=== PATIENT | male | born 1945 | race Caucasian/White ===

== ENCOUNTER → 2016-07-03 | Outpatient (CLI) | payer OTHER ==
[~2016-07-03] MED LIST: ACET-1311 PO; ACET650T82 PO; ASCO500T3 PO; GABA-113 PO; GLUCTAB7 PO; IBUP-1277 PO; LEVO88TA22 PO; NIAC1TAB59 PO; OMEG1CAP81 PO
[2016-07-03 13:47] LABS: ESTIMATED AVERAGE GLUCOSE 126 mg/dl; HA1C FLAG Normal (Normal)
[2016-07-03 13:50] LABS: CHOLESTEROL/HDL RATIO 6.1; THYROID STIMULATING HORMONE 5.33 uIu/ml (0.300-4.500)
--- NOTE | 2016-07-08 08:46 | CODING QUERY MEDICAL NECESSITY ---
SUPPORTING DIAGNOSIS NEEDED López MOROCHO, A supporting diagnosis is required for the test/procedure performed on this patient in order for us to be reimbursed by the patient's insurance. Please provide a supporting diagnosis for the following test/procedure listed below next to the test name along with your signature. *If there is no additional diagnosis for this patient that would support the following test/procedure please document that below next to the test/procedure. Test(s)/Procedure(s) that require a supporting diagnosis: * ([id number]) VITAMIN D ASSAY DIAGNOSIS: DATE OF SERVICE: 07/03/16 Provider Signature: Date: Thank you Wagner Regalado [facility] Information Management Once completed, please kindly fax back to [phone] For questions please call [phone]
== END | disposition home or self-care (01) ==
LOC: C.LABPVFM 07:46
PROVIDERS: ATTEND Nurse Practitioner
DX: E03.9 Hypothyroidism, unspecified (principal); E78.5 Hyperlipidemia, unspecified; R73.01 Impaired fasting glucose; G62.9 Polyneuropathy, unspecified; E55.9 Vitamin D deficiency, unspecified

== ENCOUNTER → 2016-09-11 | Outpatient (CLI) | payer OTHER ==
[2016-09-11 18:18] LABS: PROSTATE SPECIFIC ANTIGEN 0.452 ng/ml (0.000-4.000); THYROID STIMULATING HORMONE 2.94 uIu/ml (0.300-4.500)
--- NOTE | 2016-09-15 14:18 | CODING QUERY MEDICAL NECESSITY ---
SUPPORTING DIAGNOSIS NEEDED López MOROCHO, A supporting diagnosis is required for the test/procedure performed on this patient in order for us to be reimbursed by the patient's insurance. Please provide a supporting diagnosis for the following test/procedure listed below next to the test name along with your signature. *If there is no additional diagnosis for this patient that would support the following test/procedure please document that below next to the test/procedure. Test(s)/Procedure(s) that require a supporting diagnosis: * [id number] PSA DIAGNOSIS: DATE OF SERVICE: 09/11/16 Provider Signature: Date: Thank you Wagner Regalado [facility] Information Management Once completed, please kindly fax back to [phone] For questions please call [phone]
== END | disposition home or self-care (01) ==
LOC: C.LABPVFM 13:12
PROVIDERS: ATTEND Nurse Practitioner
DX: Z00.00 Encounter for general adult medical examination without abnormal findings (principal); E03.9 Hypothyroidism, unspecified; E55.9 Vitamin D deficiency, unspecified; Z12.5 Encounter for screening for malignant neoplasm of prostate

== ENCOUNTER → 2016-12-31 | Outpatient (CLI) | payer OTHER ==
[2016-12-31 13:44] LABS: ESTIMATED AVERAGE GLUCOSE 123 mg/dl; HA1C FLAG Normal (Normal)
[2016-12-31 14:30] LABS: BLOOD UREA NITROGEN 15 mg/dl (7-18); BUN/CREATININE RATIO 13.9 (10-20); CALCIUM 9.4 mg/dl (8.5-10.1); CARBON DIOXIDE 26 mmol/L (21-32); CHLORIDE 104 mmol/L (98-107); CREATININE 1.09 mg/dl (0.60-1.40); GLUCOSE 104 mg/dl (70-99); POTASSIUM 5.1 mmol/L (3.5-5.1); SODIUM 137 mmol/L (136-145)
[2016-12-31 14:33] LABS: CHOLESTEROL 224 mg/dl (0-200); CHOLESTEROL/HDL RATIO 6.1; HDL CHOLESTEROL 37 mg/dl; LDL CHOLESTEROL CALCULATED 152 mg/dl; TRIGLYCERIDES 173 mg/dl (0-150); VERY LOW DENSITY LIPOPROT CALC 35 mg/dl
== END | disposition home or self-care (01) ==
LOC: C.LABPVFM 07:37
PROVIDERS: ATTEND Nurse Practitioner
DX: G62.9 Polyneuropathy, unspecified (principal); R73.01 Impaired fasting glucose; E78.5 Hyperlipidemia, unspecified

== ENCOUNTER → 2017-02-01 | Outpatient (CLI) | payer OTHER ==
--- NOTE | 2017-02-01 15:29 | DIAGNOSTIC IMAGING REPORT ---
L RIBS UNILATERAL WITH PA CHEST CLINICAL HISTORY: Left rib pain COMPARISON STUDY: Chest x-ray dated 05/04/2012 FINDINGS: The erect chest reveals evidence for underlying interstitial pulmonary opacities with a subpleural distribution. There is no pneumothorax. No left-sided rib fractures are visualized. IMPRESSION: 1. No evidence of pneumothorax 2. No rib fractures identified 3. Suspected underlying interstitial lung disease Electronically signed by: Burt Horn M.D. 02/01/2017 3:27 PM Dictated Date/Time: 02/01/2017 3:26 PM
== END | disposition home or self-care (01) ==
LOC: C.RADPV 14:50
PROVIDERS: ATTEND Family Medicine
DX: R07.81 Pleurodynia (principal)

== ENCOUNTER → 2017-07-02 | Outpatient (CLI) | payer OTHER ==
[2017-07-02 13:32] LABS: BLOOD UREA NITROGEN 16 mg/dl (7-18); CALCIUM 8.8 mg/dl (8.5-10.1); CARBON DIOXIDE 27 mmol/L (21-32); CHOLESTEROL 216 mg/dl (0-200); CREATININE 0.93 mg/dl (0.60-1.40); GLUCOSE 87 mg/dl (70-99); HEMOGLOBIN A1C 5.9 % (4.5-5.6); LDL CHOLESTEROL CALCULATED 147 mg/dl; POTASSIUM 4.2 mmol/L (3.5-5.1); SODIUM 138 mmol/L (136-145)
== END | disposition home or self-care (01) ==
LOC: C.LABPVFM 08:15
PROVIDERS: ATTEND Nurse Practitioner
DX: E78.5 Hyperlipidemia, unspecified (principal); R73.01 Impaired fasting glucose; G62.9 Polyneuropathy, unspecified; E55.9 Vitamin D deficiency, unspecified; E03.9 Hypothyroidism, unspecified

== ENCOUNTER 2024-02-19 12:06 | Observation (INO) ==
--- NOTE | 2024-02-19 12:43 | Emergency Department Note ---
Impression & Plan Abnormal ECG, Shortness of breath, Elevated troponin ED Provider Note NAME: QUETA NEAL AGE: 78 SEX: M : 1945 ARRIVES VIA: Walk-In INFORMANT: Patient ED PROVIDER(S): Ray Crews DO CHIEF COMPLAINT: Weakness HPI: Patient is an 78-year-old female who presents to the ER with a past medical history smoker, hypoxia, pulmonary fibrosis who presents ER for weakness. He notes that the weakness has been present for the past 1 to 2 days. He denies any headache or change in vision. He admits to shortness of breath has been getting worse. He is getting more short of breath with exertion. It has not changed in any way. No chest pain. No belly pain. No nausea, vomiting, or diarrhea. No dysuria, urgency, or frequency. No focal weakness in the arms or legs. No other exacerbating or remitting factors. ADDITIONAL HISTORY OBTAINED: Per HPI Chronic Medical/Social Conditions Affecting Care: Per HPI PAST MEDICAL HISTORY:See Below PAST SURGICAL HISTORY:See Below FAMILY HISTORY:See Below SOCIAL HISTORY:See Below HOME MEDICATIONS:See Below ALLERGIES:See Below VITALS:See Below PHYSICAL EXAMINATION: GENERAL: Sitting up in bed, alert, well appearing, well nourished, no distress, non-toxic EYE EXAM: normal conjunctiva. OROPHARYNX: no exudate, no erythema, lips, buccal mucosa, and tongue normal and mucous membranes are moist NECK: supple, no nuchal rigidity, no adenopathy, non-tender LUNGS: Clear to auscultation. Normal chest wall mechanics HEART: no murmurs, S1 normal and S2 normal ABDOMEN: abdomen soft, non-tender, normo-active bowel sounds, no masses, no rebound or guarding. UPPER EXTREMITIES: upper extremities are grossly normal. LOWER EXTREMITIES: No pitting edema. NEURO EXAM: Normal sensorium, cranial nerves II-XII grossly intact, normal speech, no gross weakness of arms, no gross weakness of legs. MEDICAL DECISION MAKING: Patient is an 78-year-old male who presents to the ER for weakness and worsening shortness of breath. IV was established and blood work was obtained. Labs show no significant leukocytosis or anemia. BMP with LFTs bilirubin is unremarkable. Troponin was elevated at 73. Viral panel was negative. EKG did show changes in comparison to the previous. At rest patient has no chest pain or shortness of breath. Patient was covered with Rocephin and azithromycin due to a chest x- ray suggesting a possible infiltrate. He was updated bedside. Discussed case with the hospitalist for further evaluation management treatment. Consults/Care Managements Discussions: Per [facility] Triage Nursing notes reviewed. Limited review of prior medical records performed Vital Signs: reviewed and remarkable for no significant abnormalities Differential diagnosis: Infection, dehydration, metabolic abnormality, hypo/hyperglycemia, electrolyte disturbance, anemia, hypoxia, cardiac sources, intracerebral event, toxicologic, neurologic, as well as other pathologies. ER treatment provided: See below Diagnostics interpreted by me include EKG and cardiac monitoring as listed below: -Cardiac Monitoring: An order was placed for continuous cardiac monitoring. The monitor shows a rate of 81 with sinus rhythm. -ECG: Sinus rhythm rate 80 Normal axis No PVCs Left bundle branch block Slight elevations in the inferior leads QTc 499 EKG #2 Sinus rhythm with a first-degree AV block rate of 64 Normal axis no wound T wave inversion in the high lateral leads with ST depressions QTc 484 -Laboratory studies:Interpreted by me as stated above in MDM and shown below. Imaging studies: Xrays: As interpreted by me: Portable AP upright 1 view of the chest shows diffuse interstitial thickening Chest x-ray per radiology shows a left lower lobe infiltrate CTs show: none Procedures:none Critical Care: None Past Med/Surg History Problem List (Updated 02/19/24 @ 17:41 by Ray Crews DO) Elevated troponin (Acute) Shortness of breath (Acute) Abnormal ECG (Acute) Exertional angina Pulmonary fibrosis Dyspnea Encounter for examination following treatment at hospital Shortness of breath Hypoxia Cigar smoker ILD (interstitial lung disease) Pulmonary nodule Restrictive lung disease IPF (idiopathic pulmonary fibrosis) Abnormal chest CT Abnormal CXR Dyspnea on exertion Weight loss Allergic rhinitis Pre-diabetes Elevated bilirubin Orthostasis LBBB (left bundle branch block) Nystagmus Elevated serum globulin level (Acute) Hypertension (Chronic) not currently on meds d/y orthostasis and syncopal episodes. See Dr Larkin OV 03/07 re: recommendations Chronic back pain (Chronic) GERD (gastroesophageal reflux disease) (Acute) Hyperlipidemia (Chronic) refuses statin Peripheral neuropathy (Chronic) Primary hypothyroidism (Chronic) Vitamin D deficiency (Chronic) Medical History Syncopal episodes Lesion of finger Actinic keratosis Smokeless tobacco use Spinal stenosis Osteoarthritis Surgical History History of cataract surgery History of tooth extraction History of cholecystectomy History of total hip arthroplasty History of colonoscopy Family History Mother Family history of diabetes mellitus Ovarian cancer Sister Family history of diabetes mellitus Breast cancer Denies family history of Prostate cancer Myocardial infarction Colorectal cancer Social History (Updated 12/16/23 @ 09:29 by Afua Ruiz LPN) Smoking Status: Former smoker Tobacco Type: Cigars Cigarettes Per Day: 1 cigar 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; Second Hand Exposure: Yes (PREVIOSU EXPOSURE WHEN WAS ALIVE); Do You Dip or Chew Tobacco: No; Hx Alcohol Use: No Hx Substance Use: No Preferred Language: Thai Communication Ability: Effective Visual Impairment: No Limitations Hearing Ability: Normal 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 Beliefs That Will Affect Care: None marital status: / Current Living Situation: Alone current occupational status: retired How many Children do You have: 1 Feels Safe at Home: Yes Childhood Exposure to Second-Hand Smoke: No Diet: regular caffeine: Yes Dental Care, Regularly: No Physical Activity Frequency: 5-6 Times per Week Seatbelt Use: always Sunscreen Use: No Assistive Devices: None Allergies Allergies Allergy/AdvReac Type Severity Reaction Status Date / Time No Known Allergies Allergy Verified 01/12/24 10:03 Home Meds Home Medications Medication Instructions Recorded Confirmed niacin 500 mg tablet 500 mg PO QPM 12/07/17 02/19/24 ascorbic acid (vitamin C) 500 mg 500 mg PO DAILY 09/13/23 02/19/24 tablet (Vitamin C) cholecalciferol (vitamin D3) 50 50 mcg PO DAILY 09/13/23 02/19/24 mcg (2,000 unit) tablet (Vitamin D3) fluticasone propionate 50 1 spray intranasal BID PRN 09/13/23 02/19/24 mcg/actuation nasal Congestion spray,suspension diphenhydramine 25 1 tab PO HS PRN pain/sleep 11/02/23 02/19/24 mg-acetaminophen 500 mg tablet (Tylenol PM Extra Strength) Previous Rx's Medication Instructions Recorded Incentive Spirometer #1 ea 08/09/23 levothyroxine 100 mcg capsule 100 mcg PO DAILY #90 caps 08/23/23 pirfenidone 267 mg capsule See Rx Instructions PO .COMPLEX 11/05/23 (Esbriet) #360 caps albuterol sulfate 90 mcg/actuation 1 inh inhalation QID PRN shortness 01/06/24 aerosol inhaler of breath or wheezing #8.5 grams Results & Data (ED) Vital Signs Vital Signs - 24 hr 02/19/24 12:12 02/19/24 13:28 02/19/24 16:50 Temperature 36.6 C Temperature Source Temporal Artery Scan Pulse Rate 76 64 Pulse Rate [Apical] 73 Pulse Rhythm [Apical] Regular Pulse Strength [Apical] Normal Respiratory Rate 18 26 H Respiratory Effort / Characteristics Non-Labored Respiratory Depth Normal Blood Pressure 129/77 Blood Pressure [Left Arm] 169/87 H Blood Pressure Mean 94 Blood Pressure Mean [Left Arm] 114 Blood Pressure Position Sitting Blood Pressure Position [Left Arm] Sitting Pulse Oximetry 95 98 Oxygen Delivery Method Room Air Room Air Sepsis Recent Fever Within 48 Hours No Sepsis New/Unexplained Change in Mental Status N/A Sepsis Action Taken by Nursing No Action Required Laboratory Data 02/19/24 12:30 02/19/24 12:30 Lab Results 02/19/24 02/19/24 Range/Units 12:30 12:35 WBC 7.61 (4.8-10.8) K/ul RBC 4.42 L (4.70-6.10) M/uL Hgb 14.5 (14.0-18.0) g/dl Hct 41.9 L (42.0-52.0) % MCV 94.8 (80.0-100.0) fL MCH 32.8 (25.0-34.0) pg MCHC 34.6 (32.0-36.0) g/dL RDW Std Deviation 45.0 (36.4-46.3) fL RDW Coeff of Christa 12.9 (11.5-14.5) % Plt Count 222 (130-400) K/uL MPV 9.9 (9.4-12.4) fL Immature Gran % (Auto) 0.3 % Neut % (Auto) 71.0 % Lymph % (Auto) 20.0 % [place] % (Auto) 6.4 % Eos % (Auto) 1.6 % Baso % (Auto) 0.7 % Neut # (Auto) 5.41 (1.40-6.50) K/uL Lymph # (Auto) 1.52 (1.20-3.40) K/uL [place] # (Auto) 0.49 (0.11-0.59) K/uL Eos # (Auto) 0.12 (0.00-0.50) K/uL Baso # (Auto) 0.05 (0.00-0.20) K/uL Immature Gran # (Auto) 0.02 (0.01-0.20) K/uL Sodium 137 (136-145) mmol/L Potassium 4.2 (3.5-5.1) mmol/L Chloride 103 (98-107) mmol/L Carbon Dioxide 28 (21-32) mmol/L Anion Gap 6 (3-11) BUN 12 (6-23) mg/dl Creatinine 0.84 (0.6-1.4) mg/dl Est Cr Clr Drug Dosing 68.7 ml/min eGFR 88.16 BUN/Creatinine Ratio 14.3 (10-20) Glucose 93 (70-99(Fasting)) mg/dl Calcium 9.4 (8.6-10.3) mg/dl Total Bilirubin 0.7 (0.2-1.0) mg/dl AST 24 (13-39) U/L ALT 13 (7-52) U/L Alkaline Phosphatase 66 (34-104) U/L Troponin I High Sens 73.7 H* (0-20) pg/ml Total Protein 7.9 (6.0-8.3) gm/dl Albumin 4.3 (3.4-5.0) gm/dl Globulin 3.6 (2.5-4.0) gm/dl Albumin/Globulin Ratio 1.2 (0.9-2) Adenovirus (PCR) Not Detected (NotDetected) B. pertussis DNA (PCR) Not Detected (NotDetected) B.parapertussis DNA PCR Not Detected (NotDetected) C. pneumoniae DNA (PCR) Not Detected (NotDetected) Coronavirus OC43 (PCR) Not Detected (NotDetected) Coronavirus HKU1 (PCR) Not Detected (NotDetected) Coronavirus 229E (PCR) Not Detected (NotDetected) SARS-CoV-2 (PCR) Not Detected (NotDetected) Coronavirus NL63 (PCR) Not Detected (NotDetected) Human Metapneumovir PCR Not Detected (NotDetected) Influenza Type A (PCR) Not Detected (NotDetected) Influenza Type B (PCR) Not Detected (NotDetected) M. pneumoniae (PCR) Not Detected (NotDetected) Parainfluenza 1 (PCR) Not Detected (NotDetected) Parainfluenza 2 (PCR) Not Detected (NotDetected) Parainfluenza 3 (PCR) Not Detected (NotDetected) Parainfluenza 4 (PCR) Not Detected (NotDetected) RSV (PCR) Not Detected (NotDetected) Entero/Rhino (PCR) Not Detected (NotDetected) Administered Medications Discontinued Medications Aspirin (Aspirin Chew 324 Mg) 324 mg PO NOW STA Stop: 02/19/24 16:23 Last Admin: 02/19/24 16:40 Dose: 324 mg Documented By: MAGNOLIA Azithromycin (Azithromycin 250 Mg Tab) 500 mg PO NOW ONE Stop: 02/19/24 15:29 Last Admin: 02/19/24 16:40 Dose: 500 mg Documented By: MAGNOLIA Sodium Chloride (Nss) 500 mls @ 999 mls/hr IV .Q31M ONE Stop: 02/19/24 13:03 Last Infusion: 02/19/24 13:32 Dose: Infused Documented By: Admin: 02/19/24 13:00 Dose: 999 mls/hr Documented By: Ceftriaxone Sodium (Rocephin) 2,000 mg in 50 mls @ 100 mls/hr IV NOW STA Stop: 02/19/24 15:35 Last Admin: 02/19/24 16:43 Dose: 100 mls/hr Documented By: [facility] Imaging Data Radiologist's Impression: Chest X-Ray 02/19/24 12:32 XR chest 1V not portable CLINICAL HISTORY: weakness COMPARISON STUDY: Chest radiograph and chest CT September 13, 2023. FINDINGS: There is no pneumothorax or pleural effusion. Diffuse interstitial thickening with lower lobe volume loss is unchanged. A 1.3 cm nodular left lower lung opacity is new since prior exam. Cardiomegaly is unchanged. Mediastinal contours are stable. IMPRESSION: 1. Interstitial thickening consistent with pulmonary fibrosis, similar to prior chest CT and chest radiograph. 2. New 1.3 cm nodular left lower lung opacity. This could represent a mild infectious process. Radiographic follow-up to ensure resolution and exclude a pulmonary nodule is recommended. ACT 112: Negative or not required by law. Electronically signed by: Baljeet Vazquez M.D. 02/19/2024 1:48 PM Discharge Plan Visit Data Chief Complaint: Illness Stated Complaint: FATIGUE, PULMINARY FIBROSIS, WEIGHT LOSS, POOR CIERA ED Provider: Ray Crews Discharge Problem: Abnormal ECG, Shortness of breath, Elevated troponin Forms Stand Alone Forms: My [facility] [employer] Prescriptions Prescriptions: No Action levothyroxine 100 mcg capsule 100 mcg PO DAILY Qty: 90 3RF Rx Instructions: last filled 02/11 pt aware dose change albuterol sulfate 90 mcg/actuation HFA aerosol inhaler 1 inh inhalation QID PRN (Reason: shortness of breath or wheezing) Qty: 8.5 1RF Rx Instructions: filled 02/09 (DME) Incentive Spirometer Misc See Rx Instructions .MEDSUPPLY Qty: 1 0RF Rx Instructions: As directed diphenhydramine-acetaminophen [Tylenol PM Extra Strength] 25-500 mg tablet 1 tab PO HS PRN (Reason: pain/sleep) Rx Instructions: 03/10/24:otc unable to verify pirfenidone [Esbriet] 267 mg capsule See Rx Instructions PO .COMPLEX Qty: 360 2RF Rx Instructions: 02/19/24: no fill history available take 1 capsule 3 times daily for 7 days; 2 capsules 3 times daily for 7 days, then 3 capsules 3 times daily. PO niacin 500 mg Tablet 500 mg PO QPM Rx Instructions: 03/10/24:otc unable to verify cholecalciferol (vitamin D3) [Vitamin D3] 50 mcg (2,000 unit) Tablet 50 mcg PO DAILY Rx Instructions: 03/10/24:otc unable to verify ascorbic acid (vitamin C) [Vitamin C] 500 mg Tablet 500 mg PO DAILY Rx Instructions: 03/10/24:otc unable to verify fluticasone propionate 50 mcg/actuation spray,suspension 1 spray intranasal BID PRN (Reason: Congestion) Rx Instructions: 02/19/24:no fill history/otc unable to verify 1 spray intranasally twice daily as needed; administer into each nostril Referrals Referrals: Nikki Dawn CRNP [Primary Care Provider] -
[2024-02-19] MEDS: SODIUM CHLORIDE 0.9% 500 ML IV ONE (13:00)
[2024-02-19 13:07] LABS: Basophils # (auto) 0.05 K/uL (0.00-0.20); Basophils % (auto) 0.7 %; Eosinophils # (auto) 0.12 K/uL (0.00-0.50); Eosinophils % (auto) 1.6 %; Hematocrit (blood only) 41.9 % (42.0-52.0); Hemoglobin 14.5 g/dl (14.0-18.0); Immature Granulocytes # (auto) 0.02 K/uL (0.01-0.20); Immature Granulocytes % (auto) 0.3 %; Lymphocytes # (auto) 1.52 K/uL (1.20-3.40); Mean Corpuscular Hemoglobin 32.8 pg (25.0-34.0); Mean Corpuscular Hgb Conc 34.6 g/dL (32.0-36.0); Mean Corpuscular Volume 94.8 fL (80.0-100.0); Mean Platelet Volume 9.9 fL (9.4-12.4); Monocytes # (auto) 0.49 K/uL (0.11-0.59); Monocytes % (auto) 6.4 %; Neutrophils # (auto) 5.41 K/uL (1.40-6.50); Platelet Count 222 K/uL (130-400); RDW Coefficient of Variation 12.9 % (11.5-14.5); Red Blood Count 4.42 M/uL (4.70-6.10); White Blood Count 7.61 K/ul (4.8-10.8)
[2024-02-19 13:25] LABS: Albumin Globulin Ratio 1.2 (0.9-2); Albumin Level 4.3 gm/dl (3.4-5.0); BUN Creatinine Ratio 14.3 (10-20); Bilirubin,Total 0.7 mg/dl (0.2-1.0); Calcium 9.4 mg/dl (8.6-10.3); Creatinine Clr Calc Pharmacy 68.7 ml/min; Globulin 3.6 gm/dl (2.5-4.0); Potassium 4.2 mmol/L (3.5-5.1); Total Protein 7.9 gm/dl (6.0-8.3)
[2024-02-19 13:51] LABS: Adenovirus PCR Not Detected (NotDetected); Bordetella parapertussis PCR Not Detected (NotDetected); Bordetella pertussis PCR Not Detected (NotDetected); Chlamydia pneumoniae PCR Not Detected (NotDetected); Coronavirus 229E PCR Not Detected (NotDetected); Coronavirus CoV-2 (COVID19)PCR Not Detected (NotDetected); Coronavirus HKU1 PCR Not Detected (NotDetected); Coronavirus NL63 PCR Not Detected (NotDetected); Coronavirus OC43PCR Not Detected (NotDetected); Human Metapneumovirus PCR Not Detected (NotDetected); Influenza A PCR Not Detected (NotDetected); Influenza B PCR Not Detected (NotDetected); Mycoplasma pneumoniae PCR Not Detected (NotDetected); Parainfluenza Virus 1 PCR Not Detected (NotDetected); Parainfluenza Virus 2 PCR Not Detected (NotDetected); Parainfluenza Virus 3 PCR Not Detected (NotDetected); Parainfluenza Virus 4 PCR Not Detected (NotDetected); Respiratory Syncytial VirusPCR Not Detected (NotDetected); Rhinovirus/Enterovirus PCR Not Detected (NotDetected)
--- NOTE | 2024-02-19 13:51 | XRay Report ---
XR chest 1V not portable CLINICAL HISTORY: weakness COMPARISON STUDY: Chest radiograph and chest CT September 13, 2023. FINDINGS: There is no pneumothorax or pleural effusion. Diffuse interstitial thickening with lower lo be volume loss is unchanged. A 1.3 cm nodular left lower lung opacity is new since prior exam. Cardio megaly is unchanged. Mediastinal contours are stable. IMPRESSION: 1. Interstitial thickening consistent with pulmonary fibrosis, similar to prior chest CT and chest ra diograph. 2. New 1.3 cm nodular left lower lung opacity. This could represent a mild infectious process. Radiog raphic follow-up to ensure resolution and exclude a pulmonary nodule is recommended. ACT 112: Negative or not required by law. Electronically signed by: Baljeet Vazquez M.D. 02/19/2024 1:48 PM
--- NOTE | 2024-02-19 15:40 | History & Physical Report ---
Date of Service February 19, 2024 Assessment & Plan (1) Exertional angina: Plan: patient with history of pulmonary fibrosis, longtime smoker external dyspnea and chest pain weakness x2 days EKG showing changes from previous, 1st degree av block, slurred upstroke of ST segments in anterior leads - trop elevated 73.7; ASA ordered, will trend trop overnight - obs telemetry overnight - echo ordered - cardiology consulted - possible stress test vs cath - EKG with chest pain prn (2) Dyspnea: Plan: non-hypoxic CXR showing pulmonary fibrosis along with new 1.3 cm nodule of left lower lobe that could be infectious Biofire negative ED gave Rocephin 2g x1 and azithromycin; defer further ABX use as biofire negative and infection low on differential (3) Pulmonary nodule: Plan: 1.3 cm nodule LLL seen on CXR Not seen on recent CT 09/13/23 will obtain a chest CT 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 He presents for weakness dyspnea and x 2 days. Admitting EKG showed similar changes including first degree A-V block ST slurred upstroke. He is being admitted for a cardiac workup, will obtain echo; consulting cardiology, may need stress test versus cath. Chronic stable diagnoses: HLD - continue Niaspan; has refused statins in past hypothyroidism - continue levothyroxine VTE ppx: SCDs; obs - can add chemical ppx if chcf stay Diet: heart healthy Dispo: med/tele - obs Admission and Anticipated Discharge Date Admission Date: 02/19/24 History of Present Illness Chief Complaint: weakness Primary Care Provider: BAILEE Neff Patient is an 78-year-old male with past medical history of pulmonary fibrosis, spinal stenosis, hypothyroidism, hyperlipidemia. He presents today due to weakness x 2 days CXR showed pulmonary fibrosis along with a new 1.3 cm nodule of the left lower lobe. He does have a history of syncopal episodes due to hypotension, he follow-up with cardiology and had a Holter monitor that showed LBBB. Patient stated that he has had weakness and dyspnea on exertion x 2 days. He also stated that he has chest pain on exertion after chronic dyspnea. He stated the chest pain "just is" when asked to describe the pain. Denies radiation of chest pain. He also has occasional diarrhea. He has had a decreased appetite for the past few days as well, has had a strong fluid intake. Patient denies fever, chills, rhinorrhea, sore throat, cough, sputum production, abdominal pain, nausea, vomiting. He stated he had 1 syncopal episode and had a workup with cardiology which did not really show much. He stated he occasionally gets dizzy when standing up too fast. He denies past history of diabetes or previous VTE. He does not use oxygen at baseline. He took his home medications this morning. He is due for his lunchtime dose pirefenidone, ordered on admission. He wishes to be DNR/DNI. Updated patients family at bedside. Allergies Allergy/AdvReac Type Severity Reaction Status Date / Time No Known Allergies Allergy Verified 01/12/24 10:03 Home Medications Medication Instructions Recorded Confirmed Type niacin 500 mg tablet 500 mg PO QPM 12/07/17 02/19/24 History Incentive Spirometer #1 ea 09/23/22 01/12/24 Rx levothyroxine 100 mcg capsule 100 mcg PO DAILY #90 caps 08/23/23 02/19/24 Rx ascorbic acid (vitamin C) 500 mg 500 mg PO DAILY 09/13/23 02/19/24 History tablet (Vitamin C) cholecalciferol (vitamin D3) 50 50 mcg PO DAILY 09/13/23 02/19/24 History mcg (2,000 unit) tablet (Vitamin D3) fluticasone propionate 50 1 spray intranasal BID PRN 09/13/23 02/19/24 History mcg/actuation nasal Congestion spray,suspension diphenhydramine 25 1 tab PO HS PRN pain/sleep 11/02/23 02/19/24 History mg-acetaminophen 500 mg tablet (Tylenol PM Extra Strength) pirfenidone 267 mg capsule See Rx Instructions PO .COMPLEX 11/05/23 02/19/24 Rx (Esbriet) #360 caps albuterol sulfate 90 mcg/actuation 1 inh inhalation QID PRN shortness 01/06/24 02/19/24 Rx aerosol inhaler of breath or wheezing #8.5 grams Past Med/Surg History Problem List (Updated 02/19/24 @ 16:33 by Lisbeth Lynch PA-C) Exertional angina Pulmonary fibrosis Dyspnea Encounter for examination following treatment at hospital Shortness of breath Hypoxia Cigar smoker ILD (interstitial lung disease) Pulmonary nodule Restrictive lung disease IPF (idiopathic pulmonary fibrosis) Abnormal chest CT Abnormal CXR Dyspnea on exertion Weight loss Allergic rhinitis Pre-diabetes Elevated bilirubin Orthostasis LBBB (left bundle branch block) Nystagmus Elevated serum globulin level (Acute) Hypertension (Chronic) not currently on meds d/y orthostasis and syncopal episodes. See Dr Larkin OV 03/07 re: recommendations Chronic back pain (Chronic) GERD (gastroesophageal reflux disease) (Acute) Hyperlipidemia (Chronic) refuses statin Peripheral neuropathy (Chronic) Primary hypothyroidism (Chronic) Vitamin D deficiency (Chronic) Medical History Syncopal episodes Lesion of finger Actinic keratosis Smokeless tobacco use Spinal stenosis Osteoarthritis Surgical History History of cataract surgery History of tooth extraction History of cholecystectomy History of total hip arthroplasty History of colonoscopy Family History Mother Family history of diabetes mellitus Ovarian cancer Sister Family history of diabetes mellitus Breast cancer Denies family history of Prostate cancer Myocardial infarction Colorectal cancer Social History (Updated 12/16/23 @ 09:29 by Afua Ruiz LPN) Smoking Status: Former smoker Tobacco Type: Cigars Cigarettes Per Day: 1 cigar 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; Second Hand Exposure: Yes (PREVIOSU EXPOSURE WHEN WAS ALIVE); Do You Dip or Chew Tobacco: No; Hx Alcohol Use: No Hx Substance Use: No Preferred Language: Sinhala Communication Ability: Effective Visual Impairment: No Limitations Hearing Ability: Normal Manager Land Required: No Beliefs That Will Affect Care: None marital status: / Current Living Situation: Alone current occupational status: retired How many Children do You have: 1 Feels Safe at Home: Yes Childhood Exposure to Second-Hand Smoke: No Diet: regular caffeine: Yes Dental Care, Regularly: No Physical Activity Frequency: 5-6 Times per Week Seatbelt Use: always Sunscreen Use: No Assistive Devices: None Review of Systems Review of Systems: see HPI Physical Exam Physical Exam: The patient is awake, alert and oriented 3, well developed and well nourished, normocephalic and atraumatic, in no acute distress. Non-toxic appearing. HEENT- EOMI, mucous membranes moist. Hearing grossly intact. Heart-normal S1 and S2. No murmurs, rubs or gallops. Lungs-crackles bilaterally, no respiratory distress, no accessory muscle use. Abdomen-normal bowel sounds and soft. No ascites noted. Non-tender. Extremities- no clubbing, cyanosis, or edema. Rheumatologic-normal range of motion. Psychiatric-normal affect. Results & Data Results & Data Vital Signs (Past 12 Hours) Vital Signs Temp Pulse Resp BP Pulse Ox O2 Del Method 02/19/24 13:28 64 02/19/24 12:12 36.6 C 76 18 129/77 95 Room Air Laboratory Results reviewed CBC, CMP, biofire, trop Diagnostic Findings reviewed CXR Medications Administered ED: 500 mL NSS, Rocephin ECG Additional Comments: 1st degree AV block Code Status & VTE Plan Code Status dnr/dni VTE Prophylaxis Plan VTE Prophylaxis will be ordered: Yes Supervising Physician Co-Signing Physician Notes I have personally seen, evaluated and examined the patient. I have also personally discussed the management of the patient with the resident physician/CIERA and I agree with the exam findings documented in the history and physical examination and the documented assessment and plan unless otherwise stated below. Brief Exam: In general very pleasant 78-year-old male. He does admit to some significant weight loss over the last year with his pulmonary fibrosis. He even gets winded with eating. But his shortness of breath and weakness of significantly increased here over the last 24 hours since the presentation today. He denies any wyatt chest pain or chest pressure. Patient reports he is retired from the [employer] over in [place] and served 2 years in [email or web address]. HEENT: Normocephalic atraumatic. Heart: Regular rate and rhythm I do not appreciate any wyatt murmur however auscultation is masked by his pulmonary fibrosis. Lungs: Bilateral pulmonary crackles consistent with advancing pulmonary fibrosis. Extremities: Intact no edema. Neurologically: Alert and oriented x 3 with no focal deficit. Assessment/plan: As discussed above. Serial troponins. Aspirin therapy. If repeat troponin is significantly higher entertain heparin drip. Cardiology cons ultation for ischemic workup stress test versus heart catheterization pending echo results and troponin results and clinical course. Please refer to orders for further planning. PG Care Time/CCT Total # of Minutes Spent Total Time Spent with Patient: Total time spent is greater than 50% in coordination of care (as documented) at patient's floor/unit and/or counseling patient: Coding Level of Care Code 42603 INT INP/OBS CARE 3/75MIN Diagnoses Exertional angina I20.89 Dyspnea R06.00 Pulmonary nodule R91.1 Pulmonary fibrosis J84.10
[2024-02-19 15:59] LABS: Troponin I High Sensitivity 73.7 pg/ml (0-20)
[2024-02-19] MEDS ORDERED: PIRFENIDONE 801 MG PO STA (16:16)
[2024-02-19] MEDS: ASPIRIN CHEW 324 MG PO STA (16:40)
[2024-02-19] MEDS: AZITHROMYCIN 250 MG TAB PO ONE (16:40)
[2024-02-19] MEDS: cefTRIAXone SODIUM 2,000 MG/50 ML BAG IV STA (16:43)
[2024-02-19] MEDS ORDERED: NON-FORMULARY MEDICATION (Diphenhydramine-Acetaminophen [Tylenol Pm Extra Strength] 25-500 PO PRN (18:23)
[2024-02-19] MEDS ORDERED: DOCUSATE SODIUM 100 MG CAP PO PRN (18:23)
[2024-02-19] MEDS ORDERED: FLUTICASONE PROPIONATE NA SPR 16 GM BTL PRN (18:23)
[2024-02-19] MEDS ORDERED: ALBUTEROL HFA 8 GM INHALER INH PRN (18:23)
[2024-02-19] MEDS ORDERED: ACETAMINOPHEN 500 MG TAB PO PRN (18:32)
[2024-02-19] MEDS ORDERED: diphenhydrAMINE Capsule 25 MG CAP PO PRN (18:33)
[2024-02-19] MEDS: NIACIN 500 MG TAB PO SCH (20:13)
[2024-02-20] MEDS: LEVOTHYROXINE SODIUM 100 MCG TABLET PO SCH (06:02)
[2024-02-20 06:20] LABS: Appearance Urine Clear (Clear); Bacteria Urine Automated None Seen (None Seen); Bilirubin Urine Negative (Negative); Blood Urine Negative (Negative); Cast Urine Automated 0-2 /lpf (0-2); Color Urine Yellow; Epithelial Cell Urine Auto 0-2 /hpf (0-2); Glucose Urine UA Negative (Negative); Ketones Urine 2+ (Negative); Leukocyte Esterase Urine Negative (Negative); Nitrite Urine Negative (Negative); Protein Urine Trace (Negative); RBC Urine Automated 0-2 /hpf (0-2); Specific Gravity Urine 1.023 (1.000-1.030); Urobilinogen Urine Negative (Negative); WBC Urine Automated 0-5 /hpf (0-5); pH Urine 5.5 (4.5-7.5)
[2024-02-20 06:44] LABS: Basophils # (auto) 0.07 K/uL (0.00-0.20); Eosinophils # (auto) 0.37 K/uL (0.00-0.50); Eosinophils % (auto) 5.2 %; Hematocrit (blood only) 37.3 % (42.0-52.0); Hemoglobin 12.9 g/dl (14.0-18.0); Immature Granulocytes # (auto) 0.02 K/uL (0.01-0.20); Immature Granulocytes % (auto) 0.3 %; Lymphocytes # (auto) 1.59 K/uL (1.20-3.40); Lymphocytes % (auto) 22.4 %; Mean Corpuscular Hemoglobin 32.6 pg (25.0-34.0); Mean Corpuscular Hgb Conc 34.6 g/dL (32.0-36.0); Mean Corpuscular Volume 94.2 fL (80.0-100.0); Mean Platelet Volume 9.7 fL (9.4-12.4); Monocytes # (auto) 0.62 K/uL (0.11-0.59); Monocytes % (auto) 8.7 %; Neutrophils # (auto) 4.43 K/uL (1.40-6.50); Neutrophils % (auto) 62.4 %; Platelet Count 200 K/uL (130-400); RDW Coefficient of Variation 12.9 % (11.5-14.5); RDW Standard Deviation 44.5 fL (36.4-46.3); Red Blood Count 3.96 M/uL (4.70-6.10)
[2024-02-20 07:02] LABS: BUN Creatinine Ratio 16.7 (10-20); Calcium 8.7 mg/dl (8.6-10.3); Creatinine Clr Calc Pharmacy 76.2 ml/min; Potassium 4.4 mmol/L (3.5-5.1)
[2024-02-20] MEDS: ASCORBIC ACID 500 MG TAB PO SCH (08:17)
[2024-02-20] MEDS: CHOLECALCIFEROL 25 MCG (1000 UNITS) TAB PO SCH (08:17)
--- NOTE | 2024-02-20 08:44 | CT Scan Report ---
CT OF THE CHEST WITHOUT IV CONTRAST CLINICAL HISTORY: Left lower lobe nodule. COMPARISON STUDY: Chest CT September 13, 2023. Chest radiograph performed earlier today. CT DOSE: 263.24 mGy.cm TECHNIQUE: Axial images of the chest were obtained without IV contrast. Images were reviewed in the axial, sagittal, and coronal planes. IV contrast was not administered for this examination. Automat ed exposure control was utilized for the study. A dose lowering technique was utilized adhering to t he principles of ALARA. FINDINGS: A small amount of pneumomediastinum is present. There is no pneumothorax or pleural effusi on. The heart is moderately enlarged. Dilatation of the central pulmonary arteries is again noted. Th e main pulmonary artery measures 3.5 cm in caliber. There is extensive coronary artery calcification. There is no pneumothorax or pleural effusion. Basilar and peripheral prominent honeycombing and subp leural nodular densities is similar to prior CT. No superimposed consolidation is identified to sugge st pneumonia. There are no suspicious pulmonary nodules. The nodular density on chest radiograph was likely due to a nipple shadow. Visualized portions of the upper abdomen demonstrate pneumobilia. The gallbladder is surgically absent. IMPRESSION: 1. Small amount of pneumomediastinum. No pneumothorax or pleural effusion. 2. UIP pattern of pulmonary fibrosis, similar to CT of September 13, 2023. No superimposed consolidation t o suggest pneumonia. 3. No suspicious pulmonary nodules. The nodular density on chest radiograph of February 19, 2024 was li pancho due to a nipple shadow. 4. Cardiomegaly. Extensive coronary artery calcification. Dilatation of the central pulmonary arterie s which raises the possibility of pulmonary arterial hypertension. ACT 112: Negative or not required by law. Electronically signed by: Baljeet Vazquez M.D. 02/20/2024 8:41 AM
--- NOTE | 2024-02-20 08:50 | Cardiology Consultation ---
Date of Consultation February 20, 2024 Assessment & Plan (1) Shortness of breath: (2) Exertional angina: (3) Elevated troponin: (4) LBBB (left bundle branch block): Plan 1. Shortness of breath: This is longstanding and has been attributed to pulmonary disease, that is almost certainly a major component but I cannot exclude an additional component of myocardial ischemia or injury. His dyspnea on exertion has progressed over the last month or so. An echocardiogram is pending. 2. Exertional angina: He describes exertional angina over the last month, this has been progressive but he has not had rest symptoms. He has not had this historically. I suspect this is due to coronary artery disease. 3. Elevated troponin: This troponin elevation is worrisome. This coupled with chest discomfort, coronary calcification indicative of coronary artery disease and electrocardiographic changes (although these cannot be specifically interpreted as ischemic but his QRS is wider than in the past) indicate a need for further coronary evaluation. I would favor catheterization rather than stress testing in the setting. I discussed this with him and he is agreeable. 4. IVCD: His electrocardiogram is worse now with a wider QRS than he has had in the past, this could be due to ischemia or progressive conduction system disease. It does make looking for ischemic changes very difficult and I do not think we can use his electrocardiogram for risk stratification for coronary artery disease. I will make arrangements for catheterization tomorrow. History of Present Illness Attending Physician: Saulo Villa MD History of Present Illness This is an 78-year-old gentleman with a history of spinal stenosis but no known cardiac history. He does have high blood pressure, he was started on lisinopril July 13, 2019 and he had been watching his salt intake. He had been having difficulty with lightheadedness with standing since spring 2019. He recalls having an episode then when he was working in the garden when he stood up and fell down although he does not think he was unconscious for very long and he was not injured. He had noticed several other episodes of lightheadedness with standing, mostly following addition of lisinopril. He also had an episode of syncope which was unrelated to position change. He was sitting on a barstool at an [employer] store on January 16, 2020, he was just sitting there talking to someone when all of a sudden he ended up on the floor having struck his head and he awoke with the ambulance present so he must have been out for some time. There is only time he has ever had this type of event. He was unaware of palpitations. So far this has not recurred. An electrocardiogram done on January 16, 2020 shows sinus rhythm with first- degree AV block (WA interval 280 ms) with a left bundle type IVCD and QRS duration 148 ms. Evaluation included a 3-week event monitor from January 27, 2020 through February 25, 2020, this showed sinus rhythm with first-degree AV block and his known IVCD but no high-grade AV block and no significant bradycardia other than sinus bradycardia at night. He did have orthostatic symptoms during the monitoring period, however he did not trigger the monitor as the symptoms were improved with discontinuation of lisinopril, which I did on January 25, 2020. I also liberalized his salt intake. An echocardiogram done February 02, 2020 shows normal left ventricular size and systolic function with mild concentric left ventricular hypertrophy. No regional wall motion abnormalities. A 24-hour Holter monitor was performed on December 04, 2020 and this showed sinus rhythm with first-degree AV block throughout with a heart rate ranged from 49 to 122 bpm and an average of 71, rare premature ventricular beats and rare premature atrial beats. There was no AV block, pauses or bradycardia. He had no symptoms. A 3-day Holter monitor was scheduled from December 17, 2021 through December 20, 2021. This showed a heart rate ranged from 43 to 116 bpm with an average of 62 bpm. There were no significant atrial arrhythmias, no significant pauses and no AV block. Very rare PVCs. No symptoms were reported. A 3-day Holter monitor was performed from December 07, 2022 through December 10, 2022. He was in sinus rhythm throughout with a heart rate ranging from 50 to 111 bpm with an average of 67. No AV block and no significant arrhythmia. An echocardiogram done October 15, 2022 shows normal biventricular systolic function with moderate left ventricular hypertrophy and mild left atrial dilatation. He has been having increased difficulty with orthostatic symptoms over the last year although he does not think they have changed recently. He has to be careful when he stands up quickly, sometimes if he stands up quickly from his easy chair he will fall back into it. He did have little bit of lightheadedness in August when he was at the [facility], he lost his balance and fell and had a vertebral fracture. That is healing but still limits his activity. He is on no medications to lower his blood pressure. He has had no lightheadedness, dizziness or loss of consciousness. He also has pulmonary fibrosis and he is very short of breath with exertion from that but he does not use continuous oxygen. I last saw him in the office January 12, 2024 and his symptoms were stable. He presented to the emergency room on February 19, 2024 with several days of weakness as well as exertional dyspnea and chest discomfort. He describes progressive shortness of breath over the last month or so, as well as progressive shortness of breath and chest discomfort with activity. He reports having substernal chest discomfort when walking, or he has to stop and rest for it to resolve. He has not had rest symptoms. He has longstanding electrocardiographic abnormalities with a left bundle type IVCD and historically a QRS duration of under 150 ms. On his presentation now his electrocardiogram is different, the QRS duration is significantly longer (186 ms on February 19, 2024 at 1234 and 194 ms 2 hours later). His high-sensitivity troponin is significantly elevated, in the past it has been normal but on presentation this time it was 74, peaking at 291 about 12 hours after presentation and dropping to 243 this morning. He does have extensive coronary artery calcification on his chest CT this admission. Allergies Allergy/AdvReac Type Severity Reaction Status Date / Time No Known Allergies Allergy Verified 01/12/24 10:03 Home Medications Medication Instructions Recorded Confirmed Type niacin 500 mg tablet 500 mg PO QPM 12/07/17 02/19/24 History Incentive Spirometer #1 ea 09/23/22 01/12/24 Rx levothyroxine 100 mcg capsule 100 mcg PO DAILY #90 caps 08/23/23 02/19/24 Rx ascorbic acid (vitamin C) 500 mg 500 mg PO DAILY 09/13/23 02/19/24 History tablet (Vitamin C) cholecalciferol (vitamin D3) 50 50 mcg PO DAILY 09/13/23 02/19/24 History mcg (2,000 unit) tablet (Vitamin D3) fluticasone propionate 50 1 spray intranasal BID PRN 09/13/23 02/19/24 History mcg/actuation nasal Congestion spray,suspension diphenhydramine 25 1 tab PO HS PRN pain/sleep 11/02/23 02/19/24 History mg-acetaminophen 500 mg tablet (Tylenol PM Extra Strength) pirfenidone 267 mg capsule See Rx Instructions PO .COMPLEX 11/05/23 02/19/24 Rx (Esbriet) #360 caps albuterol sulfate 90 mcg/actuation 1 inh inhalation QID PRN shortness 01/06/24 02/19/24 Rx aerosol inhaler of breath or wheezing #8.5 grams Patient History Medical History Syncopal episodes Lesion of finger Actinic keratosis Smokeless tobacco use Spinal stenosis Osteoarthritis Surgical History History of cataract surgery RIGHT History of tooth extraction History of cholecystectomy History of total hip arthroplasty left History of colonoscopy Family History Mother Family history of diabetes mellitus Ovarian cancer Sister Family history of diabetes mellitus Breast cancer Denies family history of Prostate cancer Myocardial infarction Colorectal cancer Social History Smoking Status: Light tobacco smoker Tobacco Type: Pipe and Cigars Cigarettes Per Day: 1 cigar 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; Second Hand Exposure: Yes; Do You Dip or Chew Tobacco: No; Hx Alcohol Use: No Hx Substance Use: No Preferred Language: Turkmen Communication Ability: Effective Visual Impairment: No Limitations Hearing Ability: Normal 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 He is resting in bed. HEENT: Unremarkable Neck: No jugular venous distention, carotid pulses are normal and equal bilaterally without bruits. Pulmonary: Clear to auscultation bilaterally. Cardiac: Regular rhythm with no murmur, gallop or rub. Abdomen: Soft, nontender with normal bowel sounds. Extremities: No edema. Neurologic: No focal findings. Skin: No rash, ecchymoses or petechiae. Results & Data Vital Signs (Past 12 Hours) Vital Signs Temp Pulse Pulse Pulse Resp BP Pulse Ox 02/20/24 08:42 02/20/24 07:30 36.4 C L 65 20 136/67 95 02/20/24 07:25 69 02/20/24 03:37 36.6 C 72 20 120/64 95 02/19/24 23:45 36.3 C L 61 18 138/79 95 02/19/24 22:26 02/19/24 21:45 61 O2 Del Method 02/20/24 08:42 Room Air 02/20/24 07:30 Room Air 02/20/24 07:25 02/20/24 03:37 Room Air 02/19/24 23:45 Room Air 02/19/24 22:26 Room Air 02/19/24 21:45 Laboratory Results Cardiac Enzymes 02/19/24 02/19/24 02/19/24 Range/Units 12:30 17:27 19:06 AST 24 (13-39) U/L Troponin I High Sens 73.7 H* 124.1 H* D 183.9 H* D (0-20) pg/ml 02/20/24 02/20/24 Range/Units 00:22 06:23 AST (13-39) U/L Troponin I High Sens 291.6 H* D 243.3 H* (0-20) pg/ml CBC 02/19/24 02/20/24 Range/Units 12:30 06:23 WBC 7.61 7.10 (4.8-10.8) K/ul RBC 4.42 L 3.96 L (4.70-6.10) M/uL Hgb 14.5 12.9 L (14.0-18.0) g/dl Hct 41.9 L 37.3 L (42.0-52.0) % Plt Count 222 200 (130-400) K/uL Neut # (Auto) 5.41 4.43 (1.40-6.50) K/uL Lymph # (Auto) 1.52 1.59 (1.20-3.40) K/uL Coffee # (Auto) 0.49 0.62 H (0.11-0.59) K/uL Eos # (Auto) 0.12 0.37 (0.00-0.50) K/uL Baso # (Auto) 0.05 0.07 (0.00-0.20) K/uL Comprehensive Metabolic Panel 02/19/24 02/20/24 Range/Units 12:30 06:23 Sodium 137 138 (136-145) mmol/L Potassium 4.2 4.4 (3.5-5.1) mmol/L Chloride 103 106 (98-107) mmol/L Carbon Dioxide 28 27 (21-32) mmol/L BUN 12 13 (6-23) mg/dl Creatinine 0.84 0.78 (0.6-1.4) mg/dl Glucose 93 84 (70-99(Fasting)) mg/dl Calcium 9.4 8.7 (8.6-10.3) mg/dl AST 24 (13-39) U/L ALT 13 (7-52) U/L Alkaline Phosphatase 66 (34-104) U/L Total Protein 7.9 (6.0-8.3) gm/dl Albumin 4.3 (3.4-5.0) gm/dl Intake and Output 02/19/24 02/20/24 02/20/24 22:59 06:59 14:59 Intake Total 170 / 720 50 / 720 Output Total 150 / 150 Balance 170 / 570 -100 / 570 Intake: IV 50 / 550 [id number] SODIUM 2,000 mg In 50 / 50 50 ml @ 100 mls/hr IV NOW STA Rx#:[id number] Oral 120 / 170 50 / 170 Output: Urine 150 / 150 Other: Weight 71.36 kg Weight Measurement Method Built in [facility] Diagnostic Findings Telemetry: Sinus rhythm with first-degree AV block, no significant arrhythmia PG Care Time/CCT Total # of Minutes Spent Total Time Spent with Patient: Total time spent is greater than 50% in coordination of care (as documented) at patient's floor/unit and/or counseling patient: Coding Level of Care Code 73585 INT INP/OBS CARE 3/75MIN Diagnoses Shortness of breath R06.02 Exertional angina I20.89 Elevated troponin R79.89 LBBB (left bundle branch block) I44.7
--- NOTE | 2024-02-20 14:14 | Hospitalist Progress Note ---
Date of Service February 20, 2024 Assessment & Plan (1) Exertional angina: Plan: possible with positive troponin (peak trop 291) heavily calcified coronaries on CT chest multiple CAD risk factors echo with preserved EF, normal LV wall motion appreciate cardiology consultation by Dr Roman today plan is for left heart cath tomorrow thus, NPO after MN for such continue aspirin in meantime (2) Dyspnea: Plan: suspect 2nd to pulmonary fibrosis could be from #1 as well no evidence of any superimposed infectious process [employer] resp panel negative CT chest w/o obvious pneumonia (3) Pulmonary nodule: Plan: 1.3 cm nodule LLL seen on CXR Not seen on chest CT fortunately (4) Pulmonary fibrosis: Plan: continue home inhalers and pirfenidone follows with Dr Ewing from [facility] [place] Pul (5) Pneumomediastinum: Plan: as seen on CT chest it is possible that this contributed to his chest symptoms at home prior to admission suspect that at one point he may have had barotrauma from coughing patient denies dysphagia, retching/vomiting, etc to suggest esophageal tear leading to pneumomediastinum I spoke with Dr Ewing - no Rx needed avoid prolonged, severe cough; order cough suppressants prn (6) Severe protein-calorie malnutrition: Plan: 10kg weight loss since May 2023 2nd to advanced pulmonary fibrosis?? Plan Hyperlipidemia - continue Niaspan; has refused statins in past hypothyroidism - continue levothyroxine; TSH this fall wnl left message for pt's son, Silvino[facility] and Anticipated Discharge Date Admission Date: February 19, 2024 Subjective patient reports the chest discomfort he had had at home is resolved it had been somewhat pleuritic (at times) he denies severe coughing spells, although most mornings he states he has cough with sputum upon awakening denies orthopnea denies PND denies dyspnea today he had had mild loss of appetite the last few days but it is improved today tele overnight wnl Review of Systems Review of Systems: gen - weight loss - 10kg, since May 2023 no fevers cv - see HPI; no edema pulm - some chronic sputum, no change; no wheezes GI - no abd pain or N/V Physical Exam Physical Exam: gen - thin appearing, NAD neck - no JVD mouth - MMM heart - RRR, s1 s2, no murmur lungs - b/l fine/dry rales bases, CTA apices, no wheeze abd - soft NT ND BS+ chest - no reproducible chest wall pain ext - no edema, pulses 2+ b/l psych - a/o x 3 Results & Data Results & Data Vital Signs (Past 12 Hours) Vital Signs Temp Pulse Pulse Pulse Resp BP Pulse Ox 02/20/24 11:56 36.5 C 73 16 119/68 96 02/20/24 08:42 02/20/24 07:30 36.4 C L 65 20 136/67 95 02/20/24 07:25 69 02/20/24 03:37 36.6 C 72 20 120/64 95 O2 Del Method 02/20/24 11:56 Room Air 02/20/24 08:42 Room Air 02/20/24 07:30 Room Air 02/20/24 07:25 02/20/24 03:37 Room Air Laboratory Results Laboratory Results - last 24 hr 02/20/24 02/20/24 05:55 06:23 WBC 7.10 RBC 3.96 L Hgb 12.9 L Hct 37.3 L MCV 94.2 MCH 32.6 MCHC 34.6 RDW Std Deviation 44.5 RDW Coeff of Christa 12.9 Plt Count 200 MPV 9.7 Immature Gran % (Auto) 0.3 Neut % (Auto) 62.4 Lymph % (Auto) 22.4 [place] % (Auto) 8.7 Eos % (Auto) 5.2 Baso % (Auto) 1.0 Neut # (Auto) 4.43 Lymph # (Auto) 1.59 [place] # (Auto) 0.62 H Eos # (Auto) 0.37 Baso # (Auto) 0.07 Immature Gran # (Auto) 0.02 Sodium 138 Potassium 4.4 Chloride 106 Carbon Dioxide 27 Anion Gap 5 BUN 13 Creatinine 0.78 Est Cr Clr Drug Dosing 76.2 eGFR 90.15 BUN/Creatinine Ratio 16.7 Glucose 84 Calcium 8.7 Magnesium 2.0 Troponin I High Sens 243.3 H* Urine Color Yellow Urine Appearance Clear Urine pH 5.5 Ur Specific [place] 1.023 Urine Protein Trace H Urine Glucose (UA) Negative Urine Ketones 2+ H Urine Blood Negative Urine Nitrite Negative Urine Bilirubin Negative Urine Urobilinogen Negative Ur Leukocyte Esterase Negative Urine WBC (Auto) 0-5 Urine RBC (Auto) 0-2 U Hyaline Cast (Auto) 0-2 U Epithel Cells (Auto) 0-2 Urine Bacteria (Auto) None Seen PG Care Time/CCT Total # of Minutes Spent Total Time Spent with Patient: Total time spent is greater than 50% in coordination of care (as documented) at patient's floor/unit and/or counseling patient: Coding Level of Care Code 69671 SUB INP/OBS CARE 2/35MIN Diagnoses Exertional angina I20.89 Dyspnea R06.00 Pulmonary nodule R91.1 Pulmonary fibrosis J84.10 Pneumomediastinum J98.2 Severe protein-calorie malnutrition E43
--- NOTE | 2024-02-20 15:20 | XCELERA ---
[id number] [id number]
[2024-02-21] MEDS: ASPIRIN 81 MG ECTAB PO SCH (09:07)
[2024-02-21] MEDS: HEPARIN (PORCINE) 1000 UNIT/ML 10 ML (CATH LAB USE ONLY) ONE (10:40)
[2024-02-21] MEDS: niCARdipine 2,000 MCG/20 ML SYR ONE (10:41)
[2024-02-21] MEDS: fentaNYL citrate PF 100 MCG/2 ML VIAL ONE (10:41)
[2024-02-21] MEDS: MIDAZOLAM HCL 1 MG/ML 2ML VIAL ONE (10:41)
[2024-02-21] MEDS: NITROGLYCERIN/D5W 100MCG/ML 20ML SYR ONE (10:41)
[2024-02-21] MEDS: OPTIRAY 350 ONE (10:43)
--- NOTE | 2024-02-21 10:50 | Pre Anesthesia Assessment ---
Date of Service February 21, 2024 Pre Sedation Assessment Vital Signs Temp Pulse Pulse Pulse Resp BP BP 02/21/24 09:46 36.3 C L 83 18 134/77 02/21/24 07:35 02/21/24 07:22 36.5 C 76 18 139/66 02/21/24 04:23 36.5 C 74 16 128/70 02/20/24 23:30 36.6 C 69 16 135/66 02/20/24 21:55 63 02/20/24 19:30 36.4 C L 70 20 136/72 02/20/24 16:12 37.1 C 69 16 145/70 H 02/20/24 15:52 83 02/20/24 11:56 36.5 C 73 16 119/68 Pulse Ox O2 Del Method 02/21/24 09:46 98 Room Air 02/21/24 07:35 Room Air 02/21/24 07:22 96 Room Air 02/21/24 04:23 96 Room Air 02/20/24 23:30 96 Room Air 02/20/24 21:55 02/20/24 19:30 95 Room Air 02/20/24 16:12 95 Room Air 02/20/24 15:52 02/20/24 11:56 96 Room Air Cardiovascular RRR, no murmur, no edema Respiratory normal respiratory effort, lungs clear to auscultation Pre-Sedation Airway Assessment Smoking Status: Light tobacco smoker Hx Sleep Apnea: No Short, Thick Neck: No Thyromental Distance: > or= 3.5 Finger Breadths Oral Cavity: + WNL Mallampati Class: III ASA: ASA3 NPO Status Date of Last Intake of Fluids: 02/21/24 Time of Last Intake of Fluids: 05:00 Date of Last Intake of Solid Food: 02/20/24 Time of Last Intake of Solid Foods: 23:00 Notes The planned sedation has been discussed with the patient. Informed Consent was obtained. I have identified the patient, determined the appropriateness of sedation and have assessed the patient immediately prior to the procedure. All medicine(s) and interventions are by my order. [facility] [place] Procedure Codes (Charges) Indication for Procedure Indication for procedure: NSTEMI
--- NOTE | 2024-02-21 10:54 | Post Anesthesia Assessment ---
Date of Service February 21, 2024 Post Sedation Assessment Vital Signs Temp Pulse Pulse Pulse Resp BP BP 02/21/24 09:46 36.3 C L 83 18 134/77 02/21/24 07:35 02/21/24 07:22 36.5 C 76 18 139/66 02/21/24 04:23 36.5 C 74 16 128/70 02/20/24 23:30 36.6 C 69 16 135/66 02/20/24 21:55 63 02/20/24 19:30 36.4 C L 70 20 136/72 02/20/24 16:12 37.1 C 69 16 145/70 H 02/20/24 15:52 83 02/20/24 11:56 36.5 C 73 16 119/68 Pulse Ox O2 Del Method 02/21/24 09:46 98 Room Air 02/21/24 07:35 Room Air 02/21/24 07:22 96 Room Air 02/21/24 04:23 96 Room Air 02/20/24 23:30 96 Room Air 02/20/24 21:55 02/20/24 19:30 95 Room Air 02/20/24 16:12 95 Room Air 02/20/24 15:52 02/20/24 11:56 96 Room Air Recovery Score Activity: Moves 4 extremities Respiration: Deep Breath/Cough Circulation: +/-20% PreAnes Value Consciousness: Fully Awake Oxygen Saturation: > 92% On Room Air Discharge Sedation Level of Care: Fast Track Phase II Post Sedation Plan On clinical assessment, the patient appears to have tolerated the sedation without complications. Patient is recovering as anticipated. Patient will continue to be monitored by nursing and may be discharged when sedation discharge criteria are met per below protocol. Upon Completions of procedure up to 15 minutes continue every 5 minute vital signs and the P.A.R. score; then discharge to a Phase I or Fast Track to Phase II per the following guidelines: * Discharge Patient to appropriate Phase II area if PAR is 8 or greater or return to pre- procedure baseline. The post - procedure orders will be as directed. * If PAR score is less than 8 or not return to pre-procedure baseline then patient will follow Phase I monitoring till PAR is reached for Phase II. The Phase I may be done in procedure room or may call to secure a Phase I area. * If naloxone or flumazenil are used for reversal, hold in Phase I for continued monitoring from when last reversal dose was given for a minimum of 60 minutes or longer pending the nurse and/or physician discretion of patient condition before discharge to Phase II. Please call the Sedation Physician to re-evaluate and complete post-note for discharge to Phase II area. Do NOT discharge from procedure sedation or Phase 1 until post- sedation evaluation note is complete by procedure /sedation MD Sedation Discharge Instructions to be given to the patient at discharge to home. [facility] [place] Codes (Charges) Indication for Procedure Indication for procedure: NSTEMI Sedation/Anesthesia Procedure 1: Sedation/Anesthesia: 39928 Mod Sedation by the same physician;Init15 Min Child Age 5 & Up (Initial 15 minutes, start time 1029) Total Sedation Time (minutes): 17 Procedure 2: Sedation/Anesthesia: 16319 Mod Sedation by the same physician; Ea [id number] Minutes (Additional 2 minutes, end time 1046) Total Sedation Time (minutes): 17
--- NOTE | 2024-02-21 13:42 | Cardiac Catheterization ---
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 Cardiac Status Clinical evaluation leading to the procedure CAD Presenation: Non STEMI Coronary Anatomy Dominant: Left Left Main (% Stenosis): Distal (40%) LAD (% Stenosis): Ostial (70 to 80%), Mid (40%) and Distal (Focal 70%) D1 (% Stenosis): Normal D2 (% Stenosis): Normal D3 (% Stenosis): Normal Circumflex (% Stenosis): Ostial (99% calcified) and Mid (90%) OM1 (% Stenosis): Proximal (50%) L PL1 (% Stenosis): Proximal (50 to 70%) L PDA (% Stenosis): Normal RCA (% Stenosis): Ostial (80%) Diagnostic Physicians Name: Óscar Roque MD, PhD Closure Device Percutaneous Entry Location: Radial Closure Device: Radial Band Recommendations: Medical Therapy and/or Counseling and CABG Cardiac Cath Procedure Full Procedure Date February 21, 2024 Pre-Procedure Diagnosis Pre-Procedure Diagnosis: Non STEMI AUC Score AUC Score: 07 Post-Procedure Diagnosis Post-Procedure Diagnosis: Severe CAD Procedure(s) Performed Procedure(s) Performed: Coronary Angiography Correctional Counselor Óscar Roque MD, PhD Estimated Blood Loss Estimated Blood Loss: Less than 5 cc Medication(s) Medication(s): Fentanyl, Heparin, Lidocaine 1%, Nicardipine, Nitroglycerin and Versed Summary of Findings Brief description: Patient was brought to the cardiac catheterization suite where he was shaved and prepped in a sterile fashion. Sedated using IV Versed and fentanyl. Soft tissues of the right wrist were anesthetized using 2 mL of 1% Xylocaine. The right radial artery was accessed with a modified Seldinger technique and a 6 Martiniquais radial artery glide sheath was placed. Patient was provided anticoagulation with IV heparin and antispasmodics including nicardipine and nitroglycerin. All catheters were advanced and exchanged over a 0.035 J-tip wire. Left coronary angiography in orthogonal views with a 5 Martiniqu[place] 4 diagnostic catheter. Right coronary angiography in orthogonal views with a 5 Martiniquais JR4 diagnostic catheter. All catheters were removed. Radial artery sheath was removed. Hemostasis was obtained using the TR band. Patient remained hemodynamically stable and asymptomatic. He was returned to the recovery area in stable condition. This ended the case. Coronary angiography findings: PFC-capls-wuhozvf vessel bifurcating into LAD and circumflex. Moderate calcification with mid to distal stenosis of up to 40%. JPL-wimqx-[id number] and transapical. Heavily calcified vessel. There is ostial to proximal 70 to 80% stenosis. The mid vessel has significant calcification and diffuse disease no more than 40% narrowing. The early distal vessel has up to 70% stenosis in the remainder of the LAD has mild scattered plaques. There is a small caliber D1, D2, and third diagonal. LCx-this is large caliber and appears dominant. Ostially 99% stenosis with heavy calcification through the proximal and mid segment. The OM1 is large and has proximal 50% stenosis. The mid AV groove circumflex has up to 90% stenosis just after the ostium of the OM1. There is a large branching posterolateral which has proximal 50 to 70% stenosis. The distal circumflex then terminates into a medium/large branching PDA which has luminal irregularities. RCA-this medium to large caliber and appears nondominant. There is an ostial 80% stenosis with pressure dampening on engagement. Proximal RCA has moderate calcification whereas the mid and distal vessel becomes smaller and have no disease. Several RV marginal branches arise from the RCA. Summary: 1. Severe multivessel coronary artery disease. Left main equivalent with ostial circumflex and proximal LAD stenosis. There are also additional severe blockages as described. No acute appearing thrombotic lesions. Therefore, most likely non-ST elevation MO was secondary to demand ischemia rather than ACS. 2. Recommend patient be evaluated at a tertiary center regarding surgical revascularization versus complex/high risk multivessel PCI. 3. Guideline directed medical therapy for secondary prevention of coronary disease. Patient should be on low-dose aspirin, high intensity statin therapy, SREE inhibitor or angiotensin receptor malik. Beta-malik is also recommended however with his underlying lung disease this may or may not be tolerated. He is to undergo pulmonary function testing on and if there is no reactive component to his lung disease then a beta-malik can be initiated. Hemodynamics Rest Ao:: 86/60 mmHg Final Ao: 88/61 mmHg LV: Not performed Recommendations Recommendations: Medical Therapy and/or Counseling and CABG Radiation Exposure (mGy) 444 mGy, fluoroscopy time 2.3 minutes Contrast (mls) 105 cc Anesthesia 2 mg Versed, 50 mcg fentanyl IV. Start time 1029, end time 1046 Procedural Complication(s) None Disposition Stamping Die Maker Holding/Recovery I attest to the content of the Intraoperative Record and any orders documented therein. Any exceptions are noted below. [facility] Card Cath Procedure Codes Cardiac Catheterization Procedure 1: Cardiovascular Cath Procedures: 68976 Coronaries Moderate Sedation Procedure 1: Sedation/Anesthesia: 96348 Mod Sedation by the same physician;Init15 Min Child Age 5 & Up (Initial 15 minutes, start time 1029) Procedure 2: Sedation/Anesthesia: 68107 Mod Sedation by the same physician; Ea [id number] Minutes (Additional 2 minutes, end time 1046) PG Care Time/CCT Total # of Minutes Spent Total Time Spent with Patient: Total time spent is greater than 50% in coordination of care (as documented) at patient's floor/unit and/or counseling patient:
--- NOTE | 2024-02-21 14:19 | XRay Report ---
XR chest 1V portable CLINICAL HISTORY: pneumomediastinum, interval change COMPARISON STUDY: Chest radiograph and chest CT February 19, 2024. FINDINGS: There is no pneumothorax or pleural effusion. The pneumomediastinum on chest CT of February 19, 2024 is not evident on this exam. This may be radiographically occult. Cardiomegaly is unchanged. Underlying pulmonary fibrosis is again noted. There is no superimposed consolidation. IMPRESSION: 1. No pneumomediastinum identified. Pneumomediastinum identified on chest CT is not evident by radiog [email or web address]. 2. No pneumothorax. 3. Pulmonary fibrosis. No superimposed pneumonia. ACT 112: Negative or not required by law. Electronically signed by: Baljeet Vazquez M.D. 02/21/2024 2:17 PM
--- NOTE | 2024-02-21 15:32 | Discharge Summary ---
Discharge Summary Date of Service date of admission - February 19, 2024 date of discharge - February 21, 2024 Principal Dx & Hospital Course #1 = Principal Diagnosis (1) Exertional angina: patient presented with chest pain, dyspnea, weakness, and lack of appetite for 1-2 days prior to presentation initial troponin check was elevated at 73 and ultimately peaked at [address] chest on 02/19/24 this showed a small amount of pneumomediastinum (see discussion below) as well as heavily calcified coronaries his pulmonary fibrosis was also seen but no discrete pneumonia process was present echocardiogram showed preserved EF (55-60%), normal LV wall motion, LVH, and septal motion c/w conduction abnormality he was seen in consult by Dr Min Roman, [facility] Cardiology he advised left heart catheterization this was performed on 02/21/[address] Óscar Roque, also of [facility] Cardiology Coronary angiography findings: OHK-gqkbr-jvyswob vessel bifurcating into LAD and circumflex. Moderate calcification with mid to distal stenosis of up to 40%. MAQ-lsree-lsifxuv and transapical. Heavily calcified vessel. There is ostial to proximal 70 to 80% stenosis. The mid vessel has significant calcification and diffuse disease no more than 40% narrowing. The early distal vessel has up to 70% stenosis in the remainder of the LAD has mild scattered plaques. There is a small caliber D1, D2, and third diagonal. LCx-this is large caliber and appears dominant. Ostially 99% stenosis with heavy calcification through the proximal and mid segment. The OM1 is large and has proximal 50% stenosis. The mid AV groove circumflex has up to 90% stenosis just after the ostium of the OM1. There is a large branching posterolateral which has proximal 50 to 70% stenosis. The distal circumflex then terminates into a medium/large branching PDA which has luminal irregularities. RCA-this medium to large caliber and appears nondominant. There is an ostial 80% stenosis with pressure dampening on engagement. Proximal RCA has moderate calcification whereas the mid and distal vessel becomes smaller and have no disease. Several RV marginal branches arise from the RCA. Summary: 1. Severe multivessel coronary artery disease. Left main equivalent with ostial circumflex and proximal LAD stenosis. There are also additional severe blockages as described. No acute appearing thrombotic lesions. Therefore, most likely non-ST elevation HI was secondary to demand ischemia rather than ACS. 2. Recommend patient be evaluated at a tertiary center regarding surgical revascularization versus complex/high risk multivessel PCI. Recommendations at discharge - * aspirin 81mg daily * lipitor 40mg daily * stop niacin * nitro SL prn * referral to tertiary care center to discuss options for his severe CAD * patient will have a f/u visit with Dr Roque on 02/28/24; referral to tertiary care ([facility], [facility], etc) can be made at that time post-cath instructions were given at discharge of note - both his primary motor checker, Dr Min Roman, as well as Dr Óscar Roque felt that Mr Leon could be safely discharged home as there was no evidence of ACS on his heart catheterization and he would have very close follow-up shortly after discharge with [facility] Cardiology due to previous history of recurrent syncope and known orthostatic hypotension (severe) it was decided to HOLD OFF on initiating beta malik or SREE/ARB therapy as benefits may have been outweighed by risks (2) Dyspnea: suspect 2nd to pulmonary fibrosis could be from #1 as well no evidence of any superimposed infectious process [employer] resp panel negative CT chest w/o obvious pneumonia (3) CAD (coronary artery disease): see above discussion (4) Pneumomediastinum: as seen on CT chest it is possible that this contributed to his chest symptoms at home prior to admission suspect that at one point he may have had barotrauma from coughing as he reported a daily morning cough for quite some time patient denied dysphagia, retching/vomiting, etc to suggest esophageal tear leading to pneumomediastinum I spoke with on-call pulmonology, Dr Geovanna Ewing, who follows Mr Leon in pulmonology clinic - no Rx needed for the pneumomediastinum avoid prolonged, severe cough; cough suppressants prn chest x-ray on 02/21/24 did not show a pneumothorax and the previously seen pneumomediastinum was not visible on this chest film o2 sats were normal the entire stay (5) Pulmonary nodule: ?? 1.3 cm nodule LLL seen on admission CXR Not seen on chest CT fortunately (6) Pulmonary fibrosis: continue home inhalers and pirfenidone follows with Dr Geovanna Ewing from [facility] Pulmonology he has f/u with Dr Ewing in the week after discharge (7) Severe protein-calorie malnutrition: 10kg weight loss since May 2023 2nd to advanced pulmonary fibrosis?? Plan Hyperlipidemia - stop Niaspan; start lipitor 40mg daily in light of severe CAD found on heart catheterization * LDL was 138 in November 2023 hypothyroidism - continue levothyroxine; TSH this fall 2023 wnl pt's son, Silvino, was extensively updated at bedside on day of discharge Notes For Next Care Provider needs trev referral to tertiary care center to discuss options for his severe CAD (CABG vs high-risk PCI vs other) f/u as scheduled with Dr Geovanna Ewing - [facility] Pulmonary Medication Changes From Visit added aspirin 81mg daily added lipitor 40mg daily stop niacin SL nitro prn chest pain Admission HPI Per Admitting Provider Patient is an 78-year-old male with past medical history of pulmonary fibrosis, spinal stenosis, hypothyroidism, hyperlipidemia. He presents today due to weakness x 2 days CXR showed pulmonary fibrosis along with a new 1.3 cm nodule of the left lower lobe. He does have a history of syncopal episodes due to hypotension, he follow-up with cardiology and had a Holter monitor that showed LBBB. Patient stated that he has had weakness and dyspnea on exertion x 2 days. He also stated that he has chest pain on exertion after chronic dyspnea. He stated the chest pain "just is" when asked to describe the pain. Denies radiation of chest pain. He also has occasional diarrhea. He has had a decreased appetite for the past few days as well, has had a strong fluid intake. Patient denies fever, chills, rhinorrhea, sore throat, cough, sputum production, abdominal pain, nausea, vomiting. He stated he had 1 syncopal episode and had a workup with cardiology which did not really show much. He stated he occasionally gets dizzy when standing up too fast. He denies past history of diabetes or previous VTE. He does not use oxygen at baseline. He took his home medications this morning. He is due for his lunchtime dose pirefenidone, ordered on admission. He wishes to be DNR/DNI. Updated patients family at bedside. Discharge Exam gen - thin appearing, NAD neck - no JVD mouth - MMM heart - RRR, s1 s2, no murmur lungs - b/l fine/dry rales bases, CTA apices, no wheeze abd - soft NT ND BS+ ext - no edema, pulses 2+ b/l psych - a/o x 3 vascular - right wrist (right radial artery) - no hematoma; no aneurysm Discharge Plan Discharge Items Patient Disposition: Home - Self-Care Reason For Visit: Shortness of breath, chest discomfort Discharge Diagnosis: 1. shortness of breath / chest discomfort - likely from coronary artery disease +/- pneumomediastinum; symptoms resolved 2. severe coronary artery disease 3. pulmonary fibrosis 4. pneumomediastinum - small - no treatment needed Activity: As commented below Activity Comment: light activities only; nothing strenuous at ANY TIME Lifting Comment: see post-heart catheterization instructions below Exercise/Sports: Wait until after follow-up appointment Driving/Machine Use: Resume 3 days after discharge Non-emergency contact: Primary Care Provider Call non-emergency contact if: you have any medication questions, your symptoms worsen, your pain is not controlled, your pain is worsening and your pain is unusual for you Follow-up/Referrals: Nikki Dawn CRNP [Primary Care Provider] - 02/29/24 10:30 am (1-2 weeks) Óscar Roque MD, PhD [Physician] - 02/28/24 9:00 am Geovanna Ewing MD, [facility] [Physician] - 02/24/24 (keep previously scheduled appointment with Dr Ewing) Diet: Heart Healthy Addtl Attending Provider Instructions: Mr Leon, Tyrell were hospitalized due to shortness of breath and chest discomfort. We found 2 likely causes of your symptoms - * pneumomediastinum (see handout) * coronary artery disease The pneumomediastinum does NOT require any treatment. I suspect that when you had a coughing spell (you have them when you wake up in the morning) that this was the cause of your pneumomediastinum. To prevent a recurrent pneumomediastinum please take a cough suppressant if you have a bad cough. You can take benzonatate 100mg every 8 hours as needed for cough (prescription sent in to your pharmacy). The coronary artery disease seen on heart catheterization is severe. See handout on coronary disease. The plaque build-up in the coronary arteries builds up over a lifetime. When the coronary arteries are severely narrowed/diseased this can lead to chest pain, difficulty breathing, episodes of nausea/vomiting, jaw pain, arm pain (usually on the left), extreme fatigue/weakness, etc. Dr Roque who did your heart catheterization and Dr Roman will be referring you to [facility] to determine if you are a candidate for surgery to fix the blockages OR to have stents place in the blocked arteries. Due to the coronary disease please do the following - * take baby aspirin (purchase zssi-vxh-bsdxfep) 81mg daily * take atorvastatin 40mg once daily at bedtime for cholesterol * stop your niacin for now * if you ever have chest discomfort/chest pain or pain associated with shortness of breath immediately sit down or lay down; then, you can take a nitroglycerin tablet under the tongue (see handout) to try & relieve the pain; again be certain to sit or lay down * if you ever have to take nitroglycerin tablets please seek medical attention right away Follow-up - see separate section Return to [facility] if - * you have to take nitroglycerin tablets under the tongue * you have chest pains that were similar to what you had the other day * you have worsening shortness of breath * you have fever over 100 degrees * you have any concerns about your catheterization site over the right wrist * any other concerns It was our pleasure to care for you! -Dr Allen Martineztl Leadership Intern Provider Instructions: ACTIVITY RECOMMENDATIONS following your heart catheterization: It is common to feel weak and fatigue for a few days. * Do not drive or operate any motorized equipment for the next 3 days. * Limit stair usage (2 or 3 trips a day only) for the next three days. * Do not lift anything heavier than 10 pounds for the next three days. * Do not engage in vigorous exercise or any sports. * You may shower the day after your procedure, but do not immerse the right wrist for three days. Cleanse the site gently with soap and water. SPECIAL CARE INSTRUCTIONS: * You may replace the pressure dressing or band-aid the morning after the procedure. * After your procedure, it is normal to have a small bruise or small lump at the site. Examine your site daily for any change in the bruise or lump, redness, swelling, drainage or numbness. Notify your doctor if any change. BLEEDING: * If there is a small amount of bleeding at the site, lie down and apply firm pressure with a clean cloth for ten minutes. When the bleeding stops, lie quietly keeping the procedure limb straight for six hours. Notify your doctor as soon as possible. * If the bleeding does not stop after ten minutes or if there is a large amount of bleeding or spurting, call 911 immediately. Continue to lie down and hold firm pressure until help arrives. SKIN IRRITATION: * You may experience some redness and/or swelling in the area where radiation was administered. If any skin irritation occurs, please contact your family physician. Pending Studies at Discharge: No Stand-Alone Forms: Anesthesia/Sedation, Adult, My [facility], Smoking Cessation Medications and DC Order Prescriptions: New aspirin 81 mg Tablet,Delayed Release (Dr/Ec) 81 mg PO QAM Qty: 90 3RF Rx Instructions: purchase [id number] atorvastatin [Lipitor] 40 mg tablet 40 mg PO HS Qty: 30 5RF Rx Instructions: for high cholesterol & coronary artery disease benzonatate 100 mg capsule 100 mg PO TID PRN (Reason: cough) Qty: 30 0RF nitroglycerin 0.4 mg tablet, sublingual 0.4 mg sublingual Q5M PRN (Reason: chest pain) Qty: 1 0RF Rx Instructions: max 3 doses in 15 minutes; be sure you are sitting or laying down if you have to take this medicine. Continued levothyroxine 100 mcg capsule 100 mcg PO DAILY Qty: 90 3RF Rx Instructions: last filled 02/11 pt aware dose change diphenhydramine-acetaminophen [Tylenol PM Extra Strength] 25-500 mg tablet 1 tab PO HS PRN (Reason: pain/sleep) Rx Instructions: 03/10/24:otc unable to verify pirfenidone [Esbriet] 267 mg capsule See Rx Instructions PO .COMPLEX Qty: 360 2RF Rx Instructions: 02/19/24: no fill history available take 1 capsule 3 times daily for 7 days; 2 capsules 3 times daily for 7 days, then 3 capsules 3 times daily. PO cholecalciferol (vitamin D3) [Vitamin D3] 50 mcg (2,000 unit) Tablet 50 mcg PO DAILY Rx Instructions: 03/10/24:otc unable to verify ascorbic acid (vitamin C) [Vitamin C] 500 mg Tablet 500 mg PO DAILY Rx Instructions: 03/10/24:otc unable to verify fluticasone propionate 50 mcg/actuation spray,suspension 1 spray intranasal BID PRN (Reason: Congestion) Rx Instructions: 02/19/24:no fill history/otc unable to verify 1 spray intranasally twice daily as needed; administer into each nostril Changed albuterol sulfate 90 mcg/actuation HFA aerosol inhaler 2 inh inhalation QID PRN (Reason: shortness of breath or wheezing) Qty: 8.5 1RF Rx Instructions: filled 02/09 Held (DME) Incentive Spirometer Misc See Rx Instructions .MEDSUPPLY Qty: 1 0RF Hold Instructions: do not use at this time Rx Instructions: As directed Discontinued niacin 500 mg Tablet 500 mg PO QPM Rx Instructions: 03/10/24:otc unable to verify Discharge Orders: Discharge Order (Routine); Ordered 02/21/24 Ordered By: Saulo Brown/Other Patient Handouts: Fast-Acting Nitroglycerin, CAD Admission Data Admit Date/Time: 02/19/24 16:27 Attending Provider: Saulo Villa Admit Provider: Jamie Ontiveros Primary Care Provider: Nikki Dawn Other Providers: Min Roman Other Interventions: Discharge Summary Assessment (RN) Last Done: 02/21/24 15:34 Hospital Stay Data Consultations [facility] Procedures Performed Operation Date: 02/21/24 09:30 Actual Procedures p Cineradiography w/Routine Exam - Óscar Roque MD, PhD p Cath, Coronaries ONLY (no LV) - Óscar Roque MD, PhD Coronary Anatomy Dominant: Left Left Main (% Stenosis): Distal (40%) LAD (% Stenosis): Ostial (70 to 80%), Mid (40%) and Distal (Focal 70%) D1 (% Stenosis): Normal D2 (% Stenosis): Normal D3 (% Stenosis): Normal Circumflex (% Stenosis): Ostial (99% calcified) and Mid (90%) OM1 (% Stenosis): Proximal (50%) L PL1 (% Stenosis): Proximal (50 to 70%) L PDA (% Stenosis): Normal RCA (% Stenosis): Ostial (80%) Coronary angiography findings: KSK-aynyn-onnlamm vessel bifurcating into LAD and circumflex. Moderate calcification with mid to distal stenosis of up to 40%. CAM-xxkvf-gpwsnvl and transapical. Heavily calcified vessel. There is ostial to proximal 70 to 80% stenosis. The mid vessel has significant calcification and diffuse disease no more than 40% narrowing. The early distal vessel has up to 70% stenosis in the remainder of the LAD has mild scattered plaques. There is a small caliber D1, D2, and third diagonal. LCx-this is large caliber and appears dominant. Ostially 99% stenosis with heavy calcification through the proximal and mid segment. The OM1 is large and has proximal 50% stenosis. The mid AV groove circumflex has up to 90% stenosis just after the ostium of the OM1. There is a large branching posterolateral which has proximal 50 to 70% stenosis. The distal circumflex then terminates into a medium/large branching PDA which has luminal irregularities. RCA-this medium to large caliber and appears nondominant. There is an ostial 80% stenosis with pressure dampening on engagement. Proximal RCA has moderate calcification whereas the mid and distal vessel becomes smaller and have no disease. Several RV marginal branches arise from the RCA. Summary: 1. Severe multivessel coronary artery disease. Left main equivalent with ostial circumflex and proximal LAD stenosis. There are also additional severe blockages as described. No acute appearing thrombotic lesions. Therefore, most likely non-ST elevation HI was secondary to demand ischemia rather than ACS. 2. Recommend patient be evaluated at a tertiary center regarding surgical revascularization versus complex/high risk multivessel PCI. 3. Guideline directed medical therapy for secondary prevention of coronary disease. Patient should be on low-dose aspirin, high intensity statin therapy, SREE inhibitor or angiotensin receptor malik. Beta-malik is also recommended however with his underlying lung disease this may or may not be tolerated. He is to undergo pulmonary function testing on and if there is no reactive component to his lung disease then a beta-malik can be initiated. Echocardiogram - Diagnostic Imagining Performed Chest X-Ray 02/19/24 12:32 XR chest 1V not portable CLINICAL HISTORY: weakness COMPARISON STUDY: Chest radiograph and chest CT September 13, 2023. FINDINGS: There is no pneumothorax or pleural effusion. Diffuse interstitial thickening with lower lobe volume loss is unchanged. A 1.3 cm nodular left lower lung opacity is new since prior exam. Cardiomegaly is unchanged. Mediastinal contours are stable. IMPRESSION: 1. Interstitial thickening consistent with pulmonary fibrosis, similar to prior chest CT and chest radiograph. 2. New 1.3 cm nodular left lower lung opacity. This could represent a mild infectious process. Radiographic follow-up to ensure resolution and exclude a pulmonary nodule is recommended. ACT 112: Negative or not required by law. Electronically signed by: Baljeet Vazquez M.D. 02/19/2024 1:[address] 02/19/24 15:52 CT OF THE CHEST WITHOUT IV CONTRAST CLINICAL HISTORY: Left lower lobe nodule. COMPARISON STUDY: Chest CT September 13, 2023. Chest radiograph performed earlier today. CT DOSE: 263.24 mGy.cm TECHNIQUE: Axial images of the chest were obtained without IV contrast. Images were reviewed in the axial, sagittal, and coronal planes. IV contrast was not administered for this examination. Automated exposure control was utilized for the study. A dose lowering technique was utilized adhering to the principles of ALARA. FINDINGS: A small amount of pneumomediastinum is present. There is no pneumothorax or pleural effusion. The heart is moderately enlarged. Dilatation of the central pulmonary arteries is again noted. The main pulmonary artery measures 3.5 cm in caliber. There is extensive coronary artery calcification. There is no pneumothorax or pleural effusion. Basilar and peripheral prominent honeycombing and subpleural nodular densities is similar to prior CT. No superimposed consolidation is identified to suggest pneumonia. There are no suspicious pulmonary nodules. The nodular density on chest radiograph was likely due to a nipple shadow. Visualized portions of the upper abdomen demonstrate pneumobilia. The gallbladder is surgically absent. IMPRESSION: 1. Small amount of pneumomediastinum. No pneumothorax or pleural effusion. 2. UIP pattern of pulmonary fibrosis, similar to CT of September 13, 2023. No superimposed consolidation to suggest pneumonia. 3. No suspicious pulmonary nodules. The nodular density on chest radiograph of February 19, 2024 was likely due to a nipple shadow. 4. Cardiomegaly. Extensive coronary artery calcification. Dilatation of the central pulmonary arteries which raises the possibility of pulmonary arterial hypertension. ACT 112: Negative or not required by law. Electronically signed by: Baljeet Vazquez M.D. 02/20/2024 8:41 AM Chest X-Ray 02/21/24 13:02 XR chest 1V portable CLINICAL HISTORY: pneumomediastinum, interval change COMPARISON STUDY: Chest radiograph and chest CT February 19, 2024. FINDINGS: There is no pneumothorax or pleural effusion. The pneumomediastinum on chest CT of February 19, 2024 is not evident on this exam. This may be radiographically occult. Cardiomegaly is unchanged. Underlying pulmonary fibrosis is again noted. There is no superimposed consolidation. IMPRESSION: 1. No pneumomediastinum identified. Pneumomediastinum identified on chest CT is not evident by radiography. 2. No pneumothorax. 3. Pulmonary fibrosis. No superimposed pneumonia. ACT 112: Negative or not required by law. Electronically signed by: Baljeet Vazquez M.D. 02/21/2024 2:17 PM Pending Results Patient Have Any Pending Studies at Discharge: No Discharge Instructions Given to Patient (Per Discharging Provider) Mr Leon, Tyrell were hospitalized due to shortness of breath and chest discomfort. We found 2 likely causes of your symptoms - * pneumomediastinum (see handout) * coronary artery disease The pneumomediastinum does NOT require any treatment. I suspect that when you had a coughing spell (you have them when you wake up in the morning) that this was the cause of your pneumomediastinum. To prevent a recurrent pneumomediastinum please take a cough suppressant if you have a bad cough. You can take benzonatate 100mg every 8 hours as needed for cough (prescription sent in to your pharmacy). The coronary artery disease seen on heart catheterization is severe. See handout on coronary disease. The plaque build-up in the coronary arteries builds up over a lifetime. When the coronary arteries are severely narrowed/diseased this can lead to chest pain, difficulty breathing, episodes of nausea/vomiting, jaw pain, arm pain (usually on the left), extreme fatigue/weakness, etc. Dr Roque who did your heart catheterization and Dr Roman will be referring you to [facility] to determine if you are a candidate for surgery to fix the blockages OR to have stents place in the blocked arteries. Due to the coronary disease please do the following - * take baby aspirin (purchase ykzi-rtw-[id number]) 81mg daily * take atorvastatin 40mg once daily at bedtime for cholesterol * stop your niacin for now * if you ever have chest discomfort/chest pain or pain associated with shortness of breath immediately sit down or lay down; then, you can take a nitroglycerin tablet under the tongue (see handout) to try & relieve the pain; again be certain to sit or lay down * if you ever have to take nitroglycerin tablets please seek medical attention right away Follow-up - see separate section Return to [facility] if - * you have to take nitroglycerin tablets under the tongue * you have chest pains that were similar to what you had the other day * you have worsening shortness of breath * you have fever over 100 degrees * you have any concerns about your catheterization site over the right wrist * any other concerns It was our pleasure to care for you! -Dr Villa Total Time Total Time Spent Total Time Spent (In Minutes): 50 Coding Level of Care Code 77550 INP/OBS DISCH >30 MIN Diagnoses Exertional angina I20.89 Dyspnea R06.00 CAD (coronary artery disease) I25.10 Pneumomediastinum J98.2 Pulmonary nodule R91.1 Pulmonary fibrosis J84.10 Severe protein-calorie malnutrition E43
--- NOTE | 2024-02-21 15:42 | Electrocardiogram Report ---
Test Reason : Blood Pressure : */* mmHG Vent. Rate : 71 BPM Atrial Rate : 71 BPM P-R Int : 288 ms QRS Dur : 186 ms QT Int : 460 ms P-R-T Axes : 15 21 -26 degrees QTcB Int : 499 ms Sinus rhythm with 1st degree A-V block Left bundle branch block Abnormal ECG When compared with ECG of 12-Jan-2024 09:56, QRS duration has increased Confirmed by Min Roman ([id number]) on 02/21/2024 3:41:48 PM Referred By: Confirmed By: Min Roman
--- NOTE | 2024-02-21 16:11 | Electrocardiogram Report ---
Test Reason : Blood Pressure : */* mmHG Vent. Rate : 64 BPM Atrial Rate : 64 BPM P-R Int : 294 ms QRS Dur : 194 ms QT Int : 470 ms P-R-T Axes : 34 18 148 degrees QTcB Int : 484 ms Sinus rhythm with 1st degree A-V block Non-specific intra-ventricular conduction block with variable and possibly rate related QRS widening Abnormal ECG When compared with ECG of 19-Feb-2024 12:34, (unconfirmed) T wave inversion less evident in Inferior leads T wave inversion more evident in Lateral leads QRS narrowing present at the end of the tracing Confirmed by Min Roman ([id number]) on 02/21/2024 4:11:04 PM Referred By: REFERRED SELF Confirmed By: Min Roman
== END 2024-02-21 16:00 | disposition home or self-care (01) ==
LOC: ED 12:06 → 2N 12:06 → SUATTDRO 16:27 → 2N 18:30
PROC: CLB.CCO (2024-02-21 09:30)

== ENCOUNTER 2024-05-12 19:03 | Inpatient (IN) ==
[2024-05-12] MEDS: MoRPHine SULFATE 4 MG/ML 1 ML CARP\\VIAL IV STA ×3 (19:48→23:25)
[2024-05-12] MEDS: ONDANSETRON INJ 2 MG/ML 2 ML VIAL IV STA (19:48)
[2024-05-12 19:52] LABS: iSTAT Creatinine 0.7 mg/dl (0.6-1.3); iSTAT Hemoglobin 14.3 g/dl (14.0-18.0); iSTAT Ionized Calcium 1.07 mmol/l (1.12-1.32); iSTAT Potassium 4.2 mmol/L (3.3-5.0)
[2024-05-12 19:58] LABS: Basophils # (auto) 0.08 K/uL (0.00-0.20); Basophils % (auto) 0.7 %; Eosinophils # (auto) 0.29 K/uL (0.00-0.50); Eosinophils % (auto) 2.4 %; Hematocrit (blood only) 39.9 % (42.0-52.0); Hemoglobin 13.3 g/dl (14.0-18.0); Immature Granulocytes # (auto) 0.04 K/uL (0.01-0.20); Immature Granulocytes % (auto) 0.3 %; Lymphocytes # (auto) 1.31 K/uL (1.20-3.40); Mean Corpuscular Hgb Conc 33.3 g/dL (32.0-36.0); Monocytes # (auto) 0.97 K/uL (0.11-0.59); Monocytes % (auto) 8.2 %; Neutrophils # (auto) 9.21 K/uL (1.40-6.50); Neutrophils % (auto) 77.4 %; Platelet Count 295 K/uL (130-400); RDW Coefficient of Variation 13.3 % (11.5-14.5); RDW Standard Deviation 49.1 fL (36.4-46.3); Red Blood Count 4.03 M/uL (4.70-6.10)
[2024-05-12] MEDS: ACETAMINOPHEN 1,000 MG/100 ML VIAL IV STA (20:01)
[2024-05-12] MEDS: SODIUM CHLORIDE 0.9% 500 ML IV ONE (20:02)
[2024-05-12 20:09] LABS: Albumin Level 3.9 gm/dl (3.4-5.0); Bilirubin,Total 0.7 mg/dl (0.2-1.0); Calcium 9.4 mg/dl (8.6-10.3); Potassium 4.3 mmol/L (3.5-5.1)
[2024-05-12 20:15] LABS: BUN Creatinine Ratio 23.2 (10-20); Creatinine Clr Calc Pharmacy 81.2 ml/min; Globulin 4.1 gm/dl (2.5-4.0)
[2024-05-12 20:21] LABS: INR 1.1 (0.9-1.1); Partial Thromboplastin Time 27 Seconds (21-31); Prothrombin Time 11.6 Seconds (9.0-12.0)
--- NOTE | 2024-05-12 20:22 | Emergency Department Note ---
Impression & Plan Closed dislocation of left hip, Pulmonary fibrosis, History of total left hip arthroplasty, Pneumothorax on left ED Provider Note NAME: QUETA NEAL AGE: 79 SEX: M : 1945 ARRIVES VIA: Ambulance INFORMANT: Patient ED PROVIDER(S): Matthew Hill MD CHIEF COMPLAINT: Left hip pain fall PLAN: Disposition: Admit MEDICAL DECISION MAKING: The patient is a pleasant 79-year-old gentleman with past medical history of CAD on daily aspirin, pulmonary fibrosis/interstitial lung disease, severe protein calorie malnutrition who presents to the emergency department via EMS for evaluation of left hip pain and deformity which occurred in the setting of having a fall when he was making dinner this evening and lost his balance. Patient has any head strike or loss of consciousness. Denies any neck or back pain. He denies any chest pain, shortness of breath or abdominal pain. Patient denies any recent illness. Patient did develop nausea and vomiting after being moved from the EMS stretcher secondary to pain. On evaluation the patient is uncomfortable no acute distress, afebrile with stable vital signs. He appears clinically dry. He has deformity of the left hip with distal PMS intact. No midline CTL spine tenderness palpation or step- offs. No chest wall tenderness. No abdominal tenderness. Plain film demonstrates laterally displaced left PRUDENCE. No evidence of pelvic or periprosthetic fracture. Chest x-ray demonstrates left apical pneumothorax without mediastinal shift. No overt rib fractures are identified. WBC 11.9 K with neutrophilia but no left shift, nonspecific. H/H similar to prior. Platelets within normal limits. Chemistry without metabolic acidosis. Electrolytes unremarkable. LFTs mildly elevated with AST and ALT 64 and 56, respectively and alk phos 243. Lipase within normal limits. CT of the head negative for acute abnormalities. CT of the cervical spine negative for acute cervical abnormalities though apical pneumothorax is visualized. Findings were reviewed with the patient and son at the bedside. We did discuss his pneumothorax and how this will complicate management of his hip dislocation given that this adds additional risk for sedation for reduction. The patient did consent to proceed with trial of hip reduction without sedation with pretreatment with morphine for analgesia. Attempted reduction was unsuccessful unfortunately though the patient did tolerate the attempt relatively well. CT imaging was performed due to unclear chronicity of the patient's pneumothorax given the patient has no chest pain or exam findings to suggest that this is traumatic with certainty as the patient was noted to have spontaneous pneumomediastinum when he was admitted to this facility in February related to his pulmonary fibrosis. CT of the chest was subsequently performed and further characterizes mild left- sided pneumothorax which appears stable. There are no left-sided rib fractures identified. Old healed right-sided ninth and 10th rib fractures are described. Diffuse interlobular and intralobular septal thickening with multiple subpleural areas of honeycombing are seen suggestive of patient's known pulmonary fibrosis. Given no associated rib fractures or evidence of pulmonary contusion, suspect PTX likely more related to patient's pulmonary fibrosis. Case was discussed with [facility] pulmonology. Given the patient is stable from a respiratory standpoint and small size of the patient's pneumothorax, agrees no need for intervention at this time. Can proceed with 100% Oxygen. He will be available for inpatient team consultation. Case was discussed with Parveen Camp, orthopedic PAC with Dr. Chan. Agrees with admission to medical service at this time and they will assess the patient in the morning for closed reduction. Case was discussed with Dr. Kunz [facility] hospitalist, who will evaluate the patient for admission. Further management per admitting team. Triage Nursing notes reviewed and agree them. Prior/external medical records reviewed Vital Signs: reviewed Differential diagnosis: Fracture, dislocation, contusion, intra-abdominal, pneumothorax, intrathoracic, intracranial, neurologic, compartment syndrome, rhabdomyolysis, as well as other pathologies. ER treatment provided: See below. Diagnostics interpreted by me: ECG: Sinus rhythm with first-degree block, 83 bpm, no ectopy, left bundle branch block, no Sgarbossa criteria, QTc 472, QRS 158. Cardiac Monitoring: An order for continuous cardiac monitoring was placed and demonstrated Sinus rhythm with first-degree block, 83 bpm, no ectopy. Laboratory studies: See below Imaging studies: See below Consultation(s): [facility] pulmonology Parveen Camp orthopedic PAC with Dr. Dustin Kunz [facility] hospitalist. HPI: The patient is a pleasant 79-year-old gentleman with past medical history of CAD on daily aspirin, pulmonary fibrosis/interstitial lung disease, severe protein calorie malnutrition who presents to the emergency department via EMS for evaluation of left hip pain and deformity which occurred in the setting of having a fall when he was making dinner this evening and lost his balance. Patient has any head strike or loss of consciousness. Denies any neck or back pain. He denies any chest pain, shortness of breath or abdominal pain. Patient denies any recent illness. Patient did develop nausea and vomiting after being moved from the EMS stretcher secondary to pain. ROS: See above HPI for pertinent positives & negatives. A total of 10 systems reviewed and were otherwise negative. VITALS:See Below PHYSICAL EXAMINATION: GENERAL: Awake, alert, uncomfortable-appearing, in no distress HENT: Normocephalic, atraumatic. Oropharynx with dry mucous membranes and otherwise unremarkable. EYES: Normal conjunctiva. Sclera non-icteric.EOMI. No nystamgus. PEARRL. NECK: Supple. No nuchal rigidity. FROM. No JVD. No midline tenderness to palpation or step-offs. RESPIRATORY: Clear to auscultation. CARDIAC: Regular rate, normal rhythm. Extremities warm and well perfused. Pulses equal. ABDOMEN: Soft, non-distended. No tenderness to palpation. No rebound or guarding. No masses. MUSCULOSKELETAL: Chest examination reveals no tenderness. The back is symmetrical on inspection without obvious abnormality. No midline tenderness to palpation or step-offs. There is no CVA tenderness to palpation. LOWER EXTREMITIES: Calves are equal size bilaterally and non-tender. No edema. No discoloration. NEURO: Normal sensorium. No sensory or motor deficits noted. SKIN: No rash or jaundice noted. ED COURSE: Procedures: Left hip prosthesis dislocation reduction Indication: Left hip PRUDENCE dislocation. Verbal consent obtained. Risks and benefits were explained with the usual customary discussion. Neurovascular examination before the procedure revealed no deficits. Pretreatment administered with IV morphine. Reduction attempted with traction and countertraction with left lower extremity/hip in extension and then also in flexion with external rotation. Reduction nearly achieved several times but was unsuccessful. Patient did tolerate reduction attempt relatively well despite lack of sedation due to higher risk secondary to lung disease/pulmonary fibrosis complicated by apical pneumothorax. Matthew Hill MD Past Med/Surg History Problem List (Updated 05/13/24 @ 04:12 by Matthew Hill MD) Pneumothorax on left (Acute) History of total left hip arthroplasty (Acute) Pulmonary fibrosis (Acute) Closed dislocation of left hip (Acute) Black stools Depression Fall Rib pain on right side CAD (coronary artery disease) Severe protein-calorie malnutrition Pneumomediastinum Elevated troponin (Acute) Shortness of breath (Acute) Abnormal ECG (Acute) Exertional angina Pulmonary fibrosis Dyspnea Encounter for examination following treatment at hospital Shortness of breath Hypoxia Cigar smoker ILD (interstitial lung disease) Pulmonary nodule Restrictive lung disease IPF (idiopathic pulmonary fibrosis) Abnormal chest CT Abnormal CXR Dyspnea on exertion Weight loss Allergic rhinitis Pre-diabetes Elevated bilirubin Orthostasis Nystagmus Elevated serum globulin level (Acute) Hypertension (Chronic) not currently on meds d/y orthostasis and syncopal episodes. See Dr Larkin OV 03/07 re: recommendations Chronic back pain (Chronic) GERD (gastroesophageal reflux disease) (Acute) Hyperlipidemia (Chronic) refuses statin Peripheral neuropathy (Chronic) Primary hypothyroidism (Chronic) Vitamin D deficiency (Chronic) Medical History LBBB (left bundle branch block) Syncopal episodes Lesion of finger Actinic keratosis Smokeless tobacco use Spinal stenosis Osteoarthritis Surgical History History of cataract surgery RIGHT History of tooth extraction History of cholecystectomy History of total hip arthroplasty left History of colonoscopy Family History Mother Family history of diabetes mellitus Ovarian cancer Sister Family history of diabetes mellitus Breast cancer Denies family history of Prostate cancer Myocardial infarction Colorectal cancer Social History Smoking Status: Former smoker Tobacco Type: Pipe and Cigars Cigarettes Per Day: 1 cigar 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; Second Hand Exposure: Yes; Do You Dip or Chew Tobacco: No; Hx Alcohol Use: No Hx Substance Use: No Preferred Language: Kenyan Communication Ability: Effective Visual Impairment: No Limitations Hearing Ability: Normal Intermission Coordinator Required: No Beliefs That Will Affect Care: None marital status: / Current Living Situation: Alone current occupational status: retired How many Children do You have: 1 Feels Safe at Home: Yes Childhood Exposure to Second-Hand Smoke: No Diet: regular caffeine: Yes Dental Care, Regularly: No Physical Activity Frequency: 5-6 Times per Week Seatbelt Use: always Sunscreen Use: No Assistive Devices: None Allergies Allergies Allergy/AdvReac Type Severity Reaction Status Date / Time No Known Allergies Allergy Verified 04/11/24 13:03 Home Meds Home Medications Medication Instructions Recorded Confirmed ascorbic acid (vitamin C) 500 mg 500 mg PO DAILY 09/13/23 05/13/24 tablet (Vitamin C) cholecalciferol (vitamin D3) 50 50 mcg PO DAILY 09/13/23 05/13/24 mcg (2,000 unit) tablet (Vitamin D3) Previous Rx's Medication Instructions Recorded Incentive Spirometer #1 ea 09/23/22 levothyroxine 100 mcg capsule 100 mcg PO DAILY #90 caps 08/23/23 albuterol sulfate 90 mcg/actuation 2 inh inhalation QID PRN shortness 02/21/24 aerosol inhaler of breath or wheezing #8.5 grams aspirin 81 mg tablet,delayed 81 mg PO QAM #90 tabs 02/21/24 release atorvastatin 40 mg tablet (Lipitor) 40 mg PO HS #30 tabs 02/21/24 benzonatate 100 mg capsule 100 mg PO TID PRN cough #30 caps 02/21/24 nitroglycerin 0.4 mg sublingual 0.4 mg sublingual Q5M PRN chest 02/21/24 tablet pain #1 btl home oxygen with tubing and travel #1 ea 02/29/24 bottles pirfenidone 267 mg capsule 801 mg (3 x 267 mg) PO TID #360 03/10/24 (Esbriet) caps sertraline 50 mg tablet 50 mg PO DAILY #30 tabs 03/14/24 oxygen concentrator #1 ea 04/04/24 Results & Data (ED) Vital Signs Vital Signs - 24 hr 05/12/24 18:53 05/12/24 19:14 05/12/24 19:18 Temperature 36.3 C L Temperature Source Oral Pulse Rate 99 H 103 H Pulse Rate [Apical] Pulse Rhythm [Apical] Respiratory Rate 26 H Respiratory Effort / Characteristics Non-Labored Spontaneous Respiratory Depth Normal Respiratory Pattern Regular Blood Pressure 151/96 H Blood Pressure [Left Arm] Blood Pressure Mean 114 Blood Pressure Mean [Left Arm] Pulse Oximetry 95 95 Oxygen Delivery Method Room Air Room Air Oxygen Flow Rate Sepsis Recent Fever Within 48 Hours No Sepsis New/Unexplained Change in Mental Status No Sepsis Action Taken by Nursing No Action Required 05/12/24 20:00 05/12/24 23:10 05/13/24 03:02 Temperature Temperature Source Pulse Rate 78 74 Pulse Rate [Apical] 85 Pulse Rhythm [Apical] Regular Respiratory Rate 24 Respiratory Effort / Characteristics Non-Labored Spontaneous Respiratory Depth Normal Respiratory Pattern Regular Blood Pressure Blood Pressure [Left Arm] 137/77 Blood Pressure Mean Blood Pressure Mean [Left Arm] 97 Pulse Oximetry 93 Oxygen Delivery Method Room Air Oxygen Flow Rate Sepsis Recent Fever Within 48 Hours Sepsis New/Unexplained Change in Mental Status Sepsis Action Taken by Nursing 05/13/24 04:00 Temperature Temperature Source Pulse Rate Pulse Rate [Apical] 77 Pulse Rhythm [Apical] Respiratory Rate 22 Respiratory Effort / Characteristics Non-Labored Spontaneous Respiratory Depth Normal Respiratory Pattern Regular Blood Pressure Blood Pressure [Left Arm] 164/75 H Blood Pressure Mean Blood Pressure Mean [Left Arm] 104 Pulse Oximetry 100 Oxygen Delivery Method Oxymask Oxygen Flow Rate 15 Sepsis Recent Fever Within 48 Hours Sepsis New/Unexplained Change in Mental Status Sepsis Action Taken by Nursing Laboratory Data Attestation: I reviewed the patient's lab results. 05/12/24 19:25 05/12/24 19:25 Lab Results 05/12/24 05/12/24 Range/Units 19:25 19:39 WBC 11.90 H (4.8-10.8) K/ul RBC 4.03 L (4.70-6.10) M/uL Hgb 13.3 L (14.0-18.0) g/dl POC Hgb 14.3 (14.0-18.0) g/dl Hct 39.9 L (42.0-52.0) % POC Hct 42 (42-52) % MCV 99.0 (80.0-100.0) fL MCH 33.0 (25.0-34.0) pg MCHC 33.3 (32.0-36.0) g/dL RDW Std Deviation 49.1 H (36.4-46.3) fL RDW Coeff of Christa 13.3 (11.5-14.5) % Plt Count 295 (130-400) K/uL MPV 10.0 (9.4-12.4) fL Immature Gran % (Auto) 0.3 % Neut % (Auto) 77.4 % Lymph % (Auto) 11.0 % Milam % (Auto) 8.2 % Eos % (Auto) 2.4 % Baso % (Auto) 0.7 % Neut # (Auto) 9.21 H (1.40-6.50) K/uL Lymph # (Auto) 1.31 (1.20-3.40) K/uL Milam # (Auto) 0.97 H (0.11-0.59) K/uL Eos # (Auto) 0.29 (0.00-0.50) K/uL Baso # (Auto) 0.08 (0.00-0.20) K/uL Immature Gran # (Auto) 0.04 (0.01-0.20) K/uL PT 11.6 (9.0-12.0) Seconds INR 1.1 (0.9-1.1) APTT 27 (21-31) Seconds PTT Ratio 1.0 POC Sodium 137 (135-144) mmol/L Sodium 136 (136-145) mmol/L POC Potassium 4.2 (3.3-5.0) mmol/L Potassium 4.3 (3.5-5.1) mmol/L POC Chloride 101 (101-112) mmol/L Chloride 101 (98-107) mmol/L Carbon Dioxide 28 (21-32) mmol/L POC Total CO2 28 (24-31) mmol/L Anion Gap 7 (3-11) POC Anion Gap 13.0 L (16-25) mmol/L POC BUN 16 (7-18) mg/dl BUN 16 (6-23) mg/dl Creatinine 0.69 (0.6-1.4) mg/dl POC Creatinine 0.7 (0.6-1.3) mg/dl Est Cr Clr Drug Dosing 81.2 ml/min eGFR 92.97 BUN/Creatinine Ratio 23.2 H (10-20) Glucose 118 H (70-99(Fasting)) mg/dl POC Glucose (other) 117 H (70-99) mg/dl Calcium 9.4 (8.6-10.3) mg/dl POC Ioniz Calcium Jesusita 1.07 L (1.12-1.32) mmol/l Total Bilirubin 0.7 (0.2-1.0) mg/dl AST 64 H (13-39) U/L ALT 56 H (7-52) U/L Alkaline Phosphatase 243 H (34-104) U/L Total Protein 8.0 (6.0-8.3) gm/dl Albumin 3.9 (3.4-5.0) gm/dl Globulin 4.1 H (2.5-4.0) gm/dl Albumin/Globulin Ratio 1.0 (0.9-2) Lipase 44 (11-82) U/L Administered Medications Discontinued Medications Acetaminophen (Ofirmev) 1,000 mg in 100 mls @ 400 mls/hr IV NOW STA Stop: 05/12/24 19:33 Last Infusion: 05/12/24 20:20 Dose: Infused Documented By: Admin: 05/12/24 20:01 Dose: 400 mls/hr Documented By: DAE Sodium Chloride (Nss) 500 mls @ 500 mls/hr IV .Q1H ONE Stop: 05/12/24 20:20 Last Infusion: 05/12/24 21:30 Dose: Infused Documented By: Admin: 05/12/24 20:02 Dose: 500 mls/hr Documented By: DAE Ioversol (Optiray 320 100ml) 94 ml IV ONCE ONE Stop: 05/13/24 00:45 Last Admin: 05/13/24 00:45 Dose: 94 ml Documented By: EMANUEL Morphine Sulfate (Morphine Sulfate 4 Mg/Ml 1 Ml Carp\Vial) 4 mg IV NOW STA Stop: 05/12/24 19:20 Last Admin: 05/12/24 19:48 Dose: 4 mg Documented By: DAE Morphine Sulfate (Morphine Sulfate 4 Mg/Ml 1 Ml Carp\Vial) 4 mg IV NOW STA Stop: 05/12/24 23:01 Last Admin: 05/12/24 23:05 Dose: 4 mg Documented By: DAE Morphine Sulfate (Morphine Sulfate 4 Mg/Ml 1 Ml Carp\Vial) 4 mg IV NOW STA Stop: 05/13/24 00:47 Last Admin: 05/12/24 23:25 Dose: 4 mg Documented By: DAE Ondansetron HCl (Ondansetron Inj 2 Mg/Ml 2 Ml Vial) 4 mg IV NOW STA Stop: 05/12/24 19:21 Last Admin: 05/12/24 19:48 Dose: 4 mg Documented By: DAE Imaging Data Radiologist's Impression: Chest X-Ray 05/12/24 19:18 CR Exam(s): XR CXR 1 VIEW EXAM: XR Chest, 1 View CLINICAL HISTORY: Reason for exam: Trauma. TECHNIQUE: Frontal view of the chest. COMPARISON: 02/21/24 FINDINGS: Lungs: Right basilar discoid atelectasis. No consolidation. Pleural space: There is left apical pneumothorax measuring 2.3 cm in thickness. Heart: Unremarkable. No cardiomegaly. Mediastinum: Unremarkable. Normal mediastinal contour. Bones/joints: Unremarkable. No acute fracture. IMPRESSION: Left apical pneumothorax Communications: Call Doctor Pneumothorax Electronically signed by: Win Greene MD 05/12/24 21:42 PM Hip/Pelvis X-Ray 05/12/24 19:18 Exam(s): XR HIP + PELVIS, 1 view EXAM: XR Left Hip With Pelvis When Performed, 2 or 3 Views CLINICAL HISTORY: Reason for exam: pain, fall deformity. TECHNIQUE: Two or three views of the left hip with pelvis when performed. COMPARISON: No relevant prior studies available. FINDINGS: Bones/joints: There is a total left hip arthroplasty with lateral dislocation of the femoral head component, in relation to the left acetabular fossa. Mild to moderate osteoarthritic changes seen at the right hip joint. No acute fracture. Soft tissues: Unremarkable. IMPRESSION: Lateral dislocation at the left hip Electronically signed by: Win Greene MD 05/12/24 21:[address] 05/12/24 19:20 CR Exam(s): CT C SPINE EXAM: CT Cervical Spine Without Intravenous Contrast CLINICAL HISTORY: Reason for exam: pain fall. TECHNIQUE: Axial computed tomography images of the cervical spine without intravenous contrast. CTDI is 24.9 mGy and DLP is 507.55 mGy-cm. Automated exposure control was utilized for the study. A dose lowering technique was utilized adhering to the principles of ALARA. COMPARISON: No relevant prior studies available. FINDINGS: Vertebrae: Unremarkable. No acute fracture. Discs/spinal canal/neural foramina: No acute findings. No spinal canal stenosis. Soft tissues: There is a small left apical pneumothorax. IMPRESSION: No evidence of acute cervical spine pathology. Small left apical pneumothorax. Recommend CT scan chest to evaluate for rib fracture. Communications: Verify Receipt Electronically signed by: Maxine Perry MD 05/12/24 21:[address] 05/12/24 19:20 Exam(s): CT HEAD Without Contrast EXAM: CT Head Without Intravenous Contrast CLINICAL HISTORY: Reason for exam: pain fall. TECHNIQUE: Axial computed tomography images of the head/brain without intravenous contrast. CTDI is 61.99 mGy and DLP is 1098.96 mGy-cm. Automated exposure control was utilized for the study. A dose lowering technique was utilized adhering to the principles of ALARA. COMPARISON: Prior head CT from September 07, 2019. FINDINGS: Brain: Unremarkable. No hemorrhage. Moderate nonspecific white matter changes. No edema. Ventricles: Moderate ventriculomegaly. Bones/joints: Unremarkable. No acute fracture. Soft tissues: Unremarkable. Sinuses: Unremarkable as visualized. No acute sinusitis. Mastoid air cells: Unremarkable as visualized. No mastoid effusion. IMPRESSION: No evidence of acute intracranial pathology. Electronically signed by: Maxine Perry MD 05/12/24 21:49 PM Hip X-Ray 05/12/24 23:32 Exam(s): XR LEFT HIP EXAM: XR Left Hip With Pelvis When Performed, 2 or 3 Views CLINICAL HISTORY: Reason for exam: dislocation. TECHNIQUE: Two or three views of the left hip with pelvis when performed. COMPARISON: 05/12/24 at 1946 hrs. FINDINGS/IMPRESSION: Left total hip arthroplasty with persistent superolateral dislocation of the femoral component from the acetabular cup. Electronically signed by: Kendy Vance M.D. 05/13/24 01:00 AM Abdomen/Pelvis CT 05/12/24 23:33 EXAM: CT abd pelvis IV con only CLINICAL HISTORY: fall, left PRUDENCE dislocation;br ;br TECHNIQUE: Contiguous axial images were obtained from the level of the diaphragm to the pubic symphysis with intravenous contrast. Coronal and sagittal reconstructions were likewise performed and indicated to increase the sensitivity for detecting clinically relevant pathology. If IV contrast material had not been administered, the likelihood of detecting abnormalities relevant to the patient's condition would have been substantially decreased. CT scan was performed according to ALARA (as low as reasonable achievable). COMPARISON: None. FINDINGS: The visualized lung bases shows multiple interlobular and intralobular septal thickening ; redominantly peripheral aspect and multiple area of honeycombing on right lower lobe - suggestive of interstitial lung disease. Mild left sided pneumothorax. The liver is normal in size and attenuation. No focal liver lesions are seen. There is no intra or extrahepatic biliary ductal dilatation. Hepatic vasculature is patent. The gallbladder is removed. The spleen, pancreas, and adrenal glands are unremarkable. The kidneys are normal in size and attenuation. There is no hydronephrosis or perinephric fat stranding. No renal calculi or renal masses are identified. The ureters are normal in caliber and no ureteral calculi are seen. The bladder is normal in contour. Pelvic viscera are unremarkable. No focal or diffuse bowel wall thickening or evidence of bowel obstruction is identified. The appendix is visualized in the right lower quadrant and appears within normal limits. Abdominal and pelvic vasculature is patent. No adenopathy or fluid collections are seen. No aggressive appearing osseous lesions are identified. Multiple small uncomplicated colonic diverticulosis Left sided total hip replacement with postero-superior dislocation of left hip joint is seen. Linear mildly displaced fracture is noted involving proximal metadiaphysis of left femur adjacent to the prosthesis. Diffuse atherosclerotic calcification is noted involving aorta iliac arteries. IMPRESSION: 1. Left sided total hip replacement with postero-superior dislocation of left hip joint is seen. 2. Linear mildly displaced fracture is noted involving proximal metadiaphysis of left femur adjacent to the prosthesis. 3. Status post-cholecystectomy. 4. Multiple small, uncomplicated colonic diverticulosis. 5. Diffuse atherosclerotic calcification is noted involving aorta iliac arteries. 6. The visualized lung bases shows multiple interlobular and intralobular septal thickening; redominantly peripheral aspect and multiple area of honeycombing on right lower lobe - suggestive of interstitial lung disease. 7. Mild left sided pneumothorax. Electronically signed by Devan Singleton 05-13-2024 01:[address] 05/12/24 23:33 EXAM: CT chest diagnostic w con CLINICAL HISTORY: ptx, fall TECHNIQUE: Contiguous axial images were obtained from the neck base through the upper abdomen following intravenous administration of contrast material. If IV contrast material had not been administered, the likelihood of detecting abnormalities relevant to the patient's condition would have been substantially decreased. In addition, sagittal and coronal reconstructions were performed. CT scan was performed according to ALARA (as low as reasonable achievable). COMPARISON: may 12/2025 23:31:54 [employer]. FINDINGS: Diffuse interlobular and intralobular septal thickening with multiple subpleural area of honeycombing are noted involving both lungs; predominantly both lower lobes - suggestive of interstitial lung disease. Mild left sided pneumothorax seen. Old healed fracture of right 9th rib. The central airways are patent. There are no pleural effusions. No axillary, hilar, or mediastinal adenopathy is identified. The visualized thyroid is unremarkable. The heart, aorta, and pulmonary arteries are of normal size and configuration. No pericardial effusion is identified. No aggressive appearing osseous lesions are identified. IMPRESSION: 1. Diffuse interlobular and intralobular septal thickening with multiple subpleural area of honeycombing are noted involving both lungs; predominantly both lower lobes - suggestive of interstitial lung disease.-stable. 2. Mild left sided pneumothorax seen.-new finding. 3. Old healed fracture of right 9th/10th rib (near costovertebral joint).-new finding. Electronically signed by Devan Singleton 05-13-2024 01:26 AM Discharge Plan Visit Data Chief Complaint: Fall Stated Complaint: FALL, HIP DEFORMITY, ON BLOOD THINNERS ED Provider: Matthew Hill Discharge Problem: Closed dislocation of left hip, Pulmonary fibrosis, History of total left hip arthroplasty, Pneumothorax on left Forms Stand Alone Forms: [facility] Prescriptions Prescriptions: No Action levothyroxine 100 mcg capsule 100 mcg PO DAILY Qty: 90 3RF Rx Instructions: last filled 02/11 pt aware dose change pirfenidone [Esbriet] 267 mg capsule 801 mg PO TID Qty: 360 2RF (DME) Incentive Spirometer Misc See Rx Instructions .MEDSUPPLY Qty: 1 0RF Hold Instructions: do not use at this time Rx Instructions: As directed (DME) home oxygen with tubing and travel bottles See Rx Instructions .Route .MEDSUPPLY Qty: 1 0RF Rx Instructions: use 2 L per nasal cannula with exertion. (DME) oxygen concentrator See Rx Instructions .Route .MEDSUPPLY Qty: 1 0RF Rx Instructions: use 2 L per NC 07/09 sertraline 50 mg tablet 50 mg PO DAILY Qty: 30 5RF aspirin 81 mg Tablet,Delayed Release (Dr/Ec) 81 mg PO QAM Qty: 90 3RF Rx Instructions: purchase [id number] atorvastatin [Lipitor] 40 mg tablet 40 mg PO HS Qty: 30 5RF Rx Instructions: for high cholesterol & coronary artery disease benzonatate 100 mg capsule 100 mg PO TID PRN (Reason: cough) Qty: 30 0RF nitroglycerin 0.4 mg tablet, sublingual 0.4 mg sublingual Q5M PRN (Reason: chest pain) Qty: 1 0RF Rx Instructions: max 3 doses in 15 minutes; be sure you are sitting or laying down if you have to take this medicine. albuterol sulfate 90 mcg/actuation HFA aerosol inhaler 2 inh inhalation QID PRN (Reason: shortness of breath or wheezing) Qty: 8.5 1RF Rx Instructions: filled 02/09 cholecalciferol (vitamin D3) [Vitamin D3] 50 mcg (2,000 unit) Tablet 50 mcg PO DAILY Rx Instructions: 03/10/24:otc unable to verify ascorbic acid (vitamin C) [Vitamin C] 500 mg Tablet 500 mg PO DAILY Rx Instructions: 03/10/24:otc unable to verify Referrals Referrals: Nikki Dawn CRNP [Primary Care Provider] - Discharge Problem: Closed dislocation of left hip Qualifiers: Encounter type: initial encounter Qualified Code(s): S73.005A - Unspecified dislocation of left hip, initial encounter
--- NOTE | 2024-05-12 21:39 | XRay Report ---
Exam(s): XR HIP + PELVIS, 1 view EXAM: XR Left Hip With Pelvis When Performed, 2 or 3 Views CLINICAL HISTORY: Reason for exam: pain, fall deformity. TECHNIQUE: Two or three views of the left hip with pelvis when performed. COMPARISON: No relevant prior studies available. FINDINGS: Bones/joints: There is a total left hip arthroplasty with lateral dislocation of the femoral head component, in relation to the left acetabular fossa. Mild to moderate osteoarthritic changes seen at the right hip joint. No acute fracture. Soft tissues: Unremarkable. IMPRESSION: Lateral dislocation at the left hip Electronically signed by: Win Greene MD 05/12/24 21:38 PM
--- NOTE | 2024-05-12 21:42 | XRay Report ---
Exam(s): XR CXR 1 VIEW EXAM: XR Chest, 1 View CLINICAL HISTORY: Reason for exam: Trauma. TECHNIQUE: Frontal view of the chest. COMPARISON: 02/21/24 FINDINGS: Lungs: Right basilar discoid atelectasis. No consolidation. Pleural space: There is left apical pneumothorax measuring 2.3 cm in thickness. Heart: Unremarkable. No cardiomegaly. Mediastinum: Unremarkable. Normal mediastinal contour. Bones/joints: Unremarkable. No acute fracture. IMPRESSION: Left apical pneumothorax Communications: Call Doctor Pneumothorax Electronically signed by: Win Greene MD 05/12/24 21:42 PM
--- NOTE | 2024-05-12 21:50 | CT Scan Report ---
Exam(s): CT HEAD Without Contrast EXAM: CT Head Without Intravenous Contrast CLINICAL HISTORY: Reason for exam: pain fall. TECHNIQUE: Axial computed tomography images of the head/brain without intravenous contrast. CTDI is 61.99 mGy and DLP is 1098.96 mGy-cm. Automated exposure control was utilized for the study. A dose lowering technique was utilized adhering to the principles of ALARA. COMPARISON: Prior head CT from September 07, 2019. FINDINGS: Brain: Unremarkable. No hemorrhage. Moderate nonspecific white matter changes. No edema. Ventricles: Moderate ventriculomegaly. Bones/joints: Unremarkable. No acute fracture. Soft tissues: Unremarkable. Sinuses: Unremarkable as visualized. No acute sinusitis. Mastoid air cells: Unremarkable as visualized. No mastoid effusion. IMPRESSION: No evidence of acute intracranial pathology. Electronically signed by: Maxine Perry MD 05/12/24 21:49 PM
--- NOTE | 2024-05-12 21:53 | CT Scan Report ---
Exam(s): CT C SPINE EXAM: CT Cervical Spine Without Intravenous Contrast CLINICAL HISTORY: Reason for exam: pain fall. TECHNIQUE: Axial computed tomography images of the cervical spine without intravenous contrast. CTDI is 24.9 mGy and DLP is 507.55 mGy-cm. Automated exposure control was utilized for the study. A dose lowering technique was utilized adhering to the principles of ALARA. COMPARISON: No relevant prior studies available. FINDINGS: Vertebrae: Unremarkable. No acute fracture. Discs/spinal canal/neural foramina: No acute findings. No spinal canal stenosis. Soft tissues: There is a small left apical pneumothorax. IMPRESSION: No evidence of acute cervical spine pathology. Small left apical pneumothorax. Recommend CT scan chest to evaluate for rib fracture. Communications: Verify Receipt Electronically signed by: Maxine Perry MD 05/12/24 21:52 PM
[2024-05-13] MEDS: OPTIRAY 320 100ml IV ONE (00:45)
--- NOTE | 2024-05-13 01:00 | XRay Report ---
Exam(s): XR LEFT HIP EXAM: XR Left Hip With Pelvis When Performed, 2 or 3 Views CLINICAL HISTORY: Reason for exam: dislocation. TECHNIQUE: Two or three views of the left hip with pelvis when performed. COMPARISON: 05/12/24 at 1946 hrs. FINDINGS/IMPRESSION: Left total hip arthroplasty with persistent superolateral dislocation of the femoral component from the acetabular cup. Electronically signed by: Kendy Vance M.D. 05/13/24 01:00 AM
--- NOTE | 2024-05-13 01:27 | CT Scan Report ---
EXAM: CT chest diagnostic w con CLINICAL HISTORY: ptx, fall TECHNIQUE: Contiguous axial images were obtained from the neck base through the upper abdomen following intravenous administration of contrast material. If IV contrast material had not been administered, the likelihood of detecting abnormalities relevant to the patient's condition would have been substantially decreased. In addition, sagittal and coronal reconstructions were performed. CT scan was performed according to ALARA (as low as reasonable achievable). 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 FINDINGS: Diffuse interlobular and intralobular septal thickening with multiple subpleural area of honeycombing are noted involving both lungs; predominantly both lower lobes - suggestive of interstitial lung disease. Mild left sided pneumothorax seen. Old healed fracture of right 9th rib. The central airways are patent. There are no pleural effusions. No axillary, hilar, or mediastinal adenopathy is identified. The visualized thyroid is unremarkable. The heart, aorta, and pulmonary arteries are of normal size and configuration. No pericardial effusion is identified. No aggressive appearing osseous lesions are identified. IMPRESSION: 1. Diffuse interlobular and intralobular septal thickening with multiple subpleural area of honeycombing are noted involving both lungs; predominantly both lower lobes - suggestive of interstitial lung disease.-stable. 2. Mild left sided pneumothorax seen.-new finding. 3. Old healed fracture of right 9th/10th rib (near costovertebral joint).-new finding. Electronically signed by Devan Singleton 05-13-2024 01:26 AM
--- NOTE | 2024-05-13 01:46 | CT Scan Report ---
EXAM: CT abd pelvis IV con only CLINICAL HISTORY: fall, left PRUDENCE dislocation;br ;br TECHNIQUE: Contiguous axial images were obtained from the level of the diaphragm to the pubic symphysis with intravenous contrast. Coronal and sagittal reconstructions were likewise performed and indicated to increase the sensitivity for detecting clinically relevant pathology. If IV contrast material had not been administered, the likelihood of detecting abnormalities relevant to the patient's condition would have been substantially decreased. CT scan was performed according to ALARA (as low as reasonable achievable). COMPARISON: None. FINDINGS: The visualized lung bases shows multiple interlobular and intralobular septal thickening ; redominantly peripheral aspect and multiple area of honeycombing on right lower lobe - suggestive of interstitial lung disease. Mild left sided pneumothorax. The liver is normal in size and attenuation. No focal liver lesions are seen. There is no intra or extrahepatic biliary ductal dilatation. Hepatic vasculature is patent. The gallbladder is removed. The spleen, pancreas, and adrenal glands are unremarkable. The kidneys are normal in size and attenuation. There is no hydronephrosis or perinephric fat stranding. No renal calculi or renal masses are identified. The ureters are normal in caliber and no ureteral calculi are seen. The bladder is normal in contour. Pelvic viscera are unremarkable. No focal or diffuse bowel wall thickening or evidence of bowel obstruction is identified. The appendix is visualized in the right lower quadrant and appears within normal limits. Abdominal and pelvic vasculature is patent. No adenopathy or fluid collections are seen. No aggressive appearing osseous lesions are identified. Multiple small uncomplicated colonic diverticulosis Left sided total hip replacement with postero-superior dislocation of left hip joint is seen. Linear mildly displaced fracture is noted involving proximal metadiaphysis of left femur adjacent to the prosthesis. Diffuse atherosclerotic calcification is noted involving aorta iliac arteries. IMPRESSION: 1. Left sided total hip replacement with postero-superior dislocation of left hip joint is seen. 2. Linear mildly displaced fracture is noted involving proximal metadiaphysis of left femur adjacent to the prosthesis. 3. Status post-cholecystectomy. 4. Multiple small, uncomplicated colonic diverticulosis. 5. Diffuse atherosclerotic calcification is noted involving aorta iliac arteries. 6. The visualized lung bases shows multiple interlobular and intralobular septal thickening; redominantly peripheral aspect and multiple area of honeycombing on right lower lobe - suggestive of interstitial lung disease. 7. Mild left sided pneumothorax. Electronically signed by Devan Singleton 05-13-2024 01:45 AM
[2024-05-13] MEDS ORDERED: MoRPHine SULFATE 4 MG/ML 1 ML CARP\\VIAL IV PRN ×2 (02:03→06:27)
[2024-05-13] MEDS ORDERED: ONDANSETRON INJ 2 MG/ML 2 ML VIAL IV PRN ×3 (02:03→08:59)
--- NOTE | 2024-05-13 05:00 | History & Physical Report ---
Date of Service May 13, 2024 Assessment & Plan (1) Pneumothorax on left: (2) History of total left hip arthroplasty: (3) Closed dislocation of left hip: (4) Pulmonary fibrosis: (5) Severe protein-calorie malnutrition: Plan The patient is an 79-year-old male with a past medical history including chronic interstitial lung disease, pulmonary fibrosis, coronary artery disease, severe protein calorie malnutrition, pneumomediastinum, restrictive lung disease, IPF, hypertension, GERD, peripheral neuropathy, primary hypothyroidism and vitamin D deficiency.The patient presents to the emergency department via EMS, after a fall that occurred while he was making dinner this evening, and developed severe left hip pain. Evaluation in the emergency department included CT scan of chest which showed interstitial lung disease, and a mild left apical pneumothorax, along with old right ninth and 10th rib fractures. CT scan abdomen pelvis showed a left total hip arthroplasty with posterior-superior dislocation, and a left femur fracture. #Left pneumothorax/pulmonary fibrosis/interstitial lung disease- Continue usual inhalers Has followed with Dr. Ewing in the outpatient setting, and will be consulted this admission CT scan head without contrast negative for acute findings CT scan cervical spine negative for acute findings cervical spine but does show apical pneumothorax CT chest shows mild left-sided pneumothorax which appears stable. There are no new left-sided rib fractures. There are old healed right sided ninth and 10th rib fractures. Diffuse interlobular and intralobular septal thickening with multiple subpleural areas of honeycombing suggestive of the patient's known pulmonary fibrosis Left total hip arthroplasty posterior-superior dislocation- N.p.o. after midnight Morphine sulfate 2 mg IV every 3 hours needed from moderate pain Morphine sulfate 4 mg IV every 3 hours as needed for severe pain Narcan IV per protocol Consult orthopedic surgery Dr. Chan Chronic medical conditions: Hypothyroidism-temporarily holding levothyroxine Vitamin D deficiency-temporarily holding supplementation Hyperlipidemia- Temporarily hold atorvastatin and aspirin History of Present Illness Chief Complaint: The patient presents to the emergency department via EMS, after a fall that occurred while he was making dinner this evening, and developed severe left hip pain. Evaluation in the emergency department included CT scan of chest which showed interstitial lung disease, and a mild left apical pneumothorax, along with old right ninth and 10th rib fractures. CT scan abdomen pelvis showed a left total hip arthroplasty with posterior-superior dislocation, and a left femur fracture. Primary Care Provider: BAILEE Neff The patient is an 79-year-old male with a past medical history including chronic interstitial lung disease, pulmonary fibrosis, coronary artery disease, severe protein calorie malnutrition, pneumomediastinum, restrictive lung disease, IPF, hypertension, GERD, peripheral neuropathy, primary hypothyroidism and vitamin D deficiency.The patient presents to the emergency department via EMS, after a fall that occurred while he was making dinner this evening, and developed severe left hip pain. Evaluation in the emergency department included CT scan of chest which showed interstitial lung disease, and a mild left apical pneumothorax, along with old right ninth and 10th rib fractures. CT scan abdomen pelvis showed a left total hip arthroplasty with posterior-superior dislocation, and a left femur fracture. Allergies Allergy/AdvReac Type Severity Reaction Status Date / Time No Known Allergies Allergy Verified 04/11/24 13:03 Home Medications Medication Instructions Recorded Confirmed Type Incentive Spirometer #1 ea 09/23/22 04/11/24 Rx levothyroxine 100 mcg capsule 100 mcg PO DAILY #90 caps 08/23/23 05/13/24 Rx ascorbic acid (vitamin C) 500 mg 500 mg PO DAILY 09/13/23 05/13/24 History tablet (Vitamin C) cholecalciferol (vitamin D3) 50 50 mcg PO DAILY 09/13/23 05/13/24 History mcg (2,000 unit) tablet (Vitamin D3) albuterol sulfate 90 mcg/actuation 2 inh inhalation QID PRN shortness 02/21/24 05/13/24 Rx aerosol inhaler of breath or wheezing #8.5 grams aspirin 81 mg tablet,delayed 81 mg PO QAM #90 tabs 02/21/24 05/13/24 Rx release atorvastatin 40 mg tablet (Lipitor) 40 mg PO HS #30 tabs 02/21/24 05/13/24 Rx benzonatate 100 mg capsule 100 mg PO TID PRN cough #30 caps 02/21/24 05/13/24 Rx nitroglycerin 0.4 mg sublingual 0.4 mg sublingual Q5M PRN chest 02/21/24 05/13/24 Rx tablet pain #1 btl home oxygen with tubing and travel #1 ea 02/29/24 04/11/24 Rx bottles pirfenidone 267 mg capsule 801 mg (3 x 267 mg) PO TID #360 03/10/24 04/11/24 Rx (Esbriet) caps sertraline 50 mg tablet 50 mg PO DAILY #30 tabs 03/14/24 05/13/24 Rx oxygen concentrator #1 ea 04/04/24 04/11/24 Rx Past Med/Surg History Problem List (Updated 05/13/24 @ 04:12 by Matthew Hill MD) Pneumothorax on left (Acute) History of total left hip arthroplasty (Acute) Pulmonary fibrosis (Acute) Closed dislocation of left hip (Acute) Black stools Depression Fall Rib pain on right side CAD (coronary artery disease) Severe protein-calorie malnutrition Pneumomediastinum Elevated troponin (Acute) Shortness of breath (Acute) Abnormal ECG (Acute) Exertional angina Pulmonary fibrosis Dyspnea Encounter for examination following treatment at hospital Shortness of breath Hypoxia Cigar smoker ILD (interstitial lung disease) Pulmonary nodule Restrictive lung disease IPF (idiopathic pulmonary fibrosis) Abnormal chest CT Abnormal CXR Dyspnea on exertion Weight loss Allergic rhinitis Pre-diabetes Elevated bilirubin Orthostasis Nystagmus Elevated serum globulin level (Acute) Hypertension (Chronic) not currently on meds d/y orthostasis and syncopal episodes. See Dr Larkin OV 03/07 re: recommendations Chronic back pain (Chronic) GERD (gastroesophageal reflux disease) (Acute) Hyperlipidemia (Chronic) refuses statin Peripheral neuropathy (Chronic) Primary hypothyroidism (Chronic) Vitamin D deficiency (Chronic) Medical History LBBB (left bundle branch block) Syncopal episodes Lesion of finger Actinic keratosis Smokeless tobacco use Spinal stenosis Osteoarthritis Surgical History History of cataract surgery RIGHT History of tooth extraction History of cholecystectomy History of total hip arthroplasty left History of colonoscopy Family History Mother Family history of diabetes mellitus Ovarian cancer Sister Family history of diabetes mellitus Breast cancer Denies family history of Prostate cancer Myocardial infarction Colorectal cancer Social History Smoking Status: Former smoker Tobacco Type: Pipe and Cigars Cigarettes Per Day: 1 cigar 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; Second Hand Exposure: Yes; Do You Dip or Chew Tobacco: No; Hx Alcohol Use: No Hx Substance Use: No Preferred Language: Haitian Communication Ability: Effective Visual Impairment: No Limitations Hearing Ability: Normal Joiner Required: No Beliefs That Will Affect Care: None marital status: / Current Living Situation: Alone current occupational status: retired How many Children do You have: 1 Feels Safe at Home: Yes Childhood Exposure to Second-Hand Smoke: No Diet: regular caffeine: Yes Dental Care, Regularly: No Physical Activity Frequency: 5-6 Times per Week Seatbelt Use: always Sunscreen Use: No Assistive Devices: None Review of Systems Review of Systems: The patient denies chest pain, palpitations, cough, lower extremity swelling, sore throat, fevers, chills, sweats, weight change, fatigue, nausea, vomiting, diarrhea , constipation, abdominal pain, pelvic pain, blood in urine or stool, dysuria, urinary frequency or urgency, lightheadedness, dizziness, headache, memory loss, loss of consciousness, rash, abnormal bruising or bleeding, imbalance, focal weakness, numbness or tingling in arms, generalized arthralgias or myalgias, back or neck pain, or night sweats. The review of systems is otherwise negative other than for that already noted above, and at least 10 systems have been reviewed. Physical Exam Physical Exam: The patient is awake, alert and oriented 3, well developed and well nourished, normocephalic and atraumatic, lying in bed and in no acute distress. HEENT--PERRL, EOMI, mucous membranes and oropharynx mildly dry. Neck--supple. No JVD. No bruits. Thyroid normal, trachea midline, no adenopathy. Heart--normal S1 and S2. No murmurs, rubs or gallops. Lungs--decreased breath sounds throughout., no respiratory distress, no accessory muscle use. Abdomen--normal bowel sounds and soft. Nontender. Nondistended, no hernias or masses, no organomegaly. Extremities--no cyanosis or clubbing. No edema. There are good distal pulses b/l. Dermatologic--normal skin turgor, normal color, no abnormal lymph nodes, no rash. Neurologic--cranial nerves II through XII grossly intact. Rheumatologic--decreased range of motion due to pain over left hip Psychiatric--normal affect. Results & Data Results & Data Vital Signs (Past 12 Hours) Vital Signs Temp Pulse Pulse Resp BP BP Pulse Ox 05/13/24 04:00 77 22 164/75 H 100 05/13/24 03:02 74 05/12/24 23:10 78 05/12/24 20:00 85 24 137/77 93 05/12/24 19:18 95 05/12/24 19:14 103 H 05/12/24 18:53 36.3 C L 99 H 26 H 151/96 H 95 O2 Del Method O2 Flow Rate 05/13/24 04:00 Oxymask 15 05/13/24 03:02 05/12/24 23:10 05/12/24 20:00 Room Air 05/12/24 19:18 Room Air 05/12/24 19:14 05/12/24 18:53 Room Air Laboratory Results Laboratory Results WBC 11.90 K/ul (4.8-10.8) H 05/12/24 19:25 RBC 4.03 M/uL (4.70-6.10) L 05/12/24 19:25 Hgb 13.3 g/dl (14.0-18.0) L 05/12/24 19:25 POC Hgb 14.3 g/dl (14.0-18.0) 05/12/24 19:39 Hct 39.9 % (42.0-52.0) L 05/12/24 19:25 POC Hct 42 % (42-52) 05/12/24 19:39 MCV 99.0 fL (80.0-100.0) 05/12/24 19: MCH 33.0 pg (25.0-34.0) 05/12/24 19: MCHC 33.3 g/dL (32.0-36.0) 05/12/24 19:25 RDW Std Deviation 49.1 fL (36.4-46.3) H 05/12/24: RDW Coeff of Christa 13.3 % (11.5-14.5) 05/12/24 19: Plt Count 295 K/uL (130-400) 05/12/24 19:25 MPV 10.0 fL (9.4-12.4) 05/12/24 19: Immature Gran % (Auto) 0.3 % 05/12/24 19:25 Neut % (Auto) 77.4 % 05/12/24 19:25 Lymph % (Auto) 11.0 % 05/12/24 19:25 [place] % (Auto) 8.2 % 05/12/24 19:25 Eos % (Auto) 2.4 % 05/12/24 19:25 Baso % (Auto) 0.7 % 05/12/24 19:25 Neut # (Auto) 9.21 K/uL (1.40-6.50) H 05/12/24 19:25 Lymph # (Auto) 1.31 K/uL (1.20-3.40) 05/12/24 19:25 [place] # (Auto) 0.97 K/uL (0.11-0.59) H 05/12/24 19:25 Eos # (Auto) 0.29 K/uL (0.00-0.50) 05/12/24 19:25 Baso # (Auto) 0.08 K/uL (0.00-0.20) 05/12/24 19:25 Immature Gran # (Auto) 0.04 K/uL (0.01-0.20) 05/12/24 19:25 PT 11.6 Seconds (9.0-12.0) 05/12/24 19:25 INR 1.1 (0.9-1.1) 05/12/24 19:25 APTT 27 Seconds (21-31) 05/12/24 19:25 PTT Ratio 1.0 05/12/24 19:25 POC Sodium 137 mmol/L (135-144) 05/12/24 19:39 Sodium 136 mmol/L (136-145) 05/12/24 19:25 POC Potassium 4.2 mmol/L (3.3-5.0) 05/12/24 19:39 Potassium 4.3 mmol/L (3.5-5.1) 05/12/24 19:25 POC Chloride 101 mmol/L (101-112) 05/12/24 19:39 Chloride 101 mmol/L (98-107) 05/12/24 19:25 Carbon Dioxide 28 mmol/L (21-32) 05/12/24 19:25 POC Total CO2 28 mmol/L (24-31) 05/12/24 19:39 Anion Gap 7 (3-11) 05/12/24 19:25 POC Anion Gap 13.0 mmol/L (16-25) L 05/12/24 19:39 POC BUN 16 mg/dl (7-18) 05/12/24 19:39 BUN 16 mg/dl (6-23) 05/12/24 19:25 Creatinine 0.69 mg/dl (0.6-1.4) 05/12/24 19:25 POC Creatinine 0.7 mg/dl (0.6-1.3) 05/12/24 19:39 Est Cr Clr Drug Dosing 81.2 ml/min 05/12/24 19:25 eGFR 92.97 05/12/24 19:25 BUN/Creatinine Ratio 23.2 (10-20) H 05/12/24 19:25 Glucose 118 mg/dl (70-99(Fasting)) H 05/12/24 19:25 POC Glucose (other) 117 mg/dl (70-99) H 05/12/24 19:39 Calcium 9.4 mg/dl (8.6-10.3) 05/12/24 19:25 POC Ioniz Calcium Jesusita 1.07 mmol/l (1.12-1.32) L 05/12/24 19:39 Total Bilirubin 0.7 mg/dl (0.2-1.0) 05/12/24 19:25 AST 64 U/L (13-39) H 05/12/24 19:25 ALT 56 U/L (7-52) H 05/12/24 19:25 Alkaline Phosphatase 243 U/L (34-104) H 05/12/24 19:25 Total Protein 8.0 gm/dl (6.0-8.3) 05/12/24 19:25 Albumin 3.9 gm/dl (3.4-5.0) 05/12/24 19:25 Globulin 4.1 gm/dl (2.5-4.0) H 05/12/24 19:25 Albumin/Globulin Ratio 1.0 (0.9-2) 05/12/24 19:25 Lipase 44 U/L (11-82) 05/12/24 19:25 Impressions Chest X-Ray 05/12/24 19:18 CR Exam(s): XR CXR 1 VIEW EXAM: XR Chest, 1 View CLINICAL HISTORY: Reason for exam: Trauma. TECHNIQUE: Frontal view of the chest. COMPARISON: 02/21/24 FINDINGS: Lungs: Right basilar discoid atelectasis. No consolidation. Pleural space: There is left apical pneumothorax measuring 2.3 cm in thickness. Heart: Unremarkable. No cardiomegaly. Mediastinum: Unremarkable. Normal mediastinal contour. Bones/joints: Unremarkable. No acute fracture. IMPRESSION: Left apical pneumothorax Communications: Call Doctor Pneumothorax Electronically signed by: Win Greene MD 05/12/24 21:42 PM Hip/Pelvis X-Ray 05/12/24 19:18 Exam(s): XR HIP + PELVIS, 1 view EXAM: XR Left Hip With Pelvis When Performed, 2 or 3 Views CLINICAL HISTORY: Reason for exam: pain, fall deformity. TECHNIQUE: Two or three views of the left hip with pelvis when performed. COMPARISON: No relevant prior studies available. FINDINGS: Bones/joints: There is a total left hip arthroplasty with lateral dislocation of the femoral head component, in relation to the left acetabular fossa. Mild to moderate osteoarthritic changes seen at the right hip joint. No acute fracture. Soft tissues: Unremarkable. IMPRESSION: Lateral dislocation at the left hip Electronically signed by: Win Greene MD 05/12/24 21:[address] 05/12/24 19:20 CR Exam(s): CT C SPINE EXAM: CT Cervical Spine Without Intravenous Contrast CLINICAL HISTORY: Reason for exam: pain fall. TECHNIQUE: Axial computed tomography images of the cervical spine without intravenous contrast. CTDI is 24.9 mGy and DLP is 507.55 mGy-cm. Automated exposure control was utilized for the study. A dose lowering technique was utilized adhering to the principles of ALARA. COMPARISON: No relevant prior studies available. FINDINGS: Vertebrae: Unremarkable. No acute fracture. Discs/spinal canal/neural foramina: No acute findings. No spinal canal stenosis. Soft tissues: There is a small left apical pneumothorax. IMPRESSION: No evidence of acute cervical spine pathology. Small left apical pneumothorax. Recommend CT scan chest to evaluate for rib fracture. Communications: Verify Receipt Electronically signed by: Maxine Perry MD 05/12/24 21:[address] 05/12/24 19:20 Exam(s): CT HEAD Without Contrast EXAM: CT Head Without Intravenous Contrast CLINICAL HISTORY: Reason for exam: pain fall. TECHNIQUE: Axial computed tomography images of the head/brain without intravenous contrast. CTDI is 61.99 mGy and DLP is 1098.96 mGy-cm. Automated exposure control was utilized for the study. A dose lowering technique was utilized adhering to the principles of ALARA. COMPARISON: Prior head CT from September 07, 2019. FINDINGS: Brain: Unremarkable. No hemorrhage. Moderate nonspecific white matter changes. No edema. Ventricles: Moderate ventriculomegaly. Bones/joints: Unremarkable. No acute fracture. Soft tissues: Unremarkable. Sinuses: Unremarkable as visualized. No acute sinusitis. Mastoid air cells: Unremarkable as visualized. No mastoid effusion. IMPRESSION: No evidence of acute intracranial pathology. Electronically signed by: Maxine Perry MD 05/12/24 21:49 PM Hip X-Ray 05/12/24 23:32 Exam(s): XR LEFT HIP EXAM: XR Left Hip With Pelvis When Performed, 2 or 3 Views CLINICAL HISTORY: Reason for exam: dislocation. TECHNIQUE: Two or three views of the left hip with pelvis when performed. COMPARISON: 05/12/24 at 1946 hrs. FINDINGS/IMPRESSION: Left total hip arthroplasty with persistent superolateral dislocation of the femoral component from the acetabular cup. Electronically signed by: Kendy Vance M.D. 05/13/24 01:00 AM Abdomen/Pelvis CT 05/12/24 23:33 EXAM: CT abd pelvis IV con only CLINICAL HISTORY: fall, left PRUDENCE dislocation;br ;br TECHNIQUE: Contiguous axial images were obtained from the level of the diaphragm to the pubic symphysis with intravenous contrast. Coronal and sagittal reconstructions were likewise performed and indicated to increase the sensitivity for detecting clinically relevant pathology. If IV contrast material had not been administered, the likelihood of detecting abnormalities relevant to the patient's condition would have been substantially decreased. CT scan was performed according to ALARA (as low as reasonable achievable). COMPARISON: None. FINDINGS: The visualized lung bases shows multiple interlobular and intralobular septal thickening ; redominantly peripheral aspect and multiple area of honeycombing on right lower lobe - suggestive of interstitial lung disease. Mild left sided pneumothorax. The liver is normal in size and attenuation. No focal liver lesions are seen. There is no intra or extrahepatic biliary ductal dilatation. Hepatic vasculature is patent. The gallbladder is removed. The spleen, pancreas, and adrenal glands are unremarkable. The kidneys are normal in size and attenuation. There is no hydronephrosis or perinephric fat stranding. No renal calculi or renal masses are identified. The ureters are normal in caliber and no ureteral calculi are seen. The bladder is normal in contour. Pelvic viscera are unremarkable. No focal or diffuse bowel wall thickening or evidence of bowel obstruction is identified. The appendix is visualized in the right lower quadrant and appears within normal limits. Abdominal and pelvic vasculature is patent. No adenopathy or fluid collections are seen. No aggressive appearing osseous lesions are identified. Multiple small uncomplicated colonic diverticulosis Left sided total hip replacement with postero-superior dislocation of left hip joint is seen. Linear mildly displaced fracture is noted involving proximal metadiaphysis of left femur adjacent to the prosthesis. Diffuse atherosclerotic calcification is noted involving aorta iliac arteries. IMPRESSION: 1. Left sided total hip replacement with postero-superior dislocation of left hip joint is seen. 2. Linear mildly displaced fracture is noted involving proximal metadiaphysis of left femur adjacent to the prosthesis. 3. Status post-cholecystectomy. 4. Multiple small, uncomplicated colonic diverticulosis. 5. Diffuse atherosclerotic calcification is noted involving aorta iliac arteries. 6. The visualized lung bases shows multiple interlobular and intralobular septal thickening; redominantly peripheral aspect and multiple area of honeycombing on right lower lobe - suggestive of interstitial lung disease. 7. Mild left sided pneumothorax. Electronically signed by Devan Singleton 05-13-2024 01:[address] 05/12/24 23:33 EXAM: CT chest diagnostic w con CLINICAL HISTORY: ptx, fall TECHNIQUE: Contiguous axial images were obtained from the neck base through the upper abdomen following intravenous administration of contrast material. If IV contrast material had not been administered, the likelihood of detecting abnormalities relevant to the patient's condition would have been substantially decreased. In addition, sagittal and coronal reconstructions were performed. CT scan was performed according to ALARA (as low as reasonable achievable). COMPARISON: may 12/2025 23:31:54 RN [facility]. FINDINGS: Diffuse interlobular and intralobular septal thickening with multiple subpleural area of honeycombing are noted involving both lungs; predominantly both lower lobes - suggestive of interstitial lung disease. Mild left sided pneumothorax seen. Old healed fracture of right 9th rib. The central airways are patent. There are no pleural effusions. No axillary, hilar, or mediastinal adenopathy is identified. The visualized thyroid is unremarkable. The heart, aorta, and pulmonary arteries are of normal size and configuration. No pericardial effusion is identified. No aggressive appearing osseous lesions are identified. IMPRESSION: 1. Diffuse interlobular and intralobular septal thickening with multiple subpleural area of honeycombing are noted involving both lungs; predominantly both lower lobes - suggestive of interstitial lung disease.-stable. 2. Mild left sided pneumothorax seen.-new finding. 3. Old healed fracture of right 9th/10th rib (near costovertebral joint).-new finding. Electronically signed by Devan Singleton 05-13-2024 01:26 AM Code Status & VTE Plan Code Status DNR/DNI VTE Prophylaxis Plan VTE Prophylaxis will be ordered: Yes PG Care Time/CCT Total # of Minutes Spent Total Time Spent with Patient: Total time spent is greater than 50% in coordination of care (as documented) at patient's floor/unit and/or counseling patient: Coding Level of Care Code 95786 INT INP/OBS CARE 3/75MIN Diagnoses Pneumothorax on left J93.9 History of total left hip arthroplasty Z96.642 Closed dislocation of left hip S73.005A Encounter type: initial encounter Pulmonary fibrosis J84.10 Severe protein-calorie malnutrition E43 (3) Closed dislocation of left hip Encounter type: initial encounter Qualified Code(s): S73.005A - Unspecified dislocation of left hip, initial encounter
[2024-05-13] MEDS: MoRPHine SULFATE 2 MG/ML CARP IV PRN (05:04)
[2024-05-13] MEDS ORDERED: MoRPHine SULFATE 2 MG/ML CARP IV PRN (06:27)
[2024-05-13] MEDS ORDERED: NALOXONE HCL 0.4 MG/1 ML VIAL/CARP IV PRN (06:27)
[2024-05-13] MEDS ORDERED: ALBUT/IPRATROP 3MG/0.5MG NEB 3 ML VIAL NEB PRN (06:27)
[2024-05-13] MEDS: LACTATED RINGER'S 1,000 ML IV SCH (07:18)
--- NOTE | 2024-05-13 08:27 | Orthopedic Consultation ---
Date of Service May 13, 2024 Assessment & Plan (1) Closed dislocation of left hip: (2) History of total left hip arthroplasty: Plan Assessment: Dislocation of left total hip prosthesis. Plan: At this point in time, he was cleared to proceed with closed reduction of his left total hip prosthesis. The risk, benefits, alternatives to this was discussed and entirely with the patient with ample amount of time for patient ask any question or stated concerns. All question concerns were answered with patient satisfaction he wishes to proceed with close reduction under conscious sedation. Will proceed to the operating room later this morning to proceed with closed reduction. Postop expectations were discussed with the patient. History of Present Illness Reason for Consultation: . Left hip dislocation Requesting Physician: . Attending Physician: Jenny oBateng MD . Patient is an 79-year-old gentleman who presented yesterday evening for left hip pain. He does have a total hip arthroplasty to the left side. He presented to the emergency department after a fall. He had immediate onset of left hip pain and was unable to move the left lower extremity. He arrived at [facility] where x-ray imaging confirmed a left hip dislocation. They did complete a CT scan of the left hip which did see a proximal fracture adjacent to the prosthesis. No visible loosening seen on CT. Due to his multiple comorbidities, they did not feel comfortable with conscious sedation in the emergency department. He was admitted to the hospital service for evaluation by the hospitalist service as well as pulmonology. We are asked to be consulted today for conscious sedation for left hip reduction. No other issues today. Allergies Allergy/AdvReac Type Severity Reaction Status Date / Time No Known Allergies Allergy Verified 04/11/24 13:03 Home Medications Medication Instructions Recorded Confirmed Type Incentive Spirometer #1 ea 09/23/22 04/11/24 Rx levothyroxine 100 mcg capsule 100 mcg PO DAILY #90 caps 08/23/23 05/13/24 Rx ascorbic acid (vitamin C) 500 mg 500 mg PO DAILY 09/13/23 05/13/24 History tablet (Vitamin C) cholecalciferol (vitamin D3) 50 50 mcg PO DAILY 09/13/23 05/13/24 History mcg (2,000 unit) tablet (Vitamin D3) albuterol sulfate 90 mcg/actuation 2 inh inhalation QID PRN shortness 02/21/24 05/13/24 Rx aerosol inhaler of breath or wheezing #8.5 grams aspirin 81 mg tablet,delayed 81 mg PO QAM #90 tabs 02/21/24 05/13/24 Rx release atorvastatin 40 mg tablet (Lipitor) 40 mg PO HS #30 tabs 02/21/24 05/13/24 Rx benzonatate 100 mg capsule 100 mg PO TID PRN cough #30 caps 02/21/24 05/13/24 Rx nitroglycerin 0.4 mg sublingual 0.4 mg sublingual Q5M PRN chest 02/21/24 0 05/13/24 Rx tablet pain #1 btl home oxygen with tubing and travel #1 ea 02/29/24 04/11/24 Rx bottles pirfenidone 267 mg capsule 801 mg (3 x 267 mg) PO TID #360 03/10/24 04/11/24 Rx (Esbriet) caps sertraline 50 mg tablet 50 mg PO DAILY #30 tabs 03/14/24 05/13/24 Rx oxygen concentrator #1 ea 04/04/24 04/11/24 Rx Past Med/Surg History Problem List (Updated 05/13/24 @ 04:12 by Matthew Hill MD) Pneumothorax on left (Acute) History of total left hip arthroplasty (Acute) Pulmonary fibrosis (Acute) Closed dislocation of left hip (Acute) Black stools Depression Fall Rib pain on right side CAD (coronary artery disease) Severe protein-calorie malnutrition Pneumomediastinum Elevated troponin (Acute) Shortness of breath (Acute) Abnormal ECG (Acute) Exertional angina Pulmonary fibrosis Dyspnea Encounter for examination following treatment at hospital Shortness of breath Hypoxia Cigar smoker ILD (interstitial lung disease) Pulmonary nodule Restrictive lung disease IPF (idiopathic pulmonary fibrosis) Abnormal chest CT Abnormal CXR Dyspnea on exertion Weight loss Allergic rhinitis Pre-diabetes Elevated bilirubin Orthostasis Nystagmus Elevated serum globulin level (Acute) Hypertension (Chronic) not currently on meds d/y orthostasis and syncopal episodes. See Dr Larkin OV 03/07 re: recommendations Chronic back pain (Chronic) GERD (gastroesophageal reflux disease) (Acute) Hyperlipidemia (Chronic) refuses statin Peripheral neuropathy (Chronic) Primary hypothyroidism (Chronic) Vitamin D deficiency (Chronic) Medical History LBBB (left bundle branch block) Syncopal episodes Lesion of finger Actinic keratosis Smokeless tobacco use Spinal stenosis Osteoarthritis Surgical History History of cataract surgery RIGHT History of tooth extraction History of cholecystectomy History of total hip arthroplasty left History of colonoscopy Family History Mother Family history of diabetes mellitus Ovarian cancer Sister Family history of diabetes mellitus Breast cancer Denies family history of Prostate cancer Myocardial infarction Colorectal cancer Social History Smoking Status: Former smoker Tobacco Type: Pipe and Cigars Cigarettes Per Day: 1 cigar 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; Second Hand Exposure: Yes; Do You Dip or Chew Tobacco: No; Hx Alcohol Use: No Hx Substance Use: No Preferred Language: Luxembourgish Communication Ability: Effective Visual Impairment: No Limitations Hearing Ability: Normal Clinical Nursing Professor Required: No Beliefs That Will Affect Care: None marital status: / Current Living Situation: Alone current occupational status: retired How many Children do You have: 1 Feels Safe at Home: Yes Childhood Exposure to Second-Hand Smoke: No Diet: regular caffeine: Yes Dental Care, Regularly: No Physical Activity Frequency: 5-6 Times per Week Seatbelt Use: always Sunscreen Use: No Assistive Devices: None Review of Systems All systems reviewed & are unremarkable except as noted in HPI & below. Physical Exam . Constitutional: WD/WN, vitals as above no acute distress Musculoskeletal: Shortened and internally rotated left lower extremity with no erythema, ecchymosis, edema, or other obvious deformities. Tenderness to palpation diffusely throughout the left hip. Normal range of motion at the knee, ankle, and all 5 toes. Intact plantarflexion dorsiflexion of left ankle. +2 DP and PT pulse. Less than 2-second capillary refill. Normal sensation. Neurovascular intact. Results & Data Results & Data Laboratory Results . Diagnostic Findings . Chest X-Ray 05/12/24 19:18 CR Exam(s): XR CXR 1 VIEW EXAM: XR Chest, 1 View CLINICAL HISTORY: Reason for exam: Trauma. TECHNIQUE: Frontal view of the chest. COMPARISON: 02/21/24 FINDINGS: Lungs: Right basilar discoid atelectasis. No consolidation. Pleural space: There is left apical pneumothorax measuring 2.3 cm in thickness. Heart: Unremarkable. No cardiomegaly. Mediastinum: Unremarkable. Normal mediastinal contour. Bones/joints: Unremarkable. No acute fracture. IMPRESSION: Left apical pneumothorax Communications: Call Doctor Pneumothorax Electronically signed by: Win Greene MD 05/12/24 21:42 PM Hip/Pelvis X-Ray 05/12/24 19:18 Exam(s): XR HIP + PELVIS, 1 view EXAM: XR Left Hip With Pelvis When Performed, 2 or 3 Views CLINICAL HISTORY: Reason for exam: pain, fall deformity. TECHNIQUE: Two or three views of the left hip with pelvis when performed. COMPARISON: No relevant prior studies available. FINDINGS: Bones/joints: There is a total left hip arthroplasty with lateral dislocation of the femoral head component, in relation to the left acetabular fossa. Mild to moderate osteoarthritic changes seen at the right hip joint. No acute fracture. Soft tissues: Unremarkable. IMPRESSION: Lateral dislocation at the left hip Electronically signed by: Win Greene MD 05/12/24 21:[address] 05/12/24 19:20 CR Exam(s): CT C SPINE EXAM: CT Cervical Spine Without Intravenous Contrast CLINICAL HISTORY: Reason for exam: pain fall. TECHNIQUE: Axial computed tomography images of the cervical spine without intravenous contrast. CTDI is 24.9 mGy and DLP is 507.55 mGy-cm. Automated exposure control was utilized for the study. A dose lowering technique was utilized adhering to the principles of ALARA. COMPARISON: No relevant prior studies available. FINDINGS: Vertebrae: Unremarkable. No acute fracture. Discs/spinal canal/neural foramina: No acute findings. No spinal canal stenosis. Soft tissues: There is a small left apical pneumothorax. IMPRESSION: No evidence of acute cervical spine pathology. Small left apical pneumothorax. Recommend CT scan chest to evaluate for rib fracture. Communications: Verify Receipt Electronically signed by: Maxine Perry MD 05/12/24 21:[address] 05/12/24 19:20 Exam(s): CT HEAD Without Contrast EXAM: CT Head Without Intravenous Contrast CLINICAL HISTORY: Reason for exam: pain fall. TECHNIQUE: Axial computed tomography images of the head/brain without intravenous contrast. CTDI is 61.99 mGy and DLP is 1098.96 mGy-cm. Automated exposure control was utilized for the study. A dose lowering technique was utilized adhering to the principles of ALARA. COMPARISON: Prior head CT from September 07, 2019. FINDINGS: Brain: Unremarkable. No hemorrhage. Moderate nonspecific white matter changes. No edema. Ventricles: Moderate ventriculomegaly. Bones/joints: Unremarkable. No acute fracture. Soft tissues: Unremarkable. Sinuses: Unremarkable as visualized. No acute sinusitis. Mastoid air cells: Unremarkable as visualized. No mastoid effusion. IMPRESSION: No evidence of acute intracranial pathology. Electronically signed by: Maxine Perry MD 05/12/24 21:49 PM Hip X-Ray 05/12/24 23:32 Exam(s): XR LEFT HIP EXAM: XR Left Hip With Pelvis When Performed, 2 or 3 Views CLINICAL HISTORY: Reason for exam: dislocation. TECHNIQUE: Two or three views of the left hip with pelvis when performed. COMPARISON: 05/12/24 at 1946 hrs. FINDINGS/IMPRESSION: Left total hip arthroplasty with persistent superolateral dislocation of the femoral component from the acetabular cup. Electronically signed by: Kendy Vance M.D. 05/13/24 01:00 AM Abdomen/Pelvis CT 05/12/24 23:33 EXAM: CT abd pelvis IV con only CLINICAL HISTORY: fall, left PRUDENCE dislocation;br ;br TECHNIQUE: Contiguous axial images were obtained from the level of the diaphragm to the pubic symphysis with intravenous contrast. Coronal and sagittal reconstructions were likewise performed and indicated to increase the sensitivity for detecting clinically relevant pathology. If IV contrast material had not been administered, the likelihood of detecting abnormalities relevant to the patient's condition would have been substantially decreased. CT scan was performed according to ALARA (as low as reasonable achievable). COMPARISON: None. FINDINGS: The visualized lung bases shows multiple interlobular and intralobular septal thickening ; redominantly peripheral aspect and multiple area of honeycombing on right lower lobe - suggestive of interstitial lung disease. Mild left sided pneumothorax. The liver is normal in size and attenuation. No focal liver lesions are seen. There is no intra or extrahepatic biliary ductal dilatation. Hepatic vasculature is patent. The gallbladder is removed. The spleen, pancreas, and adrenal glands are unremarkable. The kidneys are normal in size and attenuation. There is no hydronephrosis or perinephric fat stranding. No renal calculi or renal masses are identified. The ureters are normal in caliber and no ureteral calculi are seen. The bladder is normal in contour. Pelvic viscera are unremarkable. No focal or diffuse bowel wall thickening or evidence of bowel obstruction is identified. The appendix is visualized in the right lower quadrant and appears within normal limits. Abdominal and pelvic vasculature is patent. No adenopathy or fluid collections are seen. No aggressive appearing osseous lesions are identified. Multiple small uncomplicated colonic diverticulosis Left sided total hip replacement with postero-superior dislocation of left hip joint is seen. Linear mildly displaced fracture is noted involving proximal metadiaphysis of left femur adjacent to the prosthesis. Diffuse atherosclerotic calcification is noted involving aorta iliac arteries. IMPRESSION: 1. Left sided total hip replacement with postero-superior dislocation of left hip joint is seen. 2. Linear mildly displaced fracture is noted involving proximal metadiaphysis of left femur adjacent to the prosthesis. 3. Status post-cholecystectomy. 4. Multiple small, uncomplicated colonic diverticulosis. 5. Diffuse atherosclerotic calcification is noted involving aorta iliac arteries. 6. The visualized lung bases shows multiple interlobular and intralobular septal thickening; redominantly peripheral aspect and multiple area of honeycombing on right lower lobe - suggestive of interstitial lung disease. 7. Mild left sided pneumothorax. Electronically signed by Devan Singleton 05-13-2024 01:[address] 05/12/24 23:33 EXAM: CT chest diagnostic w con CLINICAL HISTORY: ptx, fall TECHNIQUE: Contiguous axial images were obtained from the neck base through the upper abdomen following intravenous administration of contrast material. If IV contrast material had not been administered, the likelihood of detecting abnormalities relevant to the patient's condition would have been substantially decreased. In addition, sagittal and coronal reconstructions were performed. CT scan was performed according to ALARA (as low as reasonable achievable). COMPARISON: may 12/2025 23:31:54 FILLER SPREADER. FINDINGS: Diffuse interlobular and intralobular septal thickening with multiple subpleural area of honeycombing are noted involving both lungs; predominantly both lower lobes - suggestive of interstitial lung disease. Mild left sided pneumothorax seen. Old healed fracture of right 9th rib. The central airways are patent. There are no pleural effusions. No axillary, hilar, or mediastinal adenopathy is identified. The visualized thyroid is unremarkable. The heart, aorta, and pulmonary arteries are of normal size and configuration. No pericardial effusion is identified. No aggressive appearing osseous lesions are identified. IMPRESSION: 1. Diffuse interlobular and intralobular septal thickening with multiple subpleural area of honeycombing are noted involving both lungs; predominantly both lower lobes - suggestive of interstitial lung disease.-stable. 2. Mild left sided pneumothorax seen.-new finding. 3. Old healed fracture of right 9th/10th rib (near costovertebral joint).-new finding. Electronically signed by Devan Singleton 05-13-2024 01:26 AM PG Care Time/CCT Total # of Minutes Spent Total Time Spent with Patient: Total time spent is greater than 50% in coordination of care (as documented) at patient's floor/unit and/or counseling patient: Supervising Physician Co-Signing Physician Notes The patient was independently seen and evaluated. X-rays were reviewed. I agree with the physician vet assistant's note in its entirety. We will perform a left prosthetic hip closed reduction under anesthesia. I did inform that there is suggestion of fracture lines around the femoral prosthesis. This to be better evaluated after reduction. We discussed the purpose of the procedure, risks and benefits. Patient and his son were agreeable to proceed. Informed consent was documented preop holding area. Coding Level of Care Code 07987 IN/OBS CONSULT LVL 3,45M Diagnoses Closed dislocation of left hip S73.005A Encounter type: initial encounter History of total left hip arthroplasty Z96.642 (1) Closed dislocation of left hip Encounter type: initial encounter Qualified Code(s): S73.005A - Unspecified dislocation of left hip, initial encounter
--- NOTE | 2024-05-13 08:56 | Anesthesiology Consultation ---
Date of Service May 13, 2024 Assessment & Plan (1) Encounter for pre-operative examination: Chart Review Chart Review: Acceptable Risk for Surgery (urgent procedure for dislocated hip) History Surgery Operation Date: 05/13/24 08:30 Proposed Procedures p Closed Reduction Extremity(Left) - Chuck Chan MD Height/Weight Height: 6 ft 1 in Weight: 68.4 kg Allergies Allergy/AdvReac Type Severity Reaction Status Date / Time No Known Allergies Allergy Verified 04/11/24 13:03 Medications Home Medications Medication Instructions Recorded Confirmed Last Taken Incentive Spirometer #1 ea 09/23/22 04/11/24 Unknown levothyroxine 100 mcg capsule 100 mcg PO DAILY #90 caps 08/23/23 05/13/24 09/13/23 ascorbic acid (vitamin C) 500 mg 500 mg PO DAILY 09/13/23 05/13/24 09/12/23 tablet (Vitamin C) cholecalciferol (vitamin D3) 50 50 mcg PO DAILY 09/13/23 05/13/24 09/12/23 mcg (2,000 unit) tablet (Vitamin D3) albuterol sulfate 90 mcg/actuation 2 inh inhalation QID PRN shortness 02/21/24 05/13/24 Unknown aerosol inhaler of breath or wheezing #8.5 grams aspirin 81 mg tablet,delayed 81 mg PO QAM #90 tabs 02/21/24 05/13/24 Unknown release atorvastatin 40 mg tablet (Lipitor) 40 mg PO HS #30 tabs 02/21/24 05/13/24 Unknown benzonatate 100 mg capsule 100 mg PO TID PRN cough #30 caps 02/21/24 05/13/24 Unknown nitroglycerin 0.4 mg sublingual 0.4 mg sublingual Q5M PRN chest 02/21/24 05/13/24 Unknown tablet pain #1 btl home oxygen with tubing and travel #1 ea 02/29/24 04/11/24 Unknown bottles pirfenidone 267 mg capsule 801 mg (3 x 267 mg) PO TID #360 03/10/24 04/11/24 Unknown (Esbriet) caps sertraline 50 mg tablet 50 mg PO DAILY #30 tabs 03/14/24 05/13/24 Unknown oxygen concentrator #1 ea 04/04/24 04/11/24 Unknown Active Medications Generic Name Dose Route Start Last Admin Trade Name Freq PRN Reason Stop Dose Admin Lactated Ringer's 1,000 mls @ 80 mls/hr 05/13/24 06:27 05/13/24 07:18 Lr IV 05/14/24 07:26 80 mls/hr .[id number] KAYLA Administration NPO Date Last Intake of Fluids: 05/12/24 Time Last Intake of Fluids: 16:00 Date Last Intake of Solids: 05/12/24 Time Last Intake of Solids: 13:30 Past Medical History Medical History LBBB (left bundle branch block) Syncopal episodes Lesion of finger Actinic keratosis Smokeless tobacco use Spinal stenosis Osteoarthritis Past Family History Family History Mother Family history of diabetes mellitus Ovarian cancer Sister Family history of diabetes mellitus Breast cancer Denies family history of Prostate cancer Myocardial infarction Colorectal cancer Past Surgical History Surgical History History of cataract surgery RIGHT History of tooth extraction History of cholecystectomy History of total hip arthroplasty left History of colonoscopy Social History Smoking Status: Former smoker tobacco type: cigars Smoking cigarettes per day: 1 cigar 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 Do You Dip or Chew Tobacco: No Hx Alcohol Use: No Hx Substance Use: No substance use type: does not use Physical Exam Vital Signs Last Vital Signs Temp 36.3 C L 05/12/24 18:53 Pulse 79 05/13/24 08:00 Resp 32 H 05/13/24 08:00 BP 147/79 H 05/13/24 08:00 Pulse Ox 100 05/13/24 08:00 O2 Del Method Oxymask 05/13/24 07:27 O2 Flow Rate 10 05/13/24 07:27 Testing Laboratory Results 05/12/24 19:25 05/12/24 19:25 PT 11.6 Seconds (9.0-12.0) 05/12/24 19: INR 1.1 (0.9-1.1) 05/12/24 19: APTT 27 Seconds (21-31) 05/12/24 19:25 Echocardiogram Date: 02/20/24 EF: 55-60% LV Function: normal Valvular Disease: + MR (mild) mild pulm htn Cardiac Catheterization Date: 02/21/24 severe multivessel disease - presently considering intervention risk with other coexisting disease
[2024-05-13] MEDS ORDERED: ATROPINE SULFATE 0.1 MG/ML 10ML SYR IV PRN (08:59)
[2024-05-13] MEDS ORDERED: KETOROLAC 30 MG/ML VIAL IV PRN (08:59)
[2024-05-13] MEDS ORDERED: KETAMINE HCL 10MG/ML SYR ONE (09:01)
[2024-05-13] MEDS ORDERED: LIDOCAINE 2% 2 ML VIAL/AMP(20MG/ML) INFIL ONE (09:01)
[2024-05-13] MEDS ORDERED: PROPOFOL IV EMULSION 10 MG/ML 20 ML VIAL IV ONE (09:01)
--- NOTE | 2024-05-13 09:20 | Operative Report ---
[facility] Post Operative Report Pre & Post Diagnosis Operation Date: 05/13/24 08:30 Pre-Op Diagnosis: Closed dislocation of left hip History of total left hip arthroplasty Post-Op Diagnosis: Closed dislocation of left hip History of total left hip arthroplasty Periprosthetic proximal femur fracture I identified the patient and participated in the time-out.: Yes Procedure Operation Date: 05/13/24 08:30 Actual Procedures p Left Hip Closed Reduction under sedation(Left) - Chuck Chan MD Surgeon Chuck Chan MD Ethnology Teacher Buzz Camp PA-C Estimated Blood Loss 0 Findings See Below Routine close reduction performed with PA stabilizing the pelvis. Post reduction fluoroscopy confirms peritrochanteric fracture involving the greater trochanter and extending to the medial cortex. No evidence of stem instability. Specimens None Anesthesia Type MAC Complications none Disposition Accompanied Patient To Recovery: No Disposition: Recovery Room Indications 79-year-old male had an incident where he tripped and fell at home while preparing dinner, resulting in an inability to weight-bear and ambulate. He was brought to the emergency room, where a prosthetic hip dislocation was diagnosed. Close reduction maneuvers under opioid pain management were performed in the ED. Full sedation was not performed because of his chronic lung disease. Orthopedics was consulted after failure of the reduction. He was evaluated by anesthesia for close reduction maneuvers in the operating room. We explained the risk, benefits and alternatives to a close reduction attempt with formal se dation. He and his son were agreeable to proceed. We did disclose the fracture, but recommended treatment with close reduction first before further evaluation. All parties were agreeable to proceed. Informed consent was documented and confirmed. Description of Procedure Surgical site was confirmed by the patient and marked by me. The patient was turned over to anesthesia. He was taken to the operating room and placed supine on the OR table under sedation. Surgical timeout was called by the circulating nurse, and verified all present. The bed was lowered, and the physician veterinarian assistant stabilized the pelvis. I pulled traction while in deep flexion and used an internal rotation moment to reduce the hip. There was a palpable reduction. Fluoroscopic views confirmed reduction and the presence of a minimally displaced peritrochanteric fracture. The stem was well-fixed distally. There is no evidence of compromise of the femoral prosthesis. Leg lengths were equalized. Palpable distal pulses. Physician veterinarian assistant attestation: Parveen Camp, PA-C was present for the duration of the case. Skilled assistance was essential to patient positioning and stabilizing the pelvis while assisting the closed reduction maneuver I attest to the content of the Intraoperative Record and any orders documented therein. Any exceptions are noted below.
--- NOTE | 2024-05-13 09:50 | Anesthesiology Progress Note ---
Date of Service May 13, 2024 Anesthesia Post Procedure Vital Signs Vital Signs: Temp Pulse Pulse Resp BP BP BP 05/13/24 09:40 68 16 138/72 05/13/24 09:30 71 16 144/68 H 05/13/24 09:20 36.0 C L 70 24 131/75 05/13/24 08:00 79 32 H 05/13/24 08:00 147/79 H 05/13/24 08:00 147/79 H 05/13/24 08:00 147/79 H 05/13/24 08:00 147/79 H 05/13/24 08:00 147/79 H 05/13/24 08:00 147/79 H 05/13/24 07:30 166/75 H 05/13/24 07:30 166/75 H 05/13/24 07:30 166/75 H 05/13/24 07:30 166/75 H 05/13/24 07:30 166/75 H 05/13/24 07:30 166/75 H 05/13/24 07:30 166/75 H 05/13/24 07:30 166/75 H 05/13/24 07:30 166/75 H 05/13/24 07:30 166/75 H 05/13/24 07:30 80 28 H 05/13/24 07:27 05/13/24 07:24 81 28 H 05/13/24 07:23 05/13/24 07:17 79 18 139/63 05/13/24 07:00 139/63 05/13/24 07:00 79 05/13/24 06:13 76 05/13/24 05:00 136/68 05/13/24 05:00 79 19 05/13/24 05:00 136/68 05/13/24 05:00 136/68 05/13/24 05:00 136/68 05/13/24 05:00 136/68 05/13/24 05:00 136/68 05/13/24 05:00 136/68 05/13/24 05:00 136/68 05/13/24 05:00 136/68 05/13/24 05:00 79 26 H 136/68 05/13/24 04:32 112/58 L 05/13/24 04:32 112/58 L 05/13/24 04:32 112/58 L 05/13/24 04:32 112/58 L 05/13/24 04:32 112/58 L 05/13/24 04:32 112/58 L 05/13/24 04:32 112/58 L 05/13/24 04:32 112/58 L 05/13/24 04:32 112/58 L 05/13/24 04:32 112/58 L 05/13/24 04:32 112/58 L 05/13/24 04:30 74 36 H 05/13/24 04:06 74 22 05/13/24 04:04 164/75 H 05/13/24 04:04 164/75 H 05/13/24 04:04 164/75 H 05/13/24 04:04 164/75 H 05/13/24 04:04 164/75 H 05/13/24 04:04 164/75 H 05/13/24 04:04 164/75 H 05/13/24 04:00 164/75 H 05/13/24 04:00 77 22 164/75 H 05/13/24 03:45 74 31 H 05/13/24 03:30 150/81 H 05/13/24 03:30 150/81 H 05/13/24 03:30 150/81 H 05/13/24 03:30 150/81 H 05/13/24 03:30 150/81 H 05/13/24 03:30 150/81 H 05/13/24 03:30 150/81 H 05/13/24 03:30 150/81 H 05/13/24 03:30 150/81 H 05/13/24 03:30 150/81 H 05/13/24 03:30 150/81 H 05/13/24 03:27 70 31 H 05/13/24 03:03 77 21 05/13/24 03:02 74 05/13/24 03:00 137/67 05/13/24 03:00 137/67 05/13/24 03:00 137/67 05/13/24 02:30 73 24 133/76 05/13/24 02:00 73 25 H 150/74 H 05/13/24 00:00 78 26 H 121/63 05/12/24 23:10 78 05/12/24 22:00 78 23 114/64 05/12/24 20:00 85 24 137/77 05/12/24 19:18 05/12/24 19:14 103 H 05/12/24 18:53 36.3 C L 99 H 26 H 151/96 H Pulse Ox Pulse Ox O2 Del Method O2 Del Method O2 Flow Rate O2 Flow Rate 05/13/24 09:40 100 Oxymask 10 05/13/24 09:30 100 Oxymask 10 05/13/24 09:20 99 Oxymask 10 05/13/24 08:00 100 05/13/24 08:00 05/13/24 08:00 05/13/24 08:00 05/13/24 08:00 05/13/24 08:00 05/13/24 08:00 05/13/24 07:30 05/13/24 07:30 05/13/24 07:30 05/13/24 07:30 05/13/24 07:30 05/13/24 07:30 05/13/24 07:30 05/13/24 07:30 05/13/24 07:30 05/13/24 07:30 05/13/24 07:30 100 05/13/24 07:27 100 Oxymask 10 05/13/24 07:24 99 05/13/24 07:23 Oxymask 10 05/13/24 07:17 100 Oxymask 10 05/13/24 07:00 05/13/24 07:00 05/13/24 06:13 05/13/24 05:00 05/13/24 05:00 100 05/13/24 05:00 05/13/24 05:00 05/13/24 05:00 05/13/24 05:00 05/13/24 05:00 05/13/24 05:00 05/13/24 05:00 05/13/24 05:00 05/13/24 05:00 100 Oxymask 10 05/13/24 04:32 05/13/24 04:32 05/13/24 04:32 05/13/24 04:32 05/13/24 04:32 05/13/24 04:32 05/13/24 04:32 05/13/24 04:32 05/13/24 04:32 05/13/24 04:32 05/13/24 04:32 05/13/24 04:30 100 05/13/24 04:06 100 05/13/24 04:04 05/13/24 04:04 05/13/24 04:04 05/13/24 04:04 05/13/24 04:04 05/13/24 04:04 05/13/24 04:04 05/13/24 04:00 05/13/24 04:00 100 Oxymask 15 05/13/24 03:45 100 05/13/24 03:30 05/13/24 03:30 05/13/24 03:30 05/13/24 03:30 05/13/24 03:30 05/13/24 03:30 05/13/24 03:30 05/13/24 03:30 05/13/24 03:30 05/13/24 03:30 05/13/24 03:30 05/13/24 03:27 99 05/13/24 03:03 100 05/13/24 03:02 05/13/24 03:00 05/13/24 03:00 05/13/24 03:00 05/13/24 02:30 97 Nasal Cannula 05/13/24 02:00 97 Nasal Cannula 2 05/13/24 00:00 96 Room Air 05/12/24 23:10 05/12/24 22:00 99 Room Air 05/12/24 20:00 93 Room Air 05/12/24 19:18 95 Room Air 05/12/24 19:14 05/12/24 18:53 95 Room Air Pain Intensity Left Hip: Pain Intensity: 3 Transfer of Care Handoff Completed per policy Notes Mental Status: alert / awake / arousable Patient Amnestic to Procedure: Yes Nausea / Vomiting: adequately controlled Pain: adequately controlled Airway Patency, RR, SpO2: stable & adequate BP & HR: stable & adequate Hydration State: stable & adequate Anesthetic Complications: no major complications apparent
--- OUTSIDE RECORDS SUMMARY | 2024-05-13 10:23 | External Medical Summary | Continuity of Care Document ---
Author Name Unknown Organization [facility] Address [address] [place] [id number] Care Team Providers Care Tip Inserter Name Role Phone Nikki Dawn Primary Care Physician [phone] Encounter [facility] [id number] Date(s): 05/09/24 - 05/09/[address] [id number] [phone] Encounter Diagnosis Exertional dyspnea(Discharge Diagnosis) - 05/09/24 CAD in habematolel artery(Discharge Diagnosis) - 05/09/24 Dyslipidemia(Discharge Diagnosis) - 05/09/24 IPF (idiopathic pulmonary fibrosis)(Discharge Diagnosis) - 05/09/24 Other forms of dyspnea(Final) - Atherosclerotic heart disease of habematolel coronary artery without angina pectoris (Final) - Idiopathic pulmonary fibrosis(Final) - Hyperlipidemia, unspecified(Final) - Discharge Disposition: Home or Self Care Attending Physician: MD Woods Chad J Referring Physician: AMI Henry Kip M Encounter Type: Outpatient Hospital Allergies, Adverse Reactions, Alerts No Known Allergies Assessment and Plan Extracted from: Title:Clinical Document Author:MD Woods Chad J Date:05/09/24 INTERVENTIONAL CARDIOLOGY OU TPATIENT NOTE Name: HERRERA LEON Patient Number: [id number] : 1945 Primary Care Physician: BAILEE Dawn Candace Date of Service: 05/09/[address] Jude Lopez had the opportunity to care for Herrera Leon at the [facility] for his history of multivessel coronary artery disease and consideration of percutaneous coronary intervention. As you well know he carries a history of IPF, ongoing weight loss, and dyslipidemia. In February 2024 patient presented to [facility] with chest pain and subsequently found to have an elevated serum troponin. On February 21, 2024 patient underwent an invasive coronary angiogram. I had the opportunity to review the images. The distal left main had intermediate to severe stenosis that was calcified with mildly tortuous takeoff of the circumflex that was severely diseased (90%) and heavily calcified in addition to heavily calcified ostial LAD disease. There is a severe ostial RCA stenosis as well. He was placed on aspirin 81 mg and a statin which he tolerated. Had issues tolerating a beta-malik due to hypotension. He has been following locally and is referred for coronary angiography. While in the hospital patient had a transthoracic echocardiogram notable for an ejection fraction of 55 to 60%, grade 1 diastolic dysfunction, and mild mitral and tricuspid regurgitation. Currently patient denies any chest pain symptoms he is still experiences exertional dyspnea which he believes is related to his IPF. He ambulate about 30 feet to the bathroom. He also reports significant ongoing weight loss. Review of Systems: The patient denied chest pain, orthopnea, paroxsymal nocturnal dyspnea, and syncope. A full 14 point review of systems is otherwise unremarkable. Social History: The patient is a history of smoking cigar while doing yard work. Family History: The patient's mother had diabetes and ovarian cancer. Sister diabetes and breast cancer. No known history of coronary artery disease. Current Home Meds: (Last Updated 03/22 11:07) amoxicillin (amoxicillin 500 mg oral capsule) 2,000 mg PO As indicated ascorbic acid (Vitamin C) 1 tab PO Daily cholecalciferol (Vitamin D3 2000 intl units oral tablet) 2,000 Int_Unit PO Daily ibuprofen levothyroxine (levothyroxine 88 mcg (0.088 mg) oral capsule) 88 mcg PO Daily magnesium sulfate/potass Cl/sodium sulf (Sutab oral tablet) Follow instructions from endoscopy center.Medicare Sutab CouponBIN: [id number]: CNGroup: [id number] ID: [id number] niacin (Niaspan ER 500 mg oral tablet, extended release) 500 mg PO Daily unknown medication medication to stop growth in lung Allergies and Sensitivities: NKA Past Medical History: Problems: Active Problems (12) Arthritis Hip pain, bilateral Hyperlipidemia Hypothyroidism Low back pain radiating to left leg Lumbar spinal stenosis Neurogenic claudication Osteoarthritis of left hip Peripheral neuropathy S/P total hip arthroplasty Spinal stenosis Tobacco user OBJECTIVE Vitals: Pulse 96 bpm blood pressure 125/71 mmHg weight 65 kg Physical Exam GENERAL: patient is awake, alert, conversant, and quite pleasant. HEENT: moist mucous membranes, normocephalic, extraocular movements intact. VESSELS: Difficult to palpate pedal pulses, 2+ radial pulses, normal jugular venous pressure. LUNGS: Diminished breath sounds on inspiration with dry crackles coarse expiratory breath sounds. HEART: S1-S2 3 out of 6 systolic ejection murmur at the apex, rub ,or gallop. EXTREMITIES: warm and well perfused, no lower extremity edema. SKIN: warm, dry, and intact. PSYCHIATRIC: normal mood and affect. NEUROLOGIC: no gross focal neurologic deficit. ASSESSMENT and PLAN: I had the pleasure of evaluating Herrera Leon for his history of multivessel coronary artery disease and consideration of percutaneous coronary intervention. I had a long discussion with the patient and his son today. We discussed that his left main, circumflex, and LAD bifurcation disease was technically feasible but quite high in risk. It would require atherectomy of all 3 vessels and bifurcation stenting. We discussed potential risks including vessel perforation, cardiac tamponade, dysrhythmia, heart failure, renal failure, and . We also discussed the potential need for percutaneous left ventricular assist device placement. However my biggest concern today is not the extent of his disease or risk of intervention but rather his overall health. He is quite frail appearing and has unintentionally lost 57 pounds over the past several months. He has a known history of IPF and states it has been quite sometime since he has seen pulmonary. He is scheduled to see them within the next few weeks. He is uncertain of his prognosis regarding his IPF. The patient is currently having no chest pain but is having exertional dyspnea after ambulating more than 30 feet. It is hard for me to tell if his dyspnea is related to his IPF as I have no records of his testing or prognosis. I discussed with him he may go to a high risk intervention and still be left with the same degree of dyspnea. Also if his prognosis is poor overall it may be futile to bring him in for PCI. The patient and his son agree with that. They plan on getting a better idea of his prognosis when they meet with their barber tool sharpener in May. I was hoping to request records from the barber tool sharpener office but the patient did not remember the barber tool sharpener's name. I provided him with my card and he will reach out to me after getting a better idea of his prognosis and will work to reach out and get his pulmonary records as well. If his prognosis is good overall then it may make sense to bring him in for intervention and if his prognosis is poor I would recommend medical therapy. Thank you for allowing me to participate in the patient's care. Please reach out with any concerns or questions. Hany Woods MD, MS, FAC, [facility] [employer] Comp[employer]ors[employer] delivery director Interventional Cardiology [facility] Office: [phone] The preceding letter/attestation was dictated using voice recognition software. While I make every attempt to review and correct errors, some may persist. I apologize in advanced for this, and if they generate any confusion, please feel free to contact me personally. Medications albuterol CFC free 90 mcg/inh MDI Start: 05/09/24 2:34:00 PM EDT, 2 inh, inhaled, qid, PRN: as needed for wheezing Start Date: 05/09/24 Status: Ordered Repeat number: 1 amoxicillin 500 mg oral capsule Start: 12/06/23 7:40:00 AM EDT, 4 cap, PO, As indicated, Disp# 12 cap, Refills: 3, one hour before dental and other procedures as directed, Pharmacy: [id number] Start Date: 12/06/23 Status: Ordered Quantity: 12.0 Unit: cap Repeat number: 4 Indication: Presence of left artificial hip joint aspirin 81 mg oral delayed release tablet Start: 05/09/24 2:38:00 PM EDT, 1 tab, PO, Daily Start Date: 05/09/24 Status: Ordered Repeat number: 1 atorvastatin 40 mg oral tablet Start: 05/09/24 2:34:00 PM EDT, 1 tab, PO, Daily Start Date: 05/09/24 Status: Ordered Repeat number: 1 ibuprofen Start: 02/23/17 3:08:00 PM EST Start Date: 02/23/17 Status: Ordered Repeat number: 1 nitroglycerin 0.4 mg sublingual tablet Start: 05/09/24 2:34:00 PM EDT, 1 tab, SL, q5min, Disp# 25 tab, PRN: as needed for chest pain Start Date: 05/09/24 Status: Ordered Quantity: 25.0 Unit: tab Repeat number: 1 pirfenidone 267 mg oral capsule Start: 05/09/24 2:38:00 PM EDT, 1 cap, PO, tid Start Date: 05/09/24 Status: Ordered Repeat number: 1 sertraline 50 mg oral tablet Start: 05/09/24 2:34:00 PM EDT, 1 tab, PO, Daily Start Date: 05/09/24 Status: Ordered Repeat number: 1 Vitamin C Start: 05/03/12 9:06:00 AM EDT, 1 tab, PO, Daily Start Date: 05/03/12 Status: Ordered Repeat number: 1 Vitamin D3 2000 intl units oral tablet Start: 10/26/16 7:49:00 AM EDT, 1 tab, PO, Daily Start Date: 10/26/16 Status: Ordered Repeat number: 1 Problem List Condition Confirmation Course Effective Dates Status H ealth Status Informant Arthritis Confirmed Active S/P total hip arthroplasty Confirmed Active Hip pain, bilateral Confirmed Active Hyperlipidemia Confirmed Active Hypothyroidism Confirmed Active Low back pain radiating to left leg Confirmed 11/29/08 Active Neurogenic claudication Confirmed Active Osteoarthritis of left hip Confirmed Active Peripheral neuropathy Confirmed Active Lumbar spinal stenosis Confirmed Active Spinal stenosis Confirmed Active Tobacco user Confirmed Active Diagnosis Diagnosis Type Effective Dates Health Status Clinical Service Informant Dyslipidemia Discharge Diagnosis 05/09/24 Non-Specified IPF (idiopathic pulmonary fibrosis) Discharge Diagnosis 05/09/24 Non-Specified CAD in habematolel artery Discharge Diagnosis 05/09/24 Non-Specified Exertional dyspnea Discharge Diagnosis 05/09/24 Non-Specified Procedures Procedure Date Related Diagnosis Body Site Status Colonoscopy 1, 2 06/11/22 Complete d Injection 3 11/2008 Completed total hip replacement Com pleted 1COLO to cecum, diverticulosis, sigmoid polyp 3 mm CF, rectal polyp 3 mm CF, 2Pathology: Sigmoid colon polyp, polypectomy, Rectal polyp, polypectomy: Hyperplastic polyp 3Epidural Vital Signs Most recent to oldest [Reference Range]: 1 Patient Weight 65.0 kg (05/09/24 2:34 PM) Heart Rate 96 bpm (05/09/24 2:34 PM) Blood Pressure 125/71mmHg (05/09/24 2:34 PM) BP Location # 1 Right Arm (05/09/24 2:34 PM) Social History Social History Type Response Smoking Status Never smoked cigaret sujit Sex Male Sex Representation Male (finding) Cardiology Outpatient Note * MD Chuck, Hany Knox: PERFORM, MODIFY, MODIFY Event Display: Cardiology Outpt Note Authored Date: [id number] INTERVENTIONAL CARDIOLOGY OUTPATIENT NOTE Name: HERRERA LEON Patient Number: [id number] : 1945 Primary Care Physician: BAILEE Dawn Candace Date of Service: 05/09/[address] Roque I had the opportunity to care for Herrera Leon at the [facility] for his history of multivessel coronary artery disease and consideration of percutaneous coronary intervention. As you well know he carries a history of IPF, ongoing weight loss, and dyslipidemia. In February 2024 patient presented to [facility] with chest pain and subsequently found to have an elevated serum troponin. On February 21, 2024 patient underwent an invasive coronary angiogram. I had the opportunity to review the images. The distal left main had intermediate to severe stenosis that was calcified with mildly tortuous takeoff of the circumflex that was severely diseased (90%) and heavily calcified in addition to heavily calcified ostial LAD disease. There is a severe ostial RCA stenosis as well. He was placed on aspirin 81 mg and a statin which he tolerated. Hadissues tolerating a beta-malik due to hypotension. He has been following locally and is referred for coronary angiography. While in the hospital patient had a transthoracic echocardiogram notable for an ejection fraction of 55 to 60%, grade 1 diastolic dysfunction, and mild mitral and tricuspid regurgitation. Currently patient denies any chest pain symptoms he is still experiences exertional dyspnea which he believes is related to his IPF. He ambulate about 30 feet to the bathroom. He also reports significant ongoing weight loss. Review of Systems: The patient denied chest pain, orthopnea, paroxsymal nocturnal dyspnea, and syncope. A full 14 point review of systems is otherwise unremarkable. Social History: The patient is a history of smoking cigar while doing yard work. Family History: The patient's mother had diabetes and ovarian cancer. Sister diabetes and breast cancer. No known history of coronary artery disease. Current Home Meds: (Last Updated 03/22 11:07) amoxicillin (amoxicillin 500 mg oral capsule) 2,000 mg PO As indicated ascorbic acid (Vitamin C) 1 tab PO Daily cholecalciferol (Vitamin D3 2000 intl units oral tablet) 2,000 Int_Unit PO Daily ibuprofen levothyroxine (levothyroxine 88 mcg (0.088 mg) oral capsule) 88 mcg PO Daily magnesium sulfate/potass Cl/sodium sulf (Sutab oral tablet) Follow instructions from endoscopy center.Medicare Sutab CouponBIN: [id number]: CNGroup: [id number] ID: [id number] niacin (Niaspan ER 500 mg oral tablet, extended release) 500 mg PO Daily unknown medication medication to stop growth in lung Allergies and Sensitivities: NKA Past Medical History: Problems: Active Problems (12) Arthritis Hip pain, bilateral Hyperlipidemia Hypothyroidism Low back pain radiating to left leg Lumbar spinal stenosis Neurogenic claudication Osteoarthritis of left hip Peripheral neuropathy S/P total hip arthroplasty Spinal stenosis Tobacco user OBJECTIVE Vitals: Pulse 96 bpm blood pressure 125/71 mmHg weight 65 kg Physical Exam GENERAL: patient is awake, alert, conversant, and quite pleasant. HEENT: moist mucous membranes, normocephalic, extraocular movements intact. VESSELS: Difficult to palpate pedal pulses, 2+ radial pulses, normal jugular venous pressure. LUNGS: Diminished breath sounds on inspiration with dry crackles coarse expiratory breath sounds. HEART: S1-S2 3 out of 6 systolic ejection murmur at the apex, rub,or gallop. EXTREMITIES: warm and well perfused, no lower extremity edema. SKIN: warm, dry, and intact. PSYCHIATRIC: normal mood and affect. NEUROLOGIC: no gross focal neurologic deficit. ASSESSMENT and PLAN: I had the pleasure of evaluating Herrera Leon for his history of multivessel coronary artery disease and consideration of percutaneous coronary intervention. I had a long discussion with the patient and his son today. We discussed that his left main, circumflex, and LAD bifurcation disease was technically feasible but quite high in risk. It would require atherectomy of all 3 vessels and bifurcation stenting. We discussed potential risks including vesselperforation, cardiac tamponade, dysrhythmia, heart failure, renal failure, and . We also discussed the potential need for percutaneous left ventricular assist device placement. However my biggest concern today is not the extent of his disease or risk of intervention but rather his overall health. He is quite frail appearing and has unintentionally lost 57 pounds over the past several months.He has a known history of IPF and states it has been quite sometime since he has seen pulmonary. Heis scheduled to see them within the next few weeks. He is uncertain of his prognosis regarding his IPF. The patient is currently having no chest pain but is having exertional dyspnea after ambulating more than 30 feet. It is hard for me to tell if his dyspnea is related to his IPF as I have no records of his testing or prognosis. I discussed with him he may go to a high risk intervention and still beleft with the same degree of dyspnea. Also if his prognosis is poor overall it may be futile to bring him in for PCI. The patient and his son agree with that. They plan on getting a better idea of his prognosis when they meet with their barber tool sharpener in May. I was hoping to request records from the barber tool sharpener office but the patient did not remember the barber tool sharpener's name. I provided him with my card and he will reach out to me after getting a better idea of his prognosis and will work to reach out and get his pulmonary records as well. If his prognosis is good overall then it may make sense to bring him in for intervention and if his prognosisis poor I would recommend medical therapy. Thank you for allowing me to participate in the patient's care. Please reach out with any concerns or questions. Hany Woods MD, MS, [facility], [facility] Gas [employer]orsservice delivery director Interventional Cardiology [facility] Office: [phone] The preceding letter/attestation was dictated using voice recognition software. While I make every attempt to review and correct errors, some may persist. I apologize in advanced for this, and if they generate any confusion, please feel free to contact me personally. Electronic Signature on File CC: BAILEE Martínez [id number] [facility] [id number] * CC: Óscar Roque MD [facility] [id number] [facility] [id number] * Electronically Reviewed/Signed by: Hany Woods MD Author Signature Dt/Tm:05/09/2024 04:46 PM [facility] Patient Care team information Care Team Personnel Name: BAILEE Dawn Candace Position: Referring Member Role: Primary Care Provider Address: [address] [place] [address] Telecom: [phone] Care Team Related Persons Name: JUAN LEON Insurance Providers Guarantor name: HERRERA Santiago [facility] [employer] Plan Information #: 1 Payer: [employer] Member Number: [id number] Policy Number: NA Group Number: [id number] Health Plan Information #: 2 Payer: [employer] Member Number: [id number] Policy Number: NA Group Number: [id number]
--- NOTE | 2024-05-13 10:35 | Pulmonary Consultation ---
Date of Consultation May 13, 2024 Assessment & Plan (1) Pneumothorax on left: (2) Pulmonary fibrosis: (3) ILD (interstitial lung disease): (4) Restrictive lung disease: (5) IPF (idiopathic pulmonary fibrosis): (6) Abnormal chest CT: Plan CT chest 05/12/2024 personally reviewed: Small to moderate left-sided pneumothorax Increased reticular marking appreciated bilaterally with traction bronchiectasis and honeycombing No significant mediastinal lymphadenopathy --Secondary pneumothorax Patient has underlying history of significant ILD secondary to IPF Does have history of multiple falls in the recent past and subacute fractures on the right -- IPF No personal or family history of autoimmune diseases like lupus, sarcoid, Sjogren's, rheumatoid No known history of IPF in the family 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 I will also start the patient on pantoprazole to be used on a daily basis I did explain to the patient that unfortunately the disease in the lung that he has is not reversible. The main goal for it right now is to prevent the worsening. Oxygen qualification test 11/05/2023: Lowest saturation was 89% on room air -- Restrictive lung disease Secondary to underlying fibrosis Continue with incentive spirometer PFT 11/05/2023 personally reviewed: Suboptimal test, severe restrictive lung dysfunction, air trapping, no obstruction, insignificant bronchodilator response, severe decrease in DLCO (Decrease in FVC by 140 mL, decrease in FEV1 by 210 mL, decrease in TLC 56--> 47%, decrease in DLCO 41--> 31%, decrease in weight by 12 pounds compared to 04/10) FVC 2.30 L 49%, FEV1 1.92 L 57%, FEV1/FVC 84%, RV 72%, TLC 47%, RV/TLC 143, DLCO 31%, DLCO/VA 70% 2D echo 10/15/2022: Moderate concentric LVH, EF 60-65%, grade 1 diastolic dysfunction, RV normal in size and function -- Cigar smoker Smokes 1 to 2 cigars on a weekly basis as his early 20s -- History of silicosis and father Plan: Chest x-ray from today does not show any significant change in size when it comes to pneumothorax compared to yesterday Would recommend to continue with antitussive medications [id number] Avoid positive pressure ventilation and an IV. Avoid flutter valve Repeat chest x-ray in the morning Discussed with RN at bedside Please note the above document was generated using voice recognition software. It may contain grammatical, syntax or spelling errors.Any formal questions or concerns about the content, text or information contained within the body of this dictation should be directly addressed to the provider for clarification. History of Present Illness Attending Physician: Jenny Boateng MD History of Present Illness 78-year-old who was admitted to the hospital status post fall Past medical history: Hypothyroidism Patient was seen last in the clinic by me on 11/05/2023 Patient was found to have apical pneumothorax, pulmonary consulted for the same At the time of examination patient was resting comfortably on the bed He had his hip reduced in the OR earlier today. He says that he does not recall how he fell He has been having multiple falls recently. He has been taking his Esbriet 3 pills 3 times a day. Denied any nausea vomiting or diarrhea Denies any trauma to the chest, no fits of coughing. He does have cough on and off. No fever or chills No night sweats, has been losing weight since September of 2022 which is before he was started on Esbriet, relates to decrease in appetite. No headache, no blurry vision No personal or family history of autoimmune diseases like lupus, sarcoid, Sjogren's, rheumatoid No dry eyes, no dry mouth, no Raynaud's No known history of IPF in the family Social history: Smokes 1-2 cigars on a weekly basis since his early 20s, no alcohol, denies any illicit drug use. 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 Patient's father did have silicosis Allergies Allergy/AdvReac Type Severity Reaction Status Date / Time No Known Allergies Allergy Verified 04/11/24 13:03 Home Medications Medication Instructions Recorded Confirmed Type Incentive Spirometer #1 ea 09/23/22 04/11/24 Rx levothyroxine 100 mcg capsule 100 mcg PO DAILY #90 caps 08/23/23 05/13/24 Rx ascorbic acid (vitamin C) 500 mg 500 mg PO DAILY 09/13/23 05/13/24 History tablet (Vitamin C) cholecalciferol (vitamin D3) 50 50 mcg PO DAILY 09/13/23 05/13/24 History mcg (2,000 unit) tablet (Vitamin D3) albuterol sulfate 90 mcg/actuation 2 inh inhalation QID PRN shortness 02/21/24 05/13/24 Rx aerosol inhaler of breath or wheezing #8.5 grams aspirin 81 mg tablet,delayed 81 mg PO QAM #90 tabs 02/21/24 05/13/24 Rx release atorvastatin 40 mg tablet (Lipitor) 40 mg PO HS #30 tabs 02/21/24 05/13/24 Rx benzonatate 100 mg capsule 100 mg PO TID PRN cough #30 caps 02/21/24 05/13/24 Rx nitroglycerin 0.4 mg sublingual 0.4 mg sublingual Q5M PRN chest 02/21/24 05/13/24 Rx tablet pain #1 btl home oxygen with tubing and travel #1 ea 02/29/24 04/11/24 Rx bottles pirfenidone 267 mg capsule 801 mg (3 x 267 mg) PO TID #360 03/10/24 04/11/24 Rx (Esbriet) caps sertraline 50 mg tablet 50 mg PO DAILY #30 tabs 03/14/24 05/13/24 Rx oxygen concentrator #1 ea 04/04/24 04/11/24 Rx Patient History Medical History LBBB (left bundle branch block) Syncopal episodes Lesion of finger Actinic keratosis Smokeless tobacco use Spinal stenosis Osteoarthritis Surgical History History of cataract surgery RIGHT History of tooth extraction History of cholecystectomy History of total hip arthroplasty left History of colonoscopy Family History Mother Family history of diabetes mellitus Ovarian cancer Sister Family history of diabetes mellitus Breast cancer Denies family history of Prostate cancer Myocardial infarction Colorectal cancer Social History Smoking Status: Former smoker Tobacco Type: Pipe and Cigars Cigarettes Per Day: 1 cigar 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; Second Hand Exposure: Yes; Do You Dip or Chew Tobacco: No; Hx Alcohol Use: No Hx Substance Use: No Preferred Language: Wallisian Communication Ability: Effective Visual Impairment: No Limitations Hearing Ability: Normal 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 Beliefs That Will Affect Care: None marital status: / Current Living Situation: Alone current occupational status: retired How many Children do You have: 1 Feels Safe at Home: Yes Childhood Exposure to Second-Hand Smoke: No Diet: regular caffeine: Yes Dental Care, Regularly: No Physical Activity Frequency: 5-6 Times per Week Seatbelt Use: always Sunscreen Use: No Assistive Devices: Walker Review of Systems 2 Review of Systems: All systems reviewed & are unremarkable except as noted in HPI & below Physical Exam 2 Physical Exam: Constitutional: No acute distress, frail-appearing HEENT: EOMI, PERRLA Respiratory system: Decreased air entry bilaterally, no wheeze, rhonchi, positive Velcro-like crackles appreciated bilaterally CVS: S1-S2 positive, no murmurs or gallops Abdomen: Soft, nontender, nondistended, positive bowel sounds x4 Extremities: +2 pulses bilaterally radialis/ dorsalis pedis, no cyanosis, no edema Neuro: Awake alert oriented x3 Psych: Normal mood and affect G/U: No Cool Skin: no rashes, warm and dry Lymphatic: no cervical or axillary lymphadenopathy Results & Data Results & Data Vital Signs (Past 12 Hours) Vital Signs Temp Pulse Pulse Resp BP BP BP 05/13/24 10:18 36.8 C 76 20 157/76 H 05/13/24 09:50 36.5 C 71 28 H 136/68 05/13/24 09:40 68 24 138/72 05/13/24 09:30 71 26 H 144/68 H 05/13/24 09:20 36.0 C L 70 24 131/75 05/13/24 08:00 79 32 H 05/13/24 08:00 147/79 H 05/13/24 08:00 147/79 H 05/13/24 08:00 147/79 H 05/13/24 08:00 147/79 H 05/13/24 08:00 147/79 H 05/13/24 08:00 147/79 H 05/13/24 07:30 166/75 H 05/13/24 07:30 166/75 H 05/13/24 07:30 166/75 H 05/13/24 07:30 166/75 H 05/13/24 07:30 166/75 H 05/13/24 07:30 166/75 H 05/13/24 07:30 166/75 H 05/13/24 07:30 166/75 H 05/13/24 07:30 166/75 H 05/13/24 07:30 166/75 H 05/13/24 07:30 80 28 H 05/13/24 07:27 05/13/24 07:24 81 28 H 05/13/24 07:23 05/13/24 07:17 79 18 139/63 05/13/24 07:00 139/63 05/13/24 07:00 79 05/13/24 06:13 76 05/13/24 05:00 136/68 05/13/24 05:00 79 19 05/13/24 05:00 136/68 05/13/24 05:00 136/68 05/13/24 05:00 136/68 05/13/24 05:00 136/68 05/13/24 05:00 136/68 05/13/24 05:00 136/68 05/13/24 05:00 136/68 05/13/24 05:00 136/68 05/13/24 05:00 79 26 H 136/68 05/13/24 04:32 112/58 L 05/13/24 04:32 112/58 L 05/13/24 04:32 112/58 L 05/13/24 04:32 112/58 L 05/13/24 04:32 112/58 L 05/13/24 04:32 112/58 L 05/13/24 04:32 112/58 L 05/13/24 04:32 112/58 L 05/13/24 04:32 112/58 L 05/13/24 04:32 112/58 L 05/13/24 04:32 112/58 L 05/13/24 04:30 74 36 H 05/13/24 04:06 74 22 05/13/24 04:04 164/75 H 05/13/24 04:04 164/75 H 05/13/24 04:04 164/75 H 05/13/24 04:04 164/75 H 05/13/24 04:04 164/75 H 05/13/24 04:04 164/75 H 05/13/24 04:04 164/75 H 05/13/24 04:00 164/75 H 05/13/24 04:00 77 22 164/75 H 05/13/24 03:45 74 31 H 05/13/24 03:30 150/81 H 05/13/24 03:30 150/81 H 05/13/24 03:30 150/81 H 05/13/24 03:30 150/81 H 05/13/24 03:30 150/81 H 05/13/24 03:30 150/81 H 05/13/24 03:30 150/81 H 05/13/24 03:30 150/81 H 05/13/24 03:30 150/81 H 05/13/24 03:30 150/81 H 05/13/24 03:30 150/81 H 05/13/24 03:27 70 31 H 05/13/24 03:03 77 21 05/13/24 03:02 74 05/13/24 03:00 137/67 05/13/24 03:00 137/67 05/13/24 03:00 137/67 05/13/24 02:30 73 24 133/76 05/13/24 02:00 73 25 H 150/74 H 05/13/24 00:00 78 26 H 121/63 05/12/24 23:10 78 Pulse Ox Pulse Ox O2 Del Method O2 Del Method O2 Flow Rate O2 Flow Rate 05/13/24 10:18 100 Oxymask 10 05/13/24 09:50 100 Oxymask 10 05/13/24 09:40 100 Oxymask 10 05/13/24 09:30 100 Oxymask 10 05/13/24 09:20 99 Oxymask 10 05/13/24 08:00 100 05/13/24 08:00 05/13/24 08:00 05/13/24 08:00 05/13/24 08:00 05/13/24 08:00 05/13/24 08:00 05/13/24 07:30 05/13/24 07:30 05/13/24 07:30 05/13/24 07:30 05/13/24 07:30 05/13/24 07:30 05/13/24 07:30 05/13/24 07:30 05/13/24 07:30 05/13/24 07:30 05/13/24 07:30 100 05/13/24 07:27 100 Oxymask 10 05/13/24 07:24 99 05/13/24 07:23 Oxymask 10 05/13/24 07:17 100 Oxymask 10 05/13/24 07:00 05/13/24 07:00 05/13/24 06:13 05/13/24 05:00 05/13/24 05:00 100 05/13/24 05:00 05/13/24 05:00 05/13/24 05:00 05/13/24 05:00 05/13/24 05:00 05/13/24 05:00 05/13/24 05:00 05/13/24 05:00 05/13/24 05:00 100 Oxymask 10 05/13/24 04:32 05/13/24 04:32 05/13/24 04:32 05/13/24 04:32 05/13/24 04:32 05/13/24 04:32 05/13/24 04:32 05/13/24 04:32 05/13/24 04:32 05/13/24 04:32 05/13/24 04:32 05/13/24 04:30 100 05/13/24 04:06 100 05/13/24 04:04 05/13/24 04:04 05/13/24 04:04 05/13/24 04:04 05/13/24 04:04 05/13/24 04:04 05/13/24 04:04 05/13/24 04:00 05/13/24 04:00 100 Oxymask 15 05/13/24 03:45 100 05/13/24 03:30 05/13/24 03:30 05/13/24 03:30 05/13/24 03:30 05/13/24 03:30 05/13/24 03:30 05/13/24 03:30 05/13/24 03:30 05/13/24 03:30 05/13/24 03:30 05/13/24 03:30 05/13/24 03:27 99 05/13/24 03:03 100 05/13/24 03:02 05/13/24 03:00 05/13/24 03:00 05/13/24 03:00 05/13/24 02:30 97 Nasal Cannula 05/13/24 02:00 97 Nasal Cannula 2 05/13/24 00:00 96 Room Air 05/12/24 23:10 Laboratory Results 05/12/24 19:25 05/12/24 19:25 PG Care Time/CCT Total # of Minutes Spent Total Time Spent with Patient: Total time spent is greater than 50% in coordination of care (as documented) at patient's floor/unit and/or counseling patient: Coding Level of Care Code 01972 INT INP/OBS CARE 3/75MIN Diagnoses Pneumothorax on left J93.9 Pulmonary fibrosis J84.10 ILD (interstitial lung disease) J84.9 Restrictive lung disease J98.4 IPF (idiopathic pulmonary fibrosis) J84.[address] R93.89
--- NOTE | 2024-05-13 11:40 | XRay Report ---
HISTORY: Postoperative evaluation of the left hip. TECHNIQUE: Left hip, 3 views. COMPARISON: Pelvic and left hip radiographs dated 12/06/2023. FINDINGS: Appropriately aligned left hip arthroplasty. Acute mildly displaced intertrochanteric periprosthetic fracture of the left proximal femur. The included pelvis appears intact. IMPRESSION: * Acute mildly displaced intertrochanteric periprosthetic fracture of the left proximal femur. Electronically signed by Daniel Garg 05-13-2024 11:40 AM
--- NOTE | 2024-05-13 11:42 | XRay Report ---
HISTORY: Shortness of breath. TECHNIQUE: Portable AP radiograph of the chest. COMPARISON: Chest CT dated 05/13/2024. FINDINGS: Small left apical pneumothorax. Pulmonary fibrosis involving both lungs. No other focal consolidation. No significant effusion. Mild cardiomegaly. Left-sided aortic arch. Midline trachea. Degenerative changes of the shoulders and spine. Included upper abdomen is unremarkable. IMPRESSION: 1. Small left apical pneumothorax is similar to the recent CT from earlier in the same day. 2. Moderate pulmonary fibrosis. 3. Mild cardiomegaly. Electronically signed by Daniel Garg 05-13-2024 11:42 AM
--- NOTE | 2024-05-13 12:26 | Electrocardiogram Report ---
Test Reason : Blood Pressure : */* mmHG Vent. Rate : 83 BPM Atrial Rate : 83 BPM P-R Int : 288 ms QRS Dur : 158 ms QT Int : 402 ms P-R-T Axes : 57 53 70 degrees QTcB Int : 472 ms Sinus rhythm with 1st degree A-V block Left bundle branch block Abnormal ECG When compared with ECG of 19-Feb-2024 14:52, QRS duration has decreased T wave inversion no longer evident in Lateral leads Concordant Inferior T waves no longer present Inferior ST depression now noted Confirmed by Vi Marley (Lillie) on 05/13/2024 12:26:06 PM Referred By: REFERRED SELF Confirmed By: Vi Marley
[2024-05-13] MEDS ORDERED: ACETAMINOPHEN 500 MG TAB PO PRN (15:11)
--- NOTE | 2024-05-13 15:18 | Orthopedic Consultation ---
Date of Consultation May 13, 2024 Orthopedic Consult Patient seen this afternoon. He is resting comfortably in bed. He notes he had a pretty rough night earlier this morning to have his hip reduced and feels somewhat better. His medical history is quite complex including chronic pulmonary disease fibrosis and a chronic pneumothorax in the left. He was in his usual state of health when he slipped and turned and fell injuring his left hip. He had a hip replacement on the left side for over 25 years with no issues. He had a posterior superior dislocation with a peritrochanteric fracture. It was closed reduced by Dr. Chan today. Postop x-rays look like he has a concentric reduction with a nondisplaced injury to his greater trochanter. The implants look stable. Exam today reveals intact femoral sciatic nerve. He has no pain with axial loading his pain with some rotation. There is no significant bleeding in the leg. Assessment status post closed reduction for traumatically induced total hip replacement and for 20+ years. At this point in time we will allow him to get out of bed starting tomorrow with some PT for guidance. Electrolyte looking a little more rest today before starting the movement. Just his pain medications to Tylenol 1000 mg p.o. every 8 hours as needed Celebrex 200 mg p.o. daily ulcer prevention with Protonix 40 mg p.o. twice daily and oxycodone 5 mg p.o. every 3 hours as needed. Will need manager social services/case management to get in place. He likely need rehab for some time based on his overall cachectic and weakened state. Appreciate Dr. Chan's help.
[2024-05-13] MEDS: BENZONATATE 100 MG CAPSULE PO SCH (15:30)
[2024-05-13] MEDS: oxyCODONE HCL IR 5 MG TAB (IMMEDIATE RELEASE) PO PRN (15:32)
[2024-05-13 17:31] LABS: Appearance Urine Clear (Clear); Bilirubin Urine Negative (Negative); Blood Urine Negative (Negative); Color Urine Dark Yellow; Epithelial Cell Urine Auto 0-2 /hpf (0-2); Glucose Urine UA Negative (Negative); Ketones Urine 2+ (Negative); Leukocyte Esterase Urine Negative (Negative); Nitrite Urine Negative (Negative); Protein Urine Trace (Negative); RBC Urine Automated 0-2 /hpf (0-2); Specific Gravity Urine > 1.045 (1.000-1.030); Urobilinogen Urine Negative (Negative); WBC Urine Automated 0-5 /hpf (0-5)
[2024-05-13 17:40] LABS: Calcium Oxalate Crystals Urine Present (None Prsent); Hyaline Casts Urine P /lpf (None Presnt)
[2024-05-13 17:41] LABS: Bacteria Urine Automated 1+ (None Seen)
[2024-05-13] MEDS ORDERED: ALBUTEROL HFA 8 GM INHALER INH PRN (20:21)
[2024-05-13] MEDS: PANTOprazole 40 MG TAB PO SCH (22:02)
[2024-05-14] MEDS: LEVOTHYROXINE SODIUM 100 MCG TABLET PO SCH (05:48)
[2024-05-14 07:22] LABS: Basophils # (auto) 0.03 K/uL (0.00-0.20); Basophils % (auto) 0.3 %; Eosinophils # (auto) 0.03 K/uL (0.00-0.50); Eosinophils % (auto) 0.3 %; Hematocrit (blood only) 35.1 % (42.0-52.0); Hemoglobin 11.8 g/dl (14.0-18.0); Immature Granulocytes # (auto) 0.05 K/uL (0.01-0.20); Immature Granulocytes % (auto) 0.5 %; Lymphocytes # (auto) 0.87 K/uL (1.20-3.40); Lymphocytes % (auto) 7.9 %; Mean Corpuscular Hemoglobin 33.4 pg (25.0-34.0); Mean Corpuscular Hgb Conc 33.6 g/dL (32.0-36.0); Mean Corpuscular Volume 99.4 fL (80.0-100.0); Mean Platelet Volume 10.3 fL (9.4-12.4); Monocytes # (auto) 0.85 K/uL (0.11-0.59); Monocytes % (auto) 7.8 %; Neutrophils # (auto) 9.13 K/uL (1.40-6.50); Neutrophils % (auto) 83.2 %; Platelet Count 280 K/uL (130-400); RDW Standard Deviation 47.4 fL (36.4-46.3); Red Blood Count 3.53 M/uL (4.70-6.10); White Blood Count 10.96 K/ul (4.8-10.8)
--- NOTE | 2024-05-14 07:29 | XRay Report ---
EXAM: XR chest 1V portable CLINICAL HISTORY: F/u TECHNIQUE: An X-ray image of the chest is obtained in AP projection. COMPARISON: 05/13/2024 CR. FINDINGS: Pulmonary Parenchyma: Unchanged, left small pneumothorax. Bilateral diffuse reticular and airspace opacities were noted. No evidence of pleural effusion or pleural thickening. Heart and Mediastinum: Heart size and shape are normal. No mediastinal widening or masses. No hilar or mediastinal lymphadenopathy. Bony Thorax: Bony thorax appears intact without fractures or deformities. Soft Tissues: Soft tissues overlying the chest wall are unremarkable. IMPRESSION: 1. Unchanged small left small pneumothorax. 2. Bilateral diffuse reticular and airspace opacities were noted. 3. No gross interval changed in comparison with 05/13/2024. Electronically signed by Valerio Cerna 05-14-2024 07:29 AM
--- NOTE | 2024-05-14 07:32 | Fluoroscopy Report ---
FL hip LT 1V CLINICAL HISTORY: LT HIP CLOSED REDUCTION IN OR COMPARISON STUDY: Left hip radiographs May 12, 2024. Fluoroscopy time: 8 seconds. Number of fluoroscopic images: 2. Ka,r: 8 seconds. FINDINGS: Fluoroscopy was provided during closed reduction of the left hip arthroplasty. Alignment is now anatomic. Femoral component is well-seated within the acetabular cup. Note is again made of an a cute appearing periprosthetic intertrochanteric fracture of the left femur which was shown on CT of M 2024. Incidental note is made of contrast within the bladder from that exam. IMPRESSION: 1. Fluoroscopy provided during closed reduction of the left hip arthroplasty. Anatomic alignment. 2. Redemonstration of a periprosthetic intertrochanteric fracture of the left femur, as shown on CT o f May 13, 2024. ACT 112: Negative or not required by law. Electronically signed by: Baljeet Vazquez M.D. 05/14/2024 7:30 AM
[2024-05-14 07:45] LABS: Albumin Globulin Ratio 1.1 (0.9-2); Albumin Level 3.5 gm/dl (3.4-5.0); Bilirubin,Total 1.1 mg/dl (0.2-1.0); Calcium 8.9 mg/dl (8.6-10.3); Creatinine Clr Calc Pharmacy 108.7 ml/min; Globulin 3.3 gm/dl (2.5-4.0); Magnesium 1.9 mg/dl (1.7-2.4); Potassium 4.3 mmol/L (3.5-5.1); Total Protein 6.8 gm/dl (6.0-8.3)
[2024-05-14] MEDS: CeleBREX 200 MG CAP PO SCH (07:49)
[2024-05-14] MEDS: CHOLECALCIFEROL 25 MCG (1000 UNITS) TAB PO SCH (07:49)
[2024-05-14 07:50] LABS: INR 1.1 (0.9-1.1); Partial Thromboplastin Ratio 1.3; Partial Thromboplastin Time 34 Seconds (21-31); Prothrombin Time 11.5 Seconds (9.0-12.0)
[2024-05-14] MEDS: SERTRALINE HCL 50 MG TABLET PO SCH (07:50)
--- NOTE | 2024-05-14 09:49 | Hospitalist Progress Note ---
Date of Service May 14, 2024 Assessment & Plan (1) Pneumothorax on left: (2) History of total left hip arthroplasty: (3) Closed dislocation of left hip: (4) Pulmonary fibrosis: (5) Severe protein-calorie malnutrition: Plan The patient is an 79-year-old male with a past medical history including chronic interstitial lung disease, pulmonary fibrosis, coronary artery disease, severe protein calorie malnutrition, pneumomediastinum, restrictive lung disease, IPF, hypertension, GERD, peripheral neuropathy, primary hypothyroidism and vitamin D deficiency.The patient presents to the emergency department via EMS, after a fall that occurred while he was making dinner this evening, and developed severe left hip pain. Evaluation in the emergency department included CT scan of chest which showed interstitial lung disease, and a mild left apical pneumothorax, along with old right ninth and 10th rib fractures. CT scan abdomen pelvis showed a left total hip arthroplasty with posterior-superior dislocation, and a left femur fracture. #Left pneumothorax CT chest shows mild left-sided pneumothorax which appears stable Follow up x ray this morning shos no change in the small pneumothoraax avoid incentive spirometry Left total hip arthroplasty posterior-superior dislocation- Dislocation of left total hip prosthesis. He is now day 1 s/p closed reduction of his left total hip prosthesis. Pain is under good control Morphine sulfate 2 mg IV every 3 hours needed from moderate pain Morphine sulfate 4 mg IV every 3 hours as needed for severe pain PT eval pending Pulmonary fibrosis/interstitial lung disease- Diffuse interlobular and intralobular septal thickening with multiple subpleural areas of honeycombing suggestive of the patient's known pulmonary fibrosis PFT shows a restrictive picture Followed by pulmonology, appreciate recs Has followed with Dr. Ewing in the outpatient setting, and will be consulted this admission Old Rib fractures CT scan head without contrast negative for acute findings CT scan cervical spine negative for acute findings cervical spine but does show apical pneumothorax There are no new left-sided rib fractures. There are old healed right sided ninth and 10th rib fractures. Chronic medical conditions: Hypothyroidism-temporarily holding levothyroxine Vitamin D deficiency-temporarily holding supplementation Hyperlipidemia- Temporarily hold atorvastatin and aspirin Code: DNR/DNI DVT prophylaxis aspirin SCDs Patient will probably benefit from rehab following hip reduction Admission and Anticipated Discharge Date Admission Date: May 13, 2024 Subjective Patient seen and examined today, no new complaints apart from mild hip pain, lying quietly in bed Review of Systems Review of Systems: All systems reviewed are negative, apart from the ones contained in the history. Physical Exam Physical Exam: The patient is awake, alert and oriented 3, Chronically ill looking HEENT--PERRL, EOMI, mucous membranes and oropharynx mildly dry Neck--supple. No JVD. No bruits. Thyroid normal, trachea midline, no adenopathy. Heart--normal S1 and S2. No murmurs, rubs or gallops. Lungs--Reduced lateral auscultation Abdomen--normal bowel sounds and soft. Extremities--no cyanosis or clubbing. No edema. Dermatologic--normal skin turgor, normal color, no abnormal lymph nodes, no rash. Neurologic--cranial nerves II through XII grossly intact. Rheumatologic--normal range of motion. Psychiatric--normal affect. Results & Data Results & Data Vital Signs (Past 12 Hours) Vital Signs Temp Pulse Resp BP BP Pulse Ox O2 Del Method 05/14/24 08:04 98.1 F 82 18 150/87 H 99 Room Air 05/14/24 07:21 Oxymask 05/14/24 07:00 05/14/24 02:30 97.9 F 73 18 121/60 91 Oxymask 05/13/24 21:46 Oxymask O2 Del Method O2 Flow Rate O2 Flow Rate 05/14/24 08:04 05/14/24 07:21 10 05/14/24 07:00 Oxymask 10 05/14/24 02:30 05/13/24 21:46 10 PG Care Time/CCT Total # of Minutes Spent Total Time Spent with Patient: Total time spent is greater than 50% in coordination of care (as documented) at patient's floor/unit and/or counseling patient: Coding Level of Care Code 52845 SUB INP/OBS CARE 2/35MIN Diagnoses Pneumothorax on left J93.9 History of total left hip arthroplasty Z96.642 Closed dislocation of left hip S73.005A Encounter type: initial encounter Pulmonary fibrosis J84.10 Severe protein-calorie malnutrition E43 Time Spent (min) 35 (3) Closed dislocation of left hip Encounter type: initial encounter Qualified Code(s): S73.005A - Unspecified dislocation of left hip, initial encounter
--- NOTE | 2024-05-14 10:44 | Orthopedic Progress Note ---
Date of Service May 14, 2024 Assessment & Plan Admission and Anticipated Discharge Date Admission Date: May 13, 2024 Orthopedic Progress Note Resting comfortably in bed. Does not have much of an appetite. He is quite cachectic. I emphasized the need for calories and his need to eat. He states he understands. Vital signs are stable he is afebrile. Neurovascular check femoral sciatic nerve is normal. He has no pain with axial loading of his leg through his foot and ankle. Assessment traumatic dislocation with periprosthetic proximal fracture stable hip located fracture stable at this point in time he can be partial weightbearing left lower extremity with knee immobilizer on to keep his leg straight. Avoid heavy abduction exercises based on the type of fracture pattern he has. Discontinue the A-frame pillow with the knee immobilizer on while he is in bed this allow him to be rolled [id number] easier and prevent pressure sores. Knee immobilizer ordered. Continue medical management per hospitalist. Disposition per hospitalist and case management based on medical comorbidities in addition to his relative immobilization, balance issues and weakness.
--- NOTE | 2024-05-14 10:49 | Orthopedic Progress Note ---
<Statement entered by Chuck Chan MD - 05/14/24 12:36> Agree with note. Remain available until transfer of care. Date of Service May 14, 2024 Assessment & Plan (1) History of total left hip arthroplasty: (2) Closed dislocation of left hip: Plan Assessment: Status post closed reduction of the left hip. Plan: Overall, he is doing well today with good pain control left hip. He has yet to work with physical therapy this morning. He does note that he may work with them later tonight depending on if he is feeling any better and if he can get some rest before then. At this point time, he may work with physical therapy but should remain nonweightbearing to the left lower extremity. He does have a known fracture that is mildly displaced around the prosthesis. The implant does not look loose in nature and may be able to treat this nonoperat ively. DVT prophylaxis and medical management per primary. Continue current pain analgesics regiment. [facility] orthopedics will sign off on this patient at this point and [facility] orthopedics will take over starting tomorrow morning. [facility] orthopedics is aware. Please reach out to [facility] orthopedics if any other questions are to arise. Subjective . Herrera was seen this morning resting comfortably no apparent distress. He notes his pain is well-controlled to his left hip today. He has yet to be out of bed this morning. He has held off on physical therapy this morning stating that he did not comfortably rest last night and did not feel comfortable proceeding with therapy this morning. He did note that they are going to try again later this evening. [facility] orthopedics did stop by yesterday evening to talk with him. They are comfortable with him proceeding with physical therapy. He denies any low back pain, distal extremity pain, numbness/ting, or paresthesias. He denies any other concerns today. Review of Systems All systems reviewed & are unremarkable except as noted in HPI & below. Physical Exam . Constitutional: no acute distress Musculoskeletal: On physical examination of left hip, there is no erythema, ecchymosis, edema, or other obvious deformities. Leg lengths are equal. Abduction pillow in place. Limited range of motion and strength secondary to weakness. Calf soft nontender palpation. Negative Homans' sign. Intact plantarflexion dorsiflexion of left ankle. +2 DP and PT pulse. Less than 2-second capillary refill. Normal sensation. Neurovascular intact. Results & Data Results & Data Laboratory Results . Diagnostic Findings Hip X-Ray 05/13/24 10:16 HISTORY: Postoperative evaluation of the left hip. TECHNIQUE: Left hip, 3 views. COMPARISON: Pelvic and left hip radiographs dated 12/06/2023. FINDINGS: Appropriately aligned left hip arthroplasty. Acute mildly displaced intertrochanteric periprosthetic fracture of the left proximal femur. The included pelvis appears intact. IMPRESSION: * Acute mildly displaced intertrochanteric periprosthetic fracture of the left proximal femur. PG Care Time/CCT Total # of Minutes Spent Total Time Spent with Patient: Total time spent is greater than 50% in coordination of care (as documented) at patient's floor/unit and/or counseling patient: Coding Level of Care Code 23319 Post Operative Follow-Up Diagnoses History of total left hip arthroplasty Z96.642 Closed dislocation of left hip S73.005A Encounter type: initial encounter (2) Closed dislocation of left hip Encounter type: initial encounter Qualified Code(s): S73.005A - Unspecified dislocation of left hip, initial encounter
[2024-05-14] MEDS ORDERED: [UNRECOGNIZED DRUG - OTHER] TOP SCH (11:00)
--- NOTE | 2024-05-14 11:58 | Pulmonology Progress Note ---
Date of Service May 14, 2024 Assessment & Plan (1) Pneumothorax on left: (2) Pulmonary fibrosis: (3) ILD (interstitial lung disease): (4) Restrictive lung disease: (5) IPF (idiopathic pulmonary fibrosis): (6) Abnormal chest CT: Plan CT chest 05/12/2024 personally reviewed: Small to moderate left-sided pneumothorax Increased reticular marking appreciated bilaterally with traction bronchiectasis and honeycombing No significant mediastinal lymphadenopathy --Secondary pneumothorax Patient has underlying history of significant ILD secondary to IPF Does have history of multiple falls in the recent past and subacute fractures on the right -- IPF No personal or family history of autoimmune diseases like lupus, sarcoid, Sjogren's, rheumatoid No known history of IPF in the family 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 I will also start the patient on pantoprazole to be used on a daily basis I did explain to the patient that unfortunately the disease in the lung that he has is not reversible. The main goal for it right now is to prevent the worsening. Oxygen qualification test 11/05/2023: Lowest saturation was 89% on room air -- Restrictive lung disease Secondary to underlying fibrosis Continue with incentive spirometer PFT 11/05/2023 personally reviewed: Suboptimal test, severe restrictive lung dysfunction, air trapping, no obstruction, insignificant bronchodilator response, severe decrease in DLCO (Decrease in FVC by 140 mL, decrease in FEV1 by 210 mL, decrease in TLC 56--> 47%, decrease in DLCO 41--> 31%, decrease in weight by 12 pounds compared to 04/10) FVC 2.30 L 49%, FEV1 1.92 L 57%, FEV1/FVC 84%, RV 72%, TLC 47%, RV/TLC 143, DLCO 31%, DLCO/VA 70% 2D echo 10/15/2022: Moderate concentric LVH, EF 60-65%, grade 1 diastolic dysfunction, RV normal in size and function -- Cigar smoker Smokes 1 to 2 cigars on a weekly basis as his early 20s -- History of silicosis and father Plan: Chest x-ray currently does not show any significant change in the size of the pneumothorax Small left apical pneumothorax persists Continue with antitussive medications [id number] Avoid positive pressure ventilation and an IV. Avoid flutter valve Repeat chest x-ray in the morning, if the repeat chest x-ray stable then no further x-ray of the chest needed Discussed with RN at bedside Please note the above document was generated using voice recognition software. It may contain grammatical, syntax or spelling errors.Any formal questions or concerns about the content, text or information contained within the body of this dictation should be directly addressed to the provider for clarification. Admission and Anticipated Discharge Date Admission Date: May 13, 2024 Subjective Patient seen and examined at bedside. No acute distress, notable symptoms overnight He was having his lunch at the time of examination Denies any chest pain No hip pain Fair appetite, no nausea or vomiting Shortness of breath is at his baseline Coughing is controlled with benzonatate Jose Juan Review of Systems 2 Review of Systems: All systems reviewed & are unremarkable except as noted in Subjective Physical Exam 2 Physical Exam: Constitutional: No acute distress, frail-appearing HEENT: EOMI, PERRLA Respiratory system: Decreased air entry bilaterally, no wheeze, no rhonchi, positive Velcro-like crackles appreciated bilaterally CVS: S1-S2 positive, no murmurs or gallops Abdomen: Soft, nontender, nondistended, positive bowel sounds x4 Extremities: +2 pulses bilaterally radialis/ dorsalis pedis, no cyanosis, no edema Neuro: Awake alert oriented x3 Psych: Normal mood and affect G/U: No Cool Skin: no rashes, warm and dry Lymphatic: no cervical or axillary lymphadenopathy Results & Data Results & Data Vital Signs (Past 12 Hours) Vital Signs Temp Pulse Resp BP BP Pulse Ox O2 Del Method 05/14/24 11:28 36.7 C 65 18 142/78 H 97 Oxymask 05/14/24 08:04 36.7 C 82 18 150/87 H 99 Room Air 05/14/24 07:21 Oxymask 05/14/24 07:00 05/14/24 02:30 36.6 C 73 18 121/60 91 Oxymask O2 Del Method O2 Flow Rate O2 Flow Rate 05/14/24 11:28 10 05/14/24 08:04 03/30/25 07:21 10 05/14/24 07:00 Oxymask 10 05/14/24 02:30 Laboratory Results 05/14/24 06:29 05/14/24 06:29 PG Care Time/CCT Total # of Minutes Spent Total Time Spent with Patient: Total time spent is greater than 50% in coordination of care (as documented) at patient's floor/unit and/or counseling patient: Coding Level of Care Code 89264 SUB INP/OBS CARE 2/35MIN Diagnoses Pneumothorax on left J93.9 Pulmonary fibrosis J84.10 ILD (interstitial lung disease) J84.9 Restrictive lung disease J98.4 IPF (idiopathic pulmonary fibrosis) J84.[address] R93.89
--- NOTE | 2024-05-15 07:49 | XRay Report ---
EXAM: XR chest 1V portable CLINICAL HISTORY: Follow-up ROUTINE CHEST XRAY. TECHNIQUE: An X-ray image of the chest is obtained in AP projection. COMPARISON: 05/14/2024. FINDINGS: Pulmonary Parenchyma: Bilateral diffuse reticulonodular opacities are noted. A small left apical pneumothorax is noted. No evidence of pleural effusion. Heart and Mediastinum: Heart size and shape are normal. No mediastinal widening or masses. No hilar or mediastinal lymphadenopathy. Bony Thorax: Bony thorax appears intact without fractures or deformities. Osteodegenrative changes. Soft Tissues: Soft tissues overlying the chest wall are unremarkable. IMPRESSION: 1. Bilateral diffuse widespread reticulonodular opacities suggesting interstitial lung pathology. 2. Small left apical pneumothorax (unchanged). 3. No interval changes. 4. Clinical correlation /follow-up is suggested. Electronically signed by Valerio Cerna 05-15-2024 07:48 AM
[2024-05-15 08:06] LABS: Basophils # (auto) 0.05 K/uL (0.00-0.20); Basophils % (auto) 0.5 %; Eosinophils # (auto) 0.28 K/uL (0.00-0.50); Hematocrit (blood only) 31.9 % (42.0-52.0); Hemoglobin 10.8 g/dl (14.0-18.0); Immature Granulocytes # (auto) 0.03 K/uL (0.01-0.20); Immature Granulocytes % (auto) 0.3 %; Lymphocytes # (auto) 1.12 K/uL (1.20-3.40); Lymphocytes % (auto) 12.2 %; Mean Corpuscular Hemoglobin 33.6 pg (25.0-34.0); Mean Corpuscular Hgb Conc 33.9 g/dL (32.0-36.0); Mean Corpuscular Volume 99.4 fL (80.0-100.0); Monocytes # (auto) 1.03 K/uL (0.11-0.59); Monocytes % (auto) 11.2 %; Neutrophils # (auto) 6.69 K/uL (1.40-6.50); Neutrophils % (auto) 72.8 %; Platelet Count 260 K/uL (130-400); RDW Coefficient of Variation 12.9 % (11.5-14.5); RDW Standard Deviation 47.3 fL (36.4-46.3); Red Blood Count 3.21 M/uL (4.70-6.10)
[2024-05-15 08:21] LABS: Albumin Globulin Ratio 0.9 (0.9-2); Albumin Level 3.1 gm/dl (3.4-5.0); BUN Creatinine Ratio 27.5 (10-20); Bilirubin,Total 0.9 mg/dl (0.2-1.0); Calcium 8.7 mg/dl (8.6-10.3); Creatinine Clr Calc Pharmacy 81.9 ml/min; Globulin 3.3 gm/dl (2.5-4.0); Magnesium 1.9 mg/dl (1.7-2.4); Potassium 4.5 mmol/L (3.5-5.1); Total Protein 6.4 gm/dl (6.0-8.3)
[2024-05-15 08:30] LABS: INR 1.1 (0.9-1.1); Partial Thromboplastin Ratio 1.3; Partial Thromboplastin Time 35 Seconds (21-31); Prothrombin Time 11.4 Seconds (9.0-12.0)
--- NOTE | 2024-05-15 09:14 | Orthopedic Progress Note ---
Date of Service May 15, 2024 Assessment & Plan (1) Closed dislocation of left hip: Plan: s/p closed reduction left total hip 05/[address] Chan, acute periprosthetic proximal femur fracture, 25 years s/p left total hip arthroplasty with Dr Fried Patient is overall doing well. Encouraged continue work with OT/PT. Can d/c abduction brace and use knee immobilizer. He is PWB for transfers and balance with the knee immobilizer in place, will need walker and assistance. Avoid heavy abduction exercises. Case management following for discharge needs to [facility]. Patient will follow up in our office in 2 weeks with repeat x rays. Continue care per primary team including pain control and dvt prophylaxis. Admission and Anticipated Discharge Date Admission Date: May 13, 2024 Subjective Pt seen and examined bedside. Reports that he is doing well this morning. He is not having any pain. He is eating breakfast. Denies any calf pain, n/t. He has been wearing his knee immobilizer. He says he has worked with PT and was sitting in the chair yesterday. No major questions or concerns today. Physical Exam Physical Exam: Knee immobilizer in place and fitting appropriately. Distal extremity with normal color and temperate. Sensation in tact distally to light touch. 1+ DP pulse is present. DF/PF in tact 5/5 strength. Calf and thigh soft and compressible. He is able to tolerate light gentle PROM of his hip in abduction, adduction, flexion. Results & Data Vital Signs (Past 12 Hours) Vital Signs Temp Pulse Resp BP BP Pulse Ox O2 Del Method 05/15/24 07:41 36.3 C L 69 19 126/72 100 Oxymask 05/15/24 07:28 Oxymask 05/15/24 07:00 05/15/24 03:38 36.4 C L 67 16 113/73 100 Oxymask 05/14/24 22:47 36.8 C 79 16 104/70 99 Oxymask O2 Del Method O2 Flow Rate O2 Flow Rate 05/15/24 07:41 10 05/15/24 07:28 10 05/15/24 07:00 Oxymask 10 05/15/24 03:38 10 05/14/24 22:47 10 (1) Closed dislocation of left hip Encounter type: initial encounter Qualified Code(s): S73.005A - Unspecified dislocation of left hip, initial encounter
--- NOTE | 2024-05-15 10:49 | Hospitalist Progress Note ---
Date of Service May 15, 2024 Assessment & Plan (1) Pneumothorax on left: (2) History of total left hip arthroplasty: (3) Closed dislocation of left hip: (4) Pulmonary fibrosis: (5) Severe protein-calorie malnutrition: Plan The patient is an 79-year-old male with a past medical history including chronic interstitial lung disease, pulmonary fibrosis, coronary artery disease, severe protein calorie malnutrition, pneumomediastinum, restrictive lung disease, IPF, hypertension, GERD, peripheral neuropathy, primary hypothyroidism and vitamin D deficiency.The patient presents to the emergency department via EMS, after a fall that occurred while he was making dinner this evening, and developed severe left hip pain. Evaluation in the emergency department included CT scan of chest which showed interstitial lung disease, and a mild left apical pneumothorax, along with old right ninth and 10th rib fractures. CT scan abdomen pelvis showed a left total hip arthroplasty with posterior-superior dislocation, and a left femur fracture. #Left pneumothorax CT chest shows mild left-sided pneumothorax which appears stable Follow up x ray this morning shos no change in the small pneumothoraax avoid BIPAP and CPAP Left total hip arthroplasty posterior-superior dislocation- Dislocation of left total hip prosthesis. He is now day 2 s/p closed reduction of his left total hip prosthesis. Pain is under good control Morphine sulfate 2 mg IV every 3 hours needed from moderate pain Morphine sulfate 4 mg IV every 3 hours as needed for severe pain Working with PT Pulmonary fibrosis/interstitial lung disease- Diffuse interlobular and intralobular septal thickening with multiple subpleural areas of honeycombing suggestive of the patient's known pulmonary fibrosis PFT shows a restrictive picture Followed by pulmonology, appreciate recs Has followed with Dr. Ewing in the outpatient setting, and will be consulted this admission Old Rib fractures CT scan head without contrast negative for acute findings CT scan cervical spine negative for acute findings cervical spine but does show apical pneumothorax There are no new left-sided rib fractures. There are old healed right sided ninth and 10th rib fractures. Chronic medical conditions: Hypothyroidism-temporarily holding levothyroxine Vitamin D deficiency-temporarily holding supplementation Hyperlipidemia- Temporarily hold atorvastatin and aspirin Code: DNR/DNI DVT prophylaxis aspirin SCDs Patient will benefit from rehab following hip reduction Admission and Anticipated Discharge Date Admission Date: May 13, 2024 Subjective patient seen and examined, no new complaints, participating in PT Review of Systems Review of Systems: All systems reviewed are negative, apart from the ones contained in the history. Physical Exam Physical Exam: The patient is awake, alert and oriented 3, Chronically ill looking HEENT--PERRL, EOMI, mucous membranes and oropharynx mildly dry Neck--supple. No JVD. No bruits. Thyroid normal, trachea midline, no adenopathy. Heart--normal S1 and S2. No murmurs, rubs or gallops. Lungs--Reduced lateral auscultation Abdomen--normal bowel sounds and soft. Extremities--no cyanosis or clubbing. No edema. Dermatologic--normal skin turgor, normal color, no abnormal lymph nodes, no rash. Neurologic--cranial nerves II through XII grossly intact. Rheumatologic--normal range of motion. Psychiatric--normal affect. Results & Data Results & Data Vital Signs (Past 12 Hours) Vital Signs Temp Pulse Pulse Resp BP BP Pulse Ox 05/15/24 10:25 65 05/15/24 07:41 97.3 F L 69 19 126/72 100 05/15/24 07:28 05/15/24 07:00 05/15/24 03:38 97.5 F L 67 16 113/73 100 O2 Del Method O2 Del Method O2 Flow Rate O2 Flow Rate 05/15/24 10:25 05/15/24 07:41 Oxymask 10 05/15/24 07:28 Oxymask 10 05/15/24 07:00 Oxymask 10 05/15/24 03:38 Oxymask 10 PG Care Time/CCT Total # of Minutes Spent Total Time Spent with Patient: Total time spent is greater than 50% in coordination of care (as documented) at patient's floor/unit and/or counseling patient: Coding Level of Care Code 54217 SUB INP/OBS CARE 2/35MIN Diagnoses Pneumothorax on left J93.9 History of total left hip arthroplasty Z96.642 Closed dislocation of left hip S73.005A Encounter type: initial encounter Pulmonary fibrosis J84.10 Severe protein-calorie malnutrition E43 Time Spent (min) 35 (3) Closed dislocation of left hip Encounter type: initial encounter Qualified Code(s): S73.005A - Unspecified dislocation of left hip, initial encounter
--- NOTE | 2024-05-15 13:30 | Pulmonology Progress Note ---
Date of Service May 15, 2024 Assessment & Plan (1) Pneumothorax on left: (2) Pulmonary fibrosis: (3) ILD (interstitial lung disease): (4) Restrictive lung disease: (5) IPF (idiopathic pulmonary fibrosis): (6) Abnormal chest CT: Plan CT chest 05/12/2024 personally reviewed: Small to moderate left-sided pneumothorax Increased reticular marking appreciated bilaterally with traction bronchiectasis and honeycombing No significant mediastinal lymphadenopathy --Secondary pneumothorax Patient has underlying history of significant ILD secondary to IPF Does have history of multiple falls in the recent past and subacute fractures on the right -- IPF No personal or family history of autoimmune diseases like lupus, sarcoid, Sjogren's, rheumatoid No known history of IPF in the family 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, 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, Pneumoconiosis is a possibility Labs 09/23/2022: Autoimmune workup negative for everything except for rheumatoid factor which was mildly positive at 25 Hypersensitive pneumonitis workup negative On Esbriet LFTs every 3 months after that Repeat PFT every 6 months Oxygen qualification test 11/05/2023: Lowest saturation was 89% on room air -- Restrictive lung disease Secondary to underlying fibrosis Continue with incentive spirometer PFT 11/05/2023 personally reviewed: Suboptimal test, severe restrictive lung dysfunction, air trapping, no obstruction, insignificant bronchodilator response, severe decrease in DLCO (Decrease in FVC by 140 mL, decrease in FEV1 by 210 mL, decrease in TLC 56--> 47%, decrease in DLCO 41--> 31%, decrease in weight by 12 pounds compared to 04/10) FVC 2.30 L 49%, FEV1 1.92 L 57%, FEV1/FVC 84%, RV 72%, TLC 47%, RV/TLC 143, DLCO 31%, DLCO/VA 70% 2D echo 10/15/2022: Moderate concentric LVH, EF 60-65%, grade 1 diastolic dysfunction, RV normal in size and function -- Cigar smoker Smokes 1 to 2 cigars on a weekly basis as his early 20s -- History of silicosis and father Plan: Chest x-ray this morning without any significant change in tiny left apical pneumothorax. 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 Avoid strenuous activity and activity that might increase thoracic pressures. Avoid changes in barometric pressure such as flying. Patient okay to be discharged from pulmonary perspective. Pulmonary sign off. Thank you for the consult. Admission and Anticipated Discharge Date Admission Date: May 13, 2024 Subjective Patient seen and examined. Doing well on room air. No complaints of chest pain or shortness of breath at rest. Review of Systems Review of Systems: All systems reviewed & are unremarkable except as noted in HPI & below Physical Exam Physical Exam: Constitutional: No acute distress, frail-appearing HEENT: EOMI, PERRLA Respiratory system: Decreased air entry bilaterally, no wheeze, no rhonchi, positive Velcro-like crackles appreciated bilaterally CVS: S1-S2 positive, no murmurs or gallops Abdomen: Soft, nontender, nondistended, positive bowel sounds x4 Extremities: +2 pulses bilaterally radialis/ dorsalis pedis, no cyanosis, no edema Neuro: Awake alert oriented x3 Psych: Normal mood and affect G/U: No Cool Skin: no rashes, warm and dry Lymphatic: no cervical or axillary lymphadenopathy Results & Data Results & Data Vital Signs (Past 12 Hours) Vital Signs Temp Pulse Pulse Resp BP BP Pulse Ox 05/15/24 11:44 36.5 C 66 18 114/69 93 05/15/24 10:25 65 05/15/24 07:41 36.3 C L 69 19 126/72 100 05/15/24 07:28 05/15/24 07:00 05/15/24 03:38 36.4 C L 67 16 113/73 100 O2 Del Method O2 Del Method O2 Flow Rate O2 Flow Rate 05/15/24 11:44 Room Air 05/15/24 10:25 05/15/24 07:41 Oxymask 10 05/15/24 07:28 Oxymask 10 05/15/24 07:00 Oxymask 10 05/15/24 03:38 Oxymask 10 PG Care Time/CCT Total # of Minutes Spent Total Time Spent with Patient: Total time spent is greater than 50% in coordination of care (as documented) at patient's floor/unit and/or counseling patient: Coding Level of Care Code 78981 SUB INP/OBS CARE 2/35MIN Diagnoses Pneumothorax on left J93.9 Pulmonary fibrosis J84.10 ILD (interstitial lung disease) J84.9 Restrictive lung disease J98.4 IPF (idiopathic pulmonary fibrosis) J84.[address] R93.89
[2024-05-16 06:39] LABS: Basophils # (auto) 0.06 K/uL (0.00-0.20); Basophils % (auto) 0.7 %; Eosinophils # (auto) 0.34 K/uL (0.00-0.50); Eosinophils % (auto) 4.1 %; Hematocrit (blood only) 32.6 % (42.0-52.0); Immature Granulocytes # (auto) 0.04 K/uL (0.01-0.20); Immature Granulocytes % (auto) 0.5 %; Lymphocytes # (auto) 1.08 K/uL (1.20-3.40); Lymphocytes % (auto) 13.1 %; Mean Corpuscular Hgb Conc 33.7 g/dL (32.0-36.0); Mean Corpuscular Volume 97.9 fL (80.0-100.0); Mean Platelet Volume 10.1 fL (9.4-12.4); Monocytes # (auto) 0.77 K/uL (0.11-0.59); Monocytes % (auto) 9.3 %; Neutrophils # (auto) 5.95 K/uL (1.40-6.50); Neutrophils % (auto) 72.3 %; Platelet Count 277 K/uL (130-400); RDW Coefficient of Variation 12.9 % (11.5-14.5); RDW Standard Deviation 45.9 fL (36.4-46.3); Red Blood Count 3.33 M/uL (4.70-6.10); White Blood Count 8.24 K/ul (4.8-10.8)
[2024-05-16 07:06] LABS: Partial Thromboplastin Ratio 1.3; Partial Thromboplastin Time 34 Seconds (21-31); Prothrombin Time 11.3 Seconds (9.0-12.0)
[2024-05-16 07:20] LABS: Albumin Globulin Ratio 0.9 (0.9-2); Albumin Level 3.2 gm/dl (3.4-5.0); BUN Creatinine Ratio 25.9 (10-20); Bilirubin,Total 0.9 mg/dl (0.2-1.0); Calcium 8.5 mg/dl (8.6-10.3); Creatinine Clr Calc Pharmacy 97.6 ml/min; Globulin 3.4 gm/dl (2.5-4.0); Magnesium 1.9 mg/dl (1.7-2.4); Potassium 4.1 mmol/L (3.5-5.1); Total Protein 6.6 gm/dl (6.0-8.3)
--- NOTE | 2024-05-16 11:12 | Orthopedic Progress Note ---
Date of Service May 16, 2024 Assessment & Plan (1) Closed dislocation of left hip: Plan: s/p closed reduction under sedation of left total hip 05/[address] Chan, acute periprosthetic proximal femur fracture, 25 years s/p left total hip arthroplasty with Dr rFied Patient is overall doing well and improving. Encouraged continue work with OT/PT. Can d/c abduction brace and use knee immobilizer. He is PWB for transfers and balance with the knee immobilizer in place, will need walker and assistance. Avoid heavy abduction exercises. Can take knee immobilizer off for bathing, skin checks and PT. Maintain posterior hip precautions. Gentle knee ROM okay as long as maintaining posterior hip precautions. Case management following for discharge needs to [facility]. Patient will follow up with Dr Fried in our office in 2 weeks with repeat x rays, this is scheduled and listed in his discharge. Continue care per primary team including pain control and DVT prophylaxis. Orthopedically stable for discharge pending rehab placement. Admission and Anticipated Discharge Date Admission Date: May 13, 2024 Subjective Pt reports that he is doing well and feels he is improving. He has no pain. PT just worked with him and said that he was able to transfer with walker and 1 assist. Physical Exam Physical Exam: Knee immobilizer in place and fitting appropriately. This was taken down to check his skin whcih is all in tact and no signs of skin breakdown or abrasions. Distal extremity with normal color and temperate. Sensation in tact distally to light touch. 1+ DP pulse is present. DF/PF in tact 5/5 strength. Calf and thigh soft and compressible. He is able to tolerate light gentle PROM of his hip in abduction, adduction to midline, flexion. Results & Data Vital Signs (Past 12 Hours) Vital Signs Temp Pulse Pulse Resp BP BP Pulse Ox 05/16/24 08:00 70 05/16/24 07:29 05/16/24 07:10 36.6 C 70 18 123/70 93 05/16/24 02:33 36.9 C 67 18 110/60 91 05/15/24 23:46 36.7 C 69 20 130/68 91 O2 Del Method 05/16/24 08:00 05/16/24 07:29 Room Air 05/16/24 07:10 Room Air 05/16/24 02:33 Room Air 05/15/24 23:46 Room Air (1) Closed dislocation of left hip Encounter type: initial encounter Qualified Code(s): S73.005A - Unspecified dislocation of left hip, initial encounter
--- NOTE | 2024-05-16 12:01 | Hospitalist Progress Note ---
Date of Service May 16, 2024 Assessment & Plan (1) Pneumothorax on left: (2) History of total left hip arthroplasty: (3) Closed dislocation of left hip: (4) Pulmonary fibrosis: (5) Severe protein-calorie malnutrition: Plan The patient is an 79-year-old male with a past medical history including chronic interstitial lung disease, pulmonary fibrosis, coronary artery disease, severe protein calorie malnutrition, pneumomediastinum, restrictive lung disease, IPF, hypertension, GERD, peripheral neuropathy, primary hypothyroidism and vitamin D deficiency.The patient presents to the emergency department via EMS, after a fall that occurred while he was making dinner this evening, and developed severe left hip pain. Evaluation in the emergency department included CT scan of chest which showed interstitial lung disease, and a mild left apical pneumothorax, along with old right ninth and 10th rib fractures. CT scan abdomen pelvis showed a left total hip arthroplasty with posterior-superior dislocation, and a left femur fracture. #Left pneumothorax CT chest shows mild left-sided pneumothorax which appears stable Follow up x ray this morning shos no change in the small pneumothoraax avoid BIPAP and CPAP Left total hip arthroplasty posterior-superior dislocation- Dislocation of left total hip prosthesis. He is now day 2 s/p closed reduction of his left total hip prosthesis. Pain is under good control Morphine sulfate 2 mg IV every 3 hours needed from moderate pain Morphine sulfate 4 mg IV every 3 hours as needed for severe pain Working with PT Pulmonary fibrosis/interstitial lung disease- Diffuse interlobular and intralobular septal thickening with multiple subpleural areas of honeycombing suggestive of the patient's known pulmonary fibrosis PFT shows a restrictive picture Followed by pulmonology, appreciate recs Has followed with Dr. Ewing in the outpatient setting, and will be consulted this admission Old Rib fractures CT scan head without contrast negative for acute findings CT scan cervical spine negative for acute findings cervical spine but does show apical pneumothorax There are no new left-sided rib fractures. There are old healed right sided ninth and 10th rib fractures. Chronic medical conditions: Hypothyroidism-temporarily holding levothyroxine Vitamin D deficiency-temporarily holding supplementation Hyperlipidemia- Temporarily hold atorvastatin and aspirin Patient appears very frail, consulted nutrition for dietary support case management is working on discharge [facility]hab [facility]. Patient also had no bowel movement added senna and MiraLAX tolerating diet very well per nursing staff Code: DNR/DNI DVT prophylaxis aspirin SCDs Patient will benefit from rehab following hip reduction Admission and Anticipated Discharge Date Admission Date: May 13, 2024 Subjective Pt reports that he is doing well and feels he is improving. He has no pain. PT just worked with him and said that he was able to transfer with walker and 1 assist. Review of Systems Review of Systems: Constitutional: No Weight Change, No Fever, No Chills, No Night Sweats, No Fatigue, No Malaise ENT/Mouth: No Hearing Changes, No Ear Pain, No Nasal Congestion, No Sinus Pain, No Hoarseness, No sore throat, No Rhinorrhea, No Swallowing Difficulty Eyes: No Eye Pain, No Swelling, No Redness, No Foreign Body, No Discharge, No Vision Changes Cardiovascular: No Chest Pain, No SOB, No PND, No Dyspnea on Exertion, No Orthopnea, No Claudication, No Edema, No Palpitations Respiratory: No Cough, No Sputum, No Wheezing, No Smoke Exposure, No Dyspnea Gastrointestinal: No Nausea, No Vomiting, No Diarrhea, No Constipation, No Pain, No Heartburn, No Anorexia, No Dysphagia, No Hematochezia, No Melena, No Flatulence, No Jaundice Genitourinary: No Dysmenorrhea, No DUB, No Dyspareunia, No Dysuria, No Urinary Frequency, No Hematuria, No Urinary Incontinence, No Urgency, No Flank Pain, No Urinary Flow Changes, No Hesitancy Musculoskeletal: No Arthralgias, No Myalgias, No Joint Swelling, No Joint Stiffness, No Back Pain, No Neck Pain, No Injury History Skin: No Skin Lesions, No Pruritis, No Hair Changes, No Breast/Skin Changes, No Nipple Discharge Neuro: No Weakness, No Numbness, No Paresthesias, No Loss of Consciousness, No Syncope, No Dizziness, No Headache, No Coordination Changes, No Recent Falls Psych: No Anxiety/Panic, No Depression, No Insomnia, No Personality Changes, No Delusions, No Rumination, No SI/HI/AH/VH, No Social Issues, No Memory Changes, No Violence/Abuse Hx., No Eating Concerns Heme/Lymph: No Bruising, No Bleeding, No Transfusions History, No Lymphadenopathy Endocrine: No Polyuria, No Polydipsia, No Temperature Intolerance Physical Exam Physical Exam: VITALS: Reviewed. WEIGHT/BMI reviewed. GEN: Frail , well-developed, NAD. PSYCH: Good Judgment. AOx3. Normal memory, mood, and affect. HEENT -Head: NC/AT; -Eyes: PERRL, EOMI. No discharge or redn ess; -Ears: External ears are normal. Normal TMs. -Nose: Normal nares. -Mouth and throat: MMM. Normal gums, muc valeria, palate,. Good dentition. NECK: Supple, with no masses. CV: RRR, no m/r/g. LUNGS: CTAB, no w/r/c. ABD: Soft, NT/ND, NBS, no masses or organomegaly. : N/A SKIN: Warm, well perfused. No skin rashes or abnormal lesions. MSK: No deformities, Normal gait. EXT: No clubbing, cyanosis, or edema. NEURO: Ambulating with no limitations. Normal muscle strength and tone. No focal deficits. Results & Data Results & Data Vital Signs (Past 12 Hours) Vital Signs Temp Pulse Pulse Resp BP BP Pulse Ox 05/16/24 08:00 70 05/16/24 07:29 05/16/24 07:10 36.6 C 70 18 123/70 93 05/16/24 02:33 36.9 C 67 18 110/60 91 O2 Del Method 05/16/24 08:00 05/16/24 07:29 Room Air 05/16/24 07:10 Room Air 05/16/24 02:33 Room Air Laboratory Results Chest X-Ray 05/12/24 19:18 CR Exam(s): XR CXR 1 VIEW EXAM: XR Chest, 1 View CLINICAL HISTORY: Reason for exam: Trauma. TECHNIQUE: Frontal view of the chest. COMPARISON: 02/21/24 FINDINGS: Lungs: Right basilar discoid atelectasis. No consolidation. Pleural space: There is left apical pneumothorax measuring 2.3 cm in thickness. Heart: Unremarkable. No cardiomegaly. Mediastinum: Unremarkable. Normal mediastinal contour. Bones/joints: Unremarkable. No acute fracture. IMPRESSION: Left apical pneumothorax Communications: Call Doctor Pneumothorax Electronically signed by: Win Greene MD 05/12/24 21:42 PM Hip/Pelvis X-Ray 05/12/24 19:18 Exam(s): XR HIP + PELVIS, 1 view EXAM: XR Left Hip With Pelvis When Performed, 2 or 3 Views CLINICAL HISTORY: Reason for exam: pain, fall deformity. TECHNIQUE: Two or three views of the left hip with pelvis when performed. COMPARISON: No relevant prior studies available. FINDINGS: Bones/joints: There is a total left hip arthroplasty with lateral dislocation of the femoral head component, in relation to the left acetabular fossa. Mild to moderate osteoarthritic changes seen at the right hip joint. No acute fracture. Soft tissues: Unremarkable. IMPRESSION: Lateral dislocation at the left hip Electronically signed by: Win Greene MD 05/12/24 21:[address] 05/12/24 19:20 CR Exam(s): CT C SPINE EXAM: CT Cervical Spine Without Intravenous Contrast CLINICAL HISTORY: Reason for exam: pain fall. TECHNIQUE: Axial computed tomography images of the cervical spine without intravenous contrast. CTDI is 24.9 mGy and DLP is 507.55 mGy-cm. Automated exposure control was utilized for the study. A dose lowering technique was utilized adhering to the principles of ALARA. COMPARISON: No relevant prior studies available. FINDINGS: Vertebrae: Unremarkable. No acute fracture. Discs/spinal canal/neural foramina: No acute findings. No spinal canal stenosis. Soft tissues: There is a small left apical pneumothorax. IMPRESSION: No evidence of acute cervical spine pathology. Small left apical pneumothorax. Recommend CT scan chest to evaluate for rib fracture. Communications: Verify Receipt Electronically signed by: Maxine Perry MD 05/12/24 21:[address] 05/12/24 19:20 Exam(s): CT HEAD Without Contrast EXAM: CT Head Without Intravenous Contrast CLINICAL HISTORY: Reason for exam: pain fall. TECHNIQUE: Axial computed tomography images of the head/brain without intravenous contrast. CTDI is 61.99 mGy and DLP is 1098.96 mGy-cm. Automated exposure control was utilized for the study. A dose lowering technique was utilized adhering to the principles of ALARA. COMPARISON: Prior head CT from September 07, 2019. FINDINGS: Brain: Unremarkable. No hemorrhage. Moderate nonspecific white matter changes. No edema. Ventricles: Moderate ventriculomegaly. Bones/joints: Unremarkable. No acute fracture. Soft tissues: Unremarkable. Sinuses: Unremarkable as visualized. No acute sinusitis. Mastoid air cells: Unremarkable as visualized. No mastoid effusion. IMPRESSION: No evidence of acute intracranial pathology. Electronically signed by: Maxine Perry MD 05/12/24 21:49 PM Hip X-Ray 05/12/24 23:32 Exam(s): XR LEFT HIP EXAM: XR Left Hip With Pelvis When Performed, 2 or 3 Views CLINICAL HISTORY: Reason for exam: dislocation. TECHNIQUE: Two or three views of the left hip with pelvis when performed. COMPARISON: 05/12/24 at 1946 hrs. FINDINGS/IMPRESSION: Left total hip arthroplasty with persistent superolateral dislocation of the femoral component from the acetabular cup. Electronically signed by: Kendy Vance M.D. 05/13/24 01:00 AM Abdomen/Pelvis CT 05/12/24 23:33 EXAM: CT abd pelvis IV con only CLINICAL HISTORY: fall, left PRUDENCE dislocation;br ;br TECHNIQUE: Contiguous axial images were obtained from the level of the diaphragm to the pubic symphysis with intravenous contrast. Coronal and sagittal reconstructions were likewise performed and indicated to increase the sensitivity for detecting clinically relevant pathology. If IV contrast material had not been administered, the likelihood of detecting abnormalities relevant to the patient's condition would have been substantially decreased. CT scan was performed according to ALARA (as low as reasonable achievable). COMPARISON: None. FINDINGS: The visualized lung bases shows multiple interlobular and intralobular septal thickening ; redominantly peripheral aspect and multiple area of honeycombing on right lower lobe - suggestive of interstitial lung disease. Mild left sided pneumothorax. The liver is normal in size and attenuation. No focal liver lesions are seen. There is no intra or extrahepatic biliary ductal dilatation. Hepatic vasculature is patent. The gallbladder is removed. The spleen, pancreas, and adrenal glands are unremarkable. The kidneys are normal in size and attenuation. There is no hydronephrosis or perinephric fat stranding. No renal calculi or renal masses are identified. The ureters are normal in caliber and no ureteral calculi are seen. The bladder is normal in contour. Pelvic viscera are unremarkable. No focal or diffuse bowel wall thickening or evidence of bowel obstruction is identified. The appendix is visualized in the right lower quadrant and appears within normal limits. Abdominal and pelvic vasculature is patent. No adenopathy or fluid collections are seen. No aggressive appearing osseous lesions are identified. Multiple small uncomplicated colonic diverticulosis Left sided total hip replacement with postero-superior dislocation of left hip joint is seen. Linear mildly displaced fracture is noted involving proximal metadiaphysis of left femur adjacent to the prosthesis. Diffuse atherosclerotic calcification is noted involving aorta iliac arteries. IMPRESSION: 1. Left sided total hip replacement with postero-superior dislocation of left hip joint is seen. 2. Linear mildly displaced fracture is noted involving proximal metadiaphysis of left femur adjacent to the prosthesis. 3. Status post-cholecystectomy. 4. Multiple small, uncomplicated colonic diverticulosis. 5. Diffuse atherosclerotic calcification is noted involving aorta iliac arteries. 6. The visualized lung bases shows multiple interlobular and intralobular septal thickening; redominantly peripheral aspect and multiple area of honeycombing on right lower lobe - suggestive of interstitial lung disease. 7. Mild left sided pneumothorax. Electronically signed by Devan Singleton 05-13-2024 01:[address] 05/12/24 23:33 EXAM: CT chest diagnostic w con CLINICAL HISTORY: ptx, fall TECHNIQUE: Contiguous axial images were obtained from the neck base through the upper abdomen following intravenous administration of contrast material. If IV contrast material had not been administered, the likelihood of detecting abnormalities relevant to the patient's condition would have been substantially decreased. In addition, sagittal and coronal reconstructions were performed. CT scan was performed according to ALARA (as low as reasonable achievable). COMPARISON: may 12/2025 23:31:54 SEQUINS SLINGER. FINDINGS: Diffuse interlobular and intralobular septal thickening with multiple subpleural area of honeycombing are noted involving both lungs; predominantly both lower lobes - suggestive of interstitial lung disease. Mild left sided pneumothorax seen. Old healed fracture of right 9th rib. The central airways are patent. There are no pleural effusions. No axillary, hilar, or mediastinal adenopathy is identified. The visualized thyroid is unremarkable. The heart, aorta, and pulmonary arteries are of normal size and configuration. No pericardial effusion is identified. No aggressive appearing osseous lesions are identified. IMPRESSION: 1. Diffuse interlobular and intralobular septal thickening with multiple subpleural area of honeycombing are noted involving both lungs; predominantly both lower lobes - suggestive of interstitial lung disease.-stable. 2. Mild left sided pneumothorax seen.-new finding. 3. Old healed fracture of right 9th/10th rib (near costovertebral joint).-new finding. Electronically signed by Devan Singleton 05-13-2024 01:26 AM Hip X-Ray 05/13/24 00:00 FL hip LT 1V CLINICAL HISTORY: LT HIP CLOSED REDUCTION IN OR COMPARISON STUDY: Left hip radiographs May 12, 2024. Fluoroscopy time: 8 seconds. Number of fluoroscopic images: 2. Ka,r: 8 seconds. FINDINGS: Fluoroscopy was provided during closed reduction of the left hip arthroplasty. Alignment is now anatomic. Femoral component is well-seated within the acetabular cup. Note is again made of an acute appearing periprosthetic intertrochanteric fracture of the left femur which was shown on CT of May 13, 2024. Incidental note is made of contrast within the bladder from that exam. IMPRESSION: 1. Fluoroscopy provided during closed reduction of the left hip arthroplasty. Anatomic alignment. 2. Redemonstration of a periprosthetic intertrochanteric fracture of the left femur, as shown on CT of May 13, 2024. ACT 112: Negative or not required by law. Electronically signed by: Baljeet Vazquez M.D. 05/14/2024 7:30 AM Hip X-Ray 05/13/24 10:16 HISTORY: Postoperative evaluation of the left hip. TECHNIQUE: Left hip, 3 views. COMPARISON: Pelvic and left hip radiographs dated 12/06/2023. FINDINGS: Appropriately aligned left hip arthroplasty. Acute mildly displaced intertrochanteric periprosthetic fracture of the left proximal femur. The included pelvis appears intact. IMPRESSION: * Acute mildly displaced intertrochanteric periprosthetic fracture of the left proximal femur. Electronically signed by Daniel Garg 05-13-2024 11:40 AM Chest X-Ray 05/13/24 10:34 HISTORY: Shortness of breath. TECHNIQUE: Portable AP radiograph of the chest. COMPARISON: Chest CT dated 05/13/2024. FINDINGS: Small left apical pneumothorax. Pulmonary fibrosis involving both lungs. No other focal consolidation. No significant effusion. Mild cardiomegaly. Left-sided aortic arch. Midline trachea. Degenerative changes of the shoulders and spine. Included upper abdomen is unremarkable. IMPRESSION: 1. Small left apical pneumothorax is similar to the recent CT from earlier in the same day. 2. Moderate pulmonary fibrosis. 3. Mild cardiomegaly. Electronically signed by Daniel Garg 05-13-2024 11:42 AM Chest X-Ray 05/14/24 07:00 EXAM: XR chest 1V portable CLINICAL HISTORY: F/u TECHNIQUE: An X-ray image of the chest is obtained in AP projection. COMPARISON: 05/13/2024 CR. FINDINGS: Pulmonary Parenchyma: Unchanged, left small pneumothorax. Bilateral diffuse reticular and airspace opacities were noted. No evidence of pleural effusion or pleural thickening. Heart and Mediastinum: Heart size and shape are normal. No mediastinal widening or masses. No hilar or mediastinal lymphadenopathy. Bony Thorax: Bony thorax appears intact without fractures or deformities. Soft Tissues: Soft tissues overlying the chest wall are unremarkable. IMPRESSION: 1. Unchanged small left small pneumothorax. 2. Bilateral diffuse reticular and airspace opacities were noted. 3. No gross interval changed in comparison with 05/13/2024. Electronically signed by Valerio Cerna 05-14-2024 07:29 AM Chest X-Ray 05/15/24 07:00 EXAM: XR chest 1V portable CLINICAL HISTORY: Follow-up ROUTINE CHEST XRAY. TECHNIQUE: An X-ray image of the chest is obtained in AP projection. COMPARISON: 05/14/2024. FINDINGS: Pulmonary Parenchyma: Bilateral diffuse reticulonodular opacities are noted. A small left apical pneumothorax is noted. No evidence of pleural effusion. Heart and Mediastinum: Heart size and shape are normal. No mediastinal widening or masses. No hilar or mediastinal lymphadenopathy. Bony Thorax: Bony thorax appears intact without fractures or deformities. Osteodegenrative changes. Soft Tissues: Soft tissues overlying the chest wall are unremarkable. IMPRESSION: 1. Bilateral diffuse widespread reticulonodular opacities suggesting interstitial lung pathology. 2. Small left apical pneumothorax (unchanged). 3. No interval changes. 4. Clinical correlation /follow-up is suggested. Electronically signed by Valerio Cerna 05-15-2024 07:48 AM 05/13/24 16:41 Urine Culture - Final Urine,Clean Catch More than three types of organisms present, all moderate counts mixed probable skin mc. No further identifications or sensitivities to follow. 05/16/24 05:47 WBC 8.24 RBC 3.33 L Hgb 11.0 L Hct 32.6 L MCV 97.9 MCH 33.0 MCHC 33.7 RDW Std Deviation 45.9 RDW Coeff of Christa 12.9 Plt Count 277 MPV 10.1 Immature Gran % (Auto) 0.5 Neut % (Auto) 72.3 Lymph % (Auto) 13.1 [place] % (Auto) 9.3 Eos % (Auto) 4.1 Baso % (Auto) 0.7 Neut # (Auto) 5.95 Lymph # (Auto) 1.08 L [place] # (Auto) 0.77 H Eos # (Auto) 0.34 Baso # (Auto) 0.06 Immature Gran # (Auto) 0.04 PT 11.3 INR 1.0 APTT 34 H PTT Ratio 1.3 Sodium 134 L Potassium 4.1 Chloride 97 L Carbon Dioxide 35 H Anion Gap 2 L BUN 15 Creatinine 0.58 L Est Cr Clr Drug Dosing 97.6 eGFR 97.98 BUN/Creatinine Ratio 25.9 H Glucose 83 Calcium 8.5 L Magnesium 1.9 Total Bilirubin 0.9 AST 86 H ALT 57 H Alkaline Phosphatase 179 H Total Protein 6.6 Albumin 3.2 L Globulin 3.4 Albumin/Globulin Ratio 0.9 PG Care Time/CCT Total # of Minutes Spent Total Time Spent with Patient: Total time spent is greater than 50% in coordination of care (as documented) at patient's floor/unit and/or counseling patient: Coding Level of Care Code 36385 SUB INP/OBS CARE 3/50MIN Diagnoses Pneumothorax on left J93.9 History of total left hip arthroplasty Z96.642 Closed dislocation of left hip S73.005A Encounter type: initial encounter Pulmonary fibrosis J84.10 Severe protein-calorie malnutrition E43 (3) Closed dislocation of left hip Encounter type: initial encounter Qualified Code(s): S73.005A - Unspecified dislocation of left hip, initial encounter
[2024-05-16] MEDS: DOCUSATE SODIUM/SENNA 50/8.6MG TAB PO SCH (13:19)
[2024-05-16] MEDS: POLYETHYLENE (MIRALAX) 17 GM PACK PO PRN (13:19)
--- NOTE | 2024-05-17 09:22 | Orthopedic Progress Note ---
Date of Service May 17, 2024 Assessment & Plan (1) Closed dislocation of left hip: Plan: s/p closed reduction under sedation of left total hip 05/[address] Chan, acute periprosthetic proximal femur fracture, 25 years s/p left total hip arthroplasty with Dr Fried Patient is overall doing well and improving. Encouraged continue work with OT/PT. Continue knee immobiilizer. He is PWB for transfers and balance with the knee immobilizer in place, will need walker and assistance. Avoid heavy abduction exercises. Can take knee immobilizer off for bathing, skin checks and PT. Maintain posterior hip precautions. Gentle knee ROM okay as long as maintaining posterior hip precautions. Case management following for [facility]. Patient will follow up with Dr Fried in our office in 2 weeks with repeat x rays, this is scheduled and listed in his discharge. Continue care per primary team including pain control and DVT prophylaxis. Orthopedically stable for discharge pending rehab placement. Admission and Anticipated Discharge Date Admission Date: May 13, 2024 Subjective Patient doing well. No complaints in his left hip. States that he is doing well. He is tolerating the knee immobilizer. Physical Exam Musculoskeletal: Tolerates logrolling of the left hip. No pain with gentle range of motion. No edema of the left lower extremity Full ankle range of motion with normal strength. Distal pulses 2+. Knee immobilizer in place. Results & Data Vital Signs (Past 12 Hours) Vital Signs Temp Pulse Resp BP BP Pulse Ox O2 Del Method 05/17/24 07:50 36.9 C 76 18 161/83 H 96 Room Air 05/17/24 03:14 36.6 C 67 18 117/67 94 Room Air 05/16/24 22:32 36.7 C 68 16 119/70 93 Room Air (1) Closed dislocation of left hip Encounter type: initial encounter Qualified Code(s): S73.005A - Unspecified dislocation of left hip, initial encounter
[2024-05-17 09:40] LABS: Hematocrit (blood only) 33.2 % (42.0-52.0); Hemoglobin 11.3 g/dl (14.0-18.0); Mean Corpuscular Hemoglobin 33.5 pg (25.0-34.0); Mean Corpuscular Volume 98.5 fL (80.0-100.0); Mean Platelet Volume 10.3 fL (9.4-12.4); Platelet Count 297 K/uL (130-400); RDW Standard Deviation 46.5 fL (36.4-46.3); Red Blood Count 3.37 M/uL (4.70-6.10); White Blood Count 8.27 K/ul (4.8-10.8)
[2024-05-17 09:43] LABS: Albumin Globulin Ratio 0.9 (0.9-2); Albumin Level 3.2 gm/dl (3.4-5.0); BUN Creatinine Ratio 17.5 (10-20); Bilirubin,Total 0.9 mg/dl (0.2-1.0); Calcium 8.5 mg/dl (8.6-10.3); Creatinine Clr Calc Pharmacy 90.1 ml/min; Globulin 3.4 gm/dl (2.5-4.0); Potassium 4.4 mmol/L (3.5-5.1); Total Protein 6.6 gm/dl (6.0-8.3)
--- NOTE | 2024-05-17 10:47 | XRay Report ---
XR hip 1V LT w pelvis CLINICAL HISTORY: periprosthetic fx COMPARISON: 05/13/2024 FINDINGS: 4 views of the pelvis and left hip were performed. No significant interval change since th e prior examination. The intertrochanteric periprosthetic proximal femoral fracture is redemonstrated . There are no significant displacement. The fracture lines are slightly wider indicative of endostea l resorption. The prosthetic components remain satisfactorily positioned and aligned. IMPRESSION: Periprosthetic fracture proximal left femur is unchanged since the prior examination. ACT 112: Negative or not required by law. Electronically signed by: Marlee Martines M.D. 05/17/2024 10:45 AM
--- NOTE | 2024-05-17 11:52 | Orthopedic Progress Note ---
Date of Service May 17, 2024 Assessment & Plan Admission and Anticipated Discharge Date Admission Date: May 13, 2024 Orthopedic Progress Note Patient seen on the floor with in the presence of the occupational therapist. Seems to be doing better. He is much less uncomfortable. His knee immobilizer is in place. This femoral sciatic nerve function is excellent. Still has difficulty with doing a straight leg raise secondary to weakness. It is not much pain. X-rays taken today reveal no change in fracture alignment hip is located there is a significant amount of fixation distal to the fracture with the AML stem. Assessment allow weightbearing as tolerated for his periprosthetic fracture at this point continue hip precautions. Orders placed OT and PT in the chart. Given verbally to OT as well.
--- NOTE | 2024-05-17 16:46 | Hospitalist Progress Note ---
Date of Service May 17, 2024 Assessment & Plan Admission and Anticipated Discharge Date Admission Date: May 13, 2024 Subjective doing well with PT and OT Orthopedic Progress Note Patient seen on the floor with in the presence of the occupational therapist. Seems to be doing better. He is much less uncomfortable. His knee immobilizer is in place. This femoral sciatic nerve function is excellent. Still has difficulty with doing a straight leg raise secondary to weakness. It is not much pain. X-rays taken today reveal no change in fracture alignment hip is located there is a significant amount of fixation distal to the fracture with the AML stem. Assessment allow weightbearing as tolerated for his periprosthetic fracture at this point continue hip precautions. Orders placed OT and PT in the chart. Given verbally to OT as well. 1) Pneumothorax on left: (2) History of total left hip arthroplasty: (3) Closed dislocation of left hip: (4) Pulmonary fibrosis: (5) Severe protein-calorie malnutrition: Plan The patient is an 79-year-old male with a past medical history including chronic interstitial lung disease, pulmonary fibrosis, coronary artery disease, severe protein calorie malnutrition, pneumomediastinum, restrictive lung disease, IPF, hypertension, GERD, peripheral neuropathy, primary hypothyroidism and vitamin D deficiency.The patient presents to the emergency department via EMS, after a fall that occurred while he was making dinner this evening, and developed severe left hip pain. Evaluation in the emergency department included CT scan of chest which showed interstitial lung disease, and a mild left apical pneumothorax, along with old right ninth and 10th rib fractures. CT scan abdomen pelvis showed a left total hip arthroplasty with posterior-superior dislocation, and a left femur fracture. #Left pneumothorax CT chest shows mild left-sided pneumothorax which appears stable Follow up x ray this morning shos no change in the small pneumothoraax avoid BIPAP and CPAP Left total hip arthroplasty posterior-superior dislocation- Dislocation of left total hip prosthesis. He is now day 2 s/p closed reduction of his left total hip prosthesis. Pain is under good control Morphine sulfate 2 mg IV every 3 hours needed from moderate pain Morphine sulfate 4 mg IV every 3 hours as needed for severe pain Working with PT Pulmonary fibrosis/interstitial lung disease- Diffuse interlobular and intralobular septal thickening with multiple subpleural areas of honeycombing suggestive of the patient's known pulmonary fibrosis PFT shows a restrictive picture Followed by pulmonology, appreciate recs Has followed with Dr. Ewing in the outpatient setting, and will be consulted this admission Old Rib fractures CT scan head without contrast negative for acute findings CT scan cervical spine negative for acute findings cervical spine but does show apical pneumothorax There are no new left-sided rib fractures. There are old healed right sided ninth and 10th rib fractures. Chronic medical conditions: Hypothyroidism-temporarily holding levothyroxine Vitamin D deficiency-temporarily holding supplementation Hyperlipidemia- Temporarily hold atorvastatin and aspirin Code: DNR/DNI DVT prophylaxis aspirin SCDs Physical Exam Physical Exam: The patient is awake, alert and oriented 3, Chronically ill looking HEENT--PERRL, EOMI, mucous membranes and oropharynx mildly dry Neck--supple. No JVD. No bruits. Thyroid normal, trachea midline, no adenopathy. Heart--normal S1 and S2. No murmurs, rubs or gallops. Lungs--Reduced lateral auscultation Abdomen--normal bowel sounds and soft. Extremities--no cyanosis or clubbing. No edema. Dermatologic--normal skin turgor, normal color, no abnormal lymph nodes, no rash. Neurologic--cranial nerves II through XII grossly intact. Rheumatologic--normal range of motion. Psychiatric--normal affect. Results & Data Results & Data Vital Signs (Past 12 Hours) Vital Signs Temp Pulse Resp BP Pulse Ox O2 Del Method 05/17/24 14:37 36.4 C L 79 18 143/81 H 94 Room Air 05/17/24 11:00 36.8 C 77 18 152/82 H 95 Room Air 05/17/24 07:50 36.9 C 76 18 161/83 H 96 Room Air PG Care Time/CCT Total # of Minutes Spent Total Time Spent with Patient: Total time spent is greater than 50% in coordination of care (as documented) at patient's floor/unit and/or counseling patient: Coding Level of Care Code 53756 SUB INP/OBS CARE 2/35MIN Time Spent (min) 30
[2024-05-17] MEDS: CALCIUM ACETATE 667 MG CAP/TAB PO SCH (18:01)
[2024-05-17] MEDS: SODIUM CHLORIDE 1 GM TABLET PO SCH (18:02)
--- NOTE | 2024-05-18 18:49 | Hospitalist Progress Note ---
Date of Service May 18, 2024 Assessment & Plan Admission and Anticipated Discharge Date Admission Date: May 13, 2024 Subjective doing well with PT and OT Orthopedic Progress Note Patient seen on the floor with in the presence of the occupational therapist. Seems to be doing better. He is much less uncomfortable. His knee immobilizer is in place. This femoral sciatic nerve function is excellent. Still has difficulty with doing a straight leg raise secondary to weakness. It is not much pain. X-rays taken today reveal no change in fracture alignment hip is located there is a significant amount of fixation distal to the fracture with the AML stem. Assessment allow weightbearing as tolerated for his periprosthetic fracture at this point continue hip precautions. Orders placed OT and PT in the chart. Given verbally to OT as well. 1) Pneumothorax on left: (2) History of total left hip arthroplasty: (3) Closed dislocation of left hip: (4) Pulmonary fibrosis: (5) Severe protein-calorie malnutrition: Plan The patient is an 79-year-old male with a past medical history including chronic interstitial lung disease, pulmonary fibrosis, coronary artery disease, severe protein calorie malnutrition, pneumomediastinum, restrictive lung disease, IPF, hypertension, GERD, peripheral neuropathy, primary hypothyroidism and vitamin D deficiency.The patient presents to the emergency department via EMS, after a fall that occurred while he was making dinner this evening, and developed severe left hip pain. Evaluation in the emergency department included CT scan of chest which showed interstitial lung disease, and a mild left apical pneumothorax, along with old right ninth and 10th rib fractures. CT scan abdomen pelvis showed a left total hip arthroplasty with posterior-superior dislocation, and a left femur fracture. #Left pneumothorax CT chest shows mild left-sided pneumothorax which appears stable Follow up x ray this morning shos no change in the small pneumothoraax avoid BIPAP and CPAP Left total hip arthroplasty posterior-superior dislocation- Dislocation of left total hip prosthesis. He is now day 2 s/p closed reduction of his left total hip prosthesis. Pain is under good control Morphine sulfate 2 mg IV every 3 hours needed from moderate pain Morphine sulfate 4 mg IV every 3 hours as needed for severe pain Working with PT Pulmonary fibrosis/interstitial lung disease- Diffuse interlobular and intralobular septal thickening with multiple subpleural areas of honeycombing suggestive of the patient's known pulmonary fibrosis PFT shows a restrictive picture Followed by pulmonology, appreciate recs Has followed with Dr. Ewing in the outpatient setting, and will be consulted this admission Old Rib fractures CT scan head without contrast negative for acute findings CT scan cervical spine negative for acute findings cervical spine but does show apical pneumothorax There are no new left-sided rib fractures. There are old healed right sided ninth and 10th rib fractures. Chronic medical conditions: Hypothyroidism-temporarily holding levothyroxine Vitamin D deficiency-temporarily holding supplementation Hyperlipidemia- Temporarily hold atorvastatin and aspirin Code: DNR/DNI DVT prophylaxis aspirin SCDs Review of Systems Review of Systems: The patient is awake, alert and oriented 3, Chronically ill looking HEENT--PERRL, EOMI, mucous membranes and oropharynx mildly dry Neck--supple. No JVD. No bruits. Thyroid normal, trachea midline, no adenopathy. Heart--normal S1 and S2. No murmurs, rubs or gallops. Lungs--Reduced lateral auscultation Abdomen--normal bowel sounds and soft. Extremities--no cyanosis or clubbing. No edema. Dermatologic--normal skin turgor, normal color, no abnormal lymph nodes, no rash. Neurologic--cranial nerves II through XII grossly intact. Rheumatologic--normal range of motion. Psychiatric--normal affect. Results & Data Results & Data Vital Signs (Past 12 Hours) Vital Signs Temp Pulse Resp BP Pulse Ox O2 Del Method 05/18/24 16:00 36.6 C 85 18 141/68 H 96 Room Air 05/18/24 12:39 Room Air 05/18/24 12:00 36.5 C 71 16 132/74 97 Room Air 05/18/24 08:00 36.6 C 69 18 136/75 96 Room Air PG Care Time/CCT Total # of Minutes Spent Total Time Spent with Patient: Total time spent is greater than 50% in coordination of care (as documented) at patient's floor/unit and/or counseling patient: Coding Level of Care Code 66426 SUB INP/OBS CARE 2/35MIN Time Spent (min) 30
[2024-05-18 22:32] LABS: Appearance Urine Clear (Clear); Bilirubin Urine Negative (Negative); Blood Urine Negative (Negative); Color Urine Dark Yellow; Glucose Urine UA Negative (Negative); Ketones Urine Trace (Negative); Leukocyte Esterase Urine Negative (Negative); Nitrite Urine Negative (Negative); Protein Urine Negative (Negative); Specific Gravity Urine 1.017 (1.000-1.030); Urobilinogen Urine Positive (Negative)
[2024-05-19 06:16] LABS: Basophils # (auto) 0.06 K/uL (0.00-0.20); Basophils % (auto) 0.7 %; Eosinophils # (auto) 0.42 K/uL (0.00-0.50); Eosinophils % (auto) 4.7 %; Hematocrit (blood only) 34.7 % (42.0-52.0); Hemoglobin 11.9 g/dl (14.0-18.0); Immature Granulocytes # (auto) 0.04 K/uL (0.01-0.20); Immature Granulocytes % (auto) 0.4 %; Lymphocytes # (auto) 1.24 K/uL (1.20-3.40); Lymphocytes % (auto) 13.9 %; Mean Corpuscular Hemoglobin 33.1 pg (25.0-34.0); Mean Corpuscular Hgb Conc 34.3 g/dL (32.0-36.0); Mean Corpuscular Volume 96.7 fL (80.0-100.0); Mean Platelet Volume 10.2 fL (9.4-12.4); Monocytes # (auto) 0.94 K/uL (0.11-0.59); Monocytes % (auto) 10.6 %; Neutrophils # (auto) 6.19 K/uL (1.40-6.50); Neutrophils % (auto) 69.7 %; Platelet Count 307 K/uL (130-400); RDW Coefficient of Variation 13.1 % (11.5-14.5); RDW Standard Deviation 46.5 fL (36.4-46.3); Red Blood Count 3.59 M/uL (4.70-6.10); White Blood Count 8.89 K/ul (4.8-10.8)
[2024-05-19 06:42] LABS: Albumin Globulin Ratio 0.9 (0.9-2); Albumin Level 3.1 gm/dl (3.4-5.0); Bilirubin,Total 0.8 mg/dl (0.2-1.0); Calcium 8.7 mg/dl (8.6-10.3); Globulin 3.3 gm/dl (2.5-4.0); Potassium 4.3 mmol/L (3.5-5.1); Total Protein 6.4 gm/dl (6.0-8.3)
--- NOTE | 2024-05-19 15:40 | Hospitalist Progress Note ---
Date of Service May 19, 2024 Assessment & Plan (1) Pneumothorax on left: (2) History of total left hip arthroplasty: (3) Closed dislocation of left hip: (4) Pulmonary fibrosis: (5) Severe protein-calorie malnutrition: Plan The patient is an 79-year-old male with a past medical history including chronic interstitial lung disease, pulmonary fibrosis, coronary artery disease, severe protein calorie malnutrition, pneumomediastinum, restrictive lung disease, IPF, hypertension, GERD, peripheral neuropathy, primary hypothyroidism and vitamin D deficiency.The patient presents to the emergency department via EMS, after a fall that occurred while he was making dinner this evening, and developed severe left hip pain. Evaluation in the emergency department included CT scan of chest which showed interstitial lung disease, and a mild left apical pneumothorax, along with old right ninth and 10th rib fractures. CT scan abdomen pelvis showed a left total hip arthroplasty with posterior-superior dislocation, and a left femur fracture. #Left pneumothorax CT chest shows mild left-sided pneumothorax which appears stable Follow up x ray this morning shos no change in the small pneumothoraax avoid BIPAP and CPAP Left total hip arthroplasty posterior-superior dislocation- Dislocation of left total hip prosthesis. He is now day 2 s/p closed reduction of his left total hip prosthesis. Pain is under good control Morphine sulfate 2 mg IV every 3 hours needed from moderate pain Morphine sulfate 4 mg IV every 3 hours as needed for severe pain Working with PT Pulmonary fibrosis/interstitial lung disease- Diffuse interlobular and intralobular septal thickening with multiple subpleural areas of honeycombing suggestive of the patient's known pulmonary fibrosis PFT shows a restrictive picture Followed by pulmonology, emilie dobbins Has followed with Dr. Ewing in the outpatient setting, and will be consulted this admission Old Rib fractures CT scan head without contrast negative for acute findings CT scan cervical spine negative for acute findings cervical spine but does show apical pneumothorax There are no new left-sided rib fractures. There are old healed right sided ninth and 10th rib fractures. Chronic medical conditions: Hypothyroidism-temporarily holding levothyroxine Vitamin D deficiency-temporarily holding supplementation will resume vitamin D supplement Hyperlipidemia- Temporarily hold atorvastatin and aspirin Patient appears very frail, consulted nutrition for dietary support case management is working on discharge to rehab [facility]. Patient also had no bowel movement added senna and MiraLAX tolerating diet very well per nursing staff Code: DNR/DNI DVT prophylaxis aspirin SCDs Spoke to patient's insurance he is approved for group home facility however he is not approved for inpatient rehab Admission and Anticipated Discharge Date Admission Date: May 13, 2024 Subjective doing well with PT and OT Orthopedic Progress Note Patient seen on the floor with in the presence of the occupational therapist. Seems to be doing better. He is much less uncomfortable. His knee immobilizer is in place. This femoral sciatic nerve function is excellent. Still has difficulty with doing a straight leg raise secondary to weakness. It is not much pain. X-rays taken today reveal no change in fracture alignment hip is located there is a significant amount of fixation distal to the fracture with the AML stem. Assessment allow weightbearing as tolerated for his periprosthetic fracture at this point continue hip precautions. Orders placed OT and PT in the chart. Given verbally to OT as well. 1) Pneumothorax on left: (2) History of total left hip arthroplasty: (3) Closed dislocation of left hip: (4) Pulmonary fibrosis: (5) Severe protein-calorie malnutrition: Plan The patient is an 79-year-old male with a past medical history including chronic interstitial lung disease, pulmonary fibrosis, coronary artery disease, severe protein calorie malnutrition, pneumomediastinum, restrictive lung disease, IPF, hypertension, GERD, peripheral neuropathy, primary hypothyroidism and vitamin D deficiency.The patient presents to the emergency department via EMS, after a fall that occurred while he was making dinner this evening, and developed severe left hip pain. Evaluation in the emergency department included CT scan of chest which showed interstitial lung disease, and a mild left apical pneumothorax, along with old right ninth and 10th rib fractures. CT scan abdomen pelvis showed a left total hip arthroplasty with posterior-superior dislocation, and a left femur fracture. #Left pneumothorax CT chest shows mild left-sided pneumothorax which appears stable Follow up x ray this morning shos no change in the small pneumothoraax avoid BIPAP and CPAP Left total hip arthroplasty posterior-superior dislocation- Dislocation of left total hip prosthesis. He is now day 2 s/p closed reduction of his left total hip prosthesis. Pain is under good control Morphine sulfate 2 mg IV every 3 hours needed from moderate pain Morphine sulfate 4 mg IV every 3 hours as needed for severe pain Working with PT Pulmonary fibrosis/interstitial lung disease- Diffuse interlobular and intralobular septal thickening with multiple subpleural areas of honeycombing suggestive of the patient's known pulmonary fibrosis PFT shows a restrictive picture Followed by pulmonology, emilie dobbins Has followed with Dr. Ewing in the outpatient setting, and will be consulted this admission Old Rib fractures CT scan head without contrast negative for acute findings CT scan cervical spine negative for acute findings cervical spine but does show apical pneumothorax There are no new left-sided rib fractures. There are old healed right sided ninth and 10th rib fractures. Chronic medical conditions: Hypothyroidism-temporarily holding levothyroxine Vitamin D deficiency-temporarily holding supplementation Hyperlipidemia- Temporarily hold atorvastatin and aspirin Code: DNR/DNI DVT prophylaxis aspirin SCDs Physical Exam Physical Exam: The patient is awake, alert and oriented 3, Chronically ill looking HEENT--PERRL, EOMI, mucous membranes and oropharynx mildly dry Neck--supple. No JVD. No bruits. Thyroid normal, trachea midline, no adenopathy. Heart--normal S1 and S2. No murmurs, rubs or gallops. Lungs--Reduced lateral auscultation Abdomen--normal bowel sounds and soft. Extremities--no cyanosis or clubbing. No edema. Dermatologic--normal skin turgor, normal color, no abnormal lymph nodes, no rash. Neurologic--cranial nerves II through XII grossly intact. Rheumatologic--normal range of motion. Psychiatric--normal affect. Results & Data Results & Data Vital Signs (Past 12 Hours) Vital Signs Temp Pulse Resp BP BP Pulse Ox O2 Del Method 05/19/24 11:00 36.8 C 83 20 139/72 94 Room Air 05/19/24 07:57 36.5 C 73 18 156/83 H 97 Room Air 05/19/24 07:30 Room Air PG Care Time/CCT Total # of Minutes Spent Total Time Spent with Patient: Total time spent is greater than 50% in coordination of care (as documented) at patient's floor/unit and/or counseling patient: Coding Level of Care Code 36458 SUB INP/OBS CARE 2/35MIN Diagnoses Pneumothorax on left J93.9 History of total left hip arthroplasty Z96.642 Closed dislocation of left hip S73.005A Encounter type: initial encounter Pulmonary fibrosis J84.10 Severe protein-calorie malnutrition E43 (3) Closed dislocation of left hip Encounter type: initial encounter Qualified Code(s): S73.005A - Unspecified dislocation of left hip, initial encounter
--- NOTE | 2024-05-20 15:27 | Hospitalist Progress Note ---
Date of Service May 20, 2024 Assessment & Plan Admission and Anticipated Discharge Date Admission Date: May 13, 2024 Subjective Awaiting insurance authorization although I spoke to insurance person and he is approved for detention facility Orthopedic Progress Note Patient seen on the floor with in the presence of the occupational therapist. Seems to be doing better. He is much less uncomfortable. His knee immobilizer is in place. This femoral sciatic nerve function is excellent. Still has difficulty with doing a straight leg raise secondary to weakness. It is not much pain. X-rays taken today reveal no change in fracture alignment hip is located there is a significant amount of fixation distal to the fracture with the AML stem. Assessment allow weightbearing as tolerated for his periprosthetic fracture at this point continue hip precautions. Orders placed OT and PT in the chart. Given verbally to OT as well. 1) Pneumothorax on left: (2) History of total left hip arthroplasty: (3) Closed dislocation of left hip: (4) Pulmonary fibrosis: (5) Severe protein-calorie malnutrition: Plan The patient is an 79-year-old male with a past medical history including chronic interstitial lung disease, pulmonary fibrosis, coronary artery disease, severe protein calorie malnutrition, pneumomediastinum, restrictive lung disease, IPF, hypertension, GERD, peripheral neuropathy, primary hypothyroidism and vitamin D deficiency.The patient presents to the emergency department via EMS, after a fall that occurred while he was making dinner this evening, and developed severe left hip pain. Evaluation in the emergency department included CT scan of chest which showed interstitial lung disease, and a mild left apical pneumothorax, a long with old right ninth and 10th rib fractures. CT scan abdomen pelvis showed a left total hip arthroplasty with posterior-superior dislocation, and a left femur fracture. #Left pneumothorax CT chest shows mild left-sided pneumothorax which appears stable Follow up x ray this morning shos no change in the small pneumothoraax avoid BIPAP and CPAP Left total hip arthroplasty posterior-superior dislocation- Dislocation of left total hip prosthesis. He is now day 2 s/p closed reduction of his left total hip prosthesis. Pain is under good control I have stopped narcotic pain medication on May 20 Working with PT Pulmonary fibrosis/interstitial lung disease- Diffuse interlobular and intralobular septal thickening with multiple subpleural areas of honeycombing suggestive of the patient's known pulmonary fibrosis PFT shows a restrictive picture Followed by pulmonology, appreciate recs Has followed with Dr. Ewing in the outpatient setting, and will be consulted this admission Old Rib fractures CT scan head without contrast negative for acute findings CT scan cervical spine negative for acute findings cervical spine but does show apical pneumothorax There are no new left-sided rib fractures. There are old healed right sided ninth and 10th rib fractures. Chronic medical conditions: Hypothyroidism-temporarily holding levothyroxine Vitamin D deficiency-temporarily holding supplementation Hyperlipidemia- Temporarily hold atorvastatin and aspirin Code: DNR/DNI DVT prophylaxis aspirin SCDs Physical Exam Physical Exam: The patient is awake, alert and oriented 3, Chronically ill looking HEENT--PERRL, EOMI, mucous membranes and oropharynx mildly dry Neck--supple. No JVD. No bruits. Thyroid normal, trachea midline, no adenopathy. Heart--normal S1 and S2. No murmurs, rubs or gallops. Lungs--Reduced lateral auscultation Abdomen--normal bowel sounds and soft. Extremities--no cyanosis or clubbing. No edema. Dermatologic--normal skin turgor, normal color, no abnormal lymph nodes, no rash. Neurologic--cranial nerves II through XII grossly intact. Rheumatologic--normal range of motion. Psychiatric--normal affect. Results & Data Results & Data Vital Signs (Past 12 Hours) Vital Signs Temp Pulse Pulse Resp BP Pulse Ox O2 Del Method 05/20/24 14:10 78 05/20/24 13:30 36.6 C 69 18 130/81 95 Room Air 05/20/24 10:07 65 05/20/24 07:39 Room Air 05/20/24 07:39 36.4 C L 67 20 135/82 96 Room Air PG Care Time/CCT Total # of Minutes Spent Total Time Spent with Patient: Total time spent is greater than 50% in coordination of care (as documented) at patient's floor/unit and/or counseling patient: Coding Level of Care Code 07544 SUB INP/OBS CARE 2/35MIN Time Spent (min) 30
[2024-05-21 04:23] LABS: Hematocrit (blood only) 32.7 % (42.0-52.0); Hemoglobin 11.4 g/dl (14.0-18.0); Mean Corpuscular Hemoglobin 33.3 pg (25.0-34.0); Mean Corpuscular Hgb Conc 34.9 g/dL (32.0-36.0); Mean Corpuscular Volume 95.6 fL (80.0-100.0); Platelet Count 319 K/uL (130-400); RDW Coefficient of Variation 13.2 % (11.5-14.5); Red Blood Count 3.42 M/uL (4.70-6.10); White Blood Count 10.06 K/ul (4.8-10.8)
[2024-05-21 04:37] LABS: Albumin Globulin Ratio 1.1 (0.9-2); Albumin Level 3.3 gm/dl (3.4-5.0); Bilirubin,Total 0.6 mg/dl (0.2-1.0); Calcium 8.5 mg/dl (8.6-10.3); Creatinine Clr Calc Pharmacy 94.1 ml/min; Potassium 4.2 mmol/L (3.5-5.1); Total Protein 6.3 gm/dl (6.0-8.3)
--- NOTE | 2024-05-21 16:28 | Hospitalist Progress Note ---
Date of Service May 21, 2024 Assessment & Plan Admission and Anticipated Discharge Date Admission Date: May 13, 2024 Subjective Awaiting insurance authorization although I spoke to insurance person and he is approved for [facility] facility Orthopedic Progress Note Patient seen on the floor with in the presence of the occupational therapist. Seems to be doing better. He is much less uncomfortable. His knee immobilizer is in place. This femoral sciatic nerve function is excellent. Still has difficulty with doing a straight leg raise secondary to weakness. It is not much pain. X-rays taken today reveal no change in fracture alignment hip is located there is a significant amount of fixation distal to the fracture with the AML stem. Assessment allow weightbearing as tolerated for his periprosthetic fracture at this point continue hip precautions. Orders placed OT and PT in the chart. Given verbally to OT as well. 1) Pneumothorax on left: (2) History of total left hip arthroplasty: (3) Closed dislocation of left hip: (4) Pulmonary fibrosis: (5) Severe protein-calorie malnutrition: Plan The patient is an 79-year-old male with a past medical history including chronic interstitial lung disease, pulmonary fibrosis, coronary artery disease, severe protein calorie malnutrition, pneumomediastinum, restrictive lung disease, IPF, hypertension, GERD, peripheral neuropathy, primary hypothyroidism and vitamin D deficiency.The patient presents to the emergency department via EMS, after a fall that occurred while he was making dinner this evening, and developed severe left hip pain. Evaluation in the emergency department included CT scan of chest which showed interstitial lung disease, and a mild left apical pneumothorax, a long with old right ninth and 10th rib fractures. CT scan abdomen pelvis showed a left total hip arthroplasty with posterior-superior dislocation, and a left femur fracture. #Left pneumothorax CT chest shows mild left-sided pneumothorax which appears stable Follow up x ray this morning shos no change in the small pneumothoraax avoid BIPAP and CPAP Left total hip arthroplasty posterior-superior dislocation- Dislocation of left total hip prosthesis. He is now day 2 s/p closed reduction of his left total hip prosthesis. Pain is under good control I have stopped narcotic pain medication on May 20 Working with PT Pulmonary fibrosis/interstitial lung disease- Diffuse interlobular and intralobular septal thickening with multiple subpleural areas of honeycombing suggestive of the patient's known pulmonary fibrosis PFT shows a restrictive picture Followed by pulmonology, appreciate recs Has followed with Dr. Ewing in the outpatient setting, and will be consulted this admission Old Rib fractures CT scan head without contrast negative for acute findings CT scan cervical spine negative for acute findings cervical spine but does show apical pneumothorax There are no new left-sided rib fractures. There are old healed right sided ninth and 10th rib fractures. Chronic medical conditions: Hypothyroidism-temporarily holding levothyroxine Vitamin D deficiency-temporarily holding supplementation Hyperlipidemia- Temporarily hold atorvastatin and aspirin Code: DNR/DNI DVT prophylaxis aspirin SCDs Physical Exam Physical Exam: The patient is awake, alert and oriented 3, Chronically ill looking HEENT--PERRL, EOMI, mucous membranes and oropharynx mildly dry Neck--supple. No JVD. No bruits. Thyroid normal, trachea midline, no adenopathy. Heart--normal S1 and S2. No murmurs, rubs or gallops. Lungs--Reduced lateral auscultation Abdomen--normal bowel sounds and soft. Extremities--no cyanosis or clubbing. No edema. Dermatologic--normal skin turgor, normal color, no abnormal lymph nodes, no rash. Neurologic--cranial nerves II through XII grossly intact. Rheumatologic--normal range of motion. Psychiatric--normal affect. Results & Data Results & Data Vital Signs (Past 12 Hours) Vital Signs Temp Pulse Pulse Resp BP Pulse Ox O2 Del Method 05/21/24 15:56 36.3 C L 72 19 124/68 95 Room Air 05/21/24 14:08 78 05/21/24 11:49 36.2 C L 72 19 117/68 96 Room Air 05/21/24 09:00 Room Air 05/21/24 08:01 36.5 C 69 19 129/74 97 Room Air PG Care Time/CCT Total # of Minutes Spent Total Time Spent with Patient: Total time spent is greater than 50% in coordination of care (as documented) at patient's floor/unit and/or counseling patient: Coding Level of Care Code 52224 SUB INP/OBS CARE 2/35MIN Time Spent (min) 30
[2024-05-21] MEDS ORDERED: BENZONATATE 100 MG CAPSULE PO PRN (20:07)
[2024-05-21] MEDS ORDERED: NITROGLYCERIN SL 0.4 MG/TAB TAB SL PRN (20:07)
[2024-05-21] MEDS: ATORVASTATIN 40 MG TAB PO SCH (21:16)
[2024-05-21] MEDS: ASCORBIC ACID 500 MG TAB PO SCH (21:16)
[2024-05-21 22:33] VITALS: O2SAT 95
[2024-05-22 08:15] VITALS: BP 152/84; PULSE 78; RESP 22; TEMP 98.2
[2024-05-22] MEDS: ASPIRIN 81 MG ECTAB PO SCH (08:19)
--- NOTE | 2024-05-22 12:19 | Discharge Summary ---
Date of Service May 22, 2024 Admission HPI Per Admitting Provider The patient is an 79-year-old male with a past medical history including chronic interstitial lung disease, pulmonary fibrosis, coronary artery disease, severe protein calorie malnutrition, pneumomediastinum, restrictive lung disease, IPF, hypertension, GERD, peripheral neuropathy, primary hypothyroidism and vitamin D deficiency.The patient presents to the emergency department via EMS, after a fall that occurred while he was making dinner this evening, and developed severe left hip pain. Evaluation in the emergency department included CT scan of chest which showed interstitial lung disease, and a mild left apical pneumothorax, along with old right ninth and 10th rib fractures. CT scan abdomen pelvis showed a left total hip arthroplasty with posterior-superior dislocation, and a left femur fracture. Admission Exam (Per Admitting) Constitutional All systems were reviewed and they were negative except for weakness Eyes The patient is awake, alert and oriented 3, Chronically ill looking HEENT--PERRL, EOMI, mucous membranes and oropharynx mildly dry Neck--supple. No JVD. No bruits. Thyroid normal, trachea midline, no adenopathy. Heart--normal S1 and S2. No murmurs, rubs or gallops. Lungs--Reduced lateral auscultation Abdomen--normal bowel sounds and soft. Extremities--no cyanosis or clubbing. No edema. Dermatologic--normal skin turgor, normal color, no abnormal lymph nodes, no rash. Neurologic--cranial nerves II through XII grossly intact. Rheumatologic--normal range of motion. Psychiatric--normal affect. Discharge Data Consultations 05/13/24 04:49 Consult Orthopedic Surgery Routine 05/13/24 06:27 Consult Pulmonology Routine 05/15/24 07:00 Consult Orthopedic Surgery Routine Procedures Performed Operation Date: 05/13/24 08:30 Actual Procedures p Left Hip Closed Reduction under sedation(Left) - Chuck Chan MD Hospital Course (1) Pneumothorax on left: (2) History of total left hip arthroplasty: (3) Closed dislocation of left hip: (4) Pulmonary fibrosis: (5) Severe protein-calorie malnutrition: Plan The patient is an 79-year-old male with a past medical history including chronic interstitial lung disease, pulmonary fibrosis, coronary artery disease, severe protein calorie malnutrition, pneumomediastinum, restrictive lung disease, IPF, hypertension, GERD, peripheral neuropathy, primary hypothyroidism and vitamin D deficiency.The patient presents to the emergency department via EMS, after a fall that occurred while he was making dinner this evening, and developed severe left hip pain. Evaluation in the emergency department included CT scan of chest which showed interstitial lung disease, and a mild left apical pneumothorax, along with old right ninth and 10th rib fractures. CT scan abdomen pelvis showed a left total hip arthroplasty with posterior-superior dislocation, and a left femur fracture. #Left pneumothorax CT chest shows mild left-sided pneumothorax which appears stable Follow up x ray this morning shos no change in the small pneumothoraax avoid BIPAP and CPAP For 7 patient is saturating fine on room air Left total hip arthroplasty posterior-superior dislocation- Dislocation of left total hip prosthesis. He is now day 2 s/p closed reduction of his left total hip prosthesis. Pain is under good control Discharged on minimal pain medication Working with PT Pulmonary fibrosis/interstitial lung disease- Diffuse interlobular and intralobular septal thickening with multiple subpleural areas of honeycombing suggestive of the patient's known pulmonary fibrosis PFT shows a restrictive picture Followed by pulmonology, emilie rectricia Has followed with Dr. Ewing in the outpatient setting, and will be consulted this admission Old Rib fractures CT scan head without contrast negative for acute findings CT scan cervical spine negative for acute findings cervical spine but does show apical pneumothorax There are no new left-sided rib fractures. There are old healed right sided ninth and 10th rib fractures. Chronic medical conditions: Hypothyroidism-temporarily holding levothyroxine Vitamin D deficiency-temporarily holding supplementation will resume vitamin D supplement Hyperlipidemia- Temporarily hold atorvastatin and aspirin Patient appears very frail, consulted nutrition for dietary support case management is working on discharge to rehab for strengthening and [place] Code: DNR/DNI DVT prophylaxis aspirin SCDs Spoke to patient's insurance he is approved for care home facility however he is not approved for inpatient rehab Coding Level of Care Code 22569 INP/OBS DISCH >30 MIN Diagnoses Pneumothorax on left J93.9 History of total left hip arthroplasty Z96.642 Closed dislocation of left hip S73.005A Encounter type: initial encounter Pulmonary fibrosis J84.10 Severe protein-calorie malnutrition E43
== END 2024-05-22 15:08 | DRG 559 ==
LOC: SUATTDRO → ED 19:03 → EDINP 05-13 04:49 → SUATTDRO 05-13 04:49 → 4W 05-13 06:27 → 3N 05-21 20:22

== ENCOUNTER 2024-06-09 04:51 | Observation (INO) ==
--- NOTE | 2024-06-09 05:19 | Emergency Department Note ---
Impression & Plan Acute urinary retention, Fall, Facial trauma, Leukocytosis, Dehydration, Epistaxis Admit to the [facility] ED Provider Note NAME: QUETA NEAL AGE: 79 SEX: Male INFORMANT: Patient ED PROVIDER(S): Rajwinder Bagley DO CHIEF COMPLAINT: Urinary retention and fall PLAN: Disposition: Admit to the [facility] MEDICAL DECISION MAKING: This is an 79-year-old male patient from [facility] who has been feeling weak and lightheaded over the past 2 days. He noticed that he was not urinating. Nursing staff were trying to help him in the bathroom tonight when he explains that he was dribbling urine and he was very uncomfortable, felt weak and fell forward striking the right side of his face and right arm . He did not lose consciousness. He has never had a problem with urinary retention before. Upon presentation to the emergency department, bladder scan was performed and he had greater than 1700 mL of urine within his bladder. A Cool catheter was placed and drained the bladder. There was no evidence of UTI. A trauma assessment was performed. Patient has a hematoma with a skin tear noted over the right eye. CT scan of the facial bones shows no fractures in that area. There was a linear fracture through the left zygomatic arch but patient has no obvious trauma and on that side of his face and no pain to palpation in that area. CT scan of the brain and cervical spine were negative for acute traumatic injuries. Patient has full range of motion to the right arm with no obvious significant traumatic injuries. While the patient was here in the emergency department, he developed a spontaneous nosebleed. This was controlled by holding pressure. The patient does not take any anticoagulation at baseline. Other laboratory studies revealed significant leukocytosis with a white count of 22.8. A septic protocol was performed. Lactate was normal. Procalcitonin was normal. Bio fire testing was negative. Chest x-ray revealed no evidence of consolidation or opacity, although the patient does suffer from pulmonary fibrosis. I could not find a source of infection. H&H were stable. On physical exam, the patient did appear to be dehydrated with dry mucous membranes and poor skin turgor with a BUN of 31 and a creatinine of 0.8 suggesting prerenal azotemia. This could be the reason the patient may have felt weak and fell in the first place. He did have ketonuria as well. Patient has an elevated troponin and does describe some chest discomfort prior to falling. He does have a history of previous elevated troponins. EKG is unchanged at this time from an EKG noted in February. 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 Vital Signs: reviewed and unremarkable Differential Diagnosis: vasovagal syncope, mechanical fall, orthostasis, dehydration, UTI Diagnostics, independently interpreted by me: ECG: normal sinus rhythm at a rate of 75 with first-degree AV block. There is T wave inversion in the inferior and lateral leads which is unchanged from EKGs in February 2024. Cardiac Monitoring: normal sinus rhythm at a rate of 81 Imaging studies: Bladder scan-greater than 1700 mL of urine HPI: 79 year old Male arrives for evaluation of urinary retention and fall patient has been feeling weak over the past 2 days. He presents from [facility]. Nursing staff was attempting to help with patient as he was unable to urinate. He became weak in the bathroom and fell striking the right side of his face. EMS was called and he was transported here. PAST MEDICAL HISTORY: See Below, PAST SURGICAL HISTORY: See Below, SOCIAL HISTORY: See Below, see list HOME MEDICATIONS: See list ALLERGIES: None VITALS: See Below PHYSICAL EXAMINATION: HEENT: Head -large hematoma noted over the right eye/eyebrow with a skin tear. Pupils are equal, round, and reactive to light. Extraocular eye muscles are intact and sclera are anicteric. Ears - bilaterally patent canals with no evidence of hemotympanum. Nose - moist nasal mucosa without evidence of trauma or discharge. Mouth -dry buccal mucosa with extremely poor dentition Neck: The neck is supple and there is no pain to palpation over the posterior cervical spine and no obvious step-offs or deformities. There is no JVD or tracheal deviation. Chest: There are no signs of deformities, contusions or abrasions to the chest wall. There is no obvious crepitus or paradoxical chest rise. Heart: Regular, rate, and rhythm. There is a normal S1 and S2 with no murmurs, clicks, or gallops appreciated. Lungs: Diminished breath sounds in all lung mejia with rhonchi noted Abdomen: Soft, completely nontender, nondistended, with good bowel sounds. There is no sign of trauma such as contusions, abrasions or penetrations. There are no palpable pulsatile masses or hepatosplenomegaly. There is no guarding, rigidity, or rebound noted. Pelvis: Stable to rock and compression. Extremities: Contusion noted to the right elbow. There are easily palpable peripheral pulses. Neuro: The patient is awake and alert and easily able to follow commands. Muscle strength is 5 out of 5 in all 4 extremities. Otherwise, neuro exam is unremarkable. Back: The entire thoracic, lumbar, and sacral spine were palpated. There are no obvious step-offs or deformities noted. There are no obvious signs of trauma such as contusions abrasions penetrations noted to the back. Emergency Department course: A bladder scan was performed upon arrival which revealed greater than 1700 mL of urine. A Cool catheter was placed and a urine specimen was sent. A complete history and physical was performed including a full trauma assessment. An order was placed for continuous cardiac monitoring. Patient was in a normal sinus rhythm at a rate of 81. A twelve-lead EKG was obtained. IV lock was initiated and labs were drawn as above. Portable chest x-ray was performed. A septic protocol was performed. A bio fire test was obtained. Patient went for CT scan of the brain, cervical spine and facial bones. Upon returning from radiology, the patient was noted to be slightly hypoxic was placed on supplemental O2. He then developed a nosebleed from the left nares. Pressure was applied and bleeding was controlled. I discussed the case with the [facility] Hospitalist and they will evaluate for further inpatient care. Patient was bolused with IV normal saline solution and started on a normal saline drip for obvious dehydration. Past Med/Surg History Problem List (Updated 06/09/24 @ 16:25 by Rajwinder Bagley DO) Epistaxis (Acute) Dehydration (Acute) Leukocytosis (Acute) Facial trauma (Acute) Fall (Acute) Acute urinary retention (Acute) UTI (urinary tract infection) Urinary retention Pneumothorax on left (Acute) History of total left hip arthroplasty (Acute) Pulmonary fibrosis (Acute) Closed dislocation of left hip (Acute) Black stools Depression Fall Rib pain on right side CAD (coronary artery disease) Severe protein-calorie malnutrition Pneumomediastinum Elevated troponin (Acute) Shortness of breath (Acute) Abnormal ECG (Acute) Exertional angina Pulmonary fibrosis Dyspnea Encounter for examination following treatment at hospital Shortness of breath Hypoxia Cigar smoker ILD (interstitial lung disease) Pulmonary nodule Restrictive lung disease IPF (idiopathic pulmonary fibrosis) Abnormal chest CT Abnormal CXR Dyspnea on exertion Weight loss Allergic rhinitis Pre-diabetes Elevated bilirubin Orthostasis Nystagmus Elevated serum globulin level (Acute) Hypertension (Chronic) not currently on meds d/y orthostasis and syncopal episodes. See Dr Larkin OV 03/07 re: recommendations Chronic back pain (Chronic) GERD (gastroesophageal reflux disease) (Acute) Hyperlipidemia (Chronic) refuses statin Peripheral neuropathy (Chronic) Primary hypothyroidism (Chronic) Vitamin D deficiency (Chronic) Medical History LBBB (left bundle branch block) Syncopal episodes Lesion of finger Actinic keratosis Smokeless tobacco use Spinal stenosis Osteoarthritis Surgical History History of cataract surgery RIGHT History of tooth extraction History of cholecystectomy History of total hip arthroplasty left History of colonoscopy Family History Mother Family history of diabetes mellitus Ovarian cancer Sister Family history of diabetes mellitus Breast cancer Denies family history of Prostate cancer Myocardial infarction Colorectal cancer Social History Smoking Status: Former smoker Tobacco Type: Cigars Cigarettes Per Day: 1 cigar 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; Second Hand Exposure: Yes; Do You Dip or Chew Tobacco: No; Hx Alcohol Use: No Hx Substance Use: No Preferred Language: Polish Communication Ability: Effective Visual Impairment: No Limitations Hearing Ability: Normal Product Development Chemist Required: No Beliefs That Will Affect Care: None marital status: / Current Living Situation: Alone current occupational status: retired How many Children do You have: 1 Feels Safe at Home: Yes Childhood Exposure to Second-Hand Smoke: No Diet: regular caffeine: Yes Dental Care, Regularly: No Physical Activity Frequency: 5-6 Times per Week Seatbelt Use: always Sunscreen Use: No Assistive Devices: None Allergies Allergies Allergy/AdvReac Type Severity Reaction Status Date / Time No Known Allergies Allergy Verified 04/11/24 13:03 Home Meds Home Medications Medication Instructions Recorded Confirmed cholecalciferol (vitamin D3) 50 50 mcg PO DAILY 09/13/23 06/09/24 mcg (2,000 unit) tablet (Vitamin D3) acetaminophen 325 mg tablet 650 mg PO .Q4-6H PRN pain/fever 06/09/24 06/09/24 (Tylenol) acetaminophen 325 mg tablet 650 mg PO TID 4g/24h 06/09/24 06/09/24 (Tylenol) bisacodyl 10 mg rectal suppository 10 mg AR DAILY PRN Constipation 06/09/24 06/09/24 (Dulcolax (bisacodyl)) collagenase clostridium histo. 250 1 applic topical DAILY 06/09/24 06/09/24 unit/gram topical ointment (Santyl) magnesium hydroxide 400 mg/5 mL 30 ml PO DIRECTED PRN 06/09/24 06/09/24 oral suspension (Milk of Magnesia) Constipation melatonin 3 mg tablet 6 mg PO HS 06/09/24 06/09/24 multivit,stress formula-zinc tablet 1 tab PO QAM 06/09/24 06/09/24 sodium chloride 0.65 % nasal spray 1 spray intranasal Q2H PRN dryness 06/09/24 06/09/24 aerosol (Saline Nasal) or epistaxis tamsulosin 0.4 mg capsule (Flomax) 0.4 mg PO HS 06/09/24 06/09/24 Previous Rx's Medication Instructions Recorded Incentive Spirometer #1 ea 09/23/22 levothyroxine 100 mcg capsule 100 mcg PO DAILY #90 caps 08/23/23 albuterol sulfate 90 mcg/actuation 2 inh inhalation QID PRN shortness 02/21/24 aerosol inhaler of breath or wheezing #8.5 grams atorvastatin 40 mg tablet (Lipitor) 40 mg PO HS #30 tabs 02/21/24 nitroglycerin 0.4 mg sublingual 0.4 mg sublingual Q5M PRN chest 02/21/24 tablet pain #1 btl home oxygen with tubing and travel #1 ea 02/29/24 bottles sertraline 50 mg tablet 50 mg PO DAILY #30 tabs 03/14/24 oxygen concentrator #1 ea 04/04/24 aspirin 81 mg tablet,delayed 81 mg PO BID #90 tabs 05/22/24 release pirfenidone 267 mg capsule 801 mg (3 x 267 mg) PO TID #360 06/08/24 (Esbriet) caps Results & Data (ED) Vital Signs Vital Signs - 24 hr 06/09/24 04:58 06/09/24 05:03 06/09/24 05:32 Temperature 36.5 C Temperature Source Oral Pulse Rate 81 82 Pulse Rate [Apical] 82 Pulse Rhythm [Apical] Pulse Strength [Apical] Respiratory Rate 24 24 Respiratory Effort / Characteristics Respiratory Depth Blood Pressure 157/89 H Blood Pressure [Right Arm] 155/83 H Blood Pressure Mean 111 Blood Pressure Mean [Right Arm] 107 Blood Pressure Position [Right Arm] Pulse Oximetry 96 95 Oxygen Delivery Method Room Air Oxygen Flow Rate Sepsis Recent Fever Within 48 Hours No Sepsis New/Unexplained Change in Mental Status No Sepsis Action Taken by Nursing No Action Required 06/09/24 06:10 06/09/24 06:19 06/09/24 08:00 Temperature Temperature Source Pulse Rate Pulse Rate [Apical] 79 69 Pulse Rhythm [Apical] Regular Pulse Strength [Apical] Normal Respiratory Rate 35 H 22 Respiratory Effort / Characteristics Non-Labored Spontaneous Respiratory Depth Normal Blood Pressure Blood Pressure [Right Arm] 116/79 128/65 Blood Pressure Mean Blood Pressure Mean [Right Arm] 91 86 Blood Pressure Position [Right Arm] Semi-fowlers Pulse Oximetry 84 L 97 93 Oxygen Delivery Method Room Air Nasal Cannula Room Air Oxygen Flow Rate 2 Sepsis Recent Fever Within 48 Hours Sepsis New/Unexplained Change in Mental Status Sepsis Action Taken by Nursing 06/09/24 09:00 Temperature Temperature Source Pulse Rate 74 Pulse Rate [Apical] Pulse Rhythm [Apical] Pulse Strength [Apical] Respiratory Rate Respiratory Effort / Characteristics Respiratory Depth Blood Pressure Blood Pressure [Right Arm] Blood Pressure Mean Blood Pressure Mean [Right Arm] Blood Pressure Position [Right Arm] Pulse Oximetry Oxygen Delivery Method Oxygen Flow Rate Sepsis Recent Fever Within 48 Hours Sepsis New/Unexplained Change in Mental Status Sepsis Action Taken by Nursing Laboratory Data 06/09/24 05:23 06/09/24 05:23 Lab Results 06/09/24 06/09/24 06/09/24 Range/Units 05:07 05:23 05:29 WBC 22.87 H (4.8-10.8) K/ul RBC 3.62 L (4.70-6.10) M/uL Hgb 12.0 L (14.0-18.0) g/dl POC Hgb 12.9 L (14.0-18.0) g/dl Hct 36.1 L (42.0-52.0) % POC Hct 38 L (42-52) % MCV 99.7 (80.0-100.0) fL MCH 33.1 (25.0-34.0) pg MCHC 33.2 (32.0-36.0) g/dL RDW Std Deviation 50.9 H (36.4-46.3) fL RDW Coeff of Christa 13.9 (11.5-14.5) % Plt Count 355 (130-400) K/uL MPV 10.4 (9.4-12.4) fL Immature Gran % (Auto) 0.4 % Neut % (Auto) 91.8 % Lymph % (Auto) 3.5 % [place] % (Auto) 3.6 % Eos % (Auto) 0.5 % Baso % (Auto) 0.2 % Neut # (Auto) 20.99 H (1.40-6.50) K/uL Lymph # (Auto) 0.80 L (1.20-3.40) K/uL [place] # (Auto) 0.82 H (0.11-0.59) K/uL Eos # (Auto) 0.12 (0.00-0.50) K/uL Baso # (Auto) 0.04 (0.00-0.20) K/uL Immature Gran # (Auto) 0.10 (0.01-0.20) K/uL PT 11.4 (9.0-12.0) Seconds INR 1.1 (0.9-1.1) APTT 33 H (21-31) Seconds PTT Ratio 1.2 POC Sodium 141 (135-144) mmol/L Sodium 140 (136-145) mmol/L POC Potassium 4.0 (3.3-5.0) mmol/L Potassium 3.9 (3.5-5.1) mmol/L POC Chloride 101 (101-112) mmol/L Chloride 103 (98-107) mmol/L Carbon Dioxide 33 H (21-32) mmol/L POC Total CO2 28 (24-31) mmol/L Anion Gap 4 (3-11) POC Anion Gap 17.0 (16-25) mmol/L POC BUN 29 H (7-18) mg/dl BUN 31 H (6-23) mg/dl Creatinine 0.82 (0.6-1.4) mg/dl POC Creatinine 0.9 (0.6-1.3) mg/dl Est Cr Clr Drug Dosing 62.4 ml/min eGFR 88.25 BUN/Creatinine Ratio 37.8 H (10-20) Glucose 105 H (70-99(Fasting)) mg/dl POC Glucose (other) 105 H (70-99) mg/dl Lactate (0.4-2.0) mmol/L Calcium 8.9 (8.6-10.3) mg/dl POC Ioniz Calcium Jesusita 1.09 L (1.12-1.32) mmol/l Total Bilirubin 0.8 (0.2-1.0) mg/dl AST 42 H (13-39) U/L ALT 35 (7-52) U/L Alkaline Phosphatase 233 H (34-104) U/L Troponin I High Sens 82.0 H* (0-20) pg/ml Total Protein 8.0 (6.0-8.3) gm/dl Albumin 3.3 L (3.4-5.0) gm/dl Globulin 4.7 H (2.5-4.0) gm/dl Albumin/Globulin Ratio 0.7 L (0.9-2) Lipase 75 (11-82) U/L Procalcitonin (0-0.5) ng/ml Urine Color Dark Yellow Urine Appearance Clear (Clear) Urine pH 5.5 (4.5-7.5) Ur Specific [place] 1.022 (1.000-1.030) Urine Protein Trace H (Negative) Urine Glucose (UA) Negative (Negative) Urine Ketones Trace H (Negative) Urine Blood Negative (Negative) Urine Nitrite Negative (Negative) Urine Bilirubin Negative (Negative) Urine Urobilinogen Negative (Negative) Ur Leukocyte Esterase 1+ H (Negative) Urine WBC (Auto) 6-10 H (0-5) /hpf Urine RBC (Auto) 6-10 H (0-2) /hpf U Hyaline Cast (Auto) 0-2 (0-2) /lpf U Epithel Cells (Auto) 0-2 (0-2) /hpf Urine Bacteria (Auto) None Seen (None Seen) Adenovirus (PCR) (NotDetected) B. pertussis DNA (PCR) (NotDetected) B.parapertussis DNA PCR (NotDetected) C. pneumoniae DNA (PCR) (NotDetected) Coronavirus OC43 (PCR) (NotDetected) Coronavirus HKU1 (PCR) (NotDetected) Coronavirus 229E (PCR) (NotDetected) SARS-CoV-2 (PCR) (NotDetected) Coronavirus NL63 (PCR) (NotDetected) Human Metapneumovir PCR (NotDetected) Influenza Type A (PCR) (NotDetected) Influenza Type B (PCR) (NotDetected) M. pneumoniae (PCR) (NotDetected) Parainfluenza 1 (PCR) (NotDetected) Parainfluenza 2 (PCR) (NotDetected) Parainfluenza 3 (PCR) (NotDetected) Parainfluenza 4 (PCR) (NotDetected) RSV (PCR) (NotDetected) Entero/Rhino (PCR) (NotDetected) 06/09/24 06/09/24 06/09/24 Range/Units 06:17 06:23 07:42 WBC (4.8-10.8) K/ul RBC (4.70-6.10) M/uL Hgb (14.0-18.0) g/dl POC Hgb (14.0-18.0) g/dl Hct (42.0-52.0) % POC Hct (42-52) % MCV (80.0-100.0) fL MCH (25.0-34.0) pg MCHC (32.0-36.0) g/dL RDW Std Deviation (36.4-46.3) fL RDW Coeff of Christa (11.5-14.5) % Plt Count (130-400) K/uL MPV (9.4-12.4) fL Immature Gran % (Auto) % Neut % (Auto) % Lymph % (Auto) % [place] % (Auto) % Eos % (Auto) % Baso % (Auto) % Neut # (Auto) (1.40-6.50) K/uL Lymph # (Auto) (1.20-3.40) K/uL [place] # (Auto) (0.11-0.59) K/uL Eos # (Auto) (0.00-0.50) K/uL Baso # (Auto) (0.00-0.20) K/uL Immature Gran # (Auto) (0.01-0.20) K/uL PT (9.0-12.0) Seconds INR (0.9-1.1) APTT (21-31) Seconds PTT Ratio POC Sodium (135-144) mmol/L Sodium (136-145) mmol/L POC Potassium (3.3-5.0) mmol/L Potassium (3.5-5.1) mmol/L POC Chloride (101-112) mmol/L Chloride (98-107) mmol/L Carbon Dioxide (21-32) mmol/L POC Total CO2 (24-31) mmol/L Anion Gap (3-11) POC Anion Gap (16-25) mmol/L POC BUN (7-18) mg/dl BUN (6-23) mg/dl Creatinine (0.6-1.4) mg/dl POC Creatinine (0.6-1.3) mg/dl Est Cr Clr Drug Dosing ml/min eGFR BUN/Creatinine Ratio (10-20) Glucose (70-99(Fasting)) mg/dl POC Glucose (other) (70-99) mg/dl Lactate 1.3 (0.4-2.0) mmol/L Calcium (8.6-10.3) mg/dl POC Ioniz Calcium Jesusita (1.12-1.32) mmol/l Total Bilirubin (0.2-1.0) mg/dl AST (13-39) U/L ALT (7-52) U/L Alkaline Phosphatase (34-104) U/L Troponin I High Sens 71.6 H* D (0-20) pg/ml Total Protein (6.0-8.3) gm/dl Albumin (3.4-5.0) gm/dl Globulin (2.5-4.0) gm/dl Albumin/Globulin Ratio (0.9-2) Lipase (11-82) U/L Procalcitonin 0.49 (0-0.5) ng/ml Urine Color Urine Appearance (Clear) Urine pH (4.5-7.5) Ur Specific [place] (1.000-1.030) Urine Protein (Negative) Urine Glucose (UA) (Negative) Urine Ketones (Negative) Urine Blood (Negative) Urine Nitrite (Negative) Urine Bilirubin (Negative) Urine Urobilinogen (Negative) Ur Leukocyte Esterase (Negative) Urine WBC (Auto) (0-5) /hpf Urine RBC (Auto) (0-2) /hpf U Hyaline Cast (Auto) (0-2) /lpf U Epithel Cells (Auto) (0-2) /hpf Urine Bacteria (Auto) (None Seen) Adenovirus (PCR) (NotDetected) B. pertussis DNA (PCR) (NotDetected) B.parapertussis DNA PCR (NotDetected) C. pneumoniae DNA (PCR) (NotDetected) Coronavirus OC43 (PCR) (NotDetected) Coronavirus HKU1 (PCR) (NotDetected) Coronavirus 229E (PCR) (NotDetected) SARS-CoV-2 (PCR) (NotDetected) Coronavirus NL63 (PCR) (NotDetected) Human Metapneumovir PCR (NotDetected) Influenza Type A (PCR) (NotDetected) Influenza Type B (PCR) (NotDetected) M. pneumoniae (PCR) (NotDetected) Parainfluenza 1 (PCR) (NotDetected) Parainfluenza 2 (PCR) (NotDetected) Parainfluenza 3 (PCR) (NotDetected) Parainfluenza 4 (PCR) (NotDetected) RSV (PCR) (NotDetected) Entero/Rhino (PCR) (NotDetected) 06/09/24 Range/Units 08:08 WBC (4.8-10.8) K/ul RBC (4.70-6.10) M/uL Hgb (14.0-18.0) g/dl POC Hgb (14.0-18.0) g/dl Hct (42.0-52.0) % POC Hct (42-52) % MCV (80.0-100.0) fL MCH (25.0-34.0) pg MCHC (32.0-36.0) g/dL RDW Std Deviation (36.4-46.3) fL RDW Coeff of Christa (11.5-14.5) % Plt Count (130-400) K/uL MPV (9.4-12.4) fL Immature Gran % (Auto) % Neut % (Auto) % Lymph % (Auto) % [place] % (Auto) % Eos % (Auto) % Baso % (Auto) % Neut # (Auto) (1.40-6.50) K/uL Lymph # (Auto) (1.20-3.40) K/uL [place] # (Auto) (0.11-0.59) K/uL Eos # (Auto) (0.00-0.50) K/uL Baso # (Auto) (0.00-0.20) K/uL Immature Gran # (Auto) (0.01-0.20) K/uL PT (9.0-12.0) Seconds INR (0.9-1.1) APTT (21-31) Seconds PTT Ratio POC Sodium (135-144) mmol/L Sodium (136-145) mmol/L POC Potassium (3.3-5.0) mmol/L Potassium (3.5-5.1) mmol/L POC Chloride (101-112) mmol/L Chloride (98-107) mmol/L Carbon Dioxide (21-32) mmol/L POC Total CO2 (24-31) mmol/L Anion Gap (3-11) POC Anion Gap (16-25) mmol/L POC BUN (7-18) mg/dl BUN (6-23) mg/dl Creatinine (0.6-1.4) mg/dl POC Creatinine (0.6-1.3) mg/dl Est Cr Clr Drug Dosing ml/min eGFR BUN/Creatinine Ratio (10-20) Glucose (70-99(Fasting)) mg/dl POC Glucose (other) (70-99) mg/dl Lactate (0.4-2.0) mmol/L Calcium (8.6-10.3) mg/dl POC Ioniz Calcium Jesus[place] (1.12-1.32) mmol/l Total Bilirubin (0.2-1.0) mg/dl AST (13-39) U/L ALT (7-52) U/L Alkaline Phosphatase (34-104) U/L Troponin I High Sens (0-20) pg/ml Total Protein (6.0-8.3) gm/dl Albumin (3.4-5.0) gm/dl Globulin (2.5-4.0) gm/dl Albumin/Globulin Ratio (0.9-2) Lipase (11-82) U/L Procalcitonin (0-0.5) ng/ml Urine Color Urine Appearance (Clear) Urine pH (4.5-7.5) Ur Specific [place] (1.000-1.030) Urine Protein (Negative) Urine Glucose (UA) (Negative) Urine Ketones (Negative) Urine Blood (Negative) Urine Nitrite (Negative) Urine Bilirubin (Negative) Urine Urobilinogen (Negative) Ur Leukocyte Esterase (Negative) Urine WBC (Auto) (0-5) /hpf Urine RBC (Auto) (0-2) /hpf U Hyaline Cast (Auto) (0-2) /lpf U Epithel Cells (Auto) (0-2) /hpf Urine Bacteria (Auto) (None Seen) Adenovirus (PCR) Not Detected (NotDetected) B. pertussis DNA (PCR) Not Detected (NotDetected) B.parapertussis DNA PCR Not Detected (NotDetected) C. pneumoniae DNA (PCR) Not Detected (NotDetected) Coronavirus OC43 (PCR) Not Detected (NotDetected) Coronavirus HKU1 (PCR) Not Detected (NotDetected) Coronavirus 229E (PCR) Not Detected (NotDetected) SARS-CoV-2 (PCR) Not Detected (NotDetected) Coronavirus NL63 (PCR) Not Detected (NotDetected) Human Metapneumovir PCR Not Detected (NotDetected) Influenza Type A (PCR) Not Detected (NotDetected) Influenza Type B (PCR) Not Detected (NotDetected) M. pneumoniae (PCR) Not Detected (NotDetected) Parainfluenza 1 (PCR) Not Detected (NotDetected) Parainfluenza 2 (PCR) Not Detected (NotDetected) Parainfluenza 3 (PCR) Not Detected (NotDetected) Parainfluenza 4 (PCR) Not Detected (NotDetected) RSV (PCR) Not Detected (NotDetected) Entero/Rhino (PCR) Not Detected (NotDetected) Administered Medications Ceftriaxone Sodium (Rocephin) 2,000 mg in 50 mls @ 100 mls/hr IV Q24H KAYLA Stop: 06/14/24 09:14 Last Infusion: 06/09/24 10:31 Dose: Infused Documented By: Admin: 06/09/24 09:48 Dose: 100 mls/hr Documented By: EVELYN Discontinued Medications Sodium Chloride (Nss) 500 mls @ 999 mls/hr IV .Q31M ONE Stop: 06/09/24 07:46 Last Infusion: 06/09/24 08:11 Dose: Infused Documented By: Admin: 06/09/24 07:29 Dose: 999 mls/hr Documented By: EVELYN Sodium Chloride (Nss) 500 mls @ 125 mls/hr IV .Q4H KAYLA Stop: 06/09/24 11:29 Last Infusion: 06/09/24 12:45 Dose: Infused Documented By: Admin: 06/09/24 08:11 Dose: 125 mls/hr Documented By: EVELYN Lidocaine HCl (Lidocaine 2% Jelly 5 Ml Tube) 1 ml EXT NOW ONE Stop: 06/09/24 09:41 Last Admin: 06/09/24 14:58 Dose: Not Given Documented By: YVON Oxymetazoline HCl (Oxymetazoline 0.05% 30 Ml Btl) 1 sprays NA NOW ONE Stop: 06/09/24 09:41 Last Admin: 06/09/24 10:28 Dose: 1 sprays Documented By: EVELYN Silver Nitrate/Potassium Nitrate (Silver Nitr/Potassium Nitrate Applicator) 2 appl EXT NOW STA Stop: 06/09/24 09:41 Last Admin: 06/09/24 14:03 Dose: Not Given Documented By: [facility] Imaging Data Radiologist's Impression: Cervical Spine CT 06/09/24 05:12 EXAM: CT cervical spine wo con CLINICAL HISTORY: Trauma TECHNIQUE: Computed tomography of the cervical spine performed without intravenous contrast. Contiguous axial images were obtained from the skull base to T2, with sagittal and coronal reformatted images reconstructed from the axial data. CT scan was performed according to ALARA (as low as reasonable achievable). 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 Multi level anterior marginal osteophytes. Multi level intradiscal vaccum phenomena. Cervical vertebral bodies are normal in height and alignment, with no evidence of fracture or subluxation. Lateral masses of C1 are symmetrical, and the dens is intact. Prevertebral soft tissues are not widened. The remaining suprahyoid and infrahyoid soft tissues in the neck are unremarkable. C2-C3: No disc bulge, mass effect on the cord or neuroforaminal narrowing. C3-C4: No disc bulge, mass effect on the cord or neuroforaminal narrowing. C4-C5: Irregular reduction of intervertebral disc space with marginal subchondral cysts. C5-C6: Irregular reduction of intervertebral disc space with marginal vertebral body vaccum. C6-C7: No disc bulge, mass effect on the cord or neuroforaminal narrowing. C7-T1: No disc bulge, mass effect on the cord or neuroforaminal narrowing. Thyroid gland appears unremarkable. 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 IMPRESSION: 1.No acute fracture or subluxation in the cervical spine. 2. Cervical spondylosis. 3. 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 Electronically signed by Devan Singleton 06-09-2024 06:[address] 06/09/24 05:12 EXAM: CT facial bones wo con CLINICAL HISTORY: Trauma TECHNIQUE: Computed tomography of the orbits/face was performed without intravenous contrast. Contiguous axial images were obtained. Reformatted coronal and sagittal images were also reviewed. CT scan was performed according to ALARA (as low as reasonable achievable). COMPARISON: none. FINDINGS: Linear fracture of left zygomatic arch. Minimal left maxillary sinusitis. Rest of paranasal sinuses and mastoid air cells are clear. The globes, optic nerves, extraocular muscles and retro-orbital fat are grossly unremarkable. Reformatted imaging demonstrates intact roof and floor of the orbits. Included portions of the mandible are intact. The included intracranial substances and airway are unremarkable. IMPRESSION: 1. Linear fracture of left zygomatic arch. 2. Minimal left maxillary sinusitis. Electronically signed by Devan Singleton 06-09-2024 06:[address] 06/09/24 05:12 EXAM: CT head/brain wo con CLINICAL HISTORY: Trauma TECHNIQUE: Multiple axial images are obtained from the skull base to the vertex without contrast. CT scan was performed according to ALARA (as low as reasonable achievable). 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 No evidence of space occupying lesion, hemorrhage, edema, mass effect, midline shift, extra axial collection, or hydrocephalus is noted. Basal cisterns are symmetric and normal in size and configuration. There are scattered periventricular hypodensities as can be seen with chronic microvascular ischemic changes. The mijares-white matter differentiation is preserved. Visualized paranasal sinuses and mastoid air cells are well aerated. Orbital contents are within normal limits. Bony structures are intact. IMPRESSION: 1. No evidence of acute intracranial abnormality is demonstrated. 2. Chronic microvascular ischemic changes. 3. Cerebral atrophy. No other new interval abnormality since prior study. Electronically signed by Devan Singleton 06-09-2024 06:47 AM Chest X-Ray 06/09/24 06:06 EXAM: XR chest 1V portable CLINICAL HISTORY: Increased WBC. TECHNIQUE: X-ray image of the chest obtained in frontal AP projection. COMPARISON: Prior X-ray dated 05/15/2024 for comparison. FINDINGS: Pulmonary Parenchyma: Mild interval decrease in the width of left apical pneumothorax. Unchanged diffuse reticular shadowing in bilateral lungs. No evidence of pleural effusion or pleural thickening. Heart and Mediastinum: Heart size and shape are normal. No mediastinal widening or masses. No hilar or mediastinal lymphadenopathy. Bony Thorax: Bony thorax appears intact without fractures or deformities. Soft Tissues: Soft tissues overlying the chest wall are unremarkable. IMPRESSION: 1. Mild interval decrease in the width of left apical pneumothorax. 2. Unchanged diffuse reticular shadowing and interstitial pulmonary changes in bilateral lungs. Electronically signed by Valerio Cerna 06-09-2024 07:02 AM Discharge Plan Visit Data Chief Complaint: Unable to Void Stated Complaint: Unable to Void, Fall ED Provider: Rajwinder Bagley Discharge Problem: Acute urinary retention, Fall, Facial trauma, Leukocytosis, Dehydration, Epistaxis Patient Disposition: Admitted As Inpatient Discharge Instructions Interventions: ED Discharge Assessment Last Done: 06/09/24 12:44
[2024-06-09 05:40] LABS: Hematocrit (blood only) 36.1 % (42.0-52.0); Mean Corpuscular Hemoglobin 33.1 pg (25.0-34.0); Mean Corpuscular Hgb Conc 33.2 g/dL (32.0-36.0); Mean Corpuscular Volume 99.7 fL (80.0-100.0); Mean Platelet Volume 10.4 fL (9.4-12.4); Platelet Count 355 K/uL (130-400); RDW Coefficient of Variation 13.9 % (11.5-14.5); RDW Standard Deviation 50.9 fL (36.4-46.3); Red Blood Count 3.62 M/uL (4.70-6.10); White Blood Count 22.87 K/ul (4.8-10.8)
[2024-06-09 05:41] LABS: iSTAT Creatinine 0.9 mg/dl (0.6-1.3); iSTAT Hemoglobin 12.9 g/dl (14.0-18.0); iSTAT Ionized Calcium 1.09 mmol/l (1.12-1.32)
[2024-06-09 05:58] LABS: Albumin Globulin Ratio 0.7 (0.9-2); Albumin Level 3.3 gm/dl (3.4-5.0); BUN Creatinine Ratio 37.8 (10-20); Bilirubin,Total 0.8 mg/dl (0.2-1.0); Calcium 8.9 mg/dl (8.6-10.3); Creatinine Clr Calc Pharmacy 62.4 ml/min; Globulin 4.7 gm/dl (2.5-4.0); Potassium 3.9 mmol/L (3.5-5.1)
[2024-06-09 06:15] LABS: Basophils # (auto) 0.04 K/uL (0.00-0.20); Basophils % (auto) 0.2 %; Eosinophils # (auto) 0.12 K/uL (0.00-0.50); Eosinophils % (auto) 0.5 %; Immature Granulocytes % (auto) 0.4 %; Lymphocytes % (auto) 3.5 %; Monocytes # (auto) 0.82 K/uL (0.11-0.59); Monocytes % (auto) 3.6 %; Neutrophils # (auto) 20.99 K/uL (1.40-6.50); Neutrophils % (auto) 91.8 %
[2024-06-09 06:16] LABS: Appearance Urine Clear (Clear); Bacteria Urine Automated None Seen (None Seen); Bilirubin Urine Negative (Negative); Blood Urine Negative (Negative); Cast Urine Automated 0-2 /lpf (0-2); Color Urine Dark Yellow; Epithelial Cell Urine Auto 0-2 /hpf (0-2); Glucose Urine UA Negative (Negative); Ketones Urine Trace (Negative); Leukocyte Esterase Urine 1+ (Negative); Nitrite Urine Negative (Negative); Protein Urine Trace (Negative); Specific Gravity Urine 1.022 (1.000-1.030); Urobilinogen Urine Negative (Negative); pH Urine 5.5 (4.5-7.5)
[2024-06-09 06:24] LABS: INR 1.1 (0.9-1.1); Partial Thromboplastin Ratio 1.2; Partial Thromboplastin Time 33 Seconds (21-31); Prothrombin Time 11.4 Seconds (9.0-12.0)
--- NOTE | 2024-06-09 06:48 | CT Scan Report ---
EXAM: CT head/brain wo con CLINICAL HISTORY: Trauma TECHNIQUE: Multiple axial images are obtained from the skull base to the vertex without contrast. CT scan was performed according to ALARA (as low as reasonable achievable). 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 No evidence of space occupying lesion, hemorrhage, edema, mass effect, midline shift, extra axial collection, or hydrocephalus is noted. Basal cisterns are symmetric and normal in size and configuration. There are scattered periventricular hypodensities as can be seen with chronic microvascular ischemic changes. The mijares-white matter differentiation is preserved. Visualized paranasal sinuses and mastoid air cells are well aerated. Orbital contents are within normal limits. Bony structures are intact. IMPRESSION: 1. No evidence of acute intracranial abnormality is demonstrated. 2. Chronic microvascular ischemic changes. 3. Cerebral atrophy. No other new interval abnormality since prior study. Electronically signed by Devan Singleton 06-09-2024 06:47 AM
--- NOTE | 2024-06-09 06:54 | CT Scan Report ---
EXAM: CT facial bones wo con CLINICAL HISTORY: Trauma TECHNIQUE: Computed tomography of the orbits/face was performed without intravenous contrast. Contiguous axial images were obtained. Reformatted coronal and sagittal images were also reviewed. CT scan was performed according to ALARA (as low as reasonable achievable). COMPARISON: none. FINDINGS: Linear fracture of left zygomatic arch. Minimal left maxillary sinusitis. Rest of paranasal sinuses and mastoid air cells are clear. The globes, optic nerves, extraocular muscles and retro-orbital fat are grossly unremarkable. Reformatted imaging demonstrates intact roof and floor of the orbits. Included portions of the mandible are intact. The included intracranial substances and airway are unremarkable. IMPRESSION: 1. Linear fracture of left zygomatic arch. 2. Minimal left maxillary sinusitis. Electronically signed by Devan Singleton 06-09-2024 06:54 AM
--- NOTE | 2024-06-09 06:56 | CT Scan Report ---
EXAM: CT cervical spine wo con CLINICAL HISTORY: Trauma TECHNIQUE: Computed tomography of the cervical spine performed without intravenous contrast. Contiguous axial images were obtained from the skull base to T2, with sagittal and coronal reformatted images reconstructed from the axial data. CT scan was performed according to ALARA (as low as reasonable achievable). 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 Multi level anterior marginal osteophytes. Multi level intradiscal vaccum phenomena. Cervical vertebral bodies are normal in height and alignment, with no evidence of fracture or subluxation. Lateral masses of C1 are symmetrical, and the dens is intact. Prevertebral soft tissues are not widened. The remaining suprahyoid and infrahyoid soft tissues in the neck are unremarkable. C2-C3: No disc bulge, mass effect on the cord or neuroforaminal narrowing. C3-C4: No disc bulge, mass effect on the cord or neuroforaminal narrowing. C4-C5: Irregular reduction of intervertebral disc space with marginal subchondral cysts. C5-C6: Irregular reduction of intervertebral disc space with marginal vertebral body vaccum. C6-C7: No disc bulge, mass effect on the cord or neuroforaminal narrowing. C7-T1: No disc bulge, mass effect on the cord or neuroforaminal narrowing. Thyroid gland appears unremarkable. 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 IMPRESSION: 1.No acute fracture or subluxation in the cervical spine. 2. Cervical spondylosis. 3. 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 Electronically signed by Devan Singleton 06-09-2024 06:55 AM
--- NOTE | 2024-06-09 07:03 | XRay Report ---
EXAM: XR chest 1V portable CLINICAL HISTORY: Increased WBC. TECHNIQUE: X-ray image of the chest obtained in frontal AP projection. COMPARISON: Prior X-ray dated 05/15/2024 for comparison. FINDINGS: Pulmonary Parenchyma: Mild interval decrease in the width of left apical pneumothorax. Unchanged diffuse reticular shadowing in bilateral lungs. No evidence of pleural effusion or pleural thickening. Heart and Mediastinum: Heart size and shape are normal. No mediastinal widening or masses. No hilar or mediastinal lymphadenopathy. Bony Thorax: Bony thorax appears intact without fractures or deformities. Soft Tissues: Soft tissues overlying the chest wall are unremarkable. IMPRESSION: 1. Mild interval decrease in the width of left apical pneumothorax. 2. Unchanged diffuse reticular shadowing and interstitial pulmonary changes in bilateral lungs. Electronically signed by Valerio Cerna 06-09-2024 07:02 AM
[2024-06-09] MEDS: SODIUM CHLORIDE 0.9% 500 ML IV ONE (07:29)
[2024-06-09] MEDS: SODIUM CHLORIDE 0.9% 500 ML IV SCH (08:11)
[2024-06-09 08:40] LABS: Troponin I High Sensitivity 71.6 pg/ml (0-20)
--- NOTE | 2024-06-09 08:50 | History & Physical Report ---
Date of Service June 09, 2024 Assessment & Plan (1) Syncopal episodes: Plan: Fall Patient reports that he was incontinent of urine in the bathroom, felt weak and slipped but did not synopsize. He did hit his face and has a left eye contusion Denies dysuria but has had increased frequency and incontinence in the last week worse than normal. No fevers or night sweats. Denies chest pain/chest pressure Endorses he feels very weak overall and notes he has lost a lot of weight in the preceding year Chest x-ray: Interval decrease of left apical pneumo. Chronic unchanged reticular shadowing and interstitial pulmonary changes bilaterally CThead: No acute intracranial change. Chronic microvascular changes. Cerebral atrophy CTface: Left zygomatic arch linear fracture. Minimal left maxillary sinusitis CTC-spine: No acute fracture/subluxation. Urinary retention,? UTI Urinary frequency/polyuria, incontinence, and retention with leukocytosis UA with white blood cells, no nitrates/bacteria. Culture pending Empiric Rocephin continued - CT-A/P 05/12/2024 did not report any obvious malignant, intra-abdominal pathology, or prostate abnormality. - No abdominal pain on exam Cool placed for retention with [id number] cc which was emptied, and then another 900cc was drained. Did not have a obstructive JUAQUIN fortunately Will treat potential UTI, perform voiding trial when improved and if retention persists will need urology follow-up Epistaxis Hemoglobin stable, initially resolved with pressure. Following initial evaluation patient reports he was picking at the nare and had recurrent epistaxis with clot coming out of his mouth. On exam does have a area of bleeding at the left anterior Kiesselbach plexus. Pressure clip applied. Ox metolazone ordered and will reapply pressure clip. follow for 30 minutes. If recurrent will trial silver nitrate cautery. If unable to control bleeding then will follow-up with ENT Patient is on aspirin twice daily for high risk cardiac disease. On reassessment epistaxis is controlled and has not recurred/25 CAD Follows with [facility] cardiology. 05/09/2024 note reviewed 02/21/2024 underwent coronary catheterization. Distal left main intermittent severe stenosis with tortuous takeoff of the circumflex which was severely diseased at 90%, heavily calcified in addition to heavily calcified LAD disease. Severe ostial RCA stenosis. Difficulty tolerating beta-malik due to hypotension, aspirin and statin were continued. EF 55 to 60% with grade 1 diastolic dysfunction and mild MR/mild TR at that time. High risk left main, circumflex and LAD bifurcation disease high risk for int ervention which would require atherectomy of all 3 vessels and bifurcation stenting. May also need percutaneous LVAD, and concerns were expressed for his overall frailty and uncertain prognosis of IPF. At that time medical management was pursued, was recommended to have further prognostication follow-up with pulmonology 05/2024. If his prognosis was good overall then would reconsider coronary intervention at that time, if prognosis poor then was recommended for medical therapy to which patient and family were agreeable to Slightly elevated at 82, downtrending to 71 on repeat. Patient denies chest pain at the bedside. Suspect demand IPF/RLD/ILD Follows with [facility]monology. Did not have benefit at pulmonary rehab which was stopped due to a fall. Autoimmune workup negative except RF minimally positive. Hypersensitive pneumonitis workup negative.Multiple comorbidities and severe IPF. Was suggested for consideration of palliative care in the future. Last PFTs with FVC 49%, FEV1 57%, ratio 84%, DLCO 31%. On Esbriet as outpatient. This is continued. LFTs added to a.m. labs Continue incentive spirometry No evidence of acute pneumonia/worsening on chest x-ray Patient is on room air on admission Sacral/back wounds Patient has a stage III sacral pressure ulcer, and has a small ulcer at the caudad thoracic midline spine. Surrounding pinkness although no sharply demarcated erythema/warmth. Wound care consulted. Midline spine is not tender to palpation he has not had fever/chills. CRP ordered, trended. Follow [facility] Hypothyroidism Continue Synthroid 100 mcg Vitamin D deficiency Continue supplementation Hyperlipidemia Continue atorvastatin Depression Continue sertraline Chronic decline, failure to thrive Patient reports 100 pound weight gain in the last year. BMI 18, 62.4 kg Did review patient's decline with patient and son. Herrera notes he has had some decline in some depression regarding poor appetite, weight loss in the last year, and progression of his ILD, and inability to do things he used to do. Is following with counseling at [facility]. Sertraline continued. - Discussed w/ pts son. Is interested in outpatient palliative followup. Boost to 3 times daily ordered DVT prophylaxis: He is on aspirin twice daily. Chemical prophylaxis held due to recurrent epistaxis. Once stable start Lovenox Disposition: M/T CODE STATUS: DNR/DNI Diet: N.p.o. pending stability of epistaxis. If this is controlled then can advance to heart healthy diet (2) LBBB (left bundle branch block): (3) CAD (coronary artery disease): (4) ILD (interstitial lung disease): (5) Pulmonary nodule: (6) Urinary retention: (7) GERD (gastroesophageal reflux disease): (8) Hyperlipidemia: (9) UTI (urinary tract infection): History of Present Illness Primary Care Provider: BAILEE Neff Herrera is an 79-year-old male with a past medical history of ILD/pulmonary fibrosis/RLD/pulmonary nodules, hypertension, GERD, chronic back pain, pre-DM, CAD, chronic left-sided pneumothorax who presented to the ER from [facility] after a fall with a right eye hematoma. He has a left zygomatic fracture on imaging however this suspected to be old as there is no overlying tenderness contusion or hematoma at that area. He had a leukocytosis of 20K without clear infectious source and no localizing symptoms. Did express some chest pain after his fall with minimally elevated troponin and no ischemic changes on EKG. He was recommended for admission for further care/monitoring. Chart review: Chest x-ray: Interval decrease of left apical pneumo. Chronic unchanged reticular shadowing and interstitial pulmonary changes bilaterally CThead: No acute intracranial change. Chronic microvascular changes. Cerebral atrophy CTface: Left zygomatic arch linear fracture. Minimal left maxillary sinusitis CTC-spine: No acute fracture/subluxation. Leukocytosis of 22.87 without granulocytic left shift Hemoglobin 12.0, last 11.4. Patient did have an episode of epistaxis which reportedly resolved. Creatinine is normal, BUN/creatinine ratio was elevated Ionized calcium 1.09 Sensitive troponin 82, 2-hour repeat downtrending at 71 Total protein normal, globulin 4.7, albumin/globulin ratio low 0.7 PCT pending UA: Leukocyte esterase, white blood cells, red blood cells are present without epithelial cells/bacteria/nitrates. BioFire and tickborne testing pending EKG independently reviewed: Sinus rhythm with first-degree AV block. LVH with repolarization abnormality. QTc 457. First-degree block was also present on EKG 12/2023 Echo 02/2024: EF 55 to 60%. No regional wall motion abnormalities. Moderate concentric LVH. Septal motion consistent with conduction abnormality. RVSP 38. Herrera reports he had 'bathroom problem' this morning. Was dripping/incontinent in his briefs and in the bathroom. Rang his call roblero, but slipped and fell to the ground. Has been having trouble peeing for a few days, a week at most. Difficulty emptying his bladder completely and some dribbling/incontinence. This is not new, but seems a little worse than normal. No burning with urination. Denies hx of prostate issues. Endorses chills chronically with close to 100lbs of weight loss inthe last year. No fevers. No night sweats +pulmonary fibrosis. Denies gradually worsening of his breathing and dyspnea, but no change in the last few days/week. Was transiently on oxygen this morning, does not normally need this. Not on this currently No diarrhea. No abdominal pain. No nausea/vomiting. NO headache No vision change Was straight cathed yesterday. No history of prostate cancer/BPH No prior history of urinary retention Has taken some tylenol in the last few days discomfort after his straight cath. Denies other changes. Has been on pirfenidone since summer of last year. No other changes since this. No tobacco/ETOH use Denies chest pain L hip replacement. Disloacted L hip 3 weeks ago Medical History: Reviewed Medications: Reviewed Surgical History: Reviewed Family history: Reviewed Allergies: Reviewed Social History: No tobacco/ETOH use Code Status: DNR/DNI. Surrogate DM would be his son Silvino. R lateral orbit contusion and laceration Nare with dreid blood, no ongoing epistaxis Allergies Allergy/AdvReac Type Severity Reaction Status Date / Time No Known Allergies Allergy Verified 04/11/24 13:03 Home Medications Medication Instructions Recorded Confirmed Type Incentive Spirometer #1 ea 09/23/22 04/11/24 Rx levothyroxine 100 mcg capsule 100 mcg PO DAILY #90 caps 08/23/23 06/09/24 Rx cholecalciferol (vitamin D3) 50 50 mcg PO DAILY 09/13/23 06/09/24 History mcg (2,000 unit) tablet (Vitamin D3) albuterol sulfate 90 mcg/actuation 2 inh inhalation QID PRN shortness 02/21/24 06/09/24 Rx aerosol inhaler of breath or wheezing #8.5 grams atorvastatin 40 mg tablet (Lipitor) 40 mg PO HS #30 tabs 02/21/24 06/09/24 Rx nitroglycerin 0.4 mg sublingual 0.4 mg sublingual Q5M PRN chest 02/21/24 06/09/24 Rx tablet pain #1 btl home oxygen with tubing and travel #1 ea 02/29/24 04/11/24 Rx bottles sertraline 50 mg tablet 50 mg PO DAILY #30 tabs 03/14/24 06/09/24 Rx oxygen concentrator #1 ea 04/04/24 04/11/24 Rx aspirin 81 mg tablet,delayed 81 mg PO BID #90 tabs 05/22/24 06/09/24 Rx release pirfenidone 267 mg capsule 801 mg (3 x 267 mg) PO TID #360 06/08/24 06/09/24 Rx (Esbriet) caps acetaminophen 325 mg tablet 650 mg PO .Q4-6H PRN pain/fever 06/09/24 06/09/24 History (Tylenol) acetaminophen 325 mg tablet 650 mg PO TID 4g/24h 06/09/24 06/09/24 History (Tylenol) bisacodyl 10 mg rectal suppository 10 mg PA DAILY PRN Constipation 06/09/24 06/09/24 History (Dulcolax (bisacodyl)) collagenase clostridium histo. 250 1 applic topical DAILY 06/09/24 06/09/24 History unit/gram topical ointment (Santyl) magnesium hydroxide 400 mg/5 mL 30 ml PO DIRECTED PRN 06/09/24 06/09/24 History oral suspension (Milk of Magnesia) Constipation melatonin 3 mg tablet 6 mg PO HS 06/09/24 06/09/24 History multivit,stress formula-zinc tablet 1 tab PO QAM 06/09/24 06/09/24 History sodium chloride 0.65 % nasal spray 1 spray intranasal Q2H PRN dryness 06/09/24 06/09/24 History aerosol (Saline Nasal) or epistaxis tamsulosin 0.4 mg capsule (Flomax) 0.4 mg PO HS 06/09/24 06/09/24 History Past Med/Surg History Problem List (Updated 06/09/24 @ 16:25 by Rajwinder Bagley DO) Epistaxis (Acute) Dehydration (Acute) Leukocytosis (Acute) Facial trauma (Acute) Fall (Acute) Acute urinary retention (Acute) UTI (urinary tract infection) Urinary retention Pneumothorax on left (Acute) History of total left hip arthroplasty (Acute) Pulmonary fibrosis (Acute) Closed dislocation of left hip (Acute) Black stools Depression Fall Rib pain on right side CAD (coronary artery disease) Severe protein-calorie malnutrition Pneumomediastinum Elevated troponin (Acute) Shortness of breath (Acute) Abnormal ECG (Acute) Exertional angina Pulmonary fibrosis Dyspnea Encounter for examination following treatment at hospital Shortness of breath Hypoxia Cigar smoker ILD (interstitial lung disease) Pulmonary nodule Restrictive lung disease IPF (idiopathic pulmonary fibrosis) Abnormal chest CT Abnormal CXR Dyspnea on exertion Weight loss Allergic rhinitis Pre-diabetes Elevated bilirubin Orthostasis Nystagmus Elevated serum globulin level (Acute) Hypertension (Chronic) not currently on meds d/y orthostasis and syncopal episodes. See Dr Larkin OV 03/07 re: recommendations Chronic back pain (Chronic) GERD (gastroesophageal reflux disease) (Acute) Hyperlipidemia (Chronic) refuses statin Peripheral neuropathy (Chronic) Primary hypothyroidism (Chronic) Vitamin D deficiency (Chronic) Medical History LBBB (left bundle branch block) Syncopal episodes Lesion of finger Actinic keratosis Smokeless tobacco use Spinal stenosis Osteoarthritis Surgical History History of cataract surgery RIGHT History of tooth extraction History of cholecystectomy History of total hip arthroplasty left History of colonoscopy Family History Mother Family history of diabetes mellitus Ovarian cancer Sister Family history of diabetes mellitus Breast cancer Denies family history of Prostate cancer Myocardial infarction Colorectal cancer Social History Smoking Status: Former smoker Tobacco Type: Cigars Cigarettes Per Day: 1 cigar 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; Second Hand Exposure: Yes; Do You Dip or Chew Tobacco: No; Hx Alcohol Use: No Hx Substance Use: No Preferred Language: German Communication Ability: Effective Visual Impairment: No Limitations Hearing Ability: Normal Grouter Helper Required: No Beliefs That Will Affect Care: None marital status: / Current Living Situation: Alone current occupational status: retired How many Children do You have: 1 Feels Safe at Home: Yes Childhood Exposure to Second-Hand Smoke: No Diet: regular caffeine: Yes Dental Care, Regularly: No Physical Activity Frequency: 5-6 Times per Week Seatbelt Use: always Sunscreen Use: No Assistive Devices: None Physical Exam Physical Exam: General: A&Ox3. NAD. Cooperative. HEENT: Normocephalic. L nare with +blood, active bleeding from Little's area on assessment. Improved on reassessment,. R lateral orbit with contusion, small laceration with no active bleeding Pulm: Diffuse fine crackles. -wheezing/-rales. Symmetrical chest rise. No increased work of breathing. No respiratory distress. Cardiac: RRR, -mrg. Radial pulses intact and symmetrical. Abdominal: Nontender, nondistended, soft. BS present. Sacrum: Sacral stage III ulcer present with some surrounding pinkness although without warmth. Mild tenderness. Also has a small tender ulceration to full- thickness stage but appears to be 23 at the midline caudal thoracic spine with scant surrounding erythema. No discharge at time of assessment Ext: thin. moves all extremities equally. Results & Data Results & Data Vital Signs (Past 12 Hours) Vital Signs Temp Pulse Pulse Resp BP BP Pulse Ox 06/09/24 08:00 69 22 128/65 93 06/09/24 06:19 79 35 H 116/79 97 06/09/24 06:10 84 L 06/09/24 05:32 82 24 155/83 H 95 06/09/24 05:03 82 06/09/24 04:58 36.5 C 81 24 157/89 H 96 O2 Del Method O2 Flow Rate 06/09/24 08:00 Room Air 06/09/24 06:19 Nasal Cannula 2 06/09/24 06:10 Room Air 06/09/24 05:32 06/09/24 05:03 06/09/24 04:58 Room Air PG Care Time/CCT Total # of Minutes Spent Total Time Spent with Patient: Total time spent is greater than 50% in coordination of care (as documented) at patient's floor/unit and/or counseling patient: Coding Level of Care Code 27546 INT INP/OBS CARE 3/75MIN Diagnoses Syncope, unspecified syncope type R55 Syncope type: unspecified LBBB (left bundle branch block) I44.7 Coronary artery disease of [place] heart with stable angina pectoris, unspecified vessel or lesion type I25.118 Associated angina: with stable angina Coronary Disease-Associated Artery/Lesion type: unspecified vessel or l esion type [place] vs. transplanted heart: r[place]con heart ILD (interstitial lung disease) J84.9 Pulmonary nodule R91.1 Urinary retention R33.9 GERD (gastroesophageal reflux disease) K21.9 Hyperlipidemia, unspecified hyperlipidemia type E78.5 Hyperlipidemia type: unspecified UTI (urinary tract infection) N39.0 (1) Syncopal episodes Syncope type: unspecified Qualified Code(s): R55 - Syncope and collapse (3) CAD (coronary artery disease) Associated angina: with stable angina Coronary Disease-Associated Artery/Lesion type: unspecified vessel or lesion type [place] vs. transplanted heart: rincon heart Qualified Code(s): I25.118 - Atherosclerotic heart disease of r[place]con coronary artery with other forms of angina pectoris (8) Hyperlipidemia Hyperlipidemia type: unspecified Qualified Code(s): E78.5 - Hyperlipidemia, unspecified
[2024-06-09 09:16] LABS: Adenovirus PCR Not Detected (NotDetected); Bordetella parapertussis PCR Not Detected (NotDetected); Bordetella pertussis PCR Not Detected (NotDetected); Chlamydia pneumoniae PCR Not Detected (NotDetected); Coronavirus 229E PCR Not Detected (NotDetected); Coronavirus CoV-2 (COVID19)PCR Not Detected (NotDetected); Coronavirus HKU1 PCR Not Detected (NotDetected); Coronavirus NL63 PCR Not Detected (NotDetected); Coronavirus OC43PCR Not Detected (NotDetected); Human Metapneumovirus PCR Not Detected (NotDetected); Influenza A PCR Not Detected (NotDetected); Influenza B PCR Not Detected (NotDetected); Mycoplasma pneumoniae PCR Not Detected (NotDetected); Parainfluenza Virus 1 PCR Not Detected (NotDetected); Parainfluenza Virus 2 PCR Not Detected (NotDetected); Parainfluenza Virus 3 PCR Not Detected (NotDetected); Parainfluenza Virus 4 PCR Not Detected (NotDetected); Respiratory Syncytial VirusPCR Not Detected (NotDetected); Rhinovirus/Enterovirus PCR Not Detected (NotDetected)
[2024-06-09] MEDS: cefTRIAXone SODIUM 2,000 MG/50 ML BAG IV SCH (09:48)
[2024-06-09] MEDS: OXYMETAZOLINE 0.05% 30 ML BTL ONE (10:28)
--- NOTE | 2024-06-09 10:30 | Electrocardiogram Report ---
Test Reason : Blood Pressure : */* mmHG Vent. Rate : 75 BPM Atrial Rate : 75 BPM P-R Int : 234 ms QRS Dur : 146 ms QT Int : 410 ms P-R-T Axes : 36 49 138 degrees QTcB Int : 457 ms Sinus rhythm with 1st degree A-V block Left bundle branch block Abnormal ECG When compared with ECG of 12-May-2024 20:06, No significant change Confirmed by Landry Chambers ([id number]) on 06/09/2024 10:30:26 AM Referred By: REFERRED SELF Confirmed By: Landry Chambers
[2024-06-09] MEDS ORDERED: MAGNESIUM HYDROXIDE SUSP 30 ML UDC PO PRN (12:43)
[2024-06-09] MEDS ORDERED: bisacodyL 10 MG SUPP PR PRN (12:43)
[2024-06-09] MEDS ORDERED: NITROGLYCERIN SL 0.4 MG/TAB TAB SL PRN (12:43)
[2024-06-09] MEDS ORDERED: POLYETHYLENE (MIRALAX) 17 GM PACK PO PRN (12:43)
[2024-06-09] MEDS ORDERED: ALBUTEROL HFA 8 GM INHALER INH PRN (12:43)
[2024-06-09] MEDS ORDERED: ONDANSETRON INJ 2 MG/ML 2 ML VIAL IV PRN (12:43)
[2024-06-09] MEDS: SILVER NITR/POTASSIUM NITRATE APPLICATOR EXT STA (14:03)
[2024-06-09] MEDS: LIDOCAINE 2% JELLY 5 ML TUBE EXT ONE (14:58)
[2024-06-09 17:47] LABS: C Reactive Protein 19.51 mg/dl (0-0.5)
[2024-06-09] MEDS: ATORVASTATIN 40 MG TAB PO SCH (20:06)
[2024-06-09] MEDS: ASPIRIN 81 MG ECTAB PO SCH (20:06)
[2024-06-09] MEDS: TAMSULOSIN HCL 0.4 MG CAP PO SCH (20:07)
[2024-06-09] MEDS: LORazepam 0.5 MG TAB PO STA (20:07)
[2024-06-09] MEDS: MELATONIN 3 MG TAB PO SCH (20:07)
[2024-06-10] MEDS: LEVOTHYROXINE SODIUM 100 MCG TABLET PO SCH (05:36)
[2024-06-10 06:07] LABS: Basophils # (auto) 0.03 K/uL (0.00-0.20); Basophils % (auto) 0.3 %; Eosinophils # (auto) 0.27 K/uL (0.00-0.50); Eosinophils % (auto) 2.3 %; Hematocrit (blood only) 30.3 % (42.0-52.0); Immature Granulocytes # (auto) 0.06 K/uL (0.01-0.20); Immature Granulocytes % (auto) 0.5 %; Lymphocytes # (auto) 0.99 K/uL (1.20-3.40); Lymphocytes % (auto) 8.3 %; Mean Platelet Volume 10.4 fL (9.4-12.4); Monocytes # (auto) 0.66 K/uL (0.11-0.59); Monocytes % (auto) 5.5 %; Neutrophils # (auto) 9.91 K/uL (1.40-6.50); Neutrophils % (auto) 83.1 %; Platelet Count 280 K/uL (130-400); Red Blood Count 3.03 M/uL (4.70-6.10); White Blood Count 11.92 K/ul (4.8-10.8)
[2024-06-10 06:25] LABS: Albumin Level 2.5 gm/dl (3.4-5.0); Bilirubin Direct 0.1 mg/dl (0-0.2); Bilirubin,Total 0.5 mg/dl (0.2-1.0); C Reactive Protein 11.31 mg/dl (0-0.5); Calcium 7.7 mg/dl (8.6-10.3); Creatinine Clr Calc Pharmacy 94.7 ml/min; Potassium 3.5 mmol/L (3.5-5.1)
[2024-06-10] MEDS: SERTRALINE HCL 50 MG TABLET PO SCH (10:23)
[2024-06-10] MEDS: CEROVITE ADV FORMULA TAB PO SCH (10:23)
[2024-06-10] MEDS: CHOLECALCIFEROL 25 MCG (1000 UNITS) TAB PO SCH (10:23)
[2024-06-10 10:47] VITALS: RESP 16
[2024-06-10] MEDS: OPTIRAY 320 100ml IV ONE (11:56)
[2024-06-10] MEDS: ACETAMINOPHEN 325 MG TAB PO PRN (12:28)
--- NOTE | 2024-06-10 13:10 | CT Scan Report ---
Clinical history: Possible vertebral osteomyelitis Technique: Axial computed tomography images were obtained of the lumbar spine before and after intravenous contrast. Sagittal and coronal reconstructions were obtained Comparison is made to the prior CT dated 10/28/2018 Findings: There is a new compression fracture of the L1 vertebral body with loss of up to 60% of the vertebral body height centrally. This may be acute. There is no retropulsion of bone into the spinal canal. No other fracture is identified. There is scoliosis. No listhesis is seen. No focal osseous lesion is evident. There is no definite sign of osteomyelitis. There is vacuum phenomenon from L3-4 through L5-S1. At T12-L1, there is a mild disc bulge without spinal stenosis. There is slight encroachment upon the right neural foramen At L1-2, there is mild spinal stenosis due to a disc bulge. There is left greater than right neural foramen narrowing that may affect the left L1 nerve root At L2-3, there is spinal stenosis due to a disc bulge and facet osteoarthritis. There is mild bilateral neural foramen narrowing At L3-4, there is severe spinal stenosis due to a disc bulge and facet osteoarthritis. There is right greater than left neural foramen narrowing that may affect the exiting L3 nerve roots At L4-5, there is severe spinal stenosis due to a disc bulge and facet osteoarthritis. There is right greater than left neural foramen narrowing that may affect the right L4 nerve root At L5-S1, there is mild spinal stenosis due to a disc bulge and facet osteoarthritis. There is mild bilateral neural foramen narrowing There is a mild infrarenal abdominal aortic aneurysm, measuring up to 3.1 cm anteroposterior. There is a small left renal cortical cyst. There is mild bilateral hydronephrosis Impression: 1. New L1 compression fracture 2. Scoliosis 3. Apparent mild bilateral hydronephrosis. CT of the abdomen and pelvis could be considered for further evaluation 4. Mild abdominal aortic aneurysm 5. No clear evidence of infection involving the lumbar spine 6. Severe spinal stenosis at L3-4 and L4-5 7. Less severe spinal stenosis at L1-2, L2-3, and L5-S1 8. Left L1-2, bilateral L3-4, and right L4-5 neural foramen narrowing. This may affect the exiting nerve roots ACT 112: Positive. There are findings on this exam that require communication between the performing entity and the patient following Patient Test Result Information Act ([place] ACT 112) guidelines. Electronically signed by Liam Marte 06-10-2024 13:09 PM
--- NOTE | 2024-06-10 13:15 | CT Scan Report ---
Clinical history: Possible vertebral osteomyelitis Technique: Axial computed tomography images were obtained of the thoracic spine after the administration of intravenous contrast. Sagittal and coronal reconstructions were obtained No prior examination is available for comparison Findings: There are acute mildly displaced fractures of the spinous processes of T5, T6, and T7 There is a mild T8 compression fracture, likely old. There is loss of up to 15% of the vertebral body height. There is no retropulsion of bone into the spinal canal. No listhesis is seen. No focal osseous lesion is evident. There is no definite sign of osteomyelitis. There is multilevel Schmorl's node formation There is apparent honeycombing within the visualized lower lobes bilaterally, suggestive of pulmonary fibrosis. There appears to be a small left pneumothorax. The descending thoracic aorta is mildly aneurysmal, measuring 3.2 cm There are mild anterior disc bulges throughout the thoracic spine. There is no spinal stenosis or definite nerve root compression Impression: 1. Small left pneumothorax. Chest CT could be obtained for better evaluation 2. Acute fractures of the spinous processes of T5, T6, and T7 3. Mild T8 compression fracture, likely old but of indeterminate age 4. No clear evidence of infection involving the thoracic spine 5. Pulmonary fibrosis 6. Mild thoracic aortic aneurysm 7. Thoracic disc bulges without spinal stenosis or definite nerve root compression ACT 112: Positive. There are findings on this exam that require communication between the performing entity and the patient following Patient Test Result Information Act ([place] ACT 112) guidelines. Electronically signed by Liam Marte 06-10-2024 13:14 PM
--- NOTE | 2024-06-10 14:19 | Hospitalist Progress Note ---
Date of Service June 10, 2024 Assessment & Plan (1) Syncopal episodes: Plan: Goals of care See goals of care documentation note 06/10/24 - Pt goal to transition to Home Hospice Transition to C[facility] CENTRE MANAGER. Would like to defer additional lab draws and other measures with the exception of antibiotics for his current possible UTI and ulcer cellulitis. There is no evidence of discitis on CT Discontinue all nonessential/comfort medications Morphine as needed for dyspnea/pain Ativan as needed for distress May use oxygen for comfort Will continue Flomax. Patient would like to consider a voiding trial on 06/11. If he is successful would prefer not to have a Cool however if he is still unable to void then would want catheter replaced prior to transition to home hospice after the weekend Continue sertraline Add calcitonin nasal spray and lidocaine patches for lumbar compression fracture/pain Fall Patient reports that he was incontinent of urine in the bathroom, felt weak and slipped but did not synopsize. He did hit his face and has a left eye contusion Denies dysuria but has had increased frequency and incontinence in the last week worse than normal. No fevers or night sweats. Denies chest pain/chest pressure Endorses he feels very weak overall and notes he has lost a lot of weight in the preceding year Chest x-ray: Interval decrease of left apical pneumo. Chronic unchanged reticular shadowing and interstitial pulmonary changes bilaterally CThead: No acute intracranial change. Chronic microvascular changes. Cerebral atrophy CTface: Left zygomatic arch linear fracture. Minimal left maxillary sinusitis CTC-spine: No acute fracture/subluxation. Acute fractures of spinous process of T5/T6/T7. Mild T8 compression fracture indeterminate age. No clear thoracic spine infection. Thoracic disc bulges without spinal stenosis or nerve root compression -No brace indicated for spinous process fractures Given lumbar acute compression fracture can trial calcitonin nasal spray for pain Urinary retention DDx includes UTI, chronic pain, and lumbar disease Cool in place. Voiding trial is pending as above, if unsuccessful will replace Cool Transitioning to comfort care Extended discussion regarding his lumbar stenosis disease and potential for critical cord compression, and additionally inability to rule out any type of spinal abscess without MRI. Patient did not wish to have any further workup for this. - CTT-spine: Small left pneumothorax previously known. CTlumbar spine: New L1 compression fracture. Scoliosis. Apparent mild bilateral hydro. Mild AAA. No clear evidence of lumbar spinal infection. Severe spinal stenosis L3-L5. Less severe spinal stenosis at L1-L3, L5-S1. Left L1-L2, bilateral L3-L4, right L4-L5 neural cuellar narrowing. This may affect the exiting nerve roots. Epistaxis Resolved CAD Known high risk cardiac disease. No chest pain. As long as there is no further bleeding we will continue aspirin. If he has any stomach upset or ongoing bleeding then he can discontinue this for C[facility] CENTRE MANAGER goals of care IPF/RLD/ILD Follows with [facility]monology. Did not have benefit at pulmonary rehab which was stopped due to a fall. Autoimmune workup negative except RF minimally positive. Hypersensitive pneumonitis workup negative.Multiple comorbidities and severe IPF. Was suggested for consideration of palliative care in the future. Last PFTs with FVC 49%, FEV1 57%, ratio 84%, DLCO 31%. Has moved to C[facility] CENTRE MANAGER. Sacral/back wounds Continue wound care C[facility] CENTRE MANAGER, pending hospital bed Daily dressings ? Potential cellulitis at sacral wound, improving. Antibiotics transitioned to 1 week of cefdinir twice daily Hypothyroidism Continue Synthroid 100 mcg Vitamin D deficiency Continue or discontinue supplementation at patient preference Failure to thrive - BMI 17%, 100lbs weight loss in preceding year Patient would like to have a soft bite-size diet and boost supplementation as tolerated and preferred by patient we will - PT/OT consultations discontinued at patient request (2) LBBB (left bundle branch block): (3) CAD (coronary artery disease): (4) ILD (interstitial lung disease): (5) Pulmonary nodule: (6) Urinary retention: (7) GERD (gastroesophageal reflux disease): (8) Hyperlipidemia: (9) UTI (urinary tract infection): Admission and Anticipated Discharge Date Admission Date: June 09, 2024 Subjective Patient denies back pain. He reports he has had back pain in the past but actually feels very comfortable today and denies any pain while laying in bed and since he has been rotating he denies fevers chills or sweats. No belly pain. Does feel weak. He endorses sensation to soft touch in the thighs but does note he has had a little bit of tingling in his thighs recently. No headache. Denies pain at time of assessment. Physical Exam Physical Exam: General: A&Ox3. NAD. Cooperative. HEENT: Normocephalic. R lateral orbit with contusion, small laceration with no active bleeding. No epistaxis today Pulm: Diffuse fine crackles. -wheezing/-rales. Symmetrical chest rise. No increased work of breathing. No respiratory distress. Cardiac: RRR, -mrg. Radial pulses intact and symmetrical. Abdominal: Nontender, nondistended, soft. BS present. Sacrum: Continues with a sacral ulcer and midline low thoracic ulcer similar to prior. Overlying dressing replaced : Cool in place Ext: thin. moves all extremities equally, very easily fatigued Results & Data Results & Data Vital Signs (Past 12 Hours) Vital Signs Temp Pulse Pulse Pulse Resp BP BP 06/10/24 10:46 36.8 C 77 16 147/66 H 06/10/24 07:41 36.4 C L 76 18 112/65 06/10/24 07:11 78 06/10/24 04:00 36.7 C 65 18 118/67 Pulse Ox O2 Del Method 06/10/24 10:46 95 Room Air 06/10/24 07:41 93 Room Air 06/10/24 07:11 06/10/24 04:00 92 Room Air PG Care Time/CCT Total # of Minutes Spent Total Time Spent with Patient: Total time spent is greater than 50% in coordination of care (as documented) at patient's floor/unit and/or counseling patient: Coding Level of Care Code 73602 SUB INP/OBS CARE 3/50MIN Diagnoses Syncope, unspecified syncope type R55 Syncope type: unspecified LBBB (left bundle branch block) I44.7 Coronary artery disease of [place] heart with stable angina pectoris, unspecified vessel or lesion type I25.118 Associated angina: with stable angina Coronary Disease-Associated Artery/Lesion type: unspecified vessel or lesion type [place] vs. transplanted heart: [place] heart ILD (interstitial lung disease) J84.9 Pulmonary nodule R91.1 Urinary retention R33.9 GERD (gastroesophageal reflux disease) K21.9 Hyperlipidemia, unspecified hyperlipidemia type E78.5 Hyperlipidemia type: unspecified UTI (urinary tract infection) N39.0 (1) Syncopal episodes Syncope type: unspecified Qualified Code(s): R55 - Syncope and collapse (3) CAD (coronary artery disease) Associated angina: with stable angina Coronary Disease-Associated Artery/Lesi on type: unspecified vessel or lesion type [place] vs. transplanted heart: [place] heart Qualified Code(s): I25.118 - Atherosclerotic heart disease of [place] coronary artery with other forms of angina pectoris (8) Hyperlipidemia Hyperlipidemia type: unspecified Qualified Code(s): E78.5 - Hyperlipidemia, unspecified
--- NOTE | 2024-06-10 14:47 | Advance Care Plan Prog Note ---
Advanced Care Planning Note Date of Discussion June 10, 2024 ACP Discussion Diagnoses requiring ACP discussion: Spinal Stenosis, RLD, CAD, failure to thrive A [id number] discussion with the patient and his son Silvino regarding the patient's advanced care planning took place during this hospitalization on the above date. The discussion included the explanation and discussion of advance directives and associated forms/documents, as well as the patient's current code status. We also discussed at length the patient's medical conditions (both acute and chronic), general prognosis, treatment options, and goals of care. The following summarizes the discussion: Herrera's progression of last year, current medical conditions, and acute problems including urinary retention, spinal stenosis, and failure to thrive with weight loss of 100 pounds over a year and BMI of 17 with multiple falls were discussed with Herrera and his son at bedside. Patient had declined MRI last night and expressed an understanding of his risk for potential traumatic findings, discitis, and epidural abscess versus stenosis. At the time he expressed understanding of this and that he could have permanent neurologic dysfunction or progressive infection however did not want an MRI under any circumstances. Was agreeable to a CT at that time however did subsequently defer this in the evening. When discussed with provider this morning reports that he felt somewhat overwhelmed and was having second thoughts about pursuing additional treatment. Discussed risk/benefits and limited evaluation with CT although revisited MRI is necessary gold standard to truly rule out any epidural abscess or spinal involvement, versus potential for transition to comfort oriented options. Reported that he would like to think further about this but was agreeable to CT series in the meantime. CT subsequently returned evidence of severe lumbar spinal stenosis. Did discuss with the patient that it is not possible to rule out whether he has any abnormality of his cord signal/cauda equina that an MRI, but certainly that this could cause urinary retention and weakness. He reports he has intact sensation to soft touch in the saddle/thigh but thinks he may have had some tingling in this area recently. Did discuss that either cauda equina or an epidural abscess (again not able to be appropriately evaluated without MRI) can cause permanent neurologic deterioration. With respect to his CT findings did discuss that in the worst case scenario MRI could show either abscess or cord compression which would require surgical intervention. Due to his underlying coronary disease and severe lung disease he would be a high risk candidate and this would need to be done at either [place] or [place]. Depending on the degree the hope would be to improve his bladder and neurologic function although as his symptoms have been present for many days is also possible that he could have already sustained permanent damage. At life he would like to potentially pursue treatment and for appropriate risk assessment he would need further evaluation and continued delays could cause critical and permanent deterioration of function. He expresses an understanding of this but notes that under no circumstances does he want to pursue an MRI at this point even if a open MRI were able to be facilitated. He expresses that this means he might not get better and that his strength and bladder function might not improve. He is subsequently joined by his [id number] Taylor, son Silvino who is also his surrogate decision-maker, and his niece Melyssa Pisano. Case and medical findings were reviewed. Herrera reports that the most important things to him are as follows: "I want to at home". He reports that he does not want to pursue aggressive interventions or treatments, wants to transition to hospice and it is important to him that this occurs at home rather than a facility. He does not want to return to [facility]. Family is working on arrangements so that he can return with full care with the addition of hospice services. They are aware that hospice is not 24-hour care He does not want a be pushed with physical therapy or activity aggressively, he wants to be allowed to do any activity he can comfortably do and be allowed to rest otherwise He would like a hospital bed and to make sure his pain is treated He reports he is not interested in any invasive surgery procedures and ongoing lab draws. . Multiple possible care plans including full measures, limited medical measures including continuing current care without escalation of care and avoiding any surgeries, and hospice. Discussed palliative consultation and follow-up can be appropriate whether or not patient would like to pursue hospice. On shared decision making with patient and his family Herrera does not wish to pursue any curative treatments or invasive procedures, no longer wishes to have lab monitoring or other measures and attempt to extend of his life on a rather focused purely on comfort. He would like to move to [facility] and enrolled in hospice with a goal of home hospice on discharge. DRILL SERGEANT ordered Entire conversation above occurred over approximately 35 minutes with Herrera alone, followed by a 55-minute meeting including his son, niece, and [id number] at bedside. Status Resuscitation Status DNR/DNI No Resuscitation Total Time I spent a total of [*] minutes was spent on this discussion, including counseling, answering questions, and completing, if any, pertinent advanced care planning forms/documents.
[2024-06-10] MEDS ORDERED: GLYCOPYRROLATE 0.2 MG/ML VIAL IV PRN (17:07)
[2024-06-10] MEDS ORDERED: MoRPHine SULFATE 10 MG/0.5 ML UDP PO PRN (17:07)
[2024-06-10] MEDS: COLLAGENASE OINT 30 GM TUBE TOP SCH (18:14)
[2024-06-10] MEDS: CEFDINIR 300 MG CAP PO SCH (20:42)
[2024-06-11] MEDS: LORazepam 2 MG/1 ML VIAL IV PRN (07:16)
[2024-06-11] MEDS: TRANEXAMIC ACID 100 MG/ML 10 ML VIAL IV ONE (07:42)
[2024-06-11] MEDS: OXYMETAZOLINE 0.05% 30 ML BTL NAE ONE (07:42)
[2024-06-11] MEDS: LIDOCAINE 2% JELLY 5 ML TUBE EXT ONE (09:46)
[2024-06-11] MEDS: SILVER NITR/POTASSIUM NITRATE APPLICATOR EXT ONE (09:46)
--- NOTE | 2024-06-11 14:49 | Hospitalist Progress Note ---
Date of Service June 11, 2024 Assessment & Plan (1) Syncopal episodes: Plan: Goals of care See goals of care documentation note 06/10/24 - Pt goal to transition to Home Hospice Transition to LACE WINDER. Would like to defer additional lab draws and other measures with the exception of antibiotics for his current possible UTI and ulcer cellulitis. There is no evidence of discitis on CT Discontinue all nonessential/comfort medications Morphine as needed for dyspnea/pain Ativan as needed for distress May use oxygen for comfort Will continue Flomax. Patient would like to consider a voiding trial on 06/11. If he is successful would prefer not to have a Cool however if he is still unable to void then would want catheter replaced prior to transition to home hospice after the weekend Continue sertraline Use calcitonin needed every other day and [place] only. Left nare avoided due to recurrent nosebleeds. 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 He did hit his face and has a left eye contusion Denies dysuria but has had increased frequency and incontinence in the last week worse than normal. No fevers or night sweats. Denies chest pain/chest pressure Endorses he feels very weak overall and notes he has lost a lot of weight in the preceding year Chest x-ray: Interval decrease of left apical pneumo. Chronic unchanged reticular shadowing and interstitial pulmonary changes bilaterally CThead: No acute intracranial change. Chronic microvascular changes. Cerebral atrophy CTface: Left zygomatic arch linear fracture. Minimal left maxillary sinusitis CTC-spine: No acute fracture/subluxation. Acute fractures of spinous process of T5/T6/T7. Mild T8 compression fracture indeterminate age. No clear thoracic spine infection. Thoracic disc bulges without spinal stenosis or nerve root compression -No brace indicated for spinous process fractures Urinary retention DDx includes UTI, chronic pain, and lumbar disease Cool in place. Voiding trial is pending as above, if unsuccessful will replace Cool Transitioning to comfort care Extended discussion regarding his lumbar stenosis disease and potential for critical cord compression, and additionally inability to rule out any type of spinal abscess without MRI. Patient did not wish to have any further workup for this. - CTT-spine: Small left pneumothorax previously known. CTlumbar spine: New L1 compression fracture. Scoliosis. Apparent mild bilateral hydro. Mild AAA. No clear evidence of lumbar spinal infection. Severe spinal stenosis L3-L5. Less severe spinal stenosis at L1-L3, L5-S1. Left L1-L2, bilateral L3-L4, right L4-L5 neural cuellar narrowing. This may affect the exiting nerve roots. Epistaxis Cauterized 06/11 with cessation of bleeding. See procedure note CAD Known high risk cardiac disease. No chest pain. As long as there is no further bleeding we will continue aspirin. If he has any stomach upset or ongoing bleeding then he can discontinue this for LACE WINDER goals of care IPF/RLD/ILD Follows with [facility] pulmonology. Did not have benefit at pulmonary rehab which was stopped due to a fall. Autoimmune workup negative except RF minimally positive. Hypersensitive pneumonitis workup negative.Multiple comorbidities and severe IPF. Was suggested for consideration of palliative care in the future. Last PFTs with FVC 49%, FEV1 57%, ratio 84%, DLCO 31%. Has moved to LACE WINDER. Sacral/back wounds Continue wound care LACE WINDER, pending hospital bed Daily dressings ?Potential cellulitis at sacral wound, improving. Antibiotics transitioned to 1 week of cefdinir twice daily Hypothyroidism Continue Synthroid 100 mcg Vitamin D deficiency Continue or discontinue supplementation at patient preference Failure to thrive - BMI 17%, 100lbs weight loss in preceding year Patient would like to have a soft bite-size diet and boost supplementation as tolerated and preferred by patient we will - PT/OT consultations discontinued at patient request (2) LBBB (left bundle branch block): (3) CAD (coronary artery disease): (4) ILD (interstitial lung disease): (5) Pulmonary nodule: (6) Urinary retention: (7) GERD (gastroesophageal reflux disease): (8) Hyperlipidemia: (9) UTI (urinary tract infection): Admission and Anticipated Discharge Date Admission Date: June 09, 2024 Subjective Seen at bedside this morning. At bedside assessment is having significant bleeding from his left nare which has recurred. Per nursing he recurred around 3 AM in the morning with intermittent repeat epistaxis but generally continuous bleeding despite nose clamp. Physical Exam Physical Exam: General: A&Ox3. NAD. Cooperative. HEENT: Normocephalic. R lateral orbit with contusion, small laceration with no active bleeding. Copious bleeding from left nare. Subsequently on reassessment able to be cauterized, no ongoing bleeding on reassessment x 2 at the bedside Pulm: Diffuse fine crackles. -wheezing/-rales. Symmetrical chest rise. No increased work of breathing. No respiratory distress. Abdominal: Nontender, nondistended, soft. BS present. Sacrum: Continues with a sacral ulcer and midline low thoracic ulcer similar to prior. Overlying dressing present Ext: thin. moves all extremities equally, very easily fatigued Results & Data Results & Data Vital Signs (Past 12 Hours) Vital Signs O2 Del Method 06/11/24 11:42 Room Air PG Care Time/CCT Total # of Minutes Spent Total Time Spent with Patient: Total time spent is greater than 50% in coordination of care (as documented) at patient's floor/unit and/or counseling patient: Coding Level of Care Code 98413 SUB INP/OBS CARE 3/50MIN Diagnoses Syncope, unspecified syncope type R55 Syncope type: unspecified LBBB (left bundle branch block) I44.7 Coronary artery disease of [place] heart with stable angina pectoris, unspecified vessel or lesion type I25.118 Coronary Disease-Associated Artery/Lesion type: unspecified vessel or lesion type [place] vs. transplanted heart: [place] heart Associated angina: with stable angina ILD (interstitial lung disease) J84.9 Pulmonary nodule R91.1 Urinary retention R33.9 GERD (gastroesophageal reflux disease) K21.9 Hyperlipidemia, unspecified hyperlipidemia type E78.5 Hyperlipidemia type: unspecified UTI (urinary tract infection) N39.0 (1) Syncopal episodes Syncope type: unspecified Qualified Code(s): R55 - Syncope and collapse (3) CAD (coronary artery disease) Coronary Disease-Associated Artery/Lesion type: unspecified vessel or lesion type [place] vs. transplanted heart: [place] heart Associated angina: with stable angina Qualified Code(s): I25.118 - Atherosclerotic heart disease of [place] coronary artery with other forms of angina pectoris (8) Hyperlipidemia Hyperlipidemia type: unspecified Qualified Code(s): E78.5 - Hyperlipidemia, unspecified
--- NOTE | 2024-06-11 14:57 | Procedure Note ---
Procedure Note Date of Service June 11, 2024 Procedure: Silver nitrate nasal cautery Location: Anterior left nare Indication: Recurrent epistaxis. 06/11 patient had recurrent and ongoing epistaxis with copious amounts of blood from the left nare. Prior to provider assessment attempts had been made with Afrin nasal spray and nasal clamp which had failed. Consent: Patient consented to procedure. Reviewed risks of silver nitrate cautery including pain, burning, risk of septal perforation, and infection. Benefits include control of recurrent epistaxis. Name and date of was concern confirmed at bedside. At bedside assessment patient with obvious ongoing bleeding from the left nare. Blood was cleared via patient blowing nose and left nare was briefly irrigated using a saline flush. Otoscope was used to visualize nasal mucosa and a area of acute bleeding at the superior aspect of Ziggy area was identified, with a large amount of active bleeding. Gauze was soaked in Afrin which was then applied to the left nare and pressure/clamp was used. While this was clamped a gauze sponge was soaked with TXA. When this was ready previous gauze sponge was removed, the left nare was irrigated with 2.5 cc of TXA using a 5 cc syringe without a needle, and then TXA soaked gauze was inserted into the nare and rectal pressure was applied to the external nare. After approximately 30 minutes patient was reassessed. gauze was removed and area of bleeding had greatly slowed. Small area of continued bleeding at superior Ziggy area was re-visualized. A small amount of topical lidocaine gel was applied using a sterile Q-tip, and direct pressure was again applied to the nose for approximately 3-4 minutes. Area was briefly irrigated with a 10 cc syringe, overlying area was dried with a fresh sterile Q-tip. Silver nitrate sticks was then used to apply direct cautery at the area of active bleeding. Successful cautery was achieved. No further bleeding was noted. On reassessment approximately 15 minutes later area was revisualized and again had no recurrent/ongoing bleeding. No complications of cautery Coding Additional Codes Date of Service ([facility].[email or web address])
[2024-06-12 07:19] VITALS: TEMP 97.7; O2SAT 90
[2024-06-12] MEDS: CALCITONIN SALMON NA 200 IU/AC 3.7 ML BTL SCH (09:10)
--- NOTE | 2024-06-12 16:20 | Hospitalist Progress Note ---
Date of Service June 12, 2024 Assessment & Plan (1) Syncopal episodes: Plan: Goals of care See goals of care documentation note 06/10/24 - Pt goal to transition to Home Hospice Transition to [employer]. Would like to defer additional lab draws and other measures with the exception of antibiotics for his current possible UTI and ulcer cellulitis. There is no evidence of discitis on CT Discontinue all nonessential/comfort medications Morphine as needed for dyspnea/pain Ativan as needed for distress May use oxygen for comfort Continue sertraline Use calcitonin needed every other day and [place] only. Left nare avoided due to recurrent nosebleeds. Lidocaine patch deferred due to ulceration, improvement in pain Anticipate transition to home hospice. Discussed with family, coordinating [facility] both with [facility] anticipate [facility] be available 06/14 Fall Patient reports [employer] that he was incontinent of urine in the bathroom, felt weak and slipped but did not synopsize. He did hit his face and has a left eye contusion Denies dysuria but has had increased frequency and incontinence in the last week worse than normal. No fevers or night sweats. Denies chest pain/chest pressure Endorses he feels very weak overall and notes he has lost a lot of weight in the preceding year Chest x-ray: Interval decrease of left apical pneumo. Chronic unchanged reticular shadowing and interstitial pulmonary changes bilaterally CThead: No acute intracranial change. Chronic microvascular changes. Cerebral atrophy CTface: Left zygomatic arch linear fracture. Minimal left maxillary sinusit is CTC-spine: No acute fracture/subluxation. Acute fractures of spinous process of T5/T6/T7. Mild T8 compression fracture indeterminate age. No clear thoracic spine infection. Thoracic disc bulges without spinal stenosis or nerve root compression -No brace indicated for spinous process fractures Urinary retention DDx includes UTI, chronic pain, and lumbar disease Transitioning to comfort care Extended discussion regarding his lumbar stenosis disease and potential for critical cord compression, and additionally inability to rule out any type of spinal abscess without MRI. Patient did not wish to have any further workup for this. - CTT-spine: Small left pneumothorax previously known. CTlumbar spine: New L1 compression fracture. Scoliosis. Apparent mild bilateral hydro. Mild AAA. No clear evidence of lumbar spinal infection. Severe spinal stenosis L3-L5. Less severe spinal stenosis at L1-L3, L5-S1. Left L1-L2, bilateral L3-L4, right L4-L5 neural cuellar narrowing. This may affect the exiting nerve roots. Voiding trial pending Epistaxis Cauterized 06/11. No recurrent bleeding CAD Known high risk cardiac disease. No chest pain. As long as there is no further bleeding we will continue aspirin. If he has any stomach upset or ongoing bleeding then he can discontinue this for [employer] goals of care IPF/RLD/ILD Follows with [facility] [place]. Did not have benefit at pulmonary rehab which was stopped due to a fall. Autoimmune workup negative except RF minimally positive. Hypersensitive pneumonitis workup negative.Multiple comorbidities and severe IPF. Was suggested for consideration of palliative care in the future. Last PFTs with FVC 49%, FEV1 57%, ratio 84%, DLCO 31%. Has moved to [facility]. Sacral/back wounds Continue wound care [employer], pending hospital bed Daily dressings No evidence of discitis on CT. Continue cefdinir 300 mg twice daily until 06/16 Hypothyroidism Continue Synthroid 100 mcg Vitamin D deficiency Continue or discontinue supplementation at patient preference Failure to thrive - BMI 17%, 100lbs weight loss in preceding year Patient would like to have a soft bite-size diet and boost supplementation as tolerated and preferred by patient we will - PT/OT consultations discontinued at patient request (2) LBBB (left bundle branch block): (3) CAD (coronary artery disease): (4) ILD (interstitial lung disease): (5) Pulmonary nodule: (6) Urinary retention: (7) GERD (gastroesophageal reflux disease): (8) Hyperlipidemia: (9) UTI (urinary tract infection): Admission and Anticipated Discharge Date Admission Date: June 09, 2024 Subjective Seen at the bedside. He reports he feels the same as yesterday. No recurrent nosebleeds, he expresses appreciation of management for this. Discussed with family by phone. They are working on arranging 24-hour services both [facility] and [facility] they estimate these will be available on Wednesday. Discussed with case management. Denies pain at time bedside assessment. Reports that he does not have back pain and think this may be from both the hospital bed and wound dressings. Expresses appreciation of care. Physical Exam Physical Exam: General: A&Ox3. NAD. Cooperative. HEENT: Normocephalic. R lateral orbit with contusion, small laceration with no active bleeding. No recurrent bleeding from left nare Pulm: Diffuse fine crackles. -wheezing/-rales. Symmetrical chest rise. No increased work of breathing. No respiratory distress. Abdominal: Nontender, nondistended, soft. BS present. Sacrum: Continues with a sacral ulcer and midline low thoracic ulcer similar to prior. Overlying dressing present Cool in place Results & Data Results & Data Vital Signs (Past 12 Hours) Vital Signs Temp Pulse Resp BP Pulse Ox O2 Del Method 06/12/24 07:55 Room Air 06/12/24 07:18 36.5 C 58 L 16 123/64 90 Room Air PG Care Time/CCT Total # of Minutes Spent Total Time Spent with Patient: Total time spent is greater than 50% in coordination of care (as documented) at patient's floor/unit and/or counseling patient: Coding Level of Care Code 87449 SUB INP/OBS CARE 3/50MIN Diagnoses Syncope, unspecified syncope type R55 Syncope type: unspecified LBBB (left bundle branch block) I44.7 Coronary artery disease of [place] heart with stable angina pectoris, unspecified vessel or lesion type I25.118 Coronary Disease-Associated Artery/Lesion type: unspecified vessel or lesion type [place] vs. transplanted heart: [place] heart Associated angina: with stable angina ILD (interstitial lung disease) J84.9 Pulmonary nodule R91.1 Urinary retention R33.9 GERD (gastroesophageal reflux disease) K21.9 Hyperlipidemia, unspecified hyperlipidemia type E78.5 Hyperlipidemia type: unspecified UTI (urinary tract infection) N39.0 (1) Syncopal episodes Syncope type: unspecified Qualified Code(s): R55 - Syncope and collapse (3) CAD (coronary artery disease) Coronary Disease-Associated Artery/Lesion type: unspecified vessel or lesion type [place] vs. transplanted heart: [place] heart Associated angina: with stable angina Qualified Code(s): I25.118 - Atherosclerotic heart disease of [place] coronary artery with other forms of angina pectoris (8) Hyperlipidemia Hyperlipidemia type: unspecified Qualified Code(s): E78.5 - Hyperlipidemia, unspecified
--- NOTE | 2024-06-13 10:42 | Hospitalist Progress Note ---
Date of Service June 13, 2024 Assessment & Plan (1) Syncopal episodes: Plan: Goals of care See goals of care documentation note 06/10/24 - Pt goal to transition to Home Hospice Transition to [employer]. Would like to defer additional lab draws and other measures with the exception of antibiotics for his current possible UTI and ulcer cellulitis. There is no evidence of discitis on CT Discontinue all nonessential/comfort medications Morphine as needed for dyspnea/pain Ativan as needed for distress May use oxygen for comfort Continue sertraline Use calcitonin needed every other day in right nare only. Left nare avoided due to recurrent nosebleeds. Lidocaine patch deferred due to ulceration, improvement in pain Anticipate transition to home hospice. Discussed with family, coordinating services both with hosp[facility] anticipate these will be available 06/14 Patient feels that he does have a significant benefit to his prior chronic back pain from the hospital bed and wound care. Home hospital bed being arranged through hospice Fall Patient reports ST[employer] CH[employer]ER that he was incontinent of urine in the bathroom, felt weak and slipped but did not synopsize. He did hit his face and has a left eye contusion Denies dysuria but has had increased frequency and incontinence in the last week worse than normal. No fevers or night sweats. Denies chest pain/chest pressure Endorses he feels very weak overall and notes he has lost a lot of weight in the preceding year Chest x-ray: Interval decrease of left apical pneumo. Chronic unchanged reticular shadowing and interstitial pulmonary changes bilaterally CThead: No acute intracranial change. Chronic microvascular changes. Cerebral atrophy CTface: Left zygomatic arch linear fracture. Minimal left maxillary sinusitis CTC-spine: No acute fracture/subluxation. Acute fractures of spinous process of T5/T6/T7. Mild T8 compression fracture indeterminate age. No clear thoracic spine infection. Thoracic disc bulges without spinal stenosis or nerve root compression -No brace indicated for spinous process fractures Urinary retention DDx includes UTI, chronic pain, and lumbar disease Transitioning to comfort care Extended discussion regarding his lumbar stenosis disease and potential for critical cord compression, and additionally inability to rule out any type of spinal abscess without MRI. Patient did not wish to have any further workup for this. - CTT-spine: Small left pneumothorax previously known. CTlumbar spine: New L1 compression fracture. Scoliosis. Apparent mild bilateral hydro. Mild AAA. No clear evidence of lumbar spinal infection. Severe spinal stenosis L3-L5. Less severe spinal stenosis at L1-L3, L5-S1. Left L1-L2, bilateral L3-L4, right L4-L5 neural cuellar narrowing. This may affect the exiting nerve roots. Voiding trial deferred at patient request. Epistaxis Cauterized 06/11. No recurrent bleeding On repeat nasal exam with otoscope 06/13 remains with good cautery, adequately healing. No septal perforation seen. CAD Known high risk cardiac disease. No chest pain. As long as there is no further bleeding we will continue aspirin. 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 Did not have benefit at pulmonary rehab which was stopped due to a fall. Autoimmune workup negative except RF minimally positive. Hypersensitive pneumonitis workup negative.Multiple comorbidities and severe IPF. Was suggested for consideration of palliative care in the future. Last PFTs with FVC 49%, FEV1 57%, ratio 84%, DLCO 31%. Has moved to [employer]. 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 Continue cefdinir 300 mg twice daily until 06/16 Hypothyroidism Continue Synthroid 100 mcg Vitamin D deficiency Continue or discontinue supplementation at patient preference Failure to thrive - BMI 17%, 100lbs weight loss in preceding year Patient would like to have a soft bite-size diet and boost supplementation as tolerated and preferred by patient we will - PT/OT consultations discontinued at patient request (2) LBBB (left bundle branch block): (3) CAD (coronary artery disease): (4) ILD (interstitial lung disease): (5) Pulmonary nodule: (6) Urinary retention: (7) GERD (gastroesophageal reflux disease): (8) Hyperlipidemia: (9) UTI (urinary tract infection): Admission and Anticipated Discharge Date Admission Date: June 09, 2024 Subjective Seen the bedside. He feels that the hospital bed and wound care has had significant benefit to his chronic back pain. He reports he has no back pain today and feels comfortable. No recurrent bleeding. He would like to leave his Cool in and defer a voiding trial at this time. Otherwise no acute concerns. Is eager to get home with hospice services which she notes is being arranged for him and is hopeful for discharge tomorrow. No other questions at time bedside visit. Physical Exam Physical Exam: General: A&Ox3. NAD. Cooperative. HEENT: Normocephalic. R lateral orbit with contusion, small laceration with no active bleeding. No recurrent bleeding from left nare. On otoscopic exam left nare cautery site is well-healing without recurrent bleeding, no septal perfora tion is present. Pulm: DSymmetrical chest rise. No increased work of breathing. No respiratory distress. Abdominal: Nontender, nondistended, soft. BS present. : Cool in place draining light yellow urine PG Care Time/CCT Total # of Minutes Spent Total Time Spent with Patient: Total time spent is greater than 50% in coordination of care (as documented) at patient's floor/unit and/or counseling patient: Coding Level of Care Code 95183 SUB INP/OBS CARE 3/50MIN Diagnoses Syncope, unspecified syncope type R55 Syncope type: unspecified LBBB (left bundle branch block) I44.7 Coronary artery disease of [place] heart with stable angina pectoris, unspecified vessel or lesion type I25.118 Coronary Disease-Associated Artery/Lesion type: unspecified vessel or lesion type [place] vs. transplanted heart: [place] heart Associated angina: with stable angina ILD (interstitial lung disease) J84.9 Pulmonary nodule R91.1 Urinary retention R33.9 GERD (gastroesophageal reflux disease) K21.9 Hyperlipidemia, unspecified hyperlipidemia type E78.5 Hyperlipidemia type: unspecified UTI (urinary tract infection) N39.0 (1) Syncopal episodes Syncope type: unspecified Qualified Code(s): R55 - Syncope and collapse (3) CAD (coronary artery disease) Coronary Disease-Associated Artery/Lesion type: unspecified vessel or lesion type [place] vs. transplanted heart: [place] heart Associated angina: with stable angina Qualified Code(s): I25.118 - Atherosclerotic heart disease of [place] coronary artery with other forms of angina pectoris (8) Hyperlipidemia Hyperlipidemia type: unspecified Qualified Code(s): E78.5 - Hyperlipidemia, unspecified
--- NOTE | 2024-06-14 10:33 | Discharge Summary ---
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 Would like to defer additional lab draws and other measures with the exception of antibiotics for his current possible UTI and ulcer cellulitis. There is no evidence of discitis on CT Discontinue all nonessential/comfort medications Morphine as needed for dyspnea/pain Ativan as needed for distress May use oxygen for comfort Continue sertraline Use calcitonin needed every other day in right nare only. Left nare avoided due to recurrent nosebleeds. Lidocaine patch deferred due to ulceration, improvement in pain Anticipate transition to home hospice. Discussed with family, coordinating [facility] with [facility] anticipate these will be available 06/14 Patient feels that he does have a significant benefit to his prior chronic back pain from the hospital bed and wound care. 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 He did hit his face and has a left eye contusion Denies dysuria but has had increased frequency and incontinence in the last week worse than normal. No fevers or night sweats. Denies chest pain/chest pressure Endorses he feels very weak overall and notes he has lost a lot of weight in the preceding year Chest x-ray: Interval decrease of left apical pneumo. Chronic unchanged r eticular shadowing and interstitial pulmonary changes bilaterally CThead: No acute intracranial change. Chronic microvascular changes. Cerebral atrophy CTface: Left zygomatic arch linear fracture. Minimal left maxillary sinusitis CTC-spine: No acute fracture/subluxation. Acute fractures of spinous process of T5/T6/T7. Mild T8 compression fracture indeterminate age. No clear thoracic spine infection. Thoracic disc bulges without spinal stenosis or nerve root compression -No brace indicated for spinous process fractures Urinary retention DDx includes UTI, chronic pain, and lumbar disease Transitioning to comfort care Extended discussion regarding his lumbar stenosis disease and potential for critical cord compression, and additionally inability to rule out any type of spinal abscess without MRI. Patient did not wish to have any further workup for this. - CTT-spine: Small left pneumothorax previously known. CTlumbar spine: New L1 compression fracture. Scoliosis. Apparent mild bilateral hydro. Mild AAA. No clear evidence of lumbar spinal infection. Severe spinal stenosis L3-L5. Less severe spinal stenosis at L1-L3, L5-S1. Left L1-L2, bilateral L3-L4, right L4-L5 neural cuellar narrowing. This may affect the exiting nerve roots. Voiding trial deferred at patient request. Epistaxis Cauterized 06/11. No recurrent bleeding On repeat nasal exam with otoscope 06/13 remains with good cautery, adequately healing. No septal perforation seen. CAD Known high risk cardiac disease. No chest pain. As long as there is no further bleeding we will continue aspirin. If he has any stomach upset or ongoing bleeding then he can discontinue this for HOSPICE EXECUTIVE DIRECTOR goals of care IPF/RLD/ILD Follows with [facility] pulmonology. Did not have benefit at pulmonary rehab which was stopped due to a fall. Autoimmune workup negative except RF minimally positive. Hypersensitive pneumonitis workup negative.Multiple comorbidities and severe IPF. Was suggested for consideration of palliative care in the future. Last PFTs with FVC 49%, FEV1 57%, ratio 84%, DLCO 31%. Has moved to HOSPICE EXECUTIVE DIRECTOR. Sacral/back wounds Continue wound care HOSPICE EXECUTIVE DIRECTOR, pending hospital bed Daily dressings No evidence of discitis on CT. Continue cefdinir 300 mg twice daily until 06/16 Hypothyroidism Continue Synthroid 100 mcg Vitamin D deficiency Continue or discontinue supplementation at patient preference Failure to thrive - BMI 17%, 100lbs weight loss in preceding year Patient would like to have a soft bite-size diet and boost supplementation as tolerated and preferred by patient we will - PT/OT consultations discontinued at patient request (2) LBBB (left bundle branch block): (3) CAD (coronary artery disease): (4) ILD (interstitial lung disease): (5) Pulmonary nodule: (6) Urinary retention: (7) GERD (gastroesophageal reflux disease): (8) Hyperlipidemia: (9) UTI (urinary tract infection): Admission HPI Per Admitting Provider Herrera is an 79-year-old male with a past medical history of ILD/pulmonary fibrosis/RLD/pulmonary nodules, hypertension, GERD, chronic back pain, pre-DM, CAD, chronic left-sided pneumothorax who presented to the ER from [facility] after a fall with a right eye hematoma. He has a left zygomatic fr acture on imaging however this suspected to be old as there is no overlying tenderness contusion or hematoma at that area. He had a leukocytosis of 20K without clear infectious source and no localizing symptoms. Did express some chest pain after his fall with minimally elevated troponin and no ischemic changes on EKG. He was recommended for admission for further care/monitoring. Chart review: Chest x-ray: Interval decrease of left apical pneumo. Chronic unchanged reticular shadowing and interstitial pulmonary changes bilaterally CThead: No acute intracranial change. Chronic microvascular changes. Cerebral atrophy CTface: Left zygomatic arch linear fracture. Minimal left maxillary sinusitis CTC-spine: No acute fracture/subluxation. Leukocytosis of 22.87 without granulocytic left shift Hemoglobin 12.0, last 11.4. Patient did have an episode of epistaxis which reportedly resolved. Creatinine is normal, BUN/creatinine ratio was elevated Ionized calcium 1.09 Sensitive troponin 82, 2-hour repeat downtrending at 71 Total protein normal, globulin 4.7, albumin/globulin ratio low 0.7 PCT pending UA: Leukocyte esterase, white blood cells, red blood cells are present without epithelial cells/bacteria/nitrates. BioFire and tickborne testing pending EKG independently reviewed: Sinus rhythm with first-degree AV block. LVH with repolarization abnormality. QTc 457. First-degree block was also present on EKG 12/2023 Echo 02/2024: EF 55 to 60%. No regional wall motion abnormalities. Moderate concentric LVH. Septal motion consistent with conduction abnormality. RVSP 38. Herrera reports he had 'bathroom problem' this morning. Was dripping/incontinent in his briefs and in the bathroom. Rang his call roblero, but slipped and fell to the ground. Has been having trouble peeing for a few days, a week at most. Difficulty emptying his bladder completely and some dribbling/incontinence. This is not new, but seems a little worse than normal. No burning with urination. Denies hx of prostate issues. Endorses chills chronically with close to 100lbs of weight loss inthe last year. No fevers. No night sweats +pulmonary fibrosis. Denies gradually worsening of his breathing and dyspnea, but no change in the last few days/week. Was transiently on oxygen this morning, does not normally need this. Not on this currently No diarrhea. No abdominal pain. No nausea/vomiting. NO headache No vision change Was straight cathed yesterday. No history of prostate cancer/BPH No prior history of urinary retention Has taken some tylenol in the last few days discomfort after his straight cath. Denies other changes. Has been on pirfenidone since summer of last year. No other changes since this. No tobacco/ETOH use Denies chest pain L hip replacement. Disloacted L hip 3 weeks ago Medical History: Reviewed Medications: Reviewed Surgical History: Reviewed Family history: Reviewed Allergies: Reviewed Social History: No tobacco/ETOH use Code Status: DNR/DNI. Surrogate DM would be his son Silvino. R lateral orbit contusion and laceration Nare with dreid blood, no ongoing epistaxis Discharge Exam GENERAL APPEARANCE NAD, activity normal for age, well developed/ well nourished, no cyanosis, pallor, or diaphoresis. EYES lids/conjunctiva normal. EARS/NOSE/THROAT Mucous membranes moist, nares n ormal, lips/teeth normal uvula midline without oral pharyngeal erythema, exudate or swelling TMs normal bilaterally. No lymphangitis/lymphedema. HEAD/NECK normocephalic atraumatic, no facial trauma, neck is supple. RESPIRATORY respiratory effort normal, speaks in full sentences, no tripod position, no accessory muscle use. Lungs clear to auscultation without rhonchi, wheezes, rales CARDIAC Regular rate and rhythm, no edema. ABDOMINAL Soft, ND/NT. No evidence of fluid wave. No pulsatile masses on exam, rebound tenderness, Wang sign or pain over Mcburney's point. MUSCLES/EXTREMITIES No abnormal range of motion, no swelling. SKIN Warm, pink and dry. No rashes, dermatoses, petechiae or lesions. NEUROLOGICAL Speech is clear and appropriate. Normal level of consciousness. Gait and coordination are normal. 5/5 strength in all extremities. PSYCH Normal mood and affect. Judgement/competence is appropriate Discharge Plan Discharge Items Patient Disposition: Home - Self-Care Reason For Visit: URINARY RETENTION, EPISTAXIS, FALL Discharge Diagnosis: syncope, vertebral fx Activity: Resume your previous activity Non-emergency contact: Primary Care Provider Call non-emergency contact if: you have any medication questions Follow-up/Referrals: Nikki Dawn CRNP [Primary Care Provider] - Diet: Regular Addtl Attending Provider Instructions: Follow up with PMD in 2 weeks Pending Studies at Discharge: No Stand-Alone Forms: [facility] Medications and DC Order Prescriptions: New glycopyrrolate 0.2 mg/mL Solution 0.4 mg IV Q4H Qty: 100 0RF morphine concentrate 100 mg/5 mL (20 mg/mL) Solution 5 mg PO Q3H PRN (Reason: pain) Qty: 100 0RF cefdinir 300 mg Capsule 300 mg PO BID Qty: 6 0RF Continued levothyroxine 100 mcg capsule 100 mcg PO DAILY Qty: 90 3RF Rx Instructions: last filled 02/11 pt aware dose change (DME) Incentive Spirometer Misc See Rx Instructions .MEDSUPPLY Qty: 1 0RF Hold Instructions: do not use at this time Rx Instructions: As directed (DME) home oxygen with tubing and travel bottles See Rx Instructions .Route .MEDSUPPLY Qty: 1 0RF Rx Instructions: use 2 L per nasal cannula with exertion. pirfenidone [Esbriet] 267 mg capsule 801 mg PO TID Qty: 360 5RF Rx Instructions: no fill history unable to verify (DME) oxygen concentrator See Rx Instructions .Route .MEDSUPPLY Qty: 1 0RF Rx Instructions: use 2 L per NC 07/09 sertraline 50 mg tablet 50 mg PO DAILY Qty: 30 5RF atorvastatin [Lipitor] 40 mg tablet 40 mg PO HS Qty: 30 5RF Rx Instructions: for high cholesterol & coronary artery disease nitroglycerin 0.4 mg tablet, sublingual 0.4 mg sublingual Q5M PRN (Reason: chest pain) Qty: 1 0RF Rx Instructions: max 3 doses in 15 minutes; be sure you are sitting or laying down if you have to take this medicine. albuterol sulfate 90 mcg/actuation HFA aerosol inhaler 2 inh inhalation QID PRN (Reason: shortness of breath or wheezing) Qty: 8.5 1RF Rx Instructions: filled 02/09 cholecalciferol (vitamin D3) [Vitamin D3] 50 mcg (2,000 unit) Tablet 50 mcg PO DAILY Rx Instructions: 03/10/24:otc unable to verify aspirin 81 mg Tablet,Delayed Release (Dr/Ec) 81 mg PO BID Qty: 90 3RF Rx Instructions: purchase [id number] acetaminophen [Tylenol] 325 mg Tablet 650 mg PO .Q4-6H PRN (Reason: pain/fever) acetaminophen [Tylenol] 325 mg Tablet 650 mg PO TID tamsulosin [Flomax] 0.4 mg Capsule 0.4 mg PO HS Saline Nasal 0.65 % Aerosol,[place] 1 spray INTRANASAL Q2H PRN (Reason: dryness or epistaxis) multivit,stress formula-zinc Tablet 1 tab PO QAM melatonin 3 mg Tablet 6 mg PO HS magnesium hydroxide [Milk of Magnesia] 400 mg/5 mL Suspension 30 ml PO DIRECTED PRN (Reason: Constipation) bisacodyl [Dulcolax (bisacodyl)] 10 mg Suppository 10 mg OK DAILY PRN (Reason: Constipation) Santyl 250 unit/gram Ointment 1 applic TOPICAL DAILY Discharge Orders: Discharge Order (Routine); Ordered 06/14/24 Ordered By: Dimas Warren Admission Data Admit Date/Time: 06/09/24 09:48 Attending Provider: Dimas Warren Admit Provider: Kareem Bravo Primary Care Provider: Nikki Dawn Hospital Stay Data Diagnostic Imagining Performed 06/09/24 05:12 CT cervical spine wo con Stat CT facial bones wo con Stat CT head/brain wo con Stat 06/09/24 19:04 CT lumbar spine wo/w con Urgent CT thoracic spine wo/w con Urgent Pending Results Patient Have Any Pending Studies at Discharge: No Discharge Instructions Given to Patient (Per Discharging Provider) Follow up with PMD in 2 weeks Total Time Total Time Spent Total Time Spent (In Minutes): 50 Coding Level of Care Code 57728 INP/OBS DISCH >30 MIN Diagnoses Syncope, unspecified syncope type R55 Syncope type: unspecified LBBB (left bundle branch block) I44.7 Coronary artery disease of [place] heart with stable angina pectoris, unspecified vessel or lesion type I25.118 Coronary Disease-Associated Artery/Lesion type: unspecified vessel or lesion type [place] vs. transplanted heart: [place] heart Associated angina: with stable angina ILD (interstitial lung disease) J84.9 Pulmonary nodule R91.1 Urinary retention R33.9 GERD (gastroesophageal reflux disease) K21.9 Hyperlipidemia, unspecified hyperlipidemia type E78.5 Hyperlipidemia type: unspecified UTI (urinary tract infection) N39.0
[2024-06-14 11:41] VITALS: BP 112/65; PULSE 65
== END 2024-06-14 13:16 | disposition home or self-care (01) | DRG 542 ==
LOC: ED 04:51 → SUATTDRO 09:48 → INTOOBSV 09:48 → EDINP 09:48 → 2N 12:44 → 3N 06-10 18:20